=== PATIENT | male | born 1950 | race Caucasian/White ===

== ENCOUNTER 2017-07-28 14:27 | Inpatient (IN) | payer OTHER ==
[~2017-07-28] VITALS: Ht 175.3 cm; Wt 77.8 kg
[~2017-07-28 14:27] MED LIST: /ACYC20CA PO; /WARF5TA OR; /WARF5TA PO; ANTACHW5 PO; ARTHRITIS MED PO; CELEBREX PO; COZA25TA8 PO; FISH300C2 PO; GLUC500T3 PO; LOVA10TA OR; LOVA10TA PO; MULTI VITAMIN PO; PERC5TAB8 OR; PERC7.5T8 OR; ZEGERID PO; [UNRECOGNIZED DRUG - OTHER]; [UNRECOGNIZED DRUG - REMARK] PO; aleve PO; losartan PO; stool softner PO
[2017-07-28] MEDS ORDERED: [UNRECOGNIZED DRUG - CODE] SSP (14:40)
[2017-07-28] MEDS ORDERED: HYDR200T3 PO (14:40)
[2017-07-28] MEDS ORDERED: CELE1CAP9 PO (14:40)
[2017-07-28] MEDS ORDERED: PRED5TA PO (14:40)
[2017-07-28] MEDS ORDERED: OMEP20CA3 PO (14:40)
[2017-07-28] MEDS ORDERED: CHLO0.12 MT (14:40)
[2017-07-28] MEDS ORDERED: AMLO5TAB2 PO (14:40)
[2017-07-28] MEDS ORDERED: AMOX500C PO (14:40)
[2017-07-28] MEDS ORDERED: [UNRECOGNIZED DRUG - CODE] INJ (14:40)
[2017-07-28] MEDS ORDERED: ONDANSETRON 4MG/2ML VIAL (J2405) IV ONE ×2 (15:45→18:00)
[2017-07-28] MEDS ORDERED: NS 500 ML IV ONE (15:45)
[2017-07-28] MEDS ORDERED: fentaNYL 100 MCG/2 ML INJECTION (J3010) IV ONE ×2 (16:00→18:00)
[2017-07-28 16:27] LABS: BASO # 0.1 10^3/uL (0.0-0.2); BASO % 0.3 % (0.0-1.0); LYMPH # 1.3 10^3/uL (1.5-4.5); LYMPH % 5.3 % (24.0-44.0); MEAN CORPUSCULAR HEMOGLOBIN 38.1 pg (27.0-33.0); MEAN CORPUSCULAR HGB CONC 32.7 g/dl (32.0-36.5); MONO % 9.9 % (0.0-5.0); NEUTROPHILS # 19.4 10^3/uL (1.8-7.7); NEUTROPHILS % 81.5 % (36.0-66.0); RED CELL DISTRIBUTION WIDTH 14.2 % (11.5-14.5); WHITE BLOOD COUNT 23.7 10^3/uL (4.0-10.0)
[2017-07-28 16:50] LABS: ADD MORPHOLOGY? YES; MEAN CORPUSCULAR VOLUME 116.3 fl (80.0-96.0); MONO # 2.3 10^3/uL (0.0-0.8); PLATELET COUNT, AUTOMATED 45 10^3/uL (150-450)
[2017-07-28 17:34] LABS: ANION GAP 6 MEQ/L (8-16); BLOOD UREA NITROGEN 20 MG/DL (7-18); CALCIUM LEVEL 8.3 MG/DL (8.8-10.2); CARBON DIOXIDE LEVEL 28 MEQ/L (21-32); CHLORIDE LEVEL 105 MEQ/L (98-107); GLOMERULAR FILTRATION RATE > 60.0 (>49); GLUCOSE, FASTING 98 MG/DL (80-110); POTASSIUM SERUM 4.3 MEQ/L (3.5-5.1); SODIUM LEVEL 139 MEQ/L (136-145)
[2017-07-28] MEDS ORDERED: ISOVUE-370 76% 100ML VIAL (Q9967) As Ordered ONE (17:49)
[2017-07-28 18:10] LABS: ANISOCYTOSIS 2+
--- NOTE | 2017-07-28 18:30 | REPUSA ---
CT of the facial bones with contrast Clinical history: left mandibular mass. Technique: Multiple axial CT images were obtained through the facial bones and paranasal sinuses util izing 3 mm axial slices funny administration of nonionic intravenous contrast. Coronal and sagittal r econstructions were also obtained. Findings: There is an ill-defined low attenuation lesion in the anterior left mandibular region, with significant surrounding soft tissue inflammation and swelling. No discrete loculation is seen at thi s site. The visualized paranasal sinuses are clear, other than a mucus retention cyst in the inferior left maxillary sinus. The osteomeatal complexes are patent bilaterally. The nasal septum is midline. The visualized mastoid air cells are clear. The osseous structures do not demonstrate any acute abno rmalities. Impression: 1. Ill-defined low attenuation collection in the anterior left submandibular soft tissues with surrou nding inflammation and edema. This low attenuation fluid does not appear to be loculated. Differentia l diagnosis includes early developing abscess versus edema secondary to inflammation/cellulitis. Foll ow-up is recommended as clinically indicated. 2. Prominent subcentimeter left submandibular lymph nodes noted. 3. Mucus retention cyst in the inferior left maxillary sinus. 4. No acute osseous abnormality.
[2017-07-28] MEDS ORDERED: CLINDAMYCIN 150 MG CAP PO ONE (18:45)
[2017-07-28] MEDS ORDERED: MORPHINE 4 MG/ML 1ML SYRINGE IV ONE (18:45)
[2017-07-28] MEDS ORDERED: CLINDAMYCIN 300 MG in APPROPRIATE DILUENT 1 EA IV ONE (19:00)
[2017-07-28] MEDS ORDERED: CLINDAMYCIN 600 MG in APPROPRIATE DILUENT 1 EA IV ONE (20:00)
[2017-07-28] MEDS ORDERED: SF 51.1C EXT (21:38)
[2017-07-28] MEDS ORDERED: [UNRECOGNIZED DRUG - CODE] PO (21:38)
[2017-07-28] MEDS ORDERED: ADVI200T PO (21:38)
[2017-07-28] MEDS ORDERED: VITA1CAP40 PO (21:38)
[2017-07-28] MEDS ORDERED: AMPICILLIN SOD/SULBACTAM SOD 3 GM in D5W MINI-BAG PLUS 100 ML IV SCH (22:00)
[2017-07-28] MEDS: MORPHINE 2 MG/ML 1ML SYRINGE IV PRN (22:21)
[2017-07-28] MEDS ORDERED: VANCOMYCIN HCL 1,000 MG, VIAL MATE ADAPTER 1 EACH in D5W 250 ML IV ONE (23:00)
[2017-07-28 23:33] VITALS: BP 166/82
[2017-07-29] VITALS: BP 161/91
[2017-07-29] MEDS: NS 1,000 ML IV SCH ×3 (00:20→19:00)
[2017-07-29] MEDS: ONDANSETRON 4MG/2ML VIAL (J2405) IV PRN ×3 (00:20→19:42)
[2017-07-29] MEDS: MORPHINE 2 MG/ML 1ML SYRINGE IV PRN ×6 (00:21→19:31)
[2017-07-29] MEDS: AMPICILLIN SOD/SULBACTAM SOD 3 GM in D5W MINI-BAG PLUS 100 ML IV SCH ×5 (01:06→23:29)
--- NOTE | 2017-07-29 04:08 | PHACANCOPD ---
PHARMACY VANCOMYCIN DOSING Pt Demographics Demographics Patient Age:66 , Weight:77.800 , Gender: male Adjusted Body Weight Date: 07/29/17, Adjusted Body Weight: [73.54] Kg Vancomycin Vancomycin indication: ORAL ABCESS Vancomycin Target Ranges: 15-20 mcg/ml Vancomycin Load Y/N: No Load Dose Date Time Vancomycin Load Dose: Date: Time: Vancomycin Dose Date: 07/29/17. Current Vancomycin Dose: [1 GM Q12H@05] 1 GRAM@12MID Intermittent Dosing?: No Labs Labs Laboratory Tests 07/28/17 16:02 Red Blood Count 2.89 L, Mean Corpuscular Volume 116.3 H, Mean Corpuscular Hemoglobin 38.1 H, Mean Corpuscular Hemoglobin Concent 32.7, Red Cell Distribution Width 14.2, Neutrophils (%) (Auto) 81.5 H, Lymphocytes (%) (Auto) 5.3 L, Monocytes (%) (Auto) 9.9 H, Eosinophils (%) (Auto) 0.0, Basophils (%) ( Auto) 0.3, Neutrophils # (Auto) 19.4 H, Lymphocytes # (Auto) 1.3 L, Monocytes # (Auto) 2.3 H, Eosinophils # (Auto) 0.0, Basophils # (Auto) 0.1 07/28/17 17:00 Calcium Level 8.3 L Creatinine Clearance Date:07/29/17. Creatinine Clearance: [106].CALCULATED Pending Labs VANCOMYCIN TROUGH DUE 07/29@1600 Assessment and Plan Maintaining Current Dose?: Yes Reason for dose change: No Dose Change Pharmacist Note Pharmacist Note Date: 07/29/17. Pharmacist note:66 YOM Admitted w/oral abcess advancing despite outpatient oral amoxicillin tx, SCR=0.7 QQSZ=005,allergy=chlorpromazine.will treat with amp/sulbactam 3 gm iv [id number] and Vasncomycin per pharmacy consult. Vanco 1 gm @ 12mid,then 1 gram iv q12h to begin @0500.Will draw first trough prior to third dose today@1600.Will continue to follow levels and labs [facility] Jul 29, 2017 04:08
[2017-07-29] MEDS ORDERED: VANCOMYCIN HCL 1,000 MG, VIAL MATE ADAPTER 1 EACH in D5W 250 ML IV SCH (05:00)
[2017-07-29 05:53] VITALS: BP 159/87
[2017-07-29] MEDS ORDERED: HEPARIN SOD (PORCINE) 5000 UNITS/ML VIAL SC SCH (06:00)
[2017-07-29 06:36] LABS: MEAN CORPUSCULAR HEMOGLOBIN 37.6 pg (27.0-33.0); MEAN CORPUSCULAR HGB CONC 32.4 g/dl (32.0-36.5); RED CELL DISTRIBUTION WIDTH 14.4 % (11.5-14.5); WHITE BLOOD COUNT 17.6 10^3/uL (4.0-10.0)
[2017-07-29 06:44] LABS: MEAN CORPUSCULAR VOLUME 116.2 fl (80.0-96.0); PLATELET COUNT, AUTOMATED 52 10^3/uL (150-450)
[2017-07-29 06:46] LABS: INR 1.07
[2017-07-29 07:09] LABS: ALBUMIN 2.9 GM/DL (3.2-5.2); ALBUMIN/GLOBULIN RATIO 0.81 (1.00-1.93); ALKALINE PHOSPHATASE 82 U/L (45-117); ALT/SGPT 30 U/L (12-78); ANION GAP 6 MEQ/L (8-16); AST/SGOT 20 U/L (15-37); BILIRUBIN,TOTAL 0.4 MG/DL (0.2-1.0); BLOOD UREA NITROGEN 10 MG/DL (7-18); CALCIUM LEVEL 7.9 MG/DL (8.8-10.2); CARBON DIOXIDE LEVEL 27 MEQ/L (21-32); CHLORIDE LEVEL 102 MEQ/L (98-107); CREATININE FOR GFR 0.64 MG/DL (0.70-1.30); GLOMERULAR FILTRATION RATE > 60.0 (>49); GLUCOSE, FASTING 148 MG/DL (80-110); MAGNESIUM LEVEL 1.6 MG/DL (1.8-2.4); POTASSIUM SERUM 3.5 MEQ/L (3.5-5.1); SODIUM LEVEL 135 MEQ/L (136-145); TOTAL PROTEIN 6.5 GM/DL (6.4-8.2)
--- NOTE | 2017-07-29 07:53 | HPEPDOC ---
General Date of Admission Jul 28, 2017 at 21:37 Primary Care Physician: Edmond Ramirez MD Attending Physician: BERTA PEACE MD Chief Complaint The patient is a 66-year-old male admitted with a reason for visit of Secondary Malignancy Of Submandibular Lymph Nodes. Source: Patient Exam Limitations: No limitations Timing/Duration: Day(s) Severity: Severe Associated Symptoms: Denies Symptoms, Chest Pain, Cough, Diaphoresis History of Present Illness 66-year-old male, history of recent tooth extraction, presented with left mandibular swelling, pain, fever, chills, unable to swallow. The swelling is progressively getting worse, associated with low-grade temp. There is no discharge. Upon presentation to the emergency room. CT of the macula showed mandibular abscess and oral surgeon was contacted who recommended the patient to be taken to the OR in the morning. Home Medications Scheduled (Prevident Rinse) 0.2 % Nichole, 0.5 OZ SSP QHS, (Reported) (Celecoxib) 200 Mg Cap, 200 MG PO DAILY, (Reported) (Granix) 480 Mcg/0.8 Ml Inj, 480 MCG INJ ASDIRECTED, (Reported) USES ON MONDAYS AND THURSDAYS IN THE MORNING Amlodipine Besylate (Amlodipine Besylate) 5 Mg Tab, 5 MG PO DAILY, (Reported) Amoxicillin (Amoxicillin) 500 Mg Cap, 500 MG PO TID, (Reported) Chlorhexidine Gluconate (Chlorhexidine Gluconate) 480 Ml Soln, 15 ML MT ASDIRECTED, (Reported) Ergocalciferol (Vitamin D) 50,000 Unit Cap, 50,000 UNIT PO ASDIRECTED, (Reported ) TAKES ON MONDAYS IN THE MORNING Glucosamine Sulfate (Glucosamine/Chondroitin) 1 Tab Tab, 1 TAB PO DAILY, ( Reported) Hydroxychloroquine Sulfate (Hydroxychloroquine Sulfat) 200 Mg Tab, 400 MG PO DAILY, (Reported) Omeprazole (Omeprazole) 20 Mg Cap, 20 MG PO BID, (Reported) Prednisone (Prednisone) 5 Mg Tab, 10 MG PO DAILY, (Reported) Sodium Fluoride (Sf 5000 Plus) 1.1 % Cre, 1 DOSE EXT BID, (Reported) USES ON TEETH Scheduled PRN (Wal-Flu Severe Cold & Cou 20-10-650 mg) 1 Rickie Rickie, 1 RICKIE PO Q6H PRN for COLD, (Reported) Ibuprofen (Advil) 200 Mg Tab, 400 MG PO Q6H PRN for PAIN, (Reported) Allergies Coded Allergies: Chlorpromazine (Verified Allergy, Severe, 01/31/13) Past Medical History Medical History No past medical history Surgical History Tooth extraction Family History Significant Family History: No pertinent family hx Social History Alcohol: Denies Drugs: denies Recent Travel/Sick Contacts: Denies: Recent travel, Recent sick contacts Psychosocial History: No pertinent psych hx Review of Symptoms Constitutional: Reports: Chills, Denies: Fever, Night Sweats Eyes: Denies: Pain, Vision change ENT: Reports: Dysphagia, Other Symptoms (unable to open mouth, unable to swallow, difficulty speaking), Denies: Head Aches, Ear Pain Skin: Denies: Rash, Lesions, Breakdown Pulmonary: Denies: Dyspnea, Cough Cardiovascular: Denies: Chest Pain, Palpitations, Orthopnea, Paroxysmal Noc. Dyspnea, Lt Headedness Gastrointestinal: Denies: Nausea, Vomiting, Abdominal Pain, Diarrhea Genitourinary: Denies: Dysuria, Frequency, Incontinence, Retention Hematologic: Denies: Bruising, Bleeding Excessively Musculoskeletal: Denies: Neck Pain, Back Pain, Joint Pain, Muscle Pain, Spasms Neurological: Denies: Weakness, Numbness, Change in speech, Confusion Psych: Reports: Mood Normal, Denies: Depression, Memory Issues Physical Examination General Exam: Positive: Alert, Severe Distress Eye Exam: Positive: PERRLA, Conjunctiva & lids normal, EOMI, Negative: Sclera icteric ENT Exam: Positive: Atraumatic, Tongue Midline, Other ENT (left mandibular swelling, tender, painful movement of jaw, and erythema) Neck Exam: Positive: Supple, Negative: JVD, thyromegaly Chest Exam: Positive: Clear to auscultation, Normal air movement Heart Exam: Positive: Rate Normal, Regular Rhythm, Normal S1, Normal S2, Negative: Murmurs, Rubs Telemetry: Positive: No significant arrhythmia Abdomen Exam: Positive: Normal bowel sounds, Soft, Negative: Tenderness, Hepatospenomegaly Extremity Exam: Positive: Normal pulses, Negative: Clubbing, Cyanosis, Edema Skin Exam: Positive: Nl turgor and temperature, Negative: Breakdown, Lesion Neuro Exam: Positive: Normal Tone Vital Signs Vital Signs Date Time Temp Pulse Resp B/P (MAP) Pulse Ox O2 Delivery O2 Flow Rate FiO2 07/29/17 05:59 16 07/29/17 05:53 99.6 91 159/87 (111) 94 Room Air Laboratory Data Labs 24H Laboratory Tests 2 07/28/17 16:02: Immature Granulocyte % (Auto) 3.0H, White Blood Count 23.7H, Red Blood Count 2.89L, Hemoglobin 11.0L, Hematocrit 33.6L, Mean Corpuscular Volume 116.3H, Mean Corpuscular Hemoglobin 38.1H, Mean Corpuscular Hemoglobin Concent 32.7, Red Cell Distribution Width 14.2, Platelet Count 45L, Neutrophils (%) (Auto) 81.5H, Lymphocytes (%) (Auto) 5.3L, Monocytes (%) (Auto) 9.9H, Eosinophils (%) (Auto) 0.0, Basophils (%) (Auto) 0.3, Neutrophils # (Auto) 19.4H, Lymphocytes # (Auto) 1.3L, Monocytes # (Auto) 2.3H, Eosinophils # (Auto) 0.0, Basophils # (Auto) 0.1 , Immature Granulocyte # (Auto) 0.7H, Nucleated Red Blood Cells % (auto) 0.0, Platelet Estimate MARKED DECREASE, Anisocytosis 2+, Macrocytosis 2+ 07/28/17 17:00: Anion Gap 6L, Glomerular Filtration Rate > 60.0, Blood Urea Nitrogen 20H, Creatinine 0.70, Sodium Level 139, Potassium Level 4.3, Chloride Level 105, Carbon Dioxide Level 28, Calcium Level 8.3L 07/29/17 06:22: Anion Gap 6L, Glomerular Filtration Rate > 60.0, Blood Urea Nitrogen 10, Creatinine 0.64L, Sodium Level 135L, Potassium Level 3.5, Chloride Level 102, Carbon Dioxide Level 27, Calcium Level 7.9L, Prothrombin Time 14.1, Prothromb Time International Ratio 1.07, Aspartate Amino Transf (AST/SGOT) 20, Alanine Aminotransferase (ALT/SGPT) 30, Alkaline Phosphatase 82, Total Bilirubin 0.4, Total Protein 6.5, Albumin 2.9L, Magnesium Level 1.6L, Albumin/Globulin Ratio 0.81L CBC/BMP Laboratory Tests 07/28/17 16:02 Red Blood Count 2.89 L, Mean Corpuscular Volume 116.3 H, Mean Corpuscular Hemoglobin 38.1 H, Mean Corpuscular Hemoglobin Concent 32.7, Red Cell Distribution Width 14.2, Neutrophils (%) (Auto) 81.5 H, Lymphocytes (%) (Auto) 5.3 L, Monocytes (%) (Auto) 9.9 H, Eosinophils (%) (Auto) 0.0, Basophils (%) ( Auto) 0.3, Neutrophils # (Auto) 19.4 H, Lymphocytes # (Auto) 1.3 L, Monocytes # (Auto) 2.3 H, Eosinophils # (Auto) 0.0, Basophils # (Auto) 0.1 07/28/17 17:00 Calcium Level 8.3 L 07/29/17 06:22 Red Blood Count 2.71 L, Mean Corpuscular Volume 116.2 H, Mean Corpuscular Hemoglobin 37.6 H, Mean Corpuscular Hemoglobin Concent 32.4, Red Cell Distribution Width 14.4, Calcium Level 7.9 L, Aspartate Amino Transf (AST/SGOT) 20, Alanine Aminotransferase (ALT/SGPT) 30, Alkaline Phosphatase 82, Total Bilirubin 0.4, Total Protein 6.5, Albumin 2.9 L Assessment/Plan 76-year-old male, history of recent tooth extraction, presented with left mandibular abscess Plan / VTE VTE Prophylaxis Ordered?: Yes Plan Plan Mandibular abscess, oral surgeon was contacted and start the patient on IV Unasyn and vancomycin. WBC was 23.7. Patient is scheduled for OR in the morning. Patient received clindamycin in the ER. Disposition Patient will likely be discharged home after the drainage in the OR with the oral antibiotics to be followed for 7-10 days and follow up in dental clinic. IVF: Initiate Diet: Make NPO Activity: Continue Current Diagnostics: Repeat Labs in AM Anticipated Discharge: Home CASIE SANDS MD Jul 29, 2017 07:53
[2017-07-29] MEDS ORDERED: ACETAMINOPHEN 650 MG SUPP PR PRN (11:30)
[2017-07-29] MEDS ORDERED: MAG SULF 1GM/100ML (MAG RUN) 1 GM in APPROPRIATE DILUENT 1 EA IV ONE (12:00)
[2017-07-29 14:00] VITALS: BP 160/78
[2017-07-29 14:29] LABS: MEAN CORPUSCULAR HEMOGLOBIN 37.7 pg (27.0-33.0); MEAN CORPUSCULAR HGB CONC 32.5 g/dl (32.0-36.5); RED CELL DISTRIBUTION WIDTH 14.3 % (11.5-14.5); WHITE BLOOD COUNT 16.9 10^3/uL (4.0-10.0)
[2017-07-29 14:38] LABS: INR 1.11
[2017-07-29 14:52] LABS: ADD MANUAL DIFFER YES; ADD MORPHOLOGY? YES; DIFF SLIDE NUMBER 258; PLATELET COUNT, AUTOMATED 99 10^3/uL (150-450)
[2017-07-29 15:08] LABS: ANISOCYTOSIS 2+
--- NOTE | 2017-07-29 15:21 | IPNPDOC ---
Text Note Date of Service The patient was seen on 07/29/17. NOTE Subjective: Patient states he has increased swelling of the left submandibular region. He has no dyspnea. No chest pain. He is able to clear secretions at this time. Objective: Vitals: (see below) General: No acute distress, laying comfortably in bed. HEENT: Moist mucous membranes. Significant swelling and induration of the left submandibular region. No erythema. Airway is patent. No stridor Neck: No JVD or lymphadenopathy Cardiac: RRR, No murmurs Pulm: Diminished breath sounds at the bases b/l. No wheezing, rhonchi. Abd: NT/ND + BS Ext: No edema or cyanosis Labs (see below) Images: CT maxillofacial 07/28/17 Impression: 1. Ill-defined low attenuation collection in the anterior left submandibular soft tissues with surrounding inflammation and edema. This low attenuation fluid does not appear to be loculated. Differential diagnosis includes early developing abscess versus edema secondary to inflammation/cellulitis. Follow-up is recommended as clinically indicated. 2. Prominent subcentimeter left submandibular lymph nodes noted. 3. Mucus retention cyst in the inferior left maxillary sinus. 4. No acute osseous abnormality. Assessment/Plan 1. Left submandibular abscess status post tooth extraction on Thursday. Patient noted increased swelling, has followed up with his dentist who recommended that he come to the emergency department. The patient did have a CAT scan of the maxillofacial (see above). Since admission, the patient has been on Unasyn as well as vancomycin. His leukocytosis is mildly improved. Does have elevated CRP/ESR. His airway is patent. He has no dyspnea. Dr. Gomez is on consult and the patient will be going to the OR today. He is a high risk for prolonged intubation after the OR given significant amount of swelling noted. 2. 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 Gracia, with plan to start radiation and chemotherapy soon. He was supposed to have a port placed as well as a PEG tube as the radiation will significantly impact his ability to swallow. This will be delayed until after this acute episode has resolved. 3. History of neutropenia, receiving Neupogen twice a week 4. Thrombocytopenia- likely multifactorial secondary to his underlying malignancy, lupus, as well as now acute infection. He has been transfused 4 units of platelets. His platelets are now 99 and the patient will be going to the OR as the goal was to have his platelets above 80. 5. History of hyperlipidemia 6. History of GERD DVT prophy: SCDs. Heparin subcutaneous has been held for now as the patient will be going to the OR. Prognosis is guarded. Patient is full code. VS,Fishbone, I+O VS, Fishbone, I+O Laboratory Tests 07/28/17 16:02 Red Blood Count 2.89 L, Mean Corpuscular Volume 116.3 H, Mean Corpuscular Hemoglobin 38.1 H, Mean Corpuscular Hemoglobin Concent 32.7, Red Cell Distribution Width 14.2, Neutrophils (%) (Auto) 81.5 H, Lymphocytes (%) (Auto) 5.3 L, Monocytes (%) (Auto) 9.9 H, Eosinophils (%) (Auto) 0.0, Basophils (%) ( Auto) 0.3, Neutrophils # (Auto) 19.4 H, Lymphocytes # (Auto) 1.3 L, Monocytes # (Auto) 2.3 H, Eosinophils # (Auto) 0.0, Basophils # (Auto) 0.1 07/28/17 17:00 Calcium Level 8.3 L 07/29/17 06:22 Red Blood Count 2.71 L, Mean Corpuscular Volume 116.2 H, Mean Corpuscular Hemoglobin 37.6 H, Mean Corpuscular Hemoglobin Concent 32.4, Red Cell Distribution Width 14.4, Calcium Level 7.9 L, Aspartate Amino Transf (AST/SGOT) 20, Alanine Aminotransferase (ALT/SGPT) 30, Alkaline Phosphatase 82, Total Bilirubin 0.4, Total Protein 6.5, Albumin 2.9 L 07/29/17 14:13 Red Blood Count 2.44 L, Mean Corpuscular Volume 116.0 H, Mean Corpuscular Hemoglobin 37.7 H, Mean Corpuscular Hemoglobin Concent 32.5, Red Cell Distribution Width 14.3, Monocytes # (Auto) Vital Signs Date Time Temp Pulse Resp B/P (MAP) Pulse Ox O2 Delivery O2 Flow Rate FiO2 07/29/17 13:38 18 96 Nasal Cannula 2.0 07/29/17 05:53 99.6 91 159/87 (111) I&O- Last 24 Hours up to 6 AM 07/30/17 05:59 Intake Total 270 ml Output Total 225 ml Balance 45 ml BERTA PEACE MD Jul 29, 2017 15:20
--- NOTE | 2017-07-29 15:31 | PHACANCOPD ---
PHARMACY VANCOMYCIN DOSING Pt Demographics Demographics Patient Age:66 , Weight:77.800 , Gender: male Adjusted Body Weight Date: 07/29/17, Adjusted Body Weight: [73.54] Kg Vancomycin Vancomycin indication: ORAL ABCESS Vancomycin Target Ranges: 15-20 mcg/ml Vancomycin Load Y/N: No Load Dose Date Time Vancomycin Load Dose: Date: Time: Vancomycin Dose Date: 07/29/17. Current Vancomycin Dose: [1 GM Q12H@05] 1 GRAM@12MID Intermittent Dosing?: No Labs Micro Microbiology 07/29/17 Blood Culture, Received Pending 07/29/17 Blood Culture, Received Pending Creatinine Clearance Date:07/29/17. Creatinine Clearance: [106].CALCULATED Pending Labs VANCOMYCIN TROUGH DUE 07/29@1600 Assessment and Plan Maintaining Current Dose?: No Reason for dose change: Trough too low Pharmacist Note Pharmacist Note 07/29/17: Trough prior to 3rd dose today resulted at 8.1mcg/ml. I will increase the vancomycin regimen from 1g IV Q12H to 1g IV Q8H. A follow-up trough has been scheduled tomorrow, 07/30/17, @1600. We will continue to monitor and make further dose adjustments if needed. Date: 07/29/17. Pharmacist note:66 YOM Admitted w/oral abcess advancing despite outpatient oral amoxicillin tx, SCR=0.7 MVOF=301,allergy=chlorpromazine.will treat with amp/sulbactam 3 gm iv [id number] and Vasncomycin per pharmacy consult. Vanco 1 gm @ 12mid,then 1 gram iv q12h to begin @0500.Will draw first trough prior to third dose today@1600.Will continue to follow levels and labs [facility] Jul 29, 2017 15:31
[2017-07-29] MEDS: VANCOMYCIN HCL 1,000 MG, VIAL MATE ADAPTER 1 EACH in D5W 250 ML IV SCH (16:26)
[2017-07-29 18:00] VITALS: BP 150/77
[2017-07-29 19:45] VITALS: BP 143/74
[2017-07-29] MEDS ORDERED: LIDOCAINE 2% W/ EPINEPHRINE 1.7 ML DENTAL INJ As Ordered ONE (21:59)
[2017-07-29] MEDS ORDERED: fentaNYL 100 MCG/2 ML INJECTION (J3010) As Ordered ONE ×2 (22:10→23:34)
[2017-07-29] MEDS ORDERED: MIDAZOLAM INJ 2 MG/2 ML VIAL (J2250) As Ordered ONE (22:10)
[2017-07-29] MEDS ORDERED: ONDANSETRON 4MG/2ML VIAL (J2405) As Ordered ONE (22:10)
[2017-07-29] MEDS ORDERED: ROCURONIUM BROMIDE 50 MG/5 ML VIAL/SYRINGE As Ordered ONE (22:10)
[2017-07-29] MEDS ORDERED: LIDOCAINE 2% INJ 100 MG/5 ML SDV (FOR ANES.) As Ordered ONE (22:10)
[2017-07-29] MEDS ORDERED: dexameTHASONE 4 MG/ML 1ML VIAL (J1100) As Ordered ONE (22:10)
[2017-07-29] MEDS ORDERED: PROPOFOL 200 MG/20 ML VIAL As Ordered ONE (22:10)
[2017-07-29] MEDS ORDERED: PHENYLephrine HCL 500 MCG/5 ML (100MCG/ML) SYRINGE (J2370) As Ordered ONE (22:11)
[2017-07-29] MEDS ORDERED: GLYCOPYRROLATE INJ 0.2 MG/ML 2 ML VIAL As Ordered ONE (22:16)
[2017-07-29] MEDS ORDERED: NEOSTIGMINE 10 MG/10 ML VIAL (J2710) As Ordered ONE (22:16)
[2017-07-29] MEDS ORDERED: UNASYN 1.5 GM VIAL As Ordered ONE (23:18)
[2017-07-29] MEDS ORDERED: ONDANSETRON 4MG/2ML VIAL (J2405) IV PRN (23:30)
[2017-07-29] MEDS ORDERED: LR 1,000 ML IV SCH (23:30)
[2017-07-29] MEDS ORDERED: fentaNYL 100 MCG/2 ML INJECTION (J3010) IV PRN (23:30)
[2017-07-30] VITALS (10 sets, daily range): BP systolic 115–163; BP diastolic 57–86
[2017-07-30] MEDS: VANCOMYCIN HCL 1,000 MG, VIAL MATE ADAPTER 1 EACH in D5W 250 ML IV SCH ×3 (01:04→17:05)
[2017-07-30] MEDS: AMPICILLIN SOD/SULBACTAM SOD 3 GM in D5W MINI-BAG PLUS 100 ML IV SCH ×3 (05:50→19:20)
[2017-07-30] MEDS: NS 1,000 ML IV SCH ×2 (05:50→13:40)
[2017-07-30 06:46] LABS: MEAN CORPUSCULAR HEMOGLOBIN 37.6 pg (27.0-33.0); MEAN CORPUSCULAR HGB CONC 32.5 g/dl (32.0-36.5); PLATELET COUNT, AUTOMATED 78 10^3/uL (150-450); RED CELL DISTRIBUTION WIDTH 14.1 % (11.5-14.5); WHITE BLOOD COUNT 7.8 10^3/uL (4.0-10.0)
[2017-07-30 06:47] LABS: ADD MANUAL DIFFER YES; DIFF SLIDE NUMBER 88
[2017-07-30 06:57] LABS: INR 1.08
[2017-07-30 07:01] LABS: ANION GAP 9 MEQ/L (8-16); BLOOD UREA NITROGEN 8 MG/DL (7-18); CARBON DIOXIDE LEVEL 28 MEQ/L (21-32); CHLORIDE LEVEL 101 MEQ/L (98-107); CREATININE FOR GFR 0.56 MG/DL (0.70-1.30); GLOMERULAR FILTRATION RATE > 60.0 (>49); GLUCOSE, FASTING 172 MG/DL (80-110); POTASSIUM SERUM 3.8 MEQ/L (3.5-5.1); SODIUM LEVEL 138 MEQ/L (136-145)
[2017-07-30 07:26] LABS: ERYTHROCYTE SEDIMENTATION RATE 80 mm/hr (0-20)
[2017-07-30 07:36] LABS: HYPOCHROMASIA 1+
--- NOTE | 2017-07-30 07:52 | RO ---
DATE OF PROCEDURE: 07/29/2017 PREOPERATIVE DIAGNOSIS: Perimandibular abscess, left side. POSTOPERATIVE DIAGNOSIS: Perimandibular abscess, left side. PROCEDURE: Incision and drainage left perimandibular abscess. SURGEON: Randy James DDS [employer]NAG[employer]ETING: ANESTHESIA: Nasoendotracheal general. DESCRIPTION OF PROCEDURE: After induction of adequate nasoendotracheal general anesthesia, the patient was prepped and draped in the usual manner for an oral surgical procedure. The mouth and oropharynx were suctioned free of all secretions and a moist gauze throat pack was placed into the oropharynx, occluding the pharynx and lower airway. At this time, approximately 3 mL of 2% lidocaine solution containing 1:100,000 epinephrine was injected into the left mandibular mucofacial fold. An incision was then initiated in the retromolar area in a hockey-stick fashion then extended through the gingival sulcus of teeth 18, 20, 21, 22 and 23. An anterior vertical release into the mucofacial fold was made. A full-thickness mucoperiosteal flap was developed exposing the facial cortex of the mandible. Subperiosteal dissection was extended inferiorly and completely to and around the inferior border of the mandible. A small amount of purulent exudate was evacuated. The site was thoroughly irrigated and evacuated and then the wound reinspected. A small area of tissue necrosis was noted in the buccal mucosa adjacent to bicuspid teeth. Exploration of this area revealed a small submucosal pocket that extended superior to the periosteum into the buccal area. Probing with a blunt probe released an additional small amount, approximately 1/2 mL of purulent exudate. This wound was also thoroughly irrigated and evacuated. A one-quarter inch Tyree drain was placed into the buccal mucosal pocket and sutured in place with two #3-0 silk sutures. Both surgical sites were then thoroughly irrigated and evacuated. The gingiva was recoapted with #3-0 chromic gut sutures. This concluded the procedure. The patient tolerated the procedure well. He was breathing spontaneously, extubated and taken to the recovery room in stable condition.
[2017-07-30] MEDS ORDERED: dexameTHASONE 4 MG/ML 1ML VIAL (J1100) IV ONE (10:30)
--- NOTE | 2017-07-30 15:18 | IPNPDOC ---
Text Note Date of Service The patient was seen on 07/30/17. NOTE Subjective: Patient went to the OR yesterday. States swelling of the left submandibular region has decreased. He has no dyspnea. No chest pain. He is able to clear secretions at this time. Objective: Vitals: (see below) General: No acute distress, laying comfortably in bed. HEENT: Moist mucous membranes. Swelling and induration of the left submandibular region has decreased. Abscess was drained with drain in place. No erythema. Airway is patent. No stridor Neck: No JVD or lymphadenopathy Cardiac: RRR, No murmurs Pulm: Diminished breath sounds at the bases b/l. No wheezing, rhonchi. Abd: NT/ND + BS Ext: No edema or cyanosis Labs (see below) Images: CT maxillofacial 07/28/17 Impression: 1. Ill-defined low attenuation collection in the anterior left submandibular soft tissues with surrounding inflammation and edema. This low attenuation fluid does not appear to be loculated. Differential diagnosis includes early developing abscess versus edema secondary to inflammation/cellulitis. Follow-up is recommended as clinically indicated. 2. Prominent subcentimeter left submandibular lymph nodes noted. 3. Mucus retention cyst in the inferior left maxillary sinus. 4. No acute osseous abnormality. Assessment/Plan 1. Left submandibular abscess s/p drainage 07/29/17. Had tooth extraction on . Patient noted increased swelling, has followed up with his dentist who recommended that he come to the emergency department. The patient did have a CAT scan of the maxillofacial (see above). Since admission, the patient has been on Unasyn as well as vancomycin. His leukocytosis is mildly improved. Does have elevated CRP/ESR. His airway is patent. He has no dyspnea. Appreciate oral surg input. 2. 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 Gracia, with plan to start radiation and chemotherapy soon. He was supposed to have a port placed as well as a PEG tube as the radiation will significantly impact his ability to swallow. This will be delayed until after this acute episode has resolved. 3. History of neutropenia, receiving Neupogen twice a week 4. Thrombocytopenia- likely multifactorial secondary to his underlying malignancy, lupus, as well as now acute infection. He has been transfused 4 units of platelets. His platelets are now 99 and the patient will be going to the OR as the goal was to have his platelets above 80. 5. History of hyperlipidemia 6. History of GERD DVT prophy: SCDs. Heparin subcutaneous has been held for now as the patient will be going to the OR. Prognosis is guarded. Patient is full code. VS,Fishbone, I+O VS, Fishbone, I+O Laboratory Tests 07/30/17 06:20 Red Blood Count 2.63 L, Mean Corpuscular Volume 116.0 H, Mean Corpuscular Hemoglobin 37.6 H, Mean Corpuscular Hemoglobin Concent 32.5, Red Cell Distribution Width 14.1, Calcium Level 8.0 L Vital Signs Date Time Temp Pulse Resp B/P (MAP) Pulse Ox O2 Delivery O2 Flow Rate FiO2 07/30/17 12:00 99.4 82 18 139/73 (95) 94 Room Air 07/30/17 04:05 2.0 I&O- Last 24 Hours up to 6 AM 07/31/17 05:59 Intake Total 490 ml Output Total 550 ml Balance -60 ml BERTA PEACE MD Jul 30, 2017 15:18
[2017-07-30] MEDS: ACETAMINOPHEN 325 MG TAB PO PRN (16:51)
--- NOTE | 2017-07-30 17:16 | PHACANCOPD ---
PHARMACY VANCOMYCIN DOSING Pt Demographics Demographics Patient Age:66 , Weight:77.800 , Gender: male Adjusted Body Weight Date: 07/29/17, Adjusted Body Weight: [73.54] Kg Events Past 24 Hours Events Past 24 Hours: NO: Dialysis, Diuretic Therapy, Change in CrCl, Fever, Elevation in WBC, Pending Diagnostics, Pending Procedures, Other Vancomycin Vancomycin indication: ORAL ABCESS Vancomycin Target Ranges: 15-20 mcg/ml Vancomycin Load Y/N: No Load Dose Date Time Vancomycin Load Dose: Date: Time: Vancomycin Dose Date: 07/29/17. Current Vancomycin Dose: [1 GM Q12H@05] 1 GRAM@12MID Intermittent Dosing?: No Labs Labs Item Value Date Time Vancomycin Level Trough 13.2 UG/ML 07/30/17 1608 Creatinine 0.64 MG/DL L 07/29/17 0622 Creatinine 0.56 MG/DL L 07/30/17 0620 White Blood Count 7.8 10^3/uL 07/30/17 0620 White Blood Count 16.9 10^3/uL H 07/29/17 1413 Vital Signs Label Value Date Time Patient Temperature 98.9 degrees F 07/30/17 0405 Temperature Source Temporal 07/30/17 0405 Patient Temperature 98.7 degrees F 07/30/17 0800 Temperature Source Temporal 07/30/17 0800 Patient Temperature 99.4 degrees F 07/30/17 1200 Temperature Source Temporal 07/30/17 1200 Micro Microbiology 07/29/17 Blood Culture - Preliminary, Resulted No growth after 24 hours . All specim... 07/29/17 Blood Culture - Preliminary, Resulted No growth after 24 hours . All specim... Creatinine Clearance Date:07/29/17. Creatinine Clearance: [106].CALCULATED Pending Labs VANCOMYCIN TROUGH DUE 07/29@1600 Assessment and Plan Maintaining Current Dose?: Yes Reason for dose change: No Dose Change Pharmacist Note Pharmacist Note 07/30/17: Trough drawn at 1608 prior to dose at 1700 came back at 13.2mcg/ml. We are treating an oral abscess so this trough is therapeutic. We will continue Vanco IV 1G Q8H and will continue to monitor patient and adjust dose if needed. 07/29/17: Trough prior to 3rd dose today resulted at 8.1mcg/ml. I will increase the vancomycin regimen from 1g IV Q12H to 1g IV Q8H. A follow-up trough has been scheduled tomorrow, 07/30/17, @1600. We will continue to monitor and make further dose adjustments if needed. Date: 07/29/17. Pharmacist note:66 YOM Admitted w/oral abcess advancing despite outpatient oral amoxicillin tx, SCR=0.7 ISLL=129,allergy=chlorpromazine.will treat with amp/sulbactam 3 gm iv [id number] and Vasncomycin per pharmacy consult. Vanco 1 gm @ 12mid,then 1 gram iv q12h to begin @0500.Will draw first trough prior to third dose today@1600.Will continue to follow levels and labs MARILYN RASHID PHARMACY Jul 30, 2017 17:16
[2017-07-30] MEDS: LORATADINE 10 MG TAB PO SCH (20:29)
[2017-07-30] MEDS: CHLORHEXIDINE ORAL RINSE 0.12%/15ML 120ML BOTTLE SSP SCH (20:29)
[2017-07-31] MEDS: NS 1,000 ML IV SCH ×2 (00:22→11:12)
[2017-07-31] MEDS: AMPICILLIN SOD/SULBACTAM SOD 3 GM in D5W MINI-BAG PLUS 100 ML IV SCH ×5 (00:22→23:11)
[2017-07-31] MEDS: VANCOMYCIN HCL 1,000 MG, VIAL MATE ADAPTER 1 EACH in D5W 250 ML IV SCH ×3 (01:05→17:14)
[2017-07-31 02:00] VITALS: BP 138/66
[2017-07-31 06:00] VITALS: BP 140/71
[2017-07-31] MEDS: ACETAMINOPHEN 325 MG TAB PO PRN ×2 (06:37→12:36)
[2017-07-31 06:59] LABS: MEAN CORPUSCULAR HEMOGLOBIN 37.3 pg (27.0-33.0); MEAN CORPUSCULAR HGB CONC 31.9 g/dl (32.0-36.5); RED CELL DISTRIBUTION WIDTH 13.8 % (11.5-14.5)
[2017-07-31 07:02] LABS: MEAN CORPUSCULAR VOLUME 117.2 fl (80.0-96.0); PLATELET COUNT, AUTOMATED 88 10^3/uL (150-450); WHITE BLOOD COUNT 85.5 10^3/uL (4.0-10.0)
[2017-07-31 07:04] LABS: ADD MANUAL DIFFER YES; DIFF SLIDE NUMBER 55
[2017-07-31 07:12] LABS: INR 1.12
[2017-07-31 07:32] LABS: ANION GAP 5 MEQ/L (8-16); BLOOD UREA NITROGEN 9 MG/DL (7-18); CALCIUM LEVEL 8.2 MG/DL (8.8-10.2); CARBON DIOXIDE LEVEL 32 MEQ/L (21-32); CHLORIDE LEVEL 104 MEQ/L (98-107); CREATININE FOR GFR 0.59 MG/DL (0.70-1.30); GLOMERULAR FILTRATION RATE > 60.0 (>49); GLUCOSE, FASTING 111 MG/DL (80-110); POTASSIUM SERUM 3.3 MEQ/L (3.5-5.1); SODIUM LEVEL 141 MEQ/L (136-145)
[2017-07-31] MEDS ORDERED: POTASSIUM CHLORIDE 10 MEQ SR TABLET PO ONE (08:00)
[2017-07-31 08:15] LABS: IMMATURE PLATELET FRACTION % 23.1 % (0.0-10.9)
[2017-07-31 08:22] LABS: BANDS 7 % (< 11); BLAST CELLS 2 % (0-0)
[2017-07-31 08:25] LABS: HYPOCHROMASIA 1+; POLYCHROMASIA 1+
[2017-07-31] MEDS: CHLORHEXIDINE ORAL RINSE 0.12%/15ML 120ML BOTTLE SSP SCH ×3 (08:42→20:22)
[2017-07-31 09:15] LABS: REASON FOR REVIEW COMPREHENSIVE REVIEW
[2017-07-31 09:34] LABS: ERYTHROCYTE SEDIMENTATION RATE 60 mm/hr (0-20)
[2017-07-31 10:00] VITALS: BP 151/65
[2017-07-31] MEDS ORDERED: ACETAMINOPHEN TAB 650MG DOSE (2X325MG) PO PRN (14:42)
[2017-07-31 14:45] VITALS: BP 176/82
[2017-07-31] MEDS: MORPHINE 2 MG/ML 1ML SYRINGE IV PRN ×4 (15:10→23:11)
[2017-07-31 16:00] VITALS: BP 170/84
--- NOTE | 2017-07-31 16:15 | IPNPDOC ---
Text Note Date of Service The patient was seen on 07/31/17. NOTE Subjective: Swelling of the left submandibular region has continued to decreased. Drain taken out today. Feels well. has given the patient Neupogen last tonight. Objective: Vitals: (see below) General: No acute distress, laying comfortably in bed. HEENT: Moist mucous membranes. Swelling and induration of the left submandibular region has decreased. Abscess was drained taken out today. No erythema. Airway is patent. No stridor Neck: No JVD or lymphadenopathy Cardiac: RRR, No murmurs Pulm: Diminished breath sounds at the bases b/l. No wheezing, rhonchi. Abd: NT/ND + BS Ext: No edema or cyanosis Labs (see below) Images: CT maxillofacial 07/28/17 Impression: 1. Ill-defined low attenuation collection in the anterior left submandibular soft tissues with surrounding inflammation and edema. This low attenuation fluid does not appear to be loculated. Differential diagnosis includes early developing abscess versus edema secondary to inflammation/cellulitis. Follow-up is recommended as clinically indicated. 2. Prominent subcentimeter left submandibular lymph nodes noted. 3. Mucus retention cyst in the inferior left maxillary sinus. 4. No acute osseous abnormality. Assessment/Plan 1. Left submandibular abscess s/p drainage 07/29/17. Had tooth extraction on . Patient noted increased swelling, has followed up with his dentist who recommended that he come to the emergency department. The patient did have a CAT scan of the maxillofacial (see above). Since admission, the patient has been on Unasyn as well as vancomycin. CRP improving. His airway is patent. He has no dyspnea. Appreciate oral surg input. 2. Leukocytosis - likely 2/2 Neupogen, Decadron and underlying infection. Afebrile. Hold off on Neupogen for now. 3. 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 Gracia, with plan to start radiation and chemotherapy soon. He was supposed to have a port placed as well as a PEG tube as the radiation will significantly impact his ability to swallow. This will be delayed until after this acute episode has resolved. 4. Thrombocytopenia- likely multifactorial secondary to his underlying malignancy, lupus, as well as now acute infection. He has been transfused 4 units of platelets. His platelets are now 99 and the patient will be going to the OR as the goal was to have his platelets above 80. 5. History of hyperlipidemia 6. History of GERD 7. History of neutropenia, receiving Neupogen twice a week DVT prophy: SCDs.OOB/ambulate Prognosis is guarded. Patient is full code. VS,Fishbone, I+O VS, Fishbone, I+O Laboratory Tests 07/31/17 06:27 Red Blood Count 2.33 L, Mean Corpuscular Volume 117.2 H, Mean Corpuscular Hemoglobin 37.3 H, Mean Corpuscular Hemoglobin Concent 31.9 L, Red Cell Distribution Width 13.8, Neutrophils # (Auto) , Monocytes # (Auto) , Calcium Level 8.2 L Vital Signs Date Time Temp Pulse Resp B/P (MAP) Pulse Ox O2 Delivery O2 Flow Rate FiO2 07/31/17 15:30 18 07/31/17 14:45 98.0 75 176/82 (113) 96 Room Air 07/30/17 04:05 2.0 I&O- Last 24 Hours up to 6 AM 08/01/17 06:00 Intake Total 1170 ml Output Total 2140 ml Balance -970 ml BERTA PEACE MD Jul 31, 2017 16:15
[2017-07-31] MEDS: amLODIPine 5 MG TAB PO SCH (18:17)
[2017-07-31 20:00] VITALS: BP 160/70
[2017-07-31] MEDS: LORATADINE 10 MG TAB PO SCH (20:22)
[2017-07-31] MEDS: OMEPRAZOLE 20 MG CAP PO SCH (20:22)
[2017-07-31] MEDS: IBUPROFEN 400 MG TAB PO PRN (20:22)
[2017-07-31] MEDS: ONDANSETRON 4MG/2ML VIAL (J2405) IV PRN (20:29)
[2017-08-01] VITALS: BP 158/78
[2017-08-01] MEDS: VANCOMYCIN HCL 1,000 MG, VIAL MATE ADAPTER 1 EACH in D5W 250 ML IV SCH ×2 (00:34→08:54)
[2017-08-01] MEDS: NS 1,000 ML IV SCH ×3 (00:47→15:37)
[2017-08-01] MEDS: MORPHINE 2 MG/ML 1ML SYRINGE IV PRN ×3 (02:26→08:18)
[2017-08-01] MEDS: IBUPROFEN 400 MG TAB PO PRN (02:27)
[2017-08-01 04:00] VITALS: BP 124/68
[2017-08-01] MEDS: AMPICILLIN SOD/SULBACTAM SOD 3 GM in D5W MINI-BAG PLUS 100 ML IV SCH ×3 (05:37→17:20)
[2017-08-01 07:04] LABS: MEAN CORPUSCULAR HEMOGLOBIN 37.8 pg (27.0-33.0); MEAN CORPUSCULAR HGB CONC 32.3 g/dl (32.0-36.5); RED CELL DISTRIBUTION WIDTH 13.9 % (11.5-14.5); WHITE BLOOD COUNT 14.1 10^3/uL (4.0-10.0)
[2017-08-01 07:05] LABS: MEAN CORPUSCULAR VOLUME 117.1 fl (80.0-96.0)
[2017-08-01 07:06] LABS: PLATELET COUNT, AUTOMATED 96 10^3/uL (150-450)
[2017-08-01 07:07] LABS: ADD MANUAL DIFFER YES; ADD MORPHOLOGY? YES; DIFF SLIDE NUMBER 36
[2017-08-01 07:10] LABS: INR 1.07
[2017-08-01 07:22] LABS: ANION GAP 8 MEQ/L (8-16); BLOOD UREA NITROGEN 6 MG/DL (7-18); CALCIUM LEVEL 7.8 MG/DL (8.8-10.2); CARBON DIOXIDE LEVEL 29 MEQ/L (21-32); CHLORIDE LEVEL 101 MEQ/L (98-107); CREATININE FOR GFR 0.51 MG/DL (0.70-1.30); GLOMERULAR FILTRATION RATE > 60.0 (>49); GLUCOSE, FASTING 131 MG/DL (80-110); POTASSIUM SERUM 3.3 MEQ/L (3.5-5.1); SODIUM LEVEL 138 MEQ/L (136-145)
[2017-08-01 07:35] LABS: ERYTHROCYTE SEDIMENTATION RATE 65 mm/hr (0-20)
[2017-08-01 07:45] LABS: ANISOCYTOSIS 2+; BANDS 4 % (< 11); BLAST CELLS 1 % (0-0)
[2017-08-01 08:00] VITALS: BP 172/84
[2017-08-01] MEDS ORDERED: POTASSIUM CHLORIDE 10 MEQ SR TABLET PO ONE (08:00)
[2017-08-01] MEDS: OMEPRAZOLE 20 MG CAP PO SCH (08:19)
[2017-08-01] MEDS: amLODIPine 5 MG TAB PO SCH (08:19)
[2017-08-01] MEDS: CHLORHEXIDINE ORAL RINSE 0.12%/15ML 120ML BOTTLE SSP SCH ×2 (08:20→15:51)
[2017-08-01] MEDS ORDERED: INFLUENZA VIRUS VACCINE HIGH DOSE 0.5 ML SYRINGE (90662) IM ONE (09:00)
[2017-08-01] MEDS ORDERED: amLODIPine 5 MG TAB PO ONE (10:00)
[2017-08-01 10:23] VITALS: BP 154/78
[2017-08-01] MEDS: PERCOCET 5MG/325MG TAB PO PRN ×2 (10:27→15:51)
[2017-08-01 12:00] VITALS: BP 176/80
[2017-08-01] MEDS: IBUPROFEN 400 MG TAB PO SCH ×2 (12:14→17:20)
[2017-08-01 16:00] VITALS: BP 162/78
--- NOTE | 2017-08-01 17:03 | DS.PDOC ---
Discharge Summary General Date of Admission Jul 28, 2017 at 21:37 Date of Discharge 08/01/17 Attending Physician: BERTA PEACE MD Specialist/Consultants Involve: SERGIO PERLA DMD Discharge Summary PROCEDURES PERFORMED DURING STAY: Submandibular abscess I&D ADMITTING/DISCHARGE DIAGNOSES: 1. Left submandibular abscess s/p drainage 07/29/17 2. Leukocytosis 3. 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 Thrombocytopenia 5. History of hyperlipidemia 6. History of GERD COMPLICATIONS/CHIEF COMPLAINT: Left submandibular swelling post tooth extraction HISTORY OF PRESENT ILLNESS/HOSPITAL COURSE: Is a 66 male past medical history of squamous cell cancer of the submitted to the region awaiting treatment with chemotherapy/radiation, who recently had a tooth extraction on 07/25 and developed an abscess that progressively worsened for which she presented to the ED. The patient was noted to have significant swelling and induration of the region , was taken to the OR for drainage of the abscess. Since then, the patient had been continued on antibiotics with significant improvement of his swelling and induration. Leukocytosis, CRP has improved. The drain was also removed, and the patient's pain control has improved as well. The patient will be evaluated by Dr. Perla today, be discharged with outpatient follow-up. DISCHARGE MEDICATIONS: Please see below. ALLERGIES: Please see below. PHYSICAL EXAMINATION ON DISCHARGE: Vitals: (see below) General: No acute distress, laying comfortably in bed. HEENT: Moist mucous membranes. Swelling and induration of the left submandibular region has improved. Abscess was drained taken out today. No erythema. Airway is patent. No stridor Neck: No JVD or lymphadenopathy Cardiac: RRR, No murmurs Pulm: Diminished breath sounds at the bases b/l. No wheezing, rhonchi. Abd: NT/ND + BS Ext: No edema or cyanosis LABORATORY DATA: Please see below. IMAGING: CT maxillofacial 07/28/17 Impression: 1. Ill-defined low attenuation collection in the anterior left submandibular soft tissues with surrounding inflammation and edema. This low attenuation fluid does not appear to be loculated. Differential diagnosis includes early developing abscess versus edema secondary to inflammation/cellulitis. Follow-up is recommended as clinically indicated. 2. Prominent subcentimeter left submandibular lymph nodes noted. 3. Mucus retention cyst in the inferior left maxillary sinus. 4. No acute osseous abnormality. PROGNOSIS: Guarded given his underlying malignancy ACTIVITY: As tolerated. DIET: Low-sodium diet DISCHARGE PLAN/DISPOSITION: Home DISCHARGE INSTRUCTIONS: 1. Follow-up PCP, neurosurgery, oncology, radiology, radiation oncology in 1 week. DISCHARGE CONDITION: Stable. TIME SPENT ON DISCHARGE: Greater than 30 minutes. Vital Signs/I&Os Vital Signs Date Time Temp Pulse Resp B/P (MAP) Pulse Ox O2 Delivery O2 Flow Rate FiO2 08/01/17 16:22 18 08/01/17 12:00 98.5 76 176/80 (112) 97 Room Air 07/30/17 04:05 2.0 I&O- Last 24 Hours up to 6 AM 08/02/17 06:00 Intake Total 480 ml Output Total 900 ml Balance -420 ml Laboratory Data Labs 24H Laboratory Tests 2 08/01/17 06:16: White Blood Count 14.1H, Red Blood Count 2.22L, Hemoglobin 8.4L, Hematocrit 26.0L, Mean Corpuscular Volume 117.1H, Mean Corpuscular Hemoglobin 37.8H, Mean Corpuscular Hemoglobin Concent 32.3, Red Cell Distribution Width 13.9, Platelet Count 96L, Monocytes # (Auto) , Nucleated Red Blood Cells % (auto) 0.0, Neutrophils 48, Band Neutrophils 4, Lymphocytes (Manual) 35, Monocytes (Manual) 6, Metamyelocytes 1H, Myelocytes 1H, Atypical Lymphocytes 4, Blastocytes 1H, Platelet Estimate DECREASED, Anisocytosis 2+, Macrocytosis 2+, Erythrocyte Sedimentation Rate 65H, Prothrombin Time 14.0, Prothromb Time International Ratio 1.07, Anion Gap 8, Glomerular Filtration Rate > 60.0, Blood Urea Nitrogen 6L, Creatinine 0.51L, Sodium Level 138, Potassium Level 3.3L, Chloride Level 101 , Carbon Dioxide Level 29, Calcium Level 7.8L, C-Reactive Protein, Quantitative 4.96H CBC/BMP Laboratory Tests 08/01/17 06:16 Red Blood Count 2.22 L, Mean Corpuscular Volume 117.1 H, Mean Corpuscular Hemoglobin 37.8 H, Mean Corpuscular Hemoglobin Concent 32.3, Red Cell Distribution Width 13.9, Monocytes # (Auto) , Calcium Level 7.8 L Microbiology Microbiology 07/29/17 Blood Culture - Preliminary, Resulted No Growth after 72 hours. All specime... 07/29/17 Blood Culture - Preliminary, Resulted No Growth after 72 hours. All specime... Discharge Medications Scheduled (Prevident Rinse) 0.2 % Nichole, 0.5 OZ SSP QHS, (Reported) (Celecoxib) 200 Mg Cap, 200 MG PO DAILY, (Reported) (Granix) 480 Mcg/0.8 Ml Inj, 480 MCG INJ ASDIRECTED, (Reported) USES ON MONDAYS AND THURSDAYS IN THE MORNING Amlodipine Besylate (Amlodipine Besylate) 5 Mg Tab, 5 MG PO DAILY, (Reported) Amoxicillin (Amoxicillin) 500 Mg Cap, 500 MG PO TID, (Reported) Chlorhexidine Gluconate (Chlorhexidine Gluconate) 480 Ml Soln, 15 ML MT ASDIRECTED, (Reported) Ergocalciferol (Vitamin D) 50,000 Unit Cap, 50,000 UNIT PO ASDIRECTED, (Reported ) TAKES ON MONDAYS IN THE MORNING Glucosamine Sulfate (Glucosamine/Chondroitin) 1 Tab Tab, 1 TAB PO DAILY, ( Reported) Hydroxychloroquine Sulfate (Hydroxychloroquine Sulfat) 200 Mg Tab, 400 MG PO DAILY, (Reported) Omeprazole (Omeprazole) 20 Mg Cap, 20 MG PO BID, (Reported) Prednisone (Prednisone) 5 Mg Tab, 10 MG PO DAILY, (Reported) Sodium Fluoride (Sf 5000 Plus) 1.1 % Cre, 1 DOSE EXT BID, (Reported) USES ON TEETH Scheduled PRN (Wal-Flu Severe Cold & Cou 20-10-650 mg) 1 Rickie Rickie, 1 RICKIE PO Q6H PRN for COLD, (Reported) Ibuprofen (Advil) 200 Mg Tab, 400 MG PO Q6H PRN for PAIN, (Reported) Allergies Coded Allergies: Chlorpromazine (Verified Allergy, Severe, 01/31/13) BERTA PEACE MD Aug 01, 2017 17:03
[2017-08-01] MEDS ORDERED: CHLO0.129 SSP (17:18)
[2017-08-01] MEDS ORDERED: AUGM875T28 PO (17:18)
[2017-08-01] MEDS ORDERED: MIRA33504 PO (17:18)
[2017-08-01] MEDS ORDERED: AMLO10TA2 PO (17:18)
[2017-08-01] MEDS ORDERED: PERCOCET PO (17:18)
[2017-08-01] MEDS ORDERED: COLA100C5 PO (17:18)
[2017-08-02] MEDS ORDERED: amLODIPine 10 MG TAB PO SCH (09:00)
[2017-08-03] MEDS ORDERED: VITAMIN D 50,000 UNITS CAPSULE (ERGOCALCIFEROL 1.25MG) PO SCH (09:00)
[2017-08-05 12:47] LABS: IMMATURE PLATELET FRACTION % 21.6 % (0.0-10.9)
[2017-08-05 12:56] LABS: IMMATURE PLATELET FRACTION % 31.8 % (0.0-10.9)
== END 2017-08-01 18:20 | disposition home or self-care (01) | DRG 711 ==
LOC: M ED 14:27 → M ED INP 21:37 → M MS4PR 23:10 → M PED 07-31 14:43
PROVIDERS: ADMIT Internal Medicine; ATTEND Internal Medicine
PROC: 0C9400Z Drainage of Buccal Mucosa with Drainage Device, Open Approach (ICD-10-PCS; principal; 2017-07-29 07:13)
DX: T81.4XXA Infection following a procedure, initial encounter (principal); C77.0 Secondary and unspecified malignant neoplasm of lymph nodes of head, face and neck; D69.6 Thrombocytopenia, unspecified; K12.2 Cellulitis and abscess of mouth; L03.211 Cellulitis of face; D72.829 Elevated white blood cell count, unspecified; K21.9 Gastro-esophageal reflux disease without esophagitis; E78.5 Hyperlipidemia, unspecified; J34.1 Cyst and mucocele of nose and nasal sinus; Z79.899 Other long term (current) drug therapy; Z88.8 Allergy status to other drugs, medicaments and biological substances; Y83.8 Other surgical procedures as the cause of abnormal reaction of the patient, or of later complication, without mention of misadventure at the time of the procedure

== ENCOUNTER 2017-12-10 13:00 | Outpatient (RCR) | payer OTHER | END 2017-12-23 | LOC: M ST 13:00 | DX: Z51.89 Encounter for other specified aftercare (principal); R10.13 Epigastric pain | CPT/HCPCS: 92610 ==

== ENCOUNTER → 2019-02-02 | Outpatient (REF) | payer OTHER ==
[~2019-02-02] MED LIST changes: -/ACYC20CA PO; -/WARF5TA OR; -/WARF5TA PO; +ACYC1CAP8 PO; +ADVI200T PO; +AMLO10TA5 PO; +AMLO5TAB6 PO; +AMOX500C PO; +AUGM875T28 PO; +CELE1CAP9 PO; +CHLO0.12 MT; +CHLO0.12 SSP; +COLA100C5 PO; +COUM1TAB17 OR; +COUM1TAB17 PO; +HYDR200T3 PO; +MIRA33504 PO; +OMEP20CA3 PO; +PERCOCET PO; +PRED5TA PO; +SF 51.1C EXT; +VITA50005 PO; +[UNRECOGNIZED DRUG - CODE] INJ; +[UNRECOGNIZED DRUG - CODE] PO; +[UNRECOGNIZED DRUG - CODE] SSP
[2019-02-02 12:29] LABS: INR 0.96; PARTIAL THROMBOPLASTIN TIME 32.1 SECONDS (25.4-37.6); PROTHROMBIN TIME 12.9 SECONDS (12.1-14.4)
[2019-02-02 12:44] LABS: PLATELET COUNT, AUTOMATED 79 10^3/uL (150-450)
== END ==
LOC: M LABDRAW1 11:51
PROVIDERS: ATTEND Physical Medicine & Rehabilitation
DX: Z01.812 Encounter for preprocedural laboratory examination (principal)

== ENCOUNTER 2019-09-01 12:21 | Outpatient (RCR) | payer OTHER ==
[~2019-09-01 12:21] MED LIST changes: -OMEP20CA3 PO; +OMEP20CA4 PO
[2019-09-17] MEDS ORDERED: GABA-843 PO (13:20)
[2019-09-17] MEDS ORDERED: CELE1CAP4 PO (13:20)
[2019-09-17] MEDS ORDERED: NEUP480I3 IJ (13:20)
[2019-09-17] MEDS ORDERED: VITA50005 PO (13:20)
[2019-09-17] MEDS ORDERED: DULO-34 PO (13:20)
[2019-09-17] MEDS ORDERED: AMLO5TAB6 PO (13:20)
[2019-09-17] MEDS ORDERED: CYCL10TA PO (13:20)
== END 2019-09-24 ==
LOC: M OT 12:21
PROVIDERS: ATTEND Family Medicine
DX: Z47.89 Encounter for other orthopedic aftercare (principal)

== ENCOUNTER 2019-09-17 13:04 | Emergency (ER) | payer OTHER ==
[~2019-09-17] VITALS: Ht 165.1 cm; Wt 56.4 kg
[2019-09-17 13:05] VITALS: BP 160/70
[2019-09-17] MEDS ORDERED: VITA50005 PO (13:20)
[2019-09-17] MEDS ORDERED: AMLO5TAB6 PO (13:20)
[2019-09-17] MEDS ORDERED: DULO-34 PO (13:20)
[2019-09-17] MEDS ORDERED: GABA-843 PO (13:20)
[2019-09-17] MEDS ORDERED: CYCL10TA PO (13:20)
[2019-09-17] MEDS ORDERED: NEUP480I3 IJ (13:20)
[2019-09-17] MEDS ORDERED: CELE1CAP4 PO (13:20)
[2019-09-17 13:45] LABS: BASO # 0.1 10^3/uL (0.0-0.2); BASO % 0.3 % (0.0-1.0); EOS # 0.1 10^3/uL (0.0-0.5); EOS % 0.5 % (0.0-3.0); HEMATOCRIT 28.8 % (42.0-52.0); HEMOGLOBIN 9.3 g/dl (13.5-17.5); LYMPH # 0.8 10^3/uL (1.5-5.0); LYMPH % 5.1 % (24.0-44.0); MEAN CORPUSCULAR HEMOGLOBIN 40.1 pg (27.0-33.0); MEAN CORPUSCULAR HGB CONC 32.3 g/dl (32.0-36.5); MONO # 1.7 10^3/uL (0.0-0.8); MONO % 10.4 % (0.0-5.0); NEUTROPHILS # 13.2 10^3/uL (1.5-8.5); PLATELET COUNT, AUTOMATED 131 10^3/uL (150-450); RED BLOOD COUNT 2.32 10^6/uL (4.30-6.10); WHITE BLOOD COUNT 16.2 10^3/uL (4.0-10.0)
[2019-09-17 13:56] LABS: INR 1.14; PROTHROMBIN TIME 14.3 SECONDS (11.8-14.0)
[2019-09-17 13:57] LABS: PARTIAL THROMBOPLASTIN TIME 39.9 SECONDS (25.0-38.4)
[2019-09-17 13:59] LABS: MEAN CORPUSCULAR VOLUME 124.1 fl (80.0-96.0)
== END 2019-09-17 14:24 | disposition home or self-care (01) ==
LOC: M ED 13:04
DX: K08.89 Other specified disorders of teeth and supporting structures (principal); Z79.52 Long term (current) use of systemic steroids; Z79.899 Other long term (current) drug therapy; Z88.8 Allergy status to other drugs, medicaments and biological substances

== ENCOUNTER 2019-09-28 09:08 | Outpatient (RCR) | payer OTHER ==
[~2019-09-28 09:08] MED LIST changes: +CELE1CAP4 PO; +CYCL10TA PO; +DULO-34 PO; +GABA-843 PO; +NEUP480I3 IJ; +OMEP-172 PO; -OMEP20CA4 PO
== END 2019-10-25 | disposition home or self-care (01) ==
LOC: M OT 09:08
PROVIDERS: ATTEND Family Medicine
DX: M79.642 Pain in left hand (principal); M79.641 Pain in right hand

== ENCOUNTER → 2019-09-30 | Outpatient (CLI) | payer OTHER ==
[~2019-09-30] MED LIST changes: -OMEP-172 PO; +OMEP20CA4 PO
--- NOTE | 2019-09-30 15:46 | REP ---
CT RIGHT HIP: Axial CT right hip performed. Sagittal and coronal reconstruction images are performed. Proximal femur appears intact with no evidence of fracture. The right inferior pubic ramus demonstrates subtle cortical irregularity and periosteal reaction suggesting a healing nondisplaced fracture. Otherwise no acute fracture or dislocation is seen of the visualized osseous structures. The hip joint demonstrates severe arthritic change with severe superior joint space narrowing and subchondral sclerosis. There is moderate diffuse spurring. Several subcentimeter calcific bodies are seen at the posterior and inferior margin of the joint. Mild tendinous calcifications are seen along the greater trochanter. There are mild adjacent vascular calcifications in the medial soft tissues. IMPRESSION: Findings suggesting a subtle healing nondisplaced fracture of the right inferior pubic ramus. No evidence of fracture of proximal right femur or of right acetabulum. There are fairly severe arthritic changes of the right hip joint. Electronically Signed by Claudy Garcia MD 09/30/2019 03:58 P
== END ==
LOC: M RAD 14:34
PROVIDERS: ATTEND Orthopaedic Surgery
DX: S70.01XD Contusion of right hip, subsequent encounter (principal); M16.11 Unilateral primary osteoarthritis, right hip; X58.XXXA Exposure to other specified factors, initial encounter

== ENCOUNTER → 2019-12-03 | Outpatient (CLI) | payer OTHER ==
[~2019-12-03] MED LIST changes: +OMEP1CAP73 PO; -OMEP20CA4 PO
--- NOTE | 2019-12-04 17:24 | REPVR ---
PROCEDURE INFORMATION: Exam: MR Cervical Spine Without Contrast Exam date and time: 12/03/2019 12:35 PM Age: 69 years old Clinical indication: Neck pain; Prior surgery; Surgery date: 6+ months; Additional info: Other cervical disc degeneration at c6-c7 level TECHNIQUE: Imaging protocol: Multiplanar magnetic resonance images of the cervical spine without contrast. COMPARISON: No relevant prior studies available. FINDINGS: Vertebrae: Status post anterior interbody fusion of C2 and C3 with [id number] anterolisthesis of C3 on C4. Disc space narrowing at C4-C5, C5-C6 C6-C7 and C7-T1 with intervertebral osteophytes. Auto fusion of the C3-C4 disc space. Increased signal at the inferior endplate of T3 on stir weighted and T2 weighted imaging decreased in signal on T1 weighted imaging consistent with edema adjacent to the inferior endplate. Transverse low signal line located just beneath the cortex of the inferior endplate suggest that the findings may be related to a endplate fracture with marrow space edema. Spinal cord: Diffusely bulging annulus at C7-T1 effaces the ventral subarachnoid space without cord impingement. There is severe bilateral foraminal stenosis secondary to uncinate joint hypertrophic changes. C2-C3: Broad left posterolateral foraminal disc protrusion at C2-C3 asymmetric to the compresses the thecal sac with severe narrowing of the ipsilateral neural foramen secondary to the bulging annulus and uncovertebral osteophytes. C3-C4: Left posterior osteophyte at C3-C4 asymmetrically effaces the ventral subarachnoid space with moderate to severe narrowing of the proximal left neural foramen with mild left hemicord impingement. C4-C5: Diffusely bulging annulus C4-C5 effaces the ventral subarachnoid space and associated with a central disc protrusion resulting in moderate mid cord impingement with slight increased signal demonstrated on T2 weighted and stir weighted sequences consistent with myelopathy. There is bilateral severe foraminal stenosis secondary to uncinate joint hypertrophic changes. C5-C6: Diffusely bulging annulus at C5-C6 effaces the ventral subarachnoid space resulting in mild cord impingement. There is severe bilateral foraminal stenosis secondary to uncinate joint hypertrophic changes. C6-C7: Diffusely bulging annulus at C6-C7 effaces the ventral subarachnoid space without cord impingement. There is moderate to severe bilateral foraminal stenosis secondary to uncinate joint hypertrophic changes. C7-T1: Diffusely bulging annulus at C7-T1 effaces the ventral subarachnoid space without cord impingement. There is severe bilateral foraminal stenosis secondary to uncinate joint hypertrophic changes. Vertebral arteries: Expected flow voids in the vertebral arteries. Soft tissues: Unremarkable. IMPRESSION: 1. Left posterior osteophyte at C3-C4 asymmetrically effaces the ventral subarachnoid space with moderate to severe narrowing of the proximal left neural foramen with mild left hemicord impingement. 2. Multilevel foraminal stenosis as described above. 3. There is mild left hemicord impingement at C3-C4. There is moderate cord impingement at C4-C5 associated with myelopathic changes in the compressed segment of the cord. 4. Mild fracture deformity at the inferior endplate of T3 as described above. Electronically signed by: Viral Elizalde On 12/04/2019 17:23:32 PM
== END ==
LOC: M RAD 11:14
PROVIDERS: ATTEND Orthopaedic Surgery
DX: M50.323 Other cervical disc degeneration at C6-C7 level (principal)

== ENCOUNTER → 2020-02-28 | Outpatient (CLI) | payer OTHER ==
[~2020-02-28] MED LIST changes: +CYCL-707 PO; -CYCL10TA PO
== END ==
LOC: M PLARAD 11:23
PROVIDERS: ATTEND Family Medicine
DX: C15.3 Malignant neoplasm of upper third of esophagus (principal)
CPT/HCPCS: 78815; A9552

== ENCOUNTER → 2020-03-20 | Outpatient (CLI) | payer OTHER ==
--- NOTE | 2020-03-29 11:32 | SLEEPHOME ---
DATE OF STUDY: 03/20/2020 ORDERED BY: Dr. Singleton Diagnostic home sleep testing was performed due to concern for the obstructive sleep apnea syndrome. For testing, a nocturnal T3 respiratory monitoring device was used. Continuous record was made of pulse, oxygen saturation, airflow, and body position. 9 hours and 59 minutes of data were reviewed. There were 7 hours and 22 minutes marked time as time in bed. During the interval marked time in bed, there were 495 respiratory events identified of 10 seconds in duration or greater for a respiratory event index of 66.7. The events were primarily obstructive. Baseline pulse rate 80 beats per minute, pulse rate ranged 67 to 102. Baseline saturation was 93%. Saturations fell to 71%. Testing was performed in both the supine and nonsupine positions. IMPRESSION: Abnormal sleep testing with repetitive respiratory events and oxygen desaturations to 71% with a respiratory event index of 66.7 is consistent with the obstructive sleep apnea syndrome. RECOMMENDATION: The patient should be encouraged to undergo formal sleep evaluation.
== END ==
LOC: M SLEEP HO 11:55
PROVIDERS: ATTEND Family Medicine
DX: G47.33 Obstructive sleep apnea (adult) (pediatric) (principal)

== ENCOUNTER → 2020-04-02 | Outpatient (CLI) | payer OTHER ==
--- NOTE | 2020-04-02 21:33 | REP ---
COOKIE SWALLOW The procedure was performed under the direct supervision of Dr. Garcia. The procedure was performed with Liza Garay from speech pathology present. 5 ml aliquots of nectar, pudding, thin, honey and soft consistency barium was administered. With nectar consistency barium there is laryngeal penetration. AP views were obtained and there is deviation of the esophagus to the right likely due to postradiation changes. A detailed report of this examination will be provided by speech pathology. 3.2 minutes of fluoroscopy time was utilized for this procedure. Electronically Signed by GOLD Brown 04/02/2020 04:14 P Electronically Signed by Claudy Garcia MD 04/02/2020 09:24 P
== END ==
LOC: M ST 13:08
PROVIDERS: ATTEND Surgery
DX: R13.19 Other dysphagia (principal)

== ENCOUNTER → 2020-07-24 | Outpatient (REF) | payer OTHER ==
[~2020-07-24] MED LIST changes: -AMLO10TA5 PO; +AMLO1TAB24 PO; +AMLO1TAB25 PO; -AMLO5TAB6 PO
[2020-07-25 11:43] LABS: BASO # 0.1 10^3/uL (0.0-0.2); BASO % 0.2 % (0.0-1.0); EOS % 0.1 % (0.0-3.0); HEMATOCRIT 23.8 % (42.0-52.0); HEMOGLOBIN 7.3 g/dl (13.5-17.5); LYMPH # 0.5 10^3/uL (1.5-5.0); LYMPH % 1.4 % (24.0-44.0); MEAN CORPUSCULAR HEMOGLOBIN 36.3 pg (27.0-33.0); MEAN CORPUSCULAR HGB CONC 30.7 g/dl (32.0-36.5); MONO # 4.6 10^3/uL (0.0-0.8); MONO % 12.5 % (0.0-5.0); NEUTROPHILS # 30.3 10^3/uL (1.5-8.5); RED BLOOD COUNT 2.01 10^6/uL (4.30-6.10)
[2020-07-25 12:08] LABS: ALBUMIN 2.1 GM/DL (3.2-5.2); ALT/SGPT 16 U/L (12-78); BILIRUBIN,TOTAL 0.5 MG/DL (0.2-1.0); BLOOD UREA NITROGEN 21 MG/DL (7-18); CALCIUM LEVEL 8.3 MG/DL (8.8-10.2); CARBON DIOXIDE LEVEL 31 MEQ/L (21-32); CHLORIDE LEVEL 97 MEQ/L (98-107); CREATININE FOR GFR 0.76 MG/DL (0.70-1.30); GLOMERULAR FILTRATION RATE > 60.0 (>42); GLUCOSE, FASTING 130 MG/DL (70-100); POTASSIUM SERUM 4.1 MEQ/L (3.5-5.1); SODIUM LEVEL 132 MEQ/L (136-145); TOTAL PROTEIN 5.9 GM/DL (6.4-8.2)
[2020-07-25 12:14] LABS: ERYTHROCYTE SEDIMENTATION RATE 126 mm/hr (0-20)
[2020-07-25 12:31] LABS: MEAN CORPUSCULAR VOLUME 118.4 fl (80.0-96.0); PLATELET COUNT, AUTOMATED 95 10^3/uL (150-450)
[2020-07-25 12:32] LABS: WHITE BLOOD COUNT 36.9 10^3/uL (4.0-10.0)
[2020-07-25 12:39] LABS: HYPOCHROMASIA 1+; PLATELET ESTIMATE DECREASED (NORMAL)
== END ==
LOC: M LABDRAWC 11:19
PROVIDERS: ATTEND Internal Medicine
DX: M27.2 Inflammatory conditions of jaws (principal)

== ENCOUNTER → 2020-08-06 | Outpatient (REF) | payer OTHER ==
[2020-08-06 16:36] LABS: BASO # 0.1 10^3/uL (0.0-0.2); BASO % 0.2 % (0.0-1.0); EOS # 0.1 10^3/uL (0.0-0.5); EOS % 0.1 % (0.0-3.0); HEMOGLOBIN 7.6 g/dl (13.5-17.5); LYMPH # 0.6 10^3/uL (1.5-5.0); LYMPH % 1.3 % (24.0-44.0); MEAN CORPUSCULAR HEMOGLOBIN 37.3 pg (27.0-33.0); MEAN CORPUSCULAR HGB CONC 30.4 g/dl (32.0-36.5); MONO # 6.1 10^3/uL (0.0-0.8); MONO % 12.1 % (0.0-5.0); NEUTROPHILS # 41.8 10^3/uL (1.5-8.5); NEUTROPHILS % 82.6 % (36.0-66.0); PLATELET COUNT, AUTOMATED 144 10^3/uL (150-450); RED BLOOD COUNT 2.04 10^6/uL (4.30-6.10)
[2020-08-06 17:02] LABS: ALBUMIN 2.3 GM/DL (3.2-5.2); ALT/SGPT 10 U/L (12-78); BILIRUBIN,TOTAL 0.4 MG/DL (0.2-1.0); BLOOD UREA NITROGEN 21 MG/DL (7-18); CALCIUM LEVEL 8.4 MG/DL (8.8-10.2); CARBON DIOXIDE LEVEL 33 MEQ/L (21-32); CHLORIDE LEVEL 97 MEQ/L (98-107); CREATININE FOR GFR 0.56 MG/DL (0.70-1.30); GLOMERULAR FILTRATION RATE > 60.0 (>42); GLUCOSE, FASTING 99 MG/DL (70-100); SODIUM LEVEL 134 MEQ/L (136-145); TOTAL PROTEIN 6.3 GM/DL (6.4-8.2)
[2020-08-06 17:33] LABS: MEAN CORPUSCULAR VOLUME 122.5 fl (80.0-96.0)
[2020-08-06 17:34] LABS: ANISOCYTOSIS 2+; PLATELET ESTIMATE NORMAL (NORMAL); WHITE BLOOD COUNT 50.6 10^3/uL (4.0-10.0)
[2020-08-06 18:00] LABS: ERYTHROCYTE SEDIMENTATION RATE 91 mm/hr (0-20)
== END ==
LOC: M SHH 15:43
PROVIDERS: ATTEND Internal Medicine
DX: M27.2 Inflammatory conditions of jaws (principal); Z79.2 Long term (current) use of antibiotics

== ENCOUNTER → 2020-08-13 | Outpatient (REF) | payer OTHER ==
[2020-08-13 17:28] LABS: ALBUMIN 2.3 GM/DL (3.2-5.2); ALT/SGPT 12 U/L (12-78); BILIRUBIN,TOTAL 0.3 MG/DL (0.2-1.0); BLOOD UREA NITROGEN 21 MG/DL (7-18); C REACTIVE PROTEIN QUANTITATIV 2.46 MG/DL (0.00-0.30); CALCIUM LEVEL 8.1 MG/DL (8.8-10.2); CARBON DIOXIDE LEVEL 32 MEQ/L (21-32); CHLORIDE LEVEL 100 MEQ/L (98-107); CREATININE FOR GFR 0.46 MG/DL (0.70-1.30); GLOMERULAR FILTRATION RATE > 60.0 (>42); GLUCOSE, FASTING 126 MG/DL (70-100); POTASSIUM SERUM 4.6 MEQ/L (3.5-5.1); SODIUM LEVEL 136 MEQ/L (136-145); TOTAL PROTEIN 6.1 GM/DL (6.4-8.2)
[2020-08-13 17:43] LABS: BASO % 0.3 % (0.0-1.0); EOS % 0.3 % (0.0-3.0); HEMATOCRIT 25.2 % (42.0-52.0); HEMOGLOBIN 7.7 g/dl (13.5-17.5); LYMPH # 0.5 10^3/uL (1.5-5.0); LYMPH % 7.1 % (24.0-44.0); MEAN CORPUSCULAR HEMOGLOBIN 37.7 pg (27.0-33.0); MEAN CORPUSCULAR HGB CONC 30.6 g/dl (32.0-36.5); MONO # 0.9 10^3/uL (0.0-0.8); NEUTROPHILS % 75.4 % (36.0-66.0); PLATELET COUNT, AUTOMATED 107 10^3/uL (150-450); RED BLOOD COUNT 2.04 10^6/uL (4.30-6.10); WHITE BLOOD COUNT 6.6 10^3/uL (4.0-10.0)
[2020-08-13 18:13] LABS: MEAN CORPUSCULAR VOLUME 123.5 fl (80.0-96.0)
[2020-08-13 19:51] LABS: PLATELET ESTIMATE DECREASED (NORMAL)
[2020-08-13 19:52] LABS: ANISOCYTOSIS 1+
== END ==
LOC: M LAB REF 15:56
PROVIDERS: ATTEND Internal Medicine
DX: Z79.2 Long term (current) use of antibiotics (principal); M27.2 Inflammatory conditions of jaws

== ENCOUNTER → 2020-08-21 | Outpatient (REF) | payer OTHER ==
[2020-08-21 20:16] LABS: BASO # 0.2 10^3/uL (0.0-0.2); BASO % 0.3 % (0.0-1.0); HEMATOCRIT 26.1 % (42.0-52.0); HEMOGLOBIN 7.8 g/dl (13.5-17.5); LYMPH # 0.9 10^3/uL (1.5-5.0); LYMPH % 1.4 % (24.0-44.0); MEAN CORPUSCULAR HEMOGLOBIN 37.5 pg (27.0-33.0); MEAN CORPUSCULAR HGB CONC 29.9 g/dl (32.0-36.5); MONO # 2.3 10^3/uL (0.0-0.8); MONO % 3.9 % (0.0-5.0); NEUTROPHILS # 54.3 10^3/uL (1.5-8.5); NEUTROPHILS % 91.5 % (36.0-66.0); PLATELET COUNT, AUTOMATED 102 10^3/uL (150-450); RED BLOOD COUNT 2.08 10^6/uL (4.30-6.10)
[2020-08-21 20:40] LABS: MEAN CORPUSCULAR VOLUME 125.5 fl (80.0-96.0); WHITE BLOOD COUNT 59.4 10^3/uL (4.0-10.0)
[2020-08-21 20:42] LABS: ALBUMIN 2.9 GM/DL (3.2-5.2); ALT/SGPT 12 U/L (12-78); BILIRUBIN,TOTAL 0.4 MG/DL (0.2-1.0); BLOOD UREA NITROGEN 19 MG/DL (7-18); C REACTIVE PROTEIN QUANTITATIV 1.35 MG/DL (0.00-0.30); CALCIUM LEVEL 8.6 MG/DL (8.8-10.2); CARBON DIOXIDE LEVEL 33 MEQ/L (21-32); CHLORIDE LEVEL 99 MEQ/L (98-107); CREATININE FOR GFR 0.61 MG/DL (0.70-1.30); GLOMERULAR FILTRATION RATE > 60.0 (>42); GLUCOSE, FASTING 70 MG/DL (70-100); POTASSIUM SERUM 4.5 MEQ/L (3.5-5.1); SODIUM LEVEL 135 MEQ/L (136-145); TOTAL PROTEIN 6.7 GM/DL (6.4-8.2)
[2020-08-21 20:52] LABS: PLATELET ESTIMATE DECREASED (NORMAL)
[2020-08-21 20:53] LABS: ANISOCYTOSIS 1+
[2020-08-21 21:19] LABS: ERYTHROCYTE SEDIMENTATION RATE 73 mm/hr (0-20)
== END ==
LOC: M LAB REF 14:43
PROVIDERS: ATTEND Internal Medicine
DX: M27.2 Inflammatory conditions of jaws (principal)

== ENCOUNTER → 2020-08-29 | Outpatient (REF) | payer OTHER ==
[2020-08-30 11:54] LABS: BASO % 0.1 % (0.0-1.0); HEMATOCRIT 29.2 % (42.0-52.0); HEMOGLOBIN 8.7 g/dl (13.5-17.5); LYMPH # 0.6 10^3/uL (1.5-5.0); LYMPH % 3.1 % (24.0-44.0); MEAN CORPUSCULAR HEMOGLOBIN 37.8 pg (27.0-33.0); MEAN CORPUSCULAR HGB CONC 29.8 g/dl (32.0-36.5); MONO # 1.3 10^3/uL (0.0-0.8); MONO % 6.2 % (0.0-5.0); NEUTROPHILS # 18.1 10^3/uL (1.5-8.5); NEUTROPHILS % 88.7 % (36.0-66.0); WHITE BLOOD COUNT 20.4 10^3/uL (4.0-10.0)
[2020-08-30 12:01] LABS: PLATELET COUNT, AUTOMATED 92 10^3/uL (150-450)
[2020-08-30 12:18] LABS: ALBUMIN 3.1 GM/DL (3.2-5.2); ALT/SGPT 12 U/L (12-78); BILIRUBIN,TOTAL 0.4 MG/DL (0.2-1.0); BLOOD UREA NITROGEN 27 MG/DL (7-18); C REACTIVE PROTEIN QUANTITATIV 1.66 MG/DL (0.00-0.30); CALCIUM LEVEL 8.9 MG/DL (8.8-10.2); CARBON DIOXIDE LEVEL 29 MEQ/L (21-32); CHLORIDE LEVEL 97 MEQ/L (98-107); CREATININE FOR GFR 0.58 MG/DL (0.70-1.30); GLOMERULAR FILTRATION RATE > 60.0 (>42); GLUCOSE, FASTING 99 MG/DL (70-100); POTASSIUM SERUM 5.4 MEQ/L (3.5-5.1); SODIUM LEVEL 133 MEQ/L (136-145); TOTAL PROTEIN 7.1 GM/DL (6.4-8.2)
[2020-08-30 12:35] LABS: ERYTHROCYTE SEDIMENTATION RATE 67 mm/hr (0-20)
[2020-08-30 13:06] LABS: ANISOCYTOSIS 1+
[2020-08-30 14:02] LABS: PLATELET ESTIMATE DECREASED (NORMAL)
== END ==
LOC: M LAB REF 11:14
PROVIDERS: ATTEND Internal Medicine
DX: M27.2 Inflammatory conditions of jaws (principal); Z79.2 Long term (current) use of antibiotics

== ENCOUNTER 2020-09-12 17:06 | Emergency (ER) | payer OTHER ==
[~2020-09-12] VITALS: Ht 165.1 cm; Wt 100.9 kg
[2020-09-12] MEDS ORDERED: VITA50005 (17:26)
[2020-09-12] MEDS ORDERED: AMOX875T2 (17:26)
[2020-09-12] MEDS ORDERED: SPIR-10 (17:26)
[2020-09-12] MEDS ORDERED: PENT400T22 PO (17:26)
[2020-09-12] MEDS ORDERED: CLAR10CA3 PO (17:26)
[2020-09-12] MEDS ORDERED: METO1TAB87 PO (17:26)
[2020-09-12] MEDS ORDERED: [UNRECOGNIZED DRUG - CODE] INJ (17:26)
[2020-09-12] MEDS ORDERED: PREG100C PO (17:32)
[2020-09-12] MEDS ORDERED: HYDR-3716 PO (17:32)
--- NOTE | 2020-09-12 18:57 | REP ---
INDICATION: r/o obstruction. COMPARISON: Two-view chest from an outside institution 02/17/2020 FINDINGS: Supine and upright views of the abdomen show the intestinal gas pattern to be nonspecific. Gas and stool is seen throughout the colon within the rectosigmoid region. The organ silhouettes insofar as delineated appear unremarkable. No abdominal calcific densities are seen within the abdomen or pelvis. There is no evidence of free intraperitoneal air. Radiodensities are seen across the upper abdomen exact etiology uncertain. Probable feeding tube. This all needs to be correlated clinically. The accompanying single frontal view of the chest shows no free subdiaphragmatic air, cardiomegaly, infiltrates or effusions. The opacities seen previously in the right lower lobe on the prior examination have cleared. There are fibrotic changes status quo. IMPRESSION: No evidence of acute disease. Findings as described above. <Electronically signed by Lui Gonsalez > 09/12/20 [id number]
[2020-09-12] MEDS ORDERED: AUGMENTIN 875 MG TAB PO ONE (19:30)
[2020-09-12 19:39] VITALS: BP 122/58
[2020-09-19] MEDS ORDERED: NAPR500T6 PO (12:07)
== END 2020-09-12 19:40 | disposition home or self-care (01) ==
LOC: M ED 17:06
DX: K94.23 Gastrostomy malfunction (principal); I10 Essential (primary) hypertension; Z79.2 Long term (current) use of antibiotics; Z79.52 Long term (current) use of systemic steroids; Z79.899 Other long term (current) drug therapy; Z79.891 Long term (current) use of opiate analgesic; Z87.891 Personal history of nicotine dependence; Z88.8 Allergy status to other drugs, medicaments and biological substances

== ENCOUNTER → 2020-09-17 | Outpatient (REF) | payer OTHER ==
[~2020-09-17] MED LIST changes: +AMOX875T2; +CLAR10CA3 PO; +HYDR-3716 PO; +METO1TAB87 PO; +NAPR500T6 PO; +PENT400T22 PO; +PREG100C PO; +SPIR-10; +VITA50005
[2020-09-17 16:59] LABS: ALBUMIN 3.3 GM/DL (3.2-5.2); ALT/SGPT 18 U/L (12-78); BILIRUBIN,TOTAL 0.5 MG/DL (0.2-1.0); BLOOD UREA NITROGEN 26 MG/DL (7-18); C REACTIVE PROTEIN QUANTITATIV 7.58 MG/DL (0.00-0.30); CALCIUM LEVEL 9.2 MG/DL (8.8-10.2); CARBON DIOXIDE LEVEL 32 MEQ/L (21-32); CHLORIDE LEVEL 99 MEQ/L (98-107); CREATININE FOR GFR 0.73 MG/DL (0.70-1.30); GLOMERULAR FILTRATION RATE > 60.0 (>42); GLUCOSE, FASTING 102 MG/DL (70-100); POTASSIUM SERUM 4.5 MEQ/L (3.5-5.1); SODIUM LEVEL 135 MEQ/L (136-145)
[2020-09-17 18:32] LABS: HYPOCHROMASIA 2+
[2020-09-17 18:37] LABS: PLATELET ESTIMATE DECREASED (NORMAL)
[2020-09-20 06:54] LABS: MEAN CORPUSCULAR HEMOGLOBIN 38.2 pg (27.0-33.0); MEAN CORPUSCULAR HGB CONC 30.3 g/dl (32.0-36.5); RED BLOOD COUNT 2.62 10^6/uL (4.30-6.10); WHITE BLOOD COUNT 46.6 10^3/uL (4.0-10.0)
[2020-09-20 06:55] LABS: BASO # 0.1 10^3/uL (0.0-0.2); BASO % 0.3 % (0.0-1.0); EOS % 0.1 % (0.0-3.0); LYMPH # 0.6 10^3/uL (1.5-5.0); LYMPH % 1.4 % (24.0-44.0); MONO # 4.9 10^3/uL (0.0-0.8); MONO % 10.6 % (0.0-5.0); NEUTROPHILS # 38.9 10^3/uL (1.5-8.5); NEUTROPHILS % 83.4 % (36.0-66.0); PLATELET COUNT, AUTOMATED 73 10^3/uL (150-450)
[2020-09-20 06:56] LABS: ERYTHROCYTE SEDIMENTATION RATE 62 mm/hr (0-20)
== END ==
LOC: M LABDRAWC 16:12
PROVIDERS: ATTEND Nurse Practitioner Family
DX: M27.2 Inflammatory conditions of jaws (principal); Z79.2 Long term (current) use of antibiotics

== ENCOUNTER → 2020-09-22 | Outpatient (CLI) | payer OTHER | LOC: M LABSMTC 10:13 | PROVIDERS: ATTEND Anesthesiology | DX: Z01.812 Encounter for preprocedural laboratory examination (principal); Z20.828 Contact with and (suspected) exposure to other viral communicable diseases ==

== ENCOUNTER 2020-09-26 06:54 | Day surgery (SDC) | payer OTHER ==
[~2020-09-26] VITALS: Ht 165.1 cm; Wt 52.2 kg
[~2020-09-26 06:54] MED LIST changes: +GABA-282 PO; -GABA-843 PO; +NS 1,000 ML IV ONE
[2020-09-26] MEDS ORDERED: SIMETHICONE 40MG/0.6ML DROPS 30ML As Ordered ONE (07:15)
[2020-09-26] MEDS ORDERED: propofoL 200 MG/20 ML VIAL As Ordered ONE (07:16)
[2020-09-26] MEDS ORDERED: LIDOCAINE 2% 100MG/5ML SDV (FOR ANES.) As Ordered ONE (07:16)
[2020-09-26] MEDS ORDERED: fentaNYL 100 MCG/2 ML INJECTION (J3010) As Ordered ONE (07:17)
[2020-09-26 08:25] VITALS: BP 104/50
--- NOTE | 2020-10-22 10:31 | RO ---
OPERATIVE NOTE DATE OF OPERATION: 09/26/2020 PREOPERATIVE DIAGNOSIS: Malfunctioning gastrostomy tube. POSTOPERATIVE DIAGNOSIS: Malfunctioning gastrostomy tube. PROCEDURE: Replacement of gastrostomy tube. ANESTHESIA: None. ESTIMATED BLOOD LOSS: Minimal. FLUIDS: Crystalloid. BRIEF PROCEDURE SUMMARY: The patient was brought to the outpatient procedure area and after a long discussion with the patient, as well as contacting the daughter and discussing options for him; unfortunately, the gastrostomy tube was leaking and he did not like the gastrojejunostomy tube that was in place; and thus, my recommendation was to see if a gastrostomy tube alone would be adequate to help with the drainage from the site. Thus, after a great deal of discussion, we were able to remove the gastrostomy tube without difficulty and replace this with a 24-Kyrgyz. This flushed and aspirated easily. Balloon was insufflated to 7 mL of fluid and a dry gauze was placed behind this, and the patient was discharged to the recovery area and discharged home thereafter.
== END 2020-09-26 08:47 | disposition home or self-care (01) ==
LOC: M OPP 06:54 → EEVIPCON 07:30 → M OPP 08:47
PROVIDERS: ATTEND Surgery
DX: K94.23 Gastrostomy malfunction (principal); R13.14 Dysphagia, pharyngoesophageal phase; Z79.891 Long term (current) use of opiate analgesic; Z79.899 Other long term (current) drug therapy
CPT/HCPCS: 43762; J3010

== ENCOUNTER → 2020-10-04 | Outpatient (REF) | payer OTHER ==
[~2020-10-04] MED LIST changes: -GABA-282 PO; +GABA-843 PO; -NS 1,000 ML IV ONE
[2020-10-04 12:00] LABS: BASO # 0.1 10^3/uL (0.0-0.2); BASO % 0.3 % (0.0-1.0); EOS # 0.1 10^3/uL (0.0-0.5); EOS % 0.3 % (0.0-3.0); HEMATOCRIT 29.2 % (42.0-52.0); HEMOGLOBIN 9.2 g/dl (13.5-17.5); LYMPH # 1.1 10^3/uL (1.5-5.0); LYMPH % 5.7 % (24.0-44.0); MEAN CORPUSCULAR HGB CONC 31.5 g/dl (32.0-36.5); MONO # 3.2 10^3/uL (0.0-0.8); MONO % 16.7 % (0.0-5.0); NEUTROPHILS # 14.3 10^3/uL (1.5-8.5); NEUTROPHILS % 75.8 % (36.0-66.0); RED BLOOD COUNT 2.42 10^6/uL (4.30-6.10); WHITE BLOOD COUNT 18.9 10^3/uL (4.0-10.0)
[2020-10-04 12:03] LABS: MEAN CORPUSCULAR VOLUME 120.7 fl (80.0-96.0); PLATELET COUNT, AUTOMATED 90 10^3/uL (150-450)
[2020-10-04 12:20] LABS: ALBUMIN 3.1 GM/DL (3.2-5.2); ALT/SGPT 17 U/L (12-78); BILIRUBIN,TOTAL 0.6 MG/DL (0.2-1.0); BLOOD UREA NITROGEN 26 MG/DL (7-18); C REACTIVE PROTEIN QUANTITATIV 5.43 MG/DL (0.00-0.30); CALCIUM LEVEL 8.9 MG/DL (8.8-10.2); CARBON DIOXIDE LEVEL 32 MEQ/L (21-32); CHLORIDE LEVEL 101 MEQ/L (98-107); CREATININE FOR GFR 0.83 MG/DL (0.70-1.30); GLOMERULAR FILTRATION RATE > 60.0 (>42); GLUCOSE, FASTING 59 MG/DL (70-100); POTASSIUM SERUM 4.3 MEQ/L (3.5-5.1); SODIUM LEVEL 135 MEQ/L (136-145); TOTAL PROTEIN 6.4 GM/DL (6.4-8.2)
[2020-10-04 12:29] LABS: PLATELET ESTIMATE DECREASED (NORMAL)
[2020-10-04 13:00] LABS: ERYTHROCYTE SEDIMENTATION RATE 54 mm/hr (0-20)
== END ==
LOC: M LABDRAWC 11:17
PROVIDERS: ATTEND Nurse Practitioner Family
DX: M27.2 Inflammatory conditions of jaws (principal); Z79.2 Long term (current) use of antibiotics

== ENCOUNTER → 2020-10-15 | Outpatient (REF) | payer OTHER ==
[2020-10-15 17:19] LABS: ALT/SGPT 17 U/L (12-78); BILIRUBIN,TOTAL 0.6 MG/DL (0.2-1.0); BLOOD UREA NITROGEN 32 MG/DL (7-18); CALCIUM LEVEL 8.8 MG/DL (8.8-10.2); CARBON DIOXIDE LEVEL 26 MEQ/L (21-32); CHLORIDE LEVEL 101 MEQ/L (98-107); CPK CREATINE PHOSPHOKINASE 83 U/L (39-308); CREATININE FOR GFR 1.21 MG/DL (0.70-1.30); GLOMERULAR FILTRATION RATE > 60.0 (>42); GLUCOSE, FASTING 124 MG/DL (70-100); POTASSIUM SERUM 4.5 MEQ/L (3.5-5.1); SODIUM LEVEL 137 MEQ/L (136-145); TOTAL PROTEIN 6.7 GM/DL (6.4-8.2)
[2020-10-15 17:21] LABS: HEMATOCRIT 22.2 % (42.0-52.0); MEAN CORPUSCULAR HEMOGLOBIN 36.6 pg (27.0-33.0); MEAN CORPUSCULAR HGB CONC 28.8 g/dl (32.0-36.5); PLATELET COUNT, AUTOMATED 132 10^3/uL (150-450); RED BLOOD COUNT 1.75 10^6/uL (4.30-6.10)
[2020-10-15 17:40] LABS: HEMOGLOBIN 6.4 g/dl (13.5-17.5); MEAN CORPUSCULAR VOLUME 126.9 fl (80.0-96.0); WHITE BLOOD COUNT 126.5 10^3/uL (4.0-10.0)
[2020-10-15 17:55] LABS: ERYTHROCYTE SEDIMENTATION RATE 126 mm/hr (0-20)
[2020-10-15 19:06] LABS: MONOCYTES 13 % (0-5); NEUTROPHILS 45 % (28-66)
[2020-10-15 19:07] LABS: ANISOCYTOSIS 1+; OVALOCYTES 1+; PLATELET ESTIMATE NORMAL (NORMAL); POLYCHROMASIA 1+
== END ==
LOC: M LAB REF 16:11
PROVIDERS: ATTEND Internal Medicine Infectious Disease
DX: M86.18 Other acute osteomyelitis, other site (principal); K12.2 Cellulitis and abscess of mouth; C10.9 Malignant neoplasm of oropharynx, unspecified; M32.9 Systemic lupus erythematosus, unspecified

== ENCOUNTER → 2020-10-22 | Outpatient (REF) | payer OTHER ==
[2020-10-22 16:36] LABS: HEMATOCRIT 24.8 % (42.0-52.0); HEMOGLOBIN 7.4 g/dl (13.5-17.5); MEAN CORPUSCULAR HEMOGLOBIN 37.4 pg (27.0-33.0); MEAN CORPUSCULAR HGB CONC 29.8 g/dl (32.0-36.5); PLATELET COUNT, AUTOMATED 189 10^3/uL (150-450); RED BLOOD COUNT 1.98 10^6/uL (4.30-6.10)
[2020-10-22 16:42] LABS: MEAN CORPUSCULAR VOLUME 125.3 fl (80.0-96.0); WHITE BLOOD COUNT 89.7 10^3/uL (4.0-10.0)
[2020-10-22 17:06] LABS: ALBUMIN 2.9 GM/DL (3.2-5.2); ALT/SGPT 18 U/L (12-78); BILIRUBIN,TOTAL 0.4 MG/DL (0.2-1.0); BLOOD UREA NITROGEN 19 MG/DL (7-18); C REACTIVE PROTEIN QUANTITATIV 1.46 MG/DL (0.00-0.30); CALCIUM LEVEL 8.8 MG/DL (8.8-10.2); CARBON DIOXIDE LEVEL 29 MEQ/L (21-32); CHLORIDE LEVEL 101 MEQ/L (98-107); CPK CREATINE PHOSPHOKINASE 68 U/L (39-308); CREATININE FOR GFR 0.78 MG/DL (0.70-1.30); GLOMERULAR FILTRATION RATE > 60.0 (>42); GLUCOSE, FASTING 80 MG/DL (70-100); POTASSIUM SERUM 4.9 MEQ/L (3.5-5.1); SODIUM LEVEL 136 MEQ/L (136-145); TOTAL PROTEIN 6.7 GM/DL (6.4-8.2)
[2020-10-22 17:15] LABS: ERYTHROCYTE SEDIMENTATION RATE 51 mm/hr (0-20)
[2020-10-22 17:31] LABS: LYMPHOCYTES 1 % (16-44); METAMYELOCYTES 2 % (0-0); MONOCYTES 13 % (0-5); MYELOCYTES 1 % (0-0); NEUTROPHILS 60 % (28-66)
[2020-10-22 17:33] LABS: ANISOCYTOSIS 1+; HYPOCHROMASIA 2+
[2020-10-22 17:34] LABS: PLATELET ESTIMATE NORMAL (NORMAL)
== END ==
LOC: M LAB REF 15:47
PROVIDERS: ATTEND Internal Medicine Infectious Disease
DX: K12.2 Cellulitis and abscess of mouth (principal); M86.18 Other acute osteomyelitis, other site; C10.9 Malignant neoplasm of oropharynx, unspecified; M32.9 Systemic lupus erythematosus, unspecified

== ENCOUNTER → 2020-10-29 | Outpatient (REF) | payer OTHER ==
[2020-10-29 13:31] LABS: BASO % 0.4 % (0.0-1.0); EOS % 0.3 % (0.0-3.0); HEMATOCRIT 26.3 % (42.0-52.0); HEMOGLOBIN 8.1 g/dl (13.5-17.5); LYMPH # 0.7 10^3/uL (1.5-5.0); LYMPH % 9.3 % (24.0-44.0); MEAN CORPUSCULAR HEMOGLOBIN 37.7 pg (27.0-33.0); MEAN CORPUSCULAR HGB CONC 30.8 g/dl (32.0-36.5); MONO % 27.4 % (0.0-5.0); NEUTROPHILS # 4.3 10^3/uL (1.5-8.5); NEUTROPHILS % 59.4 % (36.0-66.0); PLATELET COUNT, AUTOMATED 132 10^3/uL (150-450); RED BLOOD COUNT 2.15 10^6/uL (4.30-6.10); WHITE BLOOD COUNT 7.3 10^3/uL (4.0-10.0)
[2020-10-29 13:38] LABS: MEAN CORPUSCULAR VOLUME 122.3 fl (80.0-96.0)
[2020-10-29 13:55] LABS: ALBUMIN 3.2 GM/DL (3.2-5.2); ALT/SGPT 36 U/L (12-78); BILIRUBIN,TOTAL 0.3 MG/DL (0.2-1.0); BLOOD UREA NITROGEN 26 MG/DL (7-18); C REACTIVE PROTEIN QUANTITATIV 2.61 MG/DL (0.00-0.30); CALCIUM LEVEL 8.6 MG/DL (8.8-10.2); CARBON DIOXIDE LEVEL 29 MEQ/L (21-32); CHLORIDE LEVEL 105 MEQ/L (98-107); CPK CREATINE PHOSPHOKINASE 482 U/L (39-308); CREATININE FOR GFR 1.01 MG/DL (0.70-1.30); GLOMERULAR FILTRATION RATE > 60.0 (>42); GLUCOSE, FASTING 127 MG/DL (70-100); POTASSIUM SERUM 5.1 MEQ/L (3.5-5.1); SODIUM LEVEL 138 MEQ/L (136-145); TOTAL PROTEIN 6.7 GM/DL (6.4-8.2)
[2020-10-29 13:57] LABS: PLATELET ESTIMATE NORMAL (NORMAL)
[2020-10-29 13:59] LABS: HYPOCHROMASIA 1+
[2020-10-29 14:32] LABS: ERYTHROCYTE SEDIMENTATION RATE 106 mm/hr (0-20)
== END ==
LOC: M LAB REF 12:57
PROVIDERS: ATTEND Internal Medicine Infectious Disease
DX: K12.2 Cellulitis and abscess of mouth (principal); M86.18 Other acute osteomyelitis, other site; C10.9 Malignant neoplasm of oropharynx, unspecified; M32.9 Systemic lupus erythematosus, unspecified

== ENCOUNTER → 2020-10-30 | Outpatient (CLI) | payer OTHER ==
--- NOTE | 2020-10-30 14:08 | REP ---
INDICATION: WEDGE COMPRESSION FX. COMPARISON: 09/23/2016 bone scan, chest radiographs 02/17/2020, CT 02/06/2020. TECHNIQUE/RADIOTRACER AND DOSE: Following the intravenous administration of 21.5 mCi technetium 99 M MDP, images of the thoracic region are obtained in multiple projections in the immediate blood flow and blood pool phase as well as 3 hours post injection. FINDINGS: There is increased blood flow, blood pooling and delayed uptake in the T7 vertebral body. This likely represents an acute compression fracture. Focal increased uptake is seen in the posterior right 8th and 9th ribs, located adjacent to 1 another, compatible with rib fractures. Similar foci of increased uptake are seen in the anterior left 8th through 10th ribs and anterior right 8th through 10th ribs, compatible with fractures at these locations. There is curvature of the thoracolumbar spine convex to the right. Mild increased uptake at the lateral margins of the lumbar vertebral bodies is compatible with spurring and arthritic change. IMPRESSION: Findings compatible with relatively acute compression fracture T7 vertebral body. Bilateral rib fractures. <Electronically signed by Claudy Garcia > 10/30/20 [id number]
== END ==
LOC: M RAD 09:57
PROVIDERS: ATTEND Orthopaedic Surgery
DX: S22.040A Wedge compression fracture of fourth thoracic vertebra, initial encounter for closed fracture (principal); X58.XXXA Exposure to other specified factors, initial encounter; Y92.9 Unspecified place or not applicable
CPT/HCPCS: 78315; A9503

== ENCOUNTER → 2020-11-12 | Outpatient (REF) | payer OTHER ==
[~2020-11-12] MED LIST changes: +GABA-282 PO; -GABA-843 PO
[2020-11-12 13:51] LABS: BASO % 0.5 % (0.0-1.0); EOS # 0.1 10^3/uL (0.0-0.5); EOS % 0.8 % (0.0-3.0); HEMATOCRIT 28.9 % (42.0-52.0); HEMOGLOBIN 8.9 g/dl (13.5-17.5); LYMPH # 1.4 10^3/uL (1.5-5.0); LYMPH % 15.8 % (24.0-44.0); MEAN CORPUSCULAR HEMOGLOBIN 36.9 pg (27.0-33.0); MEAN CORPUSCULAR HGB CONC 30.8 g/dl (32.0-36.5); MONO # 2.6 10^3/uL (0.0-0.8); MONO % 29.8 % (0.0-5.0); NEUTROPHILS # 4.4 10^3/uL (1.5-8.5); NEUTROPHILS % 49.9 % (36.0-66.0); PLATELET COUNT, AUTOMATED 107 10^3/uL (150-450); RED BLOOD COUNT 2.41 10^6/uL (4.30-6.10); WHITE BLOOD COUNT 8.8 10^3/uL (4.0-10.0)
[2020-11-12 14:22] LABS: ALBUMIN 3.3 GM/DL (3.2-5.2); ALT/SGPT 22 U/L (12-78); BILIRUBIN,TOTAL 0.4 MG/DL (0.2-1.0); BLOOD UREA NITROGEN 27 MG/DL (7-18); C REACTIVE PROTEIN QUANTITATIV 3.13 MG/DL (0.00-0.30); CALCIUM LEVEL 9.4 MG/DL (8.8-10.2); CARBON DIOXIDE LEVEL 30 MEQ/L (21-32); CHLORIDE LEVEL 100 MEQ/L (98-107); CPK CREATINE PHOSPHOKINASE 52 U/L (39-308); CREATININE FOR GFR 0.78 MG/DL (0.70-1.30); GLOMERULAR FILTRATION RATE > 60.0 (>42); GLUCOSE, FASTING 110 MG/DL (70-100); POTASSIUM SERUM 4.2 MEQ/L (3.5-5.1); SODIUM LEVEL 137 MEQ/L (136-145); TOTAL PROTEIN 7.5 GM/DL (6.4-8.2)
[2020-11-12 14:23] LABS: MEAN CORPUSCULAR VOLUME 119.9 fl (80.0-96.0)
[2020-11-12 14:24] LABS: ANISOCYTOSIS 1+; PLATELET ESTIMATE DECREASED (NORMAL)
[2020-11-12 14:59] LABS: ERYTHROCYTE SEDIMENTATION RATE 70 mm/hr (0-20)
== END ==
LOC: M SHH 12:50
PROVIDERS: ATTEND Internal Medicine Infectious Disease
DX: M27.2 Inflammatory conditions of jaws (principal); Z79.2 Long term (current) use of antibiotics

== ENCOUNTER → 2020-11-19 | Outpatient (REF) | payer OTHER ==
[2020-11-19 13:04] LABS: BASO % 0.5 % (0.0-1.0); EOS # 0.1 10^3/uL (0.0-0.5); EOS % 1.1 % (0.0-3.0); HEMATOCRIT 29.9 % (42.0-52.0); LYMPH # 0.6 10^3/uL (1.5-5.0); LYMPH % 8.6 % (24.0-44.0); MEAN CORPUSCULAR HEMOGLOBIN 36.4 pg (27.0-33.0); MEAN CORPUSCULAR HGB CONC 30.1 g/dl (32.0-36.5); MONO # 2.5 10^3/uL (0.0-0.8); MONO % 39.2 % (0.0-5.0); NEUTROPHILS % 46.4 % (36.0-66.0); RED BLOOD COUNT 2.47 10^6/uL (4.30-6.10); WHITE BLOOD COUNT 6.4 10^3/uL (4.0-10.0)
[2020-11-19 13:28] LABS: MEAN CORPUSCULAR VOLUME 121.1 fl (80.0-96.0); PLATELET COUNT, AUTOMATED 90 10^3/uL (150-450)
[2020-11-19 13:30] LABS: ALT/SGPT 24 U/L (12-78); BILIRUBIN,TOTAL 0.2 MG/DL (0.2-1.0); BLOOD UREA NITROGEN 22 MG/DL (7-18); C REACTIVE PROTEIN QUANTITATIV 0.91 MG/DL (0.00-0.30); CALCIUM LEVEL 9.2 MG/DL (8.8-10.2); CARBON DIOXIDE LEVEL 30 MEQ/L (21-32); CHLORIDE LEVEL 99 MEQ/L (98-107); CPK CREATINE PHOSPHOKINASE 36 U/L (39-308); CREATININE FOR GFR 0.62 MG/DL (0.70-1.30); GLOMERULAR FILTRATION RATE > 60.0 (>42); GLUCOSE, FASTING 125 MG/DL (70-100); POTASSIUM SERUM 4.5 MEQ/L (3.5-5.1); SODIUM LEVEL 137 MEQ/L (136-145); TOTAL PROTEIN 7.1 GM/DL (6.4-8.2)
[2020-11-19 13:36] LABS: ERYTHROCYTE SEDIMENTATION RATE 68 mm/hr (0-20)
== END ==
LOC: M SHH 12:27
PROVIDERS: ATTEND Internal Medicine Infectious Disease
DX: Z79.2 Long term (current) use of antibiotics (principal); M27.2 Inflammatory conditions of jaws

== ENCOUNTER → 2020-11-26 | Outpatient (REF) | payer OTHER ==
[2020-11-26 16:16] LABS: BASO % 0.4 % (0.0-1.0); EOS # 0.1 10^3/uL (0.0-0.5); EOS % 0.6 % (0.0-3.0); HEMATOCRIT 31.2 % (42.0-52.0); HEMOGLOBIN 9.6 g/dl (13.5-17.5); LYMPH # 0.6 10^3/uL (1.5-5.0); LYMPH % 6.4 % (24.0-44.0); MEAN CORPUSCULAR HEMOGLOBIN 37.1 pg (27.0-33.0); MEAN CORPUSCULAR HGB CONC 30.8 g/dl (32.0-36.5); MONO # 2.1 10^3/uL (0.0-0.8); MONO % 22.1 % (0.0-5.0); NEUTROPHILS # 6.5 10^3/uL (1.5-8.5); NEUTROPHILS % 68.3 % (36.0-66.0); RED BLOOD COUNT 2.59 10^6/uL (4.30-6.10); WHITE BLOOD COUNT 9.5 10^3/uL (4.0-10.0)
[2020-11-26 16:24] LABS: MEAN CORPUSCULAR VOLUME 120.5 fl (80.0-96.0); PLATELET COUNT, AUTOMATED 85 10^3/uL (150-450)
[2020-11-26 16:59] LABS: ALBUMIN 3.2 GM/DL (3.2-5.2); ALT/SGPT 26 U/L (12-78); BILIRUBIN,TOTAL 0.4 MG/DL (0.2-1.0); BLOOD UREA NITROGEN 21 MG/DL (7-18); CALCIUM LEVEL 9.5 MG/DL (8.8-10.2); CARBON DIOXIDE LEVEL 32 MEQ/L (21-32); CHLORIDE LEVEL 98 MEQ/L (98-107); CPK CREATINE PHOSPHOKINASE 36 U/L (39-308); CREATININE FOR GFR 0.67 MG/DL (0.70-1.30); GLOMERULAR FILTRATION RATE > 60.0 (>42); GLUCOSE, FASTING 113 MG/DL (70-100); POTASSIUM SERUM 4.6 MEQ/L (3.5-5.1); SODIUM LEVEL 135 MEQ/L (136-145); TOTAL PROTEIN 7.2 GM/DL (6.4-8.2)
[2020-11-26 20:06] LABS: ANISOCYTOSIS 1+
[2020-11-26 20:08] LABS: HYPOCHROMASIA 1+; PLATELET ESTIMATE DECREASED (NORMAL)
[2020-11-26 20:10] LABS: ERYTHROCYTE SEDIMENTATION RATE 54 mm/hr (0-20)
== END ==
LOC: M SHH 15:47
PROVIDERS: ATTEND Internal Medicine Infectious Disease
DX: M27.2 Inflammatory conditions of jaws (principal); Z79.2 Long term (current) use of antibiotics

== ENCOUNTER → 2020-11-26 | Outpatient (CLI) | payer OTHER ==
--- NOTE | 2020-11-27 11:15 | REP ---
INDICATION: RESTAGING BASE OF TONGUE CANCE C01. 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 Currently on weekly cisplatin chemotherapy and radiation therapy. Pancytopenia. CT study October 2020 at [facility] with increasing size of mediastinal lymph nodes. COMPARISON: Comparison PET-CT study February 28, 2020. Comparison bone scan October 30, 2020.. TECHNIQUE: Approximately 45 minutes following the intravenous injection of a 8.21 mCi dose of F-18 FDG, three-dimensional PET scintigraphy is acquired from the skull base to the proximal thighs. Triplanar noncontrast CT scanning is acquired through the same anatomic range for attenuation correction, and image registration with scan parameters optimized to minimize radiation exposure to the patient. PET scintigraphy and CT datasets were fused and displayed on a workstation with multiplanar and projection display capability. FINDINGS: There is no abnormal head and neck soft tissue uptake. No visible adenopathy. In the chest there is no abnormal hilar or mediastinal hypermetabolic uptake. No abnormal pulmonary parenchymal uptake is seen within the thorax. There is interstitial lung disease fairly extensively in the lower lobes and there is some pleural thickening on the right. In the abdomen and pelvis, there is normal hepatic, splenic, gastrointestinal, and genitourinary FDG accumulation. No abnormal soft tissue uptake is seen in the abdomen and pelvis. There is marked diffuse marrow uptake throughout the visualized skeleton. Maximum standard uptake value ranges from up to 13.2. The entire skeleton is diffusely involved. This is most compatible with a rebound or reactive marrow related to chemotherapy effect. Diffuse marrow neoplasm is felt to be less likely. IMPRESSION: Diffuse marked increased uptake throughout the visualized skeleton. Post chemotherapy rebound marrow most likely etiology. No abnormal soft tissue uptake focus seen. <Electronically signed by Darrius Phan > 11/27/20 1111
== END ==
LOC: M PLARAD 12:20
PROVIDERS: ATTEND Internal Medicine Hematology & Oncology
DX: C01 Malignant neoplasm of base of tongue (principal); R63.4 Abnormal weight loss; G62.9 Polyneuropathy, unspecified; D61.818 Other pancytopenia; D70.9 Neutropenia, unspecified; E11.9 Type 2 diabetes mellitus without complications; R35.0 Frequency of micturition; R35.1 Nocturia; R39.12 Poor urinary stream; G47.30 Sleep apnea, unspecified; M32.9 Systemic lupus erythematosus, unspecified; M27.2 Inflammatory conditions of jaws; Z79.2 Long term (current) use of antibiotics
CPT/HCPCS: 78815; 80053; 82550; 85025; 85049; 85055; 85652; 86140; A9552

== ENCOUNTER → 2020-12-03 | Outpatient (REF) | payer OTHER ==
[2020-12-03 17:11] LABS: BASO % 0.5 % (0.0-1.0); EOS % 0.4 % (0.0-3.0); HEMATOCRIT 34.3 % (42.0-52.0); HEMOGLOBIN 10.5 g/dl (13.5-17.5); LYMPH # 0.7 10^3/uL (1.5-5.0); LYMPH % 8.6 % (24.0-44.0); MEAN CORPUSCULAR HEMOGLOBIN 37.2 pg (27.0-33.0); MEAN CORPUSCULAR HGB CONC 30.6 g/dl (32.0-36.5); MONO # 2.9 10^3/uL (0.0-0.8); MONO % 34.3 % (0.0-5.0); NEUTROPHILS # 4.6 10^3/uL (1.5-8.5); NEUTROPHILS % 53.9 % (36.0-66.0); RED BLOOD COUNT 2.82 10^6/uL (4.30-6.10)
[2020-12-03 17:12] LABS: MEAN CORPUSCULAR VOLUME 121.6 fl (80.0-96.0); PLATELET COUNT, AUTOMATED 70 10^3/uL (150-450); WHITE BLOOD COUNT 8.5 10^3/uL (4.0-10.0)
[2020-12-03 17:19] LABS: ALBUMIN 3.4 GM/DL (3.2-5.2); ALT/SGPT 29 U/L (12-78); BILIRUBIN,TOTAL 0.3 MG/DL (0.2-1.0); BLOOD UREA NITROGEN 27 MG/DL (7-18); C REACTIVE PROTEIN QUANTITATIV 0.33 MG/DL (0.00-0.30); CALCIUM LEVEL 9.8 MG/DL (8.8-10.2); CARBON DIOXIDE LEVEL 30 MEQ/L (21-32); CHLORIDE LEVEL 97 MEQ/L (98-107); CPK CREATINE PHOSPHOKINASE 31 U/L (39-308); CREATININE FOR GFR 0.74 MG/DL (0.70-1.30); GLOMERULAR FILTRATION RATE > 60.0 (>42); GLUCOSE, FASTING 131 MG/DL (70-100); POTASSIUM SERUM 4.7 MEQ/L (3.5-5.1); SODIUM LEVEL 135 MEQ/L (136-145); TOTAL PROTEIN 7.5 GM/DL (6.4-8.2)
[2020-12-03 17:51] LABS: ERYTHROCYTE SEDIMENTATION RATE 54 mm/hr (0-20)
[2020-12-03 18:01] LABS: ANISOCYTOSIS 2+; PLATELET ESTIMATE DECREASED (NORMAL)
== END ==
LOC: M SHH 15:49
PROVIDERS: ATTEND Internal Medicine Infectious Disease
DX: Z79.2 Long term (current) use of antibiotics (principal); M27.2 Inflammatory conditions of jaws

== ENCOUNTER → 2020-12-05 | Outpatient (REF) | payer OTHER ==
[2020-12-05 19:09] LABS: APPEARANCE, URINE CLEAR (CLEAR); BACTERIA, URINE AUTO NEGATIVE (NEGATIVE); BILIRUBIN, URINE AUTO NEGATIVE (NEGATIVE); BLOOD, URINE BLOOD NEGATIVE (NEGATIVE); COLOR, URINE YELLOW (YELLOW); GLUCOSE, URINE (UA) AUTO NEGATIVE (NEGATIVE); KETONE, URINE AUTO NEGATIVE (NEGATIVE); LEUKOCYTE ESTERASE, URINE AUTO NEGATIVE (NEGATIVE); MUCUS, URINE SMALL (NEGATIVE); NITRITE, URINE AUTO NEGATIVE (NEGATIVE); PROTEIN, URINE AUTO 1+ mg/dL (NEGATIVE); RBC, URINE AUTO 1 /HPF (0-3); SPECIFIC GRAVITY URINE AUTO 1.026 (1.002-1.035); SQUAMOUS EPITHELIAL CELL UR AU 0 /HPF (0-6); UROBILINOGEN, URINE AUTO 0.2 mg/dL (0.0-2.0); WBC, URINE AUTO 1 /HPF (0-3)
== END ==
LOC: M SMT 17:03
PROVIDERS: ATTEND Nurse Practitioner Family
DX: N32.9 Bladder disorder, unspecified (principal); Z79.899 Other long term (current) drug therapy
CPT/HCPCS: 81001; 87086; 88108; G0463

== ENCOUNTER → 2020-12-10 | Outpatient (REF) | payer OTHER ==
[2020-12-10 16:46] LABS: BASO % 0.3 % (0.0-1.0); EOS # 0.1 10^3/uL (0.0-0.5); EOS % 0.8 % (0.0-3.0); HEMOGLOBIN 9.7 g/dl (13.5-17.5); LYMPH # 0.7 10^3/uL (1.5-5.0); LYMPH % 5.7 % (24.0-44.0); MEAN CORPUSCULAR HEMOGLOBIN 36.3 pg (27.0-33.0); MEAN CORPUSCULAR HGB CONC 30.3 g/dl (32.0-36.5); MONO # 5.2 10^3/uL (0.0-0.8); MONO % 42.5 % (0.0-8.0); NEUTROPHILS # 5.9 10^3/uL (1.5-8.5); NEUTROPHILS % 48.3 % (36.0-66.0); RED BLOOD COUNT 2.67 10^6/uL (4.30-6.10); WHITE BLOOD COUNT 12.3 10^3/uL (4.0-10.0)
[2020-12-10 16:49] LABS: ALT/SGPT 21 U/L (12-78); BILIRUBIN,TOTAL 0.3 MG/DL (0.2-1.0); BLOOD UREA NITROGEN 24 MG/DL (7-18); C REACTIVE PROTEIN QUANTITATIV 5.04 MG/DL (0.00-0.30); CALCIUM LEVEL 8.6 MG/DL (8.8-10.2); CARBON DIOXIDE LEVEL 31 MEQ/L (21-32); CHLORIDE LEVEL 101 MEQ/L (98-107); CPK CREATINE PHOSPHOKINASE 76 U/L (39-308); CREATININE FOR GFR 0.66 MG/DL (0.70-1.30); GLOMERULAR FILTRATION RATE > 60.0 (>42); GLUCOSE, FASTING 108 MG/DL (70-100); POTASSIUM SERUM 4.8 MEQ/L (3.5-5.1); SODIUM LEVEL 137 MEQ/L (136-145); TOTAL PROTEIN 6.6 GM/DL (6.4-8.2)
[2020-12-10 17:06] LABS: MEAN CORPUSCULAR VOLUME 119.9 fl (80.0-96.0); PLATELET COUNT, AUTOMATED 62 10^3/uL (150-450)
[2020-12-10 17:52] LABS: ANISOCYTOSIS 1+; POIKILOCYTOSIS 1+
[2020-12-10 17:53] LABS: GIANT PLATELETS 1+; OVALOCYTES 1+; PLATELET ESTIMATE DECREASED (NORMAL)
[2020-12-10 20:46] LABS: ERYTHROCYTE SEDIMENTATION RATE 60 mm/hr (0-20)
== END ==
LOC: M SHH 15:49
PROVIDERS: ATTEND Internal Medicine Infectious Disease
DX: Z79.2 Long term (current) use of antibiotics (principal); M27.2 Inflammatory conditions of jaws

== ENCOUNTER 2021-02-08 18:57 | Inpatient (IN) | payer OTHER ==
[~2021-02-08] VITALS: Ht 152.4 cm; Wt 52.0 kg
[~2021-02-08 18:57] MED LIST changes: -SPIR-10; +SPIR-10 PO; -VITA50005
[2021-02-08] MEDS ORDERED: ACETAMINOPHEN 325 MG/10.15 ML UDC GT ONE (20:45)
--- NOTE | 2021-02-08 20:45 | REPVR ---
PROCEDURE INFORMATION: Exam: US Duplex Lower Extremity Veins, Bilateral Exam date and time: 02/08/2021 8:26 PM Age: 70 years old Clinical indication: Edema, localized; Lower extremity, bilateral; Additional info: Pain R/O dvt TECHNIQUE: Imaging protocol: Real-time duplex ultrasound of the extremities with 2-D desir scale, color Doppler flow and spectral waveform analysis with image documentation. Complete exam focused on the bilateral lower extremity veins. COMPARISON: No relevant prior studies available. FINDINGS: Right deep veins: Unremarkable. The common femoral, femoral and popliteal veins are patent without thrombus. Normal Doppler waveforms. Normal compressibility and/or augmentation response. Right superficial veins: Saphenofemoral junction is patent without thrombus. Left deep veins: Unremarkable. The common femoral, femoral and popliteal veins are patent without thrombus. Normal Doppler waveforms. Normal compressibility and/or augmentation response. Left superficial veins: Saphenofemoral junction is patent without thrombus. Soft tissues: Unremarkable. IMPRESSION: No sonographic evidence of deep vein thrombosis. Electronically signed by: Bud Gage On 02/08/2021 20:46:27 PM
[2021-02-08] MEDS ORDERED: DULO20CA27 PO (21:01)
--- NOTE | 2021-02-08 21:56 | REPVR ---
PROCEDURE INFORMATION: Exam: XR Chest Exam date and time: 02/08/2021 9:39 PM Age: 70 years old Clinical indication: Fever TECHNIQUE: Imaging protocol: XR of the chest. Views: 1 view. COMPARISON: CR Abdomen,Flat Upright,PA CHEST 09/12/2020 6:17 PM FINDINGS: Lungs: Bibasilar fibrotic changes. Superimposed acute infiltrates are difficult to definitively exclude. Pleural spaces: Unremarkable. No pleural effusion. No pneumothorax. Heart/Mediastinum: Cardiomegaly. Bones/joints: No acute osseous abnormality. Osteopenia and degenerative changes. IMPRESSION: 1. Bibasilar fibrotic changes. Superimposed acute infiltrates are difficult to definitively exclude. 2. Additional findings, as above. Electronically signed by: Bud Gage On 02/08/2021 21:56:48 PM
[2021-02-08 23:13] LABS: HEMATOCRIT 30.1 % (42.0-52.0); HEMOGLOBIN 9.5 g/dl (13.5-17.5); MEAN CORPUSCULAR HEMOGLOBIN 35.6 pg (27.0-33.0); MEAN CORPUSCULAR HGB CONC 31.6 g/dl (32.0-36.5); MEAN CORPUSCULAR VOLUME 112.7 fl (80.0-96.0); RED BLOOD COUNT 2.67 10^6/uL (4.30-6.10)
[2021-02-08 23:13] LABS: VENOUS BASE EXCESS 1.8 (-2.0-2.0); VENOUS HCO3 27.9 MEQ/L (23.0-27.0); VENOUS O2 SATURATION 76.5 % (60.0-80.0); VENOUS PARTIAL PRESSURE CO2 51.3 mmHg (38.0-50.0); VENOUS PARTIAL PRESSURE O2 46.3 mmHg (30.0-50.0); VENOUS PH 7.354 UNITS (7.330-7.430); VENOUS STANDARD HCO3 25.7 MEQ/L; VENOUS TOTAL CO2 29.5 MEQ/L (24.0-28.0)
[2021-02-08 23:39] LABS: PLATELET COUNT, AUTOMATED 43 10^3/uL (150-450); WHITE BLOOD COUNT 85.1 10^3/uL (4.0-10.0)
[2021-02-08 23:55] LABS: ALBUMIN 2.5 GM/DL (3.2-5.2); ALT/SGPT 38 U/L (12-78); BILIRUBIN,TOTAL 0.3 MG/DL (0.2-1.0); BLOOD UREA NITROGEN 37 MG/DL (7-18); CALCIUM LEVEL 8.4 MG/DL (8.8-10.2); CARBON DIOXIDE LEVEL 29 MEQ/L (21-32); CHLORIDE LEVEL 98 MEQ/L (98-107); CREATININE FOR GFR 1.18 MG/DL (0.70-1.30); GLOMERULAR FILTRATION RATE > 60.0 (>42); GLUCOSE, FASTING 66 MG/DL (70-100); NT-PRO BNP 1842 PG/ML (<125); POTASSIUM SERUM 4.5 MEQ/L (3.5-5.1); SODIUM LEVEL 134 MEQ/L (136-145); TOTAL PROTEIN 6.2 GM/DL (6.4-8.2)
--- NOTE | 2021-02-08 23:55 | HPEPDOC ---
[facility] Medical History & Physical Date of Admission Feb 08, 2021 Date of Service: Feb 08, 2021 Attending Physician: STEFANIE KAUFFMAN MD History and Physical CHIEF COMPLAINT: Left lower extremity pain The patient is a poor historian. We have spoken with his niece Marga and her contact number is [phone]. HISTORY OF PRESENT ILLNESS: is a 70yo male who presented to the ED on the evening of 02/08/21 c/o LLE pain upon an ED-to-ED transfer from [facility] after initial work up revealed an elevated D-dimer (2.72 mg/LFEU; NL 0.19-0.80). [facility] lacks an ultrasound machine to evaluate for DVT, therefore, he was subsequently transferred. Patient reports that beginning on , 02/07, he awoke with pain over his pubic bone and in his left groin. It then progressed to his left thigh, feeling like electric shocks. He then noticed some swelling over the left inner thigh as well as some redness of his left fowler. As the pain progressed on left lower extremity it began to affect his gait more and more, to the point that his niece/adhesion tester (Marga) drove him to the [facility] ED. Upon discussion with patient's niece, she reports that he has been feeling more off balance and confused of late, but stated he has not had any falls.. Of note, he received a second mode during the Covid vaccination one day before symptoms started. REVIEW OF SYSTEMS: CONSTITUTIONAL: Reports recent night sweats and chills, with weight loss since needing to get tube feedings a year ago. Denies recent fever. HEENT: Reports dysphagia, yet is able to swallow his home medications when he concentrates. Denies odynophagia. Denies double vision or blurry vision. CARDIOVASCULAR: Denies chest pain, chest pressure, or palpitations. RESPIRATORY: Reports intermittent shortness of breath on exertion. Denies productive cough or pleuritic chest pain GASTROINTESTINAL: Uses G-tube for feeding. Denies nausea, abdominal pain, vomiting, constipation, diarrhea, or blood in stool. GENITOURINARY: Denies dysuria or hematuria MUSCULOSKELETAL: Reports acute left lower extremity pain as described in HPI. Reports chronic neck and back pain. 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 ENDOCRINE: Reports some cold intolerance HEMATOLOGIC: Reports easy bruising. LYMPHATIC: Denies any new lumps or bumps. 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 Follows with an oncologist in [place] (Dr. Bhavna Quintana) Right mandibular fracture s/p plate insertion SLE/Sjogren's/RA on daily 10 mg prednisone and Plaquenil. Follows with a irrigation supervisor in [place] (). Heart failure with reduced ejection fraction (spring 2019 echo at [facility] reportedly showed EF of 40%) Chronic macrocytic anemia/thrombocytopenia/neutropenia on granix injections 2x/week (Mondays and ) Interstitial lung disease (identified on [facility] imaging) DARNELL not on CPAP. Patient reportedly has not used CPAP in the last 5 years and does not due to all of his oral/facial medical issues Dysphagia with history of aspiration pneumonia in January 2020 with subsequent G-tube placement. Currently receives G-tube feedings in the form of ground up food, Jevity, Pureed Degenerative disc disease, status post cervical spinal fusion and lumbar injuries. BPH Neuropathy secondary to chemotherapy Cervical spine fusion with pins. G-tube placement in 2019; GJ tube conversion to G-tube in July 2020 Incision and drainage of oropharyngeal abscess, 2017 Right eye cataract surgery (Dr. Hernandez, 11/22/19). These Left cataract eye surgery, 11/01/2019 Right total knee arthroplasty, September 2011 Surgical correction of right mandibular fracture with plate insertion on 12/18/20 SOCIAL HISTORY: Patient lives in [place], [place], and his niece Marga assists in his care nearly every day. He is a . He is a former smoker, having quit around 1996. Prior to that, he smoked roughly 1 pack per day of cigarettes for 31 years (31 year pack history). He currently drinks the equivalent of 2 shots of vodka every other day. He currently smokes marijuana in the form of a puff and a half every night. He denies any other illicit or IV drug use. FAMILY HISTORY: Father: at 75 years; arthritis, aneurysm Mother: at 93 years; natural causes. Sisters: [place], asthma, unspecified cancer, RA ALLERGIES: Please see below. HOME MEDICATIONS: Please see below. PHYSICAL EXAMINATION: VITAL SIGNS: Temperature 96.4 (Tmax 99.4), pulse 100, respiratory rate 18, blood pressure 115/50, pulse oximetry 95 % on room air. GENERAL APPEARANCE: Elderly, frail, and ill-appearing male lying in bed. Alert and oriented 3. HEENT: Normocephalic. There are areas of scabbing and small bruises over the vertex of the scalp. Mildly injected sclera. PERRLA. ORAL CAVITY: Unable to fully open her mouth. Missing some upper & lower molars. Unable to fully stick out tongue. No pharyngeal erythema or exudate appreciated. NECK: The neck is diffusely indurated, making it difficult to assess for lymphadenopathy. There is some areas of excoriation over the left side of the neck. Neck is not supple. Patient is unable to appreciably flex at the neck. CARDIOVASCULAR: Tachycardic rate, irregular rhythm. On monitor there appears to be premature atrial contractions. No distinct murmurs or rubs are appreciated. LUNGS: Diminished tidal volume with inspiratory bibasilar crackles that extend to the mid lung on the left side. Symmetric chest expansion. BACK: There is no CVA tenderness. There is significant deviation of the lumbar spine to the left. The lumbar spine is very prominent and appears almost fused. ABDOMEN: Soft, flat stomach. There is a G-tube in place. Hyperactive bowel sounds. There is no rigidity. No hepatosplenomegaly appreciated. MUSCULOSKELETAL: 3/5 muscle strength of left lower extremity. 4/5 strength of right lower extremity. EXTREMITIES: Left thigh appears slightly larger than the right thigh. There is erythema over the medial left thigh extending to the knee. There is also erythema and some petechia over the left anterior fowler. There is evidence of chronic long-time bruising over bilateral upper extremities and lower extremities. There is some moderate swelling of the left medial malleolus with associated erythema. The entire left lower extremity is tender. Bilateral onychomycosis. Bilateral hands are dirty and appear quite callused with multiple scratches. NEUROLOGICAL: Alert and oriented 3. Unable to fully assess cranial nerves. Due to limitations associated with oral and facial structures. There appears to be an action tremor bilateral hands. PSYCHIATRIC: Somewhat exasperated mood. Affect appears appropriate. LABORATORY DATA: Please see below. IMAGIN-view chest x-ray, 02/08/21 IMPRESSION: 1. Bibasilar fibrotic changes. Superimposed acute infiltrates are difficult to definitively exclude. 2. Additional findings, as above. B/l duplex lower extremity ultrasound, 02/08/21IMPRESSION: No sonographic evidence of deep vein thrombosis. CTA of the chest, 02/09/21IMPRESSION: No acute pulmonary embolic disease. Interstitial pulmonary edema and trace right pleural effusion. Suspect congestive heart failure.Evidence of interstitial lung disease. MICROBIOLOGY:Please see below. ASSESSMENT & PLAN: 70yo male with extensive med hx highlighted by oropharyngeal CA s/p chemo & radiation in remission, HFrEF, SLE/Sjogren/RA, aphasia w/ GT, and chronic anemia/thrombocytopenia/neutropenia who transferred from [facility] for lower extremity ultrasound due to an elevated d-dimer after experiencing left lower extremity pain for the past 2 days. He was subsequent found to have multiple issues highlighted by meeting sirs criteria (leukocytosis and tachycardia) in an elevated d-dimer. #SIRS criteria w/ leukocytosis and tachycardia -WBC was initially 86.1 with 35% bands. Of note, he does take Granix (colony growth stimulating factor, and most recently administered the medication one day ago). Initial heart rates in the 100-110 in the ED. -Elevated lactic acid of 3.5 with a repeat of 3 -Patient has been afebrile -Elevated systemic inflammatory markers (CRP 29.8, ESR 51) -2 blood cultures are pending, as is urine culture; sputum culture ordered -Possible sources could be pulmonary and/or left lower extremity cellulitis. CTA of the chest showed more -Initial fluid hydration was started in the form of normal saline. Patient became hypoglycemic and hydration was switched over to D5W in half-normal saline. 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 A MRSA PCR screen was ordered and is pending. #Leukocytosis -initial wbc 86K w/ 35% bands -Does take a growth colony-stimulating factor to home, with most recent dose one day ago. He certainly be factoring into it, although does not explain the bandemia. #Thrombocytopenia. -Initial platelet of 43,000. Due to no findings of PE on imaging, initial anticoagulation and DVT prophylax is has been deferred in the setting of this significantly decreased platelet count. #Elevated D-dimer -Patient had reported elevated d-dimer at [facility] that was repeated here. Denominational result was greater then 4000. A CTA of the chest did not reveal any pulmonary embolism. Of note, bilateral duplex ultrasound revealed no DVT #Heart failure with reduced ejection fraction. -He appeared to be compensated on exam, although CTA showed interstitial pulmonary edema and trace right pleural effusion with suspicion for congestive heart failure. -BNP was elevated 1841 Echo in spring 2019 at [facility] reportedly revealed an EF of 40% #Hypoglycemia -Initially was receiving fluid hydration with normal saline, which was switched to D5 half normal saline. He receives G-tube nutrition. We are working on establishing the rate, which she gets feeds. Dietary has been consulted. #Hypercarbia -VBG showed pH of 7.35 with a PCO2 51.3 and a PO2 of 46.3. Bicarbonate was 29. -Due to the significant elevation, PCO2, but there relative lack of corresponding decrease in pH, this is likely a chronic issue. Patient does have a history of DARNELL. Reportedly, but cannot use a CPAP machine due to all of his oral and facial structural abnormalities. #Hyponatremia. -Initial sodium of 134 with a glucose of 66. Urinalysis was ordered with osmolality, and urine electrolytes to calculate for fractional excretion of both sodium and urea. #Left lower extremity erythema and swelling -LE U/s ruled out DVT #Nutritional status -Pt has a history of dysphagia on G-tube feedings -Patient had visible difficulty swallowing water. For the meantime, he was placed on strict nothing by mouth status. Speech therapy has been consulted. Also, dietary has been consulted as patient been losing weight. At this point, we're trying to determine the rate at which he gets Jevity. feedings. He also augments these feedings with pured and ground-up food. -For the meantime, he is on D5 W in half-normal saline due to hypoglycemia #History of Lupus/RA/Sjogren's -CRP and ESR elevated. He is on home oral steroids and Plaquenil. 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 #DVT prophylaxis: Due thrombocytopenia and left lower extremity, DVT prophylactic anticoagulation and SCDs were initially deferred. Disposition: Expected greater than two midnight stay. Vital Signs Vital Signs Date Time Temp Pulse Resp B/P (MAP) Pulse Ox O2 Delivery O2 Flow Rate FiO2 02/08/21 23:02 96.4 02/08/21 19:16 127 20 155/75 (101) 88 Room Air Laboratory Data Labs 24H Laboratory Tests 2 02/08/21 22:52: Blood Gas Bicarbonate Standard 25.7, Venous Blood pH 7.354, Venous Blood Partial Pressure CO2 51.3H, Venous Blood Partial Pressure O2 46.3, Venous Blood Total Carbon Dioxide 29.5H, Venous Blood HCO3 27.9H, Venous Blood Oxygen Saturation 76.5, Venous Blood Base Excess 1.8 02/08/21 22:53: Neutrophils (%) (Auto) , Nucleated Red Blood Cells % (auto) 0.0, Lactic Acid Level 3.5*H 02/08/21 23:09: CBC/BMP Laboratory Tests 02/08/21 22:53 Microbiology Microbiology 02/08/21 Blood Culture, Received Pending 02/08/21 Blood Culture, Received Pending Home Medications Scheduled Amlodipine Besylate (Amlodipine Besylate) 5 Mg Tablet, 5 MG PO DAILY Duloxetine HCl (Duloxetine HCl) 20 Mg Capsule.dr, 40 MG PO DAILY Ergocalciferol (Vitamin D2) (Vitamin D2) 50,000 Units Cap, 50,000 UNITS PO QWEEK thursday Hydroxychloroquine Sulfate (Hydroxychloroquine Sulfate) 200 Mg Tab, 200 MG PO BID Loratadine (Claritin) 10 Mg Capsule, 10 MG PO DAILY Metoprolol Tartrate (Metoprolol Tartrate) 25 Mg Tablet, 6.25 MG PO BID Omeprazole (Omeprazole) 20 Mg Cap, 20 MG PO BID Pentoxifylline (Pentoxifylline) 400 Mg Tablet.er, 400 MG PO BID Prednisone (Prednisone) 5 Mg Tab, 10 MG PO DAILY Pregabalin (Pregabalin) 100 Mg Capsule, 100 MG PO TID Spironolactone (Spironolactone) 25 Mg Tablet, 25 MG PO DAILY Tbo-Filgrastim (Granix) 480 Mcg/0.8 Ml Syringe, 480 MCG INJ 2XW THURSDAY AND THURSDAY Scheduled PRN Hydrocodone/Acetaminophen (Hydrocodone-Acetamin 7.5-325) 1 Each Tablet, 1 TAB PO TID PRN for pain Naproxen (Naproxen) 500 Mg Tablet.dr, 500 MG PO Q12HP PRN for PAIN Allergies Coded Allergies: chlorpromazine (Verified Allergy, Intermediate, rash, 09/19/20) A-FIB/CHADSVASC A-FIB History Current/History of A-Fib/PAF?: No Current PO Anticoag Therapy: No GME ATTESTATION GME ATTESTATION My faculty preceptor for this patient encounter was physically present during the encounter and was fully available. All aspects of the patient interview, examination, medical decision making process, and medical care plan development were reviewed and approved by the faculty preceptor. The faculty preceptor is aware and concurs with the plan as stated in the body of this note and will attest to such by his/her cosignature. ATTENDING NOTE time of service 1042 pm is a 70 yr old M w a hx of SCC CA of the mouth and throat, dysphagia, DLP, RA, SLE, Sjogrens & HFrEF(40%) who was transferred from [facility]. According to his niece he has been c/o LLE swelling, and has been more confused. He will be admitted for LLE swelling possibly 2/2 DVT (partial LE US was neg so he may have a PE), encephalopathy possibly 2/2 hypoglycemia, lactic acidosis & possible SIRS. His leukocytosis is 2/2 administration of a colony stimulating factor which he received yesterday. rest per 's H&P GINGER MORALES D.O. Feb 08, 2021 23:55 STEFANIE KAUFFMAN MD Feb 09, 2021 04:47
[2021-02-09] VITALS (8 sets, daily range): BP systolic 93–145; BP diastolic 50–72; O2SAT 89–99
[2021-02-09 00:02] LABS: METAMYELOCYTES 8 % (0-0); MONOCYTES 3 % (0-5); MYELOCYTES 1 % (0-0); NEUTROPHILS 53 % (28-66)
[2021-02-09 00:07] LABS: PLATELET ESTIMATE MARKED DECREASE (NORMAL)
[2021-02-09 00:08] LABS: TOXIC VACUOLATION 2+
[2021-02-09 00:10] LABS: ANISOCYTOSIS 1+
[2021-02-09 00:52] LABS: ERYTHROCYTE SEDIMENTATION RATE 51 mm/hr (0-20)
[2021-02-09] MEDS ORDERED: NS 1,000 ML IV ONE (03:00)
[2021-02-09] MEDS ORDERED: ACETAMINOPHEN 325 MG/10.15 ML UDC GT PRN (03:30)
[2021-02-09] MEDS ORDERED: GLUCOSE 4GM CHEW TABLET PO PRN (04:00)
[2021-02-09] MEDS ORDERED: GLUCAGON INJ 1MG VIAL SC PRN (04:00)
[2021-02-09] MEDS ORDERED: DEXTROSE 50% 50 ML SYRINGE IV PRN ×2 (04:00→05:05)
[2021-02-09] MEDS ORDERED: D5W/0.9% SODIUM CHLORIDE 1,000 ML IV SCH (04:45)
[2021-02-09 05:17] LABS: HEMOGLOBIN A1c 5.2 %
[2021-02-09] MEDS ORDERED: ISOVUE-370 76% 100ML VIAL As Ordered ONE (05:18)
--- NOTE | 2021-02-09 06:24 | REPVR ---
PROCEDURE INFORMATION: Exam: CTA Chest With Contrast Exam date and time: 02/09/2021 5:01 AM Age: 70 years old Clinical indication: Other: Hypoxia; Additional info: +d-dimer /swollen lle/ tachycardia/ hypoxemia TECHNIQUE: Imaging protocol: Computed tomographic angiography of the chest with contrast. 3D rendering (Not supervised by radiologist): MIP and/or 3D reconstructed images were created by the technologist. Radiation optimization: All CT scans at this facility use at least one of these dose optimization techniques: automated exposure control; mA and/or kV adjustment per patient size (includes targeted exams where dose is matched to clinical indication); or iterative reconstruction. Contrast material: ISO; Contrast volume: 75 ml; Contrast route: INTRAVENOUS (IV); COMPARISON: CT ANGIO CHEST - OUTSIDE PRIOR 01/16/2020 8:10 PM FINDINGS: Pulmonary arteries: Normal. No pulmonary emboli. Aorta: Atherosclerotic disease of aorta. Lungs: Evidence of interstitial lung disease with bilateral honeycombing. Mild centrilobular emphysema. Calcified granuloma in the right apex. Suggestion mild interstitial pulmonary edema. Traction bronchiectasis is present in the right middle and bilateral lower lobes enchondroma in the right humerus. Pleural spaces: Trace right pleural effusions with adjacent atelectasis. Heart: Atherosclerotic disease of coronary arteries. Mediastinal space: Extensive stable paratracheal, AP window and subcarinal with the largest in the right paratracheal space measuring to 6 cm in short axis. Lymph nodes: Unremarkable. No enlarged lymph nodes. Stomach and bowel: Partially visualized percutaneous gastrostomy in the left quadrant. Bones/joints: Osteopenia. Compression deformities at levels with vertebral body height loss at T6. Soft tissues: Unremarkable. IMPRESSION: No acute pulmonary embolic disease. Interstitial pulmonary edema and trace right pleural effusion. Suspect congestive heart failure. Evidence of interstitial lung disease. Stable mediastinal lymphadenopathy as discussed above. Electronically signed by: Johnny Conner On 02/09/2021 06:25:12 AM
[2021-02-09 06:43] LABS: HEMATOCRIT 29.8 % (42.0-52.0); HEMOGLOBIN 9.4 g/dl (13.5-17.5); MEAN CORPUSCULAR HEMOGLOBIN 35.9 pg (27.0-33.0); MEAN CORPUSCULAR HGB CONC 31.5 g/dl (32.0-36.5); MEAN CORPUSCULAR VOLUME 113.7 fl (80.0-96.0); RED BLOOD COUNT 2.62 10^6/uL (4.30-6.10)
[2021-02-09 06:47] LABS: PLATELET COUNT, AUTOMATED 42 10^3/uL (150-450)
[2021-02-09 06:48] LABS: WHITE BLOOD COUNT 71.7 10^3/uL (4.0-10.0)
[2021-02-09 07:03] LABS: OSMOLALITY SERUM 280 MOSM/KG (280-301)
[2021-02-09 07:17] LABS: METAMYELOCYTES 4 % (0-0); MONOCYTES 2 % (0-5); NEUTROPHILS 56 % (28-66)
[2021-02-09 07:21] LABS: ALBUMIN 1.9 GM/DL (3.2-5.2); BILIRUBIN,TOTAL 0.2 MG/DL (0.2-1.0); CALCIUM LEVEL 8.4 MG/DL (8.8-10.2); CREATININE FOR GFR 1.36 MG/DL (0.70-1.30); POTASSIUM SERUM 5.5 MEQ/L (3.5-5.1); TOTAL PROTEIN 5.8 GM/DL (6.4-8.2)
[2021-02-09 07:23] LABS: PLATELET ESTIMATE MARKED DECREASE (NORMAL)
[2021-02-09] MEDS ORDERED: amLODIPine 5 MG TAB PO SCH (09:00)
[2021-02-09] MEDS ORDERED: HYDROXYCHLOROQUINE 200 MG TAB PO SCH (09:00)
[2021-02-09] MEDS: HYDROXYCHLOROQUINE 200 MG TAB GT SCH ×2 (09:00→21:05)
[2021-02-09] MEDS ORDERED: METOPROLOL TART 25 MG TABLET PO SCH (09:00)
[2021-02-09] MEDS ORDERED: PREGABALIN 100 MG CAP (LYRICA) PO SCH (09:00)
[2021-02-09] MEDS ORDERED: predniSONE 10 MG TAB PO SCH (09:00)
[2021-02-09] MEDS ORDERED: SPIRONOLACTONE 25 MG TAB PO SCH (09:00)
[2021-02-09] MEDS ORDERED: ANEXSIA, NORCO 7.5MG/325MG TABLET(HYDROCODONE/APAP) PO PRN (09:15)
--- NOTE | 2021-02-09 10:14 | REP ---
INDICATION: pain and swelling. COMPARISON: None. TECHNIQUE: Four views of the left ankle are presented. FINDINGS: There is considerable radiographic artifact on today's images. Plantar calcaneal spurring is noted. Some vascular calcification is observed. There is osteoarthritic spurring at the tibiotalar and fibulotalar articulations consistent with ankle joint osteoarthritis. No joint space narrowing is seen. On the lateral radiograph there is a prominent soft tissue swelling area posterior to the tibia which indents the ventral margin of the pre Achilles fat. The anterior border of the Achilles tendon itself appears intact. There is more mild diffuse soft tissue swelling anteriorly. No erosive changes are seen. IMPRESSION: Ankle joint osteoarthritic spurring. Heel spurring and vascular calcification. There is fairly prominent area of soft tissue swelling posterior to the distal tibia at and above the level of the ankle as described above. <Electronically signed by aDrrius Phan > 02/09/21 [id number]
[2021-02-09] MEDS: LIDOCAINE 5% OINT 30GM TUBE TOP SCH ×2 (10:31→21:04)
[2021-02-09] MEDS: cefTRIAXone SOD 2 GM in D5W MINI-BAG PLUS 50 ML IV SCH (13:17)
[2021-02-09] MEDS: ANEXSIA, NORCO 7.5MG/325MG TABLET(HYDROCODONE/APAP) GT PRN ×2 (13:18→23:16)
[2021-02-09] MEDS: DULoxetine 20 MG CAP (CYMBALTA) PO SCH (13:19)
--- NOTE | 2021-02-09 14:48 | IPNPDOC ---
Subjective Date Seen The patient was seen on 02/09/21. Subjective Chief Complaint/HPI complains of generalized body aches and paininthe left ankle and left thigh though says it is a little better as today he can bend the knee a little and can turn his lef from side to side which he could not do yesterday. Complains of soreness of his mouth. Objective Physical Examination General Exam: Positive: Alert, Cooperative, No Acute Distress Eye Exam: Positive: PERRLA, Conjunctiva & lids normal, EOMI; Negative: Sclera icteric Neck Exam: Positive: Supple; Negative: JVD, thyromegaly Chest Exam: Positive: Clear to auscultation, Normal air movement Heart Exam: Positive: Rate Normal, Regular Rhythm, Normal S1, Normal S2; Negative: Murmurs, Rubs Abdomen Exam: Positive: Normal bowel sounds, Soft; Negative: Tenderness, Hepatospenomegaly Extremity Exam: Positive: Tenderness (on the left inner thigh), Swelling (left thigh), Other (left akle medial malleoli and back of ankle tender); Negative: Clubbing, Cyanosis, Edema Skin Exam: Positive: Rash (bruising on the left fowler), Other skin issue (red streak from the groin tothe back of knee along the inner aspect of the thigh) Assessment /Plan Assessment 70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 He had an ED-to-ED transfer from [facility] after initial work up revealed an elevated D-dimer (2.72 mg/LFEU; NL 0.19-0.80). [facility] lacks an ultrasound machine to evaluate for DVT, therefore, he was subsequently transferred. Patient reported that beginning on 02/07, he awoke with pain over his pubic bone and in his left groin. It then progressed to his left thigh, feeling like electric shocks. He then noticed some swelling over the left inner thigh as well as some redness of his left fowler. As the pain progressed on left lower extremity to the ankle. It began to affect his gait more and more, to the point that his niece/hot car charger (Marga) drove him to the [facility] ED. Of note, he received a second mode during the Covid vaccination one day before symptoms started. The patient was subsequently admitted under the care of the hospitalist service primarily for meeting SIRS criteria (leukocytosis and tachycardia with lactic of 3.5) and elevated d-dimer. Sepsis likely due to left leg bacterial lymphangitis blood cultures 2/2 positive 2/2 ceftriaxone. Left leg lymphangitis with swelling of the thigh Blood culture positive for gram pos cocci in chains will give ceftriaxone. Negative DVT. Leukocytosis with 35% band due to sepsis from lymphangitis and due to the use of neupogen. Hypoglycemia will start GT tube feeding. Oropharyngeal squamous cell cancer (left side) s/p radiation and chemotherapy, in remission since fall 2017. 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 Follows with an oncologist in [place] (Dr. Bhavna Quintana) Right mandibular fracture s/p plate insertion on 12/18/20 SLE/Sjogren's/RA /raynauds on daily 10 mg prednisone and Plaquenil. Follows with a gameplay programmer in [place] use (). continue pentoxiphylline, naproxen, norco. Heart failure with reduced ejection fraction spring 2019 echo at [facility] reportedly showed EF of 40% now appears euvolemic Chronic macrocytic anemia/thrombocytopenia/neutropenia on granix injections 2x/week (Mondays and ) Interstitial lung disease (identified on [facility] imaging) DARNELL likely resolved at present with weight loss after the cancer has not used CPAP in the last 5 years Dysphagia with history of aspiration pneumonia in January 2020 with subsequent G-tube placement. Currently receives G-tube feedings in the form of ground up food, Jevity, Pureed Degenerative disc disease, status post cervical spinal fusion and lumbar injuries. BPH Neuropathy secondary to chemotherapy on norco, cymbalta, lyrica. Surgical correction of right mandibular fracture with plate insertion Plan/VTE VTE Prophylaxis Ordered?: Yes VS, I&O, 24H, Fishbone Vital Signs/I&O Vital Signs Date Time Temp Pulse Resp B/P (MAP) Pulse Ox O2 Delivery O2 Flow Rate FiO2 02/09/21 13:18 18 02/09/21 10:32 85 144/72 02/09/21 08:00 98.0 95 Room Air Laboratory Data 24H LABS Laboratory Tests 2 02/08/21 22:52: Blood Gas Bicarbonate Standard 25.7, Venous Blood pH 7.354, Venous Blood Partial Pressure CO2 51.3H, Venous Blood Partial Pressure O2 46.3, Venous Blood Total Carbon Dioxide 29.5H, Venous Blood HCO3 27.9H, Venous Blood Oxygen Saturation 76.5, Venous Blood Base Excess 1.8, Estimated Mean Plasma Glucose 103, Hemoglobin A1c 5.2, Ammonia 25 02/08/21 22:53: Neutrophils (%) (Auto) , Nucleated Red Blood Cells % (auto) 0.0, Neutrophils 53, Band Neutrophils 35H, Monocytes (Manual) 3, Metamyelocytes 8H, Myelocytes 1H, Anisocytosis 1+, Macrocytosis 3+, Toxic Vacuolation 2+, Platelet Estimate MARKED DECREASE, Immature Platelet Fraction 34.5H, Erythrocyte Sedimentation Rate 51H, Anion Gap 7L, Glomerular Filtration Rate > 60.0, Lactic Acid Level 3.5*H, Calcium Level 8.4L, Total Bilirubin 0.3, Aspartate Amino Transf (AST/SGOT) 57H, Alanine Aminotransferase (ALT/SGPT) 38, Alkaline Phosphatase 149H, C-Reactive Protein, Quantitative 29.80H, VT-Hvb-G-Type Natriuretic Peptide 1842H, Total Protein 6.2L, Albumin 2.5L, Albumin/Globulin Ratio 0.7, Thyroid Stimulating Hormone (TSH) 1.070 02/08/21 23:09: 02/09/21 03:20: Lactic Acid Level 3.0*H, D-Dimer, Quantitative > 4000H 02/09/21 03:35: Urine Color YELLOW, Urine Appearance CLEAR, Urine pH 7.0, Urine Specific [place] 1.016, Urine Protein 2+H, Urine Glucose (UA) NEGATIVE, Urine Ketones NEGATIVE, Urine Blood NEGATIVE, Urine Nitrite NEGATIVE, Urine Bilirubin NEGATIVE, Urine Urobilinogen 0.2, Urine Leukocyte Esterase NEGATIVE, Urine WBC (Auto) 0, Urine RBC (Auto) 1, Urine Hyaline Casts (Auto) 0, Urine Bacteria (Auto) NEGATIVE, Urine Squamous Epithelial Cells 0, Urine Sperm (Auto) , Methicillin-Resist S.aureus DNA PCR NOT DETECTED 02/09/21 03:54: Bedside Glucose (Misc Panel) 46L 02/09/21 04:18: Bedside Glucose (Misc Panel) 59L 02/09/21 04:46: Bedside Glucose (Misc Panel) 64L 02/09/21 05:53: Neutrophils (%) (Auto) , Nucleated Red Blood Cells % (auto) 0.0, Neutrophils 56, Band Neutrophils 38H, Monocytes (Manual) 2, Metamyelocytes 4H, Macrocytosis 3+, Platelet Estimate MARKED DECREASE, Anion Gap 7L, Glomerular Filtration Rate 55.0, Osmolality 280, Lactic Acid Level 5.1*H, Calcium Level 8.4L, Total Bilirubin 0.2, Aspartate Amino Transf (AST/SGOT) 93H, Alanine Aminotransferase (ALT/SGPT) 59, Alkaline Phosphatase 126H, Total Protein 5.8L, Albumin 1.9#L, Albumin/Globulin Ratio 0.5 02/09/21 08:11: Bedside Glucose (Misc Panel) 78L 02/09/21 12:02: Lactic Acid Followup at 4 Hours 3.6*H 02/09/21 12:19: Bedside Glucose (Misc Panel) 76L CBC/BMP Laboratory Tests 02/08/21 22:53 02/09/21 05:53 Microbiology Microbiology 02/08/21 Blood Culture - Preliminary, Resulted 02/08/21 Blood Culture - Preliminary, Resulted RAMONA ZAMARRIPA MD Feb 09, 2021 14:48
[2021-02-09] MEDS: LIDOCAINE VISCOUS 2% SOLN 15ML UDC SSP PRN (15:20)
[2021-02-09] MEDS: PREGABALIN 100 MG CAP (LYRICA) GT SCH ×2 (17:10→21:05)
[2021-02-09] MEDS: ONDANSETRON 4MG/2ML VIAL IV PRN (17:11)
[2021-02-09] MEDS: METOPROLOL TART 25 MG TABLET GT SCH (21:05)
[2021-02-09] MEDS: OMEPRAZOLE 20 MG CAP PO SCH (21:05)
[2021-02-09] MEDS: PENTOXIFYLLINE 400 MG TAB PO SCH (21:05)
--- NOTE | 2021-02-09 23:02 | ECGEPIP ---
[facility] Test Date: 2021-02-09 Pat Name: BUZZ CASTRO Department: Room: [place] [address] Gender: Male Script Supervisor: Jamil BUSTAMANTE : 1950 Requested By: GINGER MORALES D.O. Order Number: [id number] Reading MD: Chas Stanford Measurements Intervals [place] Rate: 122 P: 53 ND: 170 QRS: -68 QRSD: 88 T: 44 QT: 302 QTc: 430 Interpretive Statements Sinus tachycardia with premature supraventricular complexes Left axis deviation No prior tracing in the system Electronically Signed on 02-09-2021 23:02:33 EDT by Chas Stanford
[2021-02-10] VITALS (16 sets, daily range): BP systolic 126–207; BP diastolic 60–97; O2SAT 85–96
[2021-02-10] MEDS: LIDOCAINE VISCOUS 2% SOLN 15ML UDC SSP PRN (00:15)
[2021-02-10] MEDS: NAPROXEN 250 MG TAB PO PRN (03:35)
[2021-02-10] MEDS: ACETAMINOPHEN 325 MG/10.15 ML UDC GT PRN (03:36)
[2021-02-10] MEDS: ANEXSIA, NORCO 7.5MG/325MG TABLET(HYDROCODONE/APAP) GT PRN ×2 (06:21→20:57)
[2021-02-10 08:23] LABS: HEMATOCRIT 35.1 % (42.0-52.0); HEMOGLOBIN 11.4 g/dl (13.5-17.5); MEAN CORPUSCULAR HEMOGLOBIN 35.6 pg (27.0-33.0); MEAN CORPUSCULAR HGB CONC 32.5 g/dl (32.0-36.5); MEAN CORPUSCULAR VOLUME 109.7 fl (80.0-96.0)
[2021-02-10 08:28] LABS: PLATELET COUNT, AUTOMATED 42 10^3/uL (150-450)
[2021-02-10 08:29] LABS: WHITE BLOOD COUNT 50.5 10^3/uL (4.0-10.0)
[2021-02-10 08:41] LABS: CREATININE FOR GFR 1.32 MG/DL (0.70-1.30); GLOMERULAR FILTRATION RATE 56.9 (>42); POTASSIUM SERUM 5.6 MEQ/L (3.5-5.1)
[2021-02-10] MEDS: PREGABALIN 100 MG CAP (LYRICA) GT SCH ×3 (08:50→20:57)
[2021-02-10] MEDS: OMEPRAZOLE 20 MG CAP PO SCH ×2 (08:50→20:56)
[2021-02-10] MEDS: PENTOXIFYLLINE 400 MG TAB PO SCH ×2 (08:51→20:56)
[2021-02-10] MEDS: HYDROXYCHLOROQUINE 200 MG TAB GT SCH ×2 (08:51→20:57)
[2021-02-10] MEDS: DULoxetine 20 MG CAP (CYMBALTA) PO SCH (08:51)
[2021-02-10] MEDS: predniSONE 10 MG TAB GT SCH (08:51)
[2021-02-10] MEDS: METOPROLOL TART 25 MG TABLET GT SCH ×2 (08:52→20:57)
[2021-02-10] MEDS: LIDOCAINE 5% OINT 30GM TUBE TOP SCH ×2 (08:52→20:58)
[2021-02-10 09:05] LABS: ATYPICAL LYMPH 1 % (0-5); LYMPHOCYTES 1 % (16-44); METAMYELOCYTES 8 % (0-0); MONOCYTES 22 % (0-5); NEUTROPHILS 13 % (28-66)
[2021-02-10 09:09] LABS: PLATELET ESTIMATE MARKED DECREASE (NORMAL)
--- NOTE | 2021-02-10 09:46 | IPNPDOC ---
Subjective Date Seen The patient was seen on 02/10/21. Subjective Chief Complaint/HPI Patient reports that his left leg pain is less and he is able to move his leg and bend his knee. His ankle at the back is still very tender and painful during passive and active movements. Objective Physical Examination General Exam: Positive: Alert, Cooperative, No Acute Distress Eye Exam: Positive: PERRLA, Conjunctiva & lids normal, EOMI; Negative: Sclera icteric Neck Exam: Positive: Supple; Negative: JVD, thyromegaly Chest Exam: Positive: Clear to auscultation, Normal air movement Heart Exam: Positive: Rate Normal, Regular Rhythm, Normal S1, Normal S2; Negative: Murmurs, Rubs Abdomen Exam: Positive: Normal bowel sounds, Soft; Negative: Tenderness, Hepatospenomegaly Extremity Exam: Positive: Tenderness (on the left inner thigh and left back of the ankle), Swelling (at the left ankle), Other (left akle medial malleoli and back of ankle tender); Negative: Clubbing, Cyanosis, Edema Skin Exam: Positive: Rash (bruising on the left fowler), Lesion (ulcers at the tips of the toes in both legs), Other skin issue (red streak from the groin tothe back of knee along the inner aspect of the thigh) Assessment /Plan Assessment 70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 He had an ED-to-ED transfer from [facility] after initial work up revealed an elevated D-dimer (2.72 mg/LFEU; NL 0.19-0.80). [facility] lacks an ultrasound machine to evaluate for DVT, therefore, he was subsequently transferred. Patient reported that beginning on 02/07, he awoke with pain over his pubic bone and in his left groin. It then progressed to his left thigh, feeling like electric shocks. He then noticed some swelling over the left inner thigh as well as some redness of his left fowler. As the pain progressed on left lower extremity to the ankle. It began to affect his gait more and more, to the point that his niece/pearl cutter (Marga) drove him to the [facility] ED. Of note, he recei palak a second mode during the Covid vaccination one day before symptoms started. The patient was subsequently admitted under the care of the hospitalist service primarily for meeting SIRS criteria (leukocytosis and tachycardia with lactic of 3.5) and elevated d-dimer. Sepsis with bacteremia. likely due to left leg cellulitis at the ankle and lymphangitis blood cultures 2/2 positive : streptococcus group g ceftriaxone. Ortho eval to rule out septic joint. Left leg lymphangitis with swelling of the thigh Blood culture positive for gram pos cocci in chains ceftriaxone. Negative DVT. will follow CRP Left Ankle pain, redness and swelling. Xray shows preachillis and post tibial soft tissue swelling. will consult ortho. Leukocytosis with 35% band due to sepsis from lymphangitis and due to the use of neupogen( had neupogen last week thursday and ) slight improvement Bacteremia will get echo. Hypoglycemia resolved Hyperkalemia true vs pseudohyperkalemia stopped spironolactone this may be high due to the very high WBC counts. JEYSON likely prerenal. will give ivf Lactic acidosis due to sepsis will give ivf. Oropharyngeal squamous cell cancer (left side) in 2017 s/p radiation and chemotherapy, in remission since fall 2017. 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 Follows with an oncologist in [place] (Dr. Bhavna Quintana) H/o Pancytopenia chemo related. As per HCP if he does not take neupogen his WBC is less than 2.0 and they do not mature so has been on neupogen since his chemotherapy in 2016. Right mandibular fracture after a mechanical fall in 2019 then developed OM Was on zosyn and daptomycin jun 2020 to nov 2020 through a PICC line s/p mandibular excision and plate insertion on 12/18/20 SLE/Sjogren's/RA /raynauds Has ulcers on the toes of the feet. on daily 10 mg prednisone and Plaquenil. Follows with a order fulfillment specialist in [place] (). continue pentoxiphylline, naproxen, norco. Heart failure with reduced ejection fraction spring 2019 echo [facility] reportedly showed EF of 40% may be slightly hypovolemic will give small bolus of fluid. Interstitial lung disease (identified on [facility] imaging) DARNELL likely resolved at present with weight loss after the cancer has not used CPAP in the last 5 years Dysphagia with history of aspiration pneumonia in January 2020 with subsequent G-tube placement. Currently receives G-tube feedings in the form of ground up food, Jevity, Pureed Degenerative disc disease status post cervical spinal fusion and lumbar injuries. h/o thoracic vertebral compression fractures at different levels and bilateral rib fractures. h/o BPH Neuropathy secondary to chemotherapy on norco, cymbalta, lyrica. Surgical correction of right mandibular fracture with plate insertion Plan/VTE VTE Prophylaxis Ordered?: Yes VS, I&O, 24H, Fishbone Vital Signs/I&O Vital Signs Date Time Temp Pulse Resp B/P (MAP) Pulse Ox O2 Delivery O2 Flow Rate FiO2 02/10/21 08:52 97 126/81 02/10/21 08:00 97.7 18 90 Nasal Cannula 2.0 I&O- Last 24 Hours up to 6 AM 02/10/21 06:00 Intake Total 0 ml Output Total 400 ml Balance -400 ml Laboratory Data 24H LABS Laboratory Tests 2 02/09/21 12:02: Lactic Acid Followup at 4 Hours 3.6*H 02/09/21 12:19: Bedside Glucose (Misc Panel) 76L 02/09/21 16:54: Bedside Glucose (Misc Panel) 102 02/10/21 07:18: Bedside Glucose (Misc Panel) 137H 02/10/21 08:05: Neutrophils (%) (Auto) , Nucleated Red Blood Cells % (auto) 0.0, Neutrophils 13L, Band Neutrophils 55H, Lymphocytes (Manual) 1L, Monocytes (Manual) 22H, M etamyelocytes 8H, Atypical Lymphocytes 1, Macrocytosis 2+, Platelet Estimate MARKED DECREASE, Immature Platelet Fraction 37.9H, Anion Gap 5L, Glomerular Filtration Rate 56.9, Lactic Acid Level 3.2*H, Calcium Level 9.0 CBC/BMP Laboratory Tests 02/10/21 08:05 Microbiology Microbiology 02/10/21 Blood Culture, Received Pending 02/08/21 Blood Culture - Preliminary, Resulted Streptococcus Group G 02/08/21 Blood Culture - Preliminary, Resulted Streptococcus Group G RAMONA ZAMARRIPA MD Feb 10, 2021 09:46
[2021-02-10] MEDS ORDERED: SODIUM CHLORIDE 0.9% 1000ML IV ONE (10:00)
[2021-02-10] MEDS: cefTRIAXone SOD 2 GM in D5W MINI-BAG PLUS 50 ML IV SCH (12:41)
[2021-02-10] MEDS ORDERED: SLF 3 ML SYR IV PRN (15:45)
[2021-02-10] MEDS ORDERED: PILL CUTTER 1 EACH XX PRN (20:55)
[2021-02-10] MEDS: SLF 3 ML SYR IV SCH (20:58)
[2021-02-11] VITALS (20 sets, daily range): BP systolic 128–188; BP diastolic 69–86; O2SAT 86–97
--- NOTE | 2021-02-11 04:02 | CR ---
CONSULTATION DATE: 02/10/2021 REASON FOR CONSULTATION: Left ankle pain, rule out septic arthritis. CHIEF COMPLAINT: Left ankle and leg pain. HISTORY OF PRESENT ILLNESS: The patient is a 70-year-old male with a very complex medical history notable for squamous cell oropharyngeal cancer status post chemotherapy and radiation. He presented to [facility] Emergency Department for left lower extremity pain and swelling and erythema, as well as meeting surgery criteria. He was diagnosed with lymphangitis and cellulitis in this area. Because he had pain in and around the ankle, orthopedics was consulted to rule out septic arthritis. No other musculoskeletal complaints. PAST MEDICAL HISTORY: 1. Oropharyngeal squamous cell cancer. 2. Right mandibular fracture. 3. Sjgren's syndrome. 4. Rheumatoid arthritis. 5. Heart failure. 6. Microcytic anemia. 7. Interstitial lung disease 8. Obstructive sleep apnea (DARNELL). 9. Dysphagia. 10.Degenerative disc disease. 11.Benign prostatic hypertrophy (BPH). 12. Neuropathy. PAST SURGICAL HISTORY: C-spine fusion. G-tube placement. Cataract surgery. Total knee arthroplasty. Mandibular fracture, open reduction, internal fixation. SOCIAL HISTORY: The patient lives in [place], [place], former smoker. He does drink routinely, smokes marijuana. FAMILY HISTORY: Father at 75, mother at 93. Sisters had myocardial infarction ([place]) and asthma. ALLERGIES: CHLORPROMAZINE. MEDICATIONS: See medical record. PHYSICAL EXAMINATION: General: Well-developed, well-nourished, in no acute distress, resting comfortably in the chair. Neuro: Alert and oriented x4. Psychiatric: Normal mood and affect. Cardia: Regular rate and rhythm. Respiratory: Unlabored breathing. Equal chest expansion and fall on nasal cannula oxygen. Abdomen: Nontender and non-distended. Skin: He has got significant erythema on this left lower extremity. No other areas of erythema noted. Musculoskeletal: Examination of the left lower extremity demonstrates some swelling and erythema around the distal lower extremity mostly concentrated on the posterior medial aspect of the ankle, but does wrap around mostly circumferentially around the foot and the ankle. He has no effusion that is noted anteriorly around the ankle. He has no tenderness to palpation over the ankle joint itself. He has tenderness to palpation over the most concentrated areas of erythema posteromedially. He is able to stand on his leg and bear weight on this ankle. He is able to move his ankle up and down without much pain. He has 2+ DP pulse. Motor is intact distally. His sensation is limited secondary to neuropathy. There is erythema over the sites of arthrocentesis sites. IMAGING DATA: The x-rays of the left ankle demonstrate no acute osseous abnormality. There are some arthritic changes. There is some soft tissue swelling. There does not appear to be joint effusion. LABORATORY DATA: White count is 50.5, erythrocyte sedimentation rate (ESR) 2 days ago was 51, C-reactive protein (CRP) 2 days ago was 29.8. ASSESSMENT: This is a 70-year-old male with left lower extremity cellulitis, lymphangitis currently on ceftriaxone. He says that he feels much better with regards to his leg since being on the antibiotics. RECOMMENDATIONS: I have little concern for his septic arthritis at this point based on the lack of effusion and the patient's ability to bear weight and range his ankle. I have hesitant to put a needle through the area of erythema and actually could potentially seed the ankle joint with infection and causing iatrogenic septic arthritis. As he has been improving, I recommend continued antibiotic treatment and soft tissue rest of his left lower extremity. Otherwise, at least a couple of days, it might be best for him to be nonweightbearing on the left lower extremity, but as he continues to improve he can be weightbearing as tolerated.
[2021-02-11] MEDS: SLF 3 ML SYR IV SCH ×3 (05:15→21:40)
[2021-02-11] MEDS: ANEXSIA, NORCO 7.5MG/325MG TABLET(HYDROCODONE/APAP) GT PRN ×2 (05:15→21:35)
[2021-02-11 05:57] LABS: HEMATOCRIT 32.1 % (42.0-52.0); HEMOGLOBIN 10.4 g/dl (13.5-17.5); MEAN CORPUSCULAR HEMOGLOBIN 34.6 pg (27.0-33.0); MEAN CORPUSCULAR HGB CONC 32.4 g/dl (32.0-36.5); MEAN CORPUSCULAR VOLUME 106.6 fl (80.0-96.0); RED BLOOD COUNT 3.01 10^6/uL (4.30-6.10)
[2021-02-11 06:08] LABS: PLATELET COUNT, AUTOMATED 45 10^3/uL (150-450)
[2021-02-11 06:39] LABS: BLOOD UREA NITROGEN 59 MG/DL (7-18); CALCIUM LEVEL 9.4 MG/DL (8.8-10.2); CARBON DIOXIDE LEVEL 30 MEQ/L (21-32); CHLORIDE LEVEL 95 MEQ/L (98-107); CREATININE FOR GFR 1.02 MG/DL (0.70-1.30); GLOMERULAR FILTRATION RATE > 60.0 (>42); GLUCOSE, FASTING 135 MG/DL (70-100); SODIUM LEVEL 130 MEQ/L (136-145)
[2021-02-11 06:55] LABS: METAMYELOCYTES 2 % (0-0); MONOCYTES 13 % (0-5); NEUTROPHILS 42 % (28-66)
[2021-02-11 06:56] LABS: ANISOCYTOSIS 2+; PLATELET ESTIMATE DECREASED (NORMAL)
[2021-02-11] MEDS: METOPROLOL TART 25 MG TABLET GT SCH ×2 (07:13→21:34)
--- NOTE | 2021-02-11 09:53 | IPNPDOC ---
Subjective Date Seen The patient was seen on 02/11/21. Subjective Chief Complaint/HPI Patient's leg feels better. Its not as red or tender as before. he is able to move it an bend it more. Objective Physical Examination General Exam: Positive: Alert, Cooperative, No Acute Distress Eye Exam: Positive: PERRLA, Conjunctiva & lids normal, EOMI; Negative: Sclera icteric Neck Exam: Positive: Supple; Negative: JVD, thyromegaly Chest Exam: Positive: Clear to auscultation, Normal air movement Heart Exam: Positive: Rate Normal, Regular Rhythm, Normal S1, Normal S2; Negative: Murmurs, Rubs Abdomen Exam: Positive: Normal bowel sounds, Soft; Negative: Tenderness, Hepatospenomegaly Extremity Exam: Positive: Tenderness (on the left inner thigh and left back of the ankle), Swelling (at the left ankle), Other (left akle medial malleoli and back of ankle tender); Negative: Clubbing, Cyanosis, Edema Skin Exam: Positive: Rash (bruising on the left fowler), Lesion (ulcers at the tips of the toes in both legs), Other skin issue (red streak from the groin tothe back of knee along the inner aspect of the thigh) Assessment /Plan Assessment 70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 He had an ED-to-ED transfer from [facility] after initial work up revealed an elevated D-dimer (2.72 mg/LFEU; NL 0.19-0.80). [facility] lacks an ultrasound machine to evaluate for DVT, therefore, he was subsequently transferred. Patient reported that beginning on 02/07, he awoke with pain over his pubic bone and in his left groin. It then progressed to his left thigh, feeling like electr ic shocks. He then noticed some swelling over the left inner thigh as well as some redness of his left fowler. As the pain progressed on left lower extremity to the ankle. It began to affect his gait more and more, to the point that his niece/supervisor stock ranch (Marga) drove him to the [facility] ED. Of note, he received a second mode during the Covid vaccination one day before symptoms started. The patient was subsequently admitted under the care of the hospitalist service primarily for meeting SIRS criteria (leukocytosis and tachycardia with lactic of 3.5) and elevated d-dimer. Sepsis with bacteremia. likely due to left leg cellulitis at the ankle and lymphangitis blood cultures 2/2 positive : streptococcus group g ceftriaxone. No septic joint. Left leg lymphangitis with swelling of the thigh Blood culture positive for gram pos cocci in chains ceftriaxone. Negative DVT. follow CRP Left Ankle pain, redness and swelling. Xray shows pre achillis and post tibial soft tissue swelling. As per ortho no septic arthritis, this is likely cellulitis and lymphangitis. Leukocytosis with 35% band due to sepsis from lymphangitis and due to the use of neupogen( had neupogen last week thursday and ) slight improvement Bacteremia echo done Hypoglycemia resolved Hyperkalemia true vs pseudohyperkalemia stopped spironolactone this may be high due to the very high WBC counts. JEYSON likely prerenal. will give ivf Lactic acidosis due to sepsis will give ivf. Oropharyngeal squamous cell cancer (left side) in 2017 s/p radiation and chemotherapy, in remission since fall 2017. 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 Follows with an oncologist in [place] (Dr. Bhavna Quintana) H/o Pancytopenia chemo related. As per HCP if he does not take neupogen his WBC is less than 2.0 and they do not mature so has been on neupogen since his chemotherapy in 2016. Right mandibular fracture after a mechanical fall in 2019 then developed OM Was on zosyn and daptomycin jun 2020 to nov 2020 through a PICC line s/p mandibular excision and plate insertion on 12/18/20 SLE/Sjogren's/RA /raynauds Has ulcers on the toes of the feet. on daily 10 mg prednisone and Plaquenil. Follows with a senior java programmer analyst in [place] (). continue pentoxiphylline, naproxen, norco. Heart failure with reduced ejection fraction spring 2019 echo at [facility] reportedly showed EF of 40% may be slightly hypovolemic will give small bolus of fluid. Interstitial lung disease (identified on [facility] imaging) DARNELL likely resolved at present with weight loss after the cancer has not used CPAP in the last 5 years Dysphagia with history of aspiration pneumonia in January 2020 with subsequent G-tube placement. Currently receives G-tube feedings in the form of ground up food, Jevity, Pureed Degenerative disc disease status post cervical spinal fusion and lumbar injuries. h/o thoracic vertebral compression fractures at different levels and bilateral rib fractures. h/o BPH Neuropathy secondary to chemotherapy on norco, cymbalta, lyrica. Surgical correction of right mandibular fracture with plate insertion Plan/VTE VTE Prophylaxis Ordered?: Yes VS, I&O, 24H, Fishbone Vital Signs/I&O Vital Signs Date Time Temp Pulse Resp B/P (MAP) Pulse Ox O2 Delivery O2 Flow Rate FiO2 02/11/21 09:25 176/80 (112) 02/11/21 08:00 97.5 114 22 97 Nasal Cannula 2.0 I&O- Last 24 Hours up to 6 AM 02/11/21 06:00 Intake Total 150 ml Output Total 750 ml Balance -600 ml Laboratory Data 24H LABS Laboratory Tests 2 02/10/21 12:26: Bedside Glucose (Misc Panel) 164H 02/10/21 12:41: Lactic Acid Followup at 4 Hours 2.3*H 02/10/21 15:55: Bedside Glucose (Misc Panel) 151H 02/10/21 20:38: Bedside Glucose (Misc Panel) 187H 02/11/21 00:22: Bedside Glucose (Misc Panel) 131H 02/11/21 05:16: Bedside Glucose (Misc Panel) 119H 02/11/21 05:27: Neutrophils (%) (Auto) , Nucleated Red Blood Cells % (auto) 0.0, Neutrophils 42, Band Neutrophils 43H, Monocytes (Manual) 13H, Metamyelocytes 2H, Anisocytosis 2+, Platelet Estimate DECREASED, Anion Gap 5L, Glomerular Filtration Rate > 60.0, Calcium Level 9.4, C-Reactive Protein, Quantitative 27.20H CBC/BMP Laboratory Tests 02/11/21 05:27 Microbiology Microbiology 02/10/21 Blood Culture - Preliminary, Resulted No growth after 24 hours . All specim... 02/08/21 Blood Culture - Final, Complete Streptococcus Group G 02/08/21 Blood Culture - Final, Complete Streptococcus Group G RAMONA ZAMARRIPA MD Feb 11, 2021 09:53
[2021-02-11] MEDS: OMEPRAZOLE 20 MG CAP PO SCH ×2 (10:18→21:33)
[2021-02-11] MEDS: HYDROXYCHLOROQUINE 200 MG TAB GT SCH ×2 (10:19→21:34)
[2021-02-11] MEDS: DULoxetine 20 MG CAP (CYMBALTA) PO SCH (10:19)
[2021-02-11] MEDS: PREGABALIN 100 MG CAP (LYRICA) GT SCH ×3 (10:19→21:33)
[2021-02-11] MEDS: predniSONE 10 MG TAB GT SCH (10:19)
[2021-02-11] MEDS: PENTOXIFYLLINE 400 MG TAB PO SCH ×2 (10:19→21:33)
[2021-02-11] MEDS: LIDOCAINE 5% OINT 30GM TUBE TOP SCH ×2 (10:20→21:40)
[2021-02-11] MEDS: ONDANSETRON 4MG/2ML VIAL IV PRN (10:54)
[2021-02-11 12:11] LABS: ANTI DS-DNA AB Negative (Negative)
[2021-02-11] MEDS: cefTRIAXone SOD 2 GM in D5W MINI-BAG PLUS 50 ML IV SCH (13:08)
[2021-02-11 14:32] LABS: FOLATE > 24.0 NG/ML (>5.4); VITAMIN B12 LEVEL > 2000 PG/ML (247-911)
[2021-02-11] MEDS ORDERED: FAT EMULSION IV 20% 500 ML IV SCH (18:00)
[2021-02-11] MEDS: AMINO AC/ELECTROLYTE/DEX/CALC 1,000 ML IV SCH (21:35)
--- NOTE | 2021-02-11 21:40 | REPVR ---
PROCEDURE INFORMATION: Exam: CT Head Without Contrast Exam date and time: 02/11/2021 8:43 PM Age: 70 years old Clinical indication: Altered mental status/memory loss; Additional info: Mental status changes TECHNIQUE: Imaging protocol: Computed tomography of the head without contrast. Radiation optimization: All CT scans at this facility use at least one of these dose optimization techniques: automated exposure control; mA and/or kV adjustment per patient size (includes targeted exams where dose is matched to clinical indication); or iterative reconstruction. COMPARISON: No relevant prior studies available. FINDINGS: Brain: There is no acute cortical infarction, intracranial hemorrhage or mass. Cerebral ventricles: No significant ventriculomegaly. Bones/joints: No acute fracture. Evidence of prior facial bone surgery on the cobbler mckay image as well as anterior cervical fusion hardware. Paranasal sinuses: Visualized sinuses are unremarkable. No fluid levels. Mastoid air cells: Visualized mastoid air cells are well aerated. Soft tissues: Unremarkable. IMPRESSION: No acute intracranial findings. Electronically signed by: Marily Tyson On 02/11/2021 21:40:45 PM
[2021-02-12] VITALS (21 sets, daily range): BP systolic 112–138; BP diastolic 56–102; O2SAT 80–98
[2021-02-12 06:13] LABS: HEMATOCRIT 26.6 % (42.0-52.0); HEMOGLOBIN 8.6 g/dl (13.5-17.5); MEAN CORPUSCULAR HEMOGLOBIN 35.8 pg (27.0-33.0); MEAN CORPUSCULAR HGB CONC 32.3 g/dl (32.0-36.5); MEAN CORPUSCULAR VOLUME 110.8 fl (80.0-96.0)
[2021-02-12 06:15] LABS: PLATELET COUNT, AUTOMATED 37 10^3/uL (150-450); WHITE BLOOD COUNT 33.4 10^3/uL (4.0-10.0)
[2021-02-12] MEDS: SLF 3 ML SYR IV SCH ×3 (06:27→23:00)
[2021-02-12 06:31] LABS: LYMPHOCYTES 4 % (16-44); METAMYELOCYTES 2 % (0-0); MONOCYTES 10 % (0-5); NEUTROPHILS 67 % (28-66)
[2021-02-12 06:32] LABS: ANISOCYTOSIS 2+; PLATELET ESTIMATE MARKED DECREASE (NORMAL)
[2021-02-12 06:35] LABS: BLOOD UREA NITROGEN 35 MG/DL (7-18); CALCIUM LEVEL 9.3 MG/DL (8.8-10.2); CARBON DIOXIDE LEVEL 34 MEQ/L (21-32); CHLORIDE LEVEL 95 MEQ/L (98-107); CREATININE FOR GFR 0.54 MG/DL (0.70-1.30); GLOMERULAR FILTRATION RATE > 60.0 (>42); GLUCOSE, FASTING 112 MG/DL (70-100); POTASSIUM SERUM 4.3 MEQ/L (3.5-5.1); SODIUM LEVEL 133 MEQ/L (136-145)
[2021-02-12] MEDS: AMINO AC/ELECTROLYTE/DEX/CALC 1,000 ML IV SCH (07:20)
[2021-02-12] MEDS ORDERED: NORCO, ANEXSIA 5/325MG TABLET (HYDROcodone/ACETAMINOPHEN) PO PRN (07:25)
--- NOTE | 2021-02-12 08:21 | ECHO ---
DATE OF PROCEDURE: 02/10/2021 Age: 70 Gender: Male Height: 60 inches Weight: 112 pounds Body surface area: 1.46 m2 PATIENT LOCATION: Inpatient PCU, Room 3229. REFERRING PHYSICIAN: Brielle Preciado MD. INDICATION: Edema/sepsis. MEASUREMENTS: 2D Measurements: RV 3.8 cm LV 4.6 cm Septum 1.0 cm Posterior wall 1.0 cm Aortic Root 3.4 cm LA 3.6 cm LVEF 75% Doppler Measurements: AV 1.87 m/s LVOT 1.02 m/s MV-E 73, A 90, E/A ratio 0.8 Early mitral deceleration time 161 msec E prime medial 6.7, A prime medial 10.8, E prime lateral 10 Average E/E prime ratio 8.7/PCWP 12.7 mmHg PV 0.9 m/s Pulmonary artery acceleration time 100 msec RVSP 37 mmHg IVC Could not be measured COMMENTS: Sinus tachycardia with frequent PACs, but no intraventricular conduction disturbance. M-mode and two-dimensional echocardiography was performed with pulse, continuous wave, color flow, and tissue Doppler studies. Normal left ventricle size and wall thickness with hyperkinetic wall motion. Normal left atrial size with grade 1 LV diastolic dysfunction, but normal estimated mean left atrial pressure (within normal limits for his age). Normal right chamber sizes and motion with Doppler evidence of mild pulmonary hypertension. We could not visualize his inferior vena cava to further estimate his central venous pressure. Normal aortic root size. Moderate aortic valvular sclerosis without functional valvular abnormality. Mild degenerative changes of his mitral valvular apparatus without inflow tract obstruction, but moderate insufficiency. Normal appearing tricuspid valve with [id number] insufficiency. Unable to detect an intracardiac mass or clear vegetation. No apparent pericardial effusion. MTDD
[2021-02-12] MEDS: LIDOCAINE 5% OINT 30GM TUBE TOP SCH ×2 (09:00→22:59)
[2021-02-12] MEDS: DULoxetine 20 MG CAP (CYMBALTA) PO SCH (09:19)
[2021-02-12] MEDS: PENTOXIFYLLINE 400 MG TAB PO SCH ×2 (09:19→22:52)
[2021-02-12] MEDS: HYDROXYCHLOROQUINE 200 MG TAB GT SCH ×2 (09:19→22:41)
[2021-02-12] MEDS: METOPROLOL TART 25 MG TABLET GT SCH ×2 (09:20→22:49)
[2021-02-12] MEDS: PREGABALIN 100 MG CAP (LYRICA) GT SCH ×3 (09:20→22:41)
[2021-02-12] MEDS: predniSONE 10 MG TAB GT SCH (09:20)
[2021-02-12] MEDS: OMEPRAZOLE 20 MG CAP PO SCH ×2 (09:20→22:41)
[2021-02-12] MEDS ORDERED: LIDOCAINE 1% MDV 20ML VIAL As Ordered ONE (11:06)
--- NOTE | 2021-02-12 12:33 | IPNPDOC ---
Subjective Date Seen The patient was seen on 02/12/21. Subjective Chief Complaint/HPI Sitting up by the side of the bed, very shakey. Says has trouble talking as his mouth is dry and had surgeries there. Will be going for a PICC line today Objective Physical Examination General Exam: Positive: Alert, Cooperative, No Acute Distress Eye Exam: Positive: PERRLA, Conjunctiva & lids normal, EOMI; Negative: Sclera icteric Neck Exam: Positive: Supple; Negative: JVD, thyromegaly Chest Exam: Positive: Clear to auscultation, Normal air movement Heart Exam: Positive: Rate Normal, Regular Rhythm, Normal S1, Normal S2; Negative: Murmurs, Rubs Abdomen Exam: Positive: Normal bowel sounds, Soft; Negative: Tenderness, Hepatospenomegaly Extremity Exam: Positive: Tenderness (left ankle), Swelling (ankle); Negative: Clubbing, Cyanosis, Edema Skin Exam: Positive: Rash (bruising on the left fowler), Lesion (ulcers at the tips of the toes in both legs), Other skin issue (redness around the left ankle) Assessment /Plan Assessment 70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 He had an ED-to-ED transfer from [facility] after initial work up revealed an elevated D-dimer (2.72 mg/LFEU; NL 0.19-0.80). [facility] lacks an ultrasound machine to evaluate for DVT, therefore, he was subsequently transferred. Patient reported that beginning on 02/07, he awoke with pain over his pubic bone and in his left groin. It then progressed to his left thigh, feeling like electric shocks. He then noticed some swelling over the left inner thigh as well as some redness of his left fowler. As the pain progressed on left lower extremity to the ankle. It began to affect his gait more and more, to the point that his niece/fire prevention captain (Marga) drove him to the [facility] ED. Of note, he rece ived a second mode during the Covid vaccination one day before symptoms started. The patient was subsequently admitted under the care of the hospitalist service primarily for meeting SIRS criteria (leukocytosis and tachycardia with lactic of 3.5) and elevated d-dimer. Sepsis with bacteremia. likely due to left leg cellulitis at the ankle and lymphangitis rule out ankle OM. blood cultures 2/2 positive : streptococcus group g echo done ceftriaxone. ID consulted. Left leg lymphangitis, ankle cellulitis rule out OM at the left ankle. No septic joint as per ortho Blood culture positive for gram pos cocci in chains ceftriaxone. Negative DVT. ID consulted Leukocytosis due to sepsis from lymphangitis and due to the use of neupogen( had neupogen last week thursday and ) slight improvement if becomes pancytopenic will resume neupogen. Malfunctioning of GT tube tube feeding stopped started on TPN by surgery. Hypoglycemia resolved Hyperkalemia true vs pseudohyperkalemia stopped spironolactone resolved. JEYSON resolved Lactic acidosis due to sepsis Oropharyngeal squamous cell cancer (left side) in 2016 s/p radiation and chemotherapy, in remission since fall 2017. 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 Follows with an oncologist in [place] (Dr. Bhavna Quintana) H/o Pancytopenia chemo related. As per HCP if he does not take neupogen his WBC is less than 2.0 and they do not mature so has been on neupogen since his chemotherapy in 2016. Right mandibular fracture after a mechanical fall in 2019 then developed OM Was on zosyn and daptomycin jun 2020 to nov 2020 through a PICC line s/p mandibular excision and plate insertion on 12/18/20 SLE/Sjogren's/RA /raynauds Has ulcers on the toes of the feet. on daily 10 mg prednisone and Plaquenil. Follows with a cilnical scientist in [place] (). continue pentoxiphylline, naproxen, norco. Heart failure with reduced ejection fraction spring 2019 echo at [facility] reportedly showed EF of 40% Interstitial lung disease (identified on [facility] imaging) DARNELL likely resolved at present with weight loss after the cancer has not used CPAP in the last 5 years Dysphagia with history of aspiration pneumonia in January 2020 with subsequent G-tube placement. Currently receives G-tube feedings in the form of ground up food, Jevity, Pureed Degenerative disc disease status post cervical spinal fusion and lumbar injuri es. h/o thoracic vertebral compression fractures at different levels and bilateral rib fractures. h/o BPH Neuropathy secondary to chemotherapy on norco, cymbalta, lyrica. norco and cymbalta dose reduced as patient was very somnolent. Plan/VTE VTE Prophylaxis Ordered?: Yes VS, I&O, 24H, Fishbone Vital Signs/I&O Vital Signs Date Time Temp Pulse Resp B/P (MAP) Pulse Ox O2 Delivery O2 Flow Rate FiO2 02/12/21 11:25 98.7 83 22 94 Nasal Cannula 2.0 02/12/21 09:20 112/58 I&O- Last 24 Hours up to 6 AM 02/12/21 06:00 Intake Total 0 ml Output Total 200 ml Balance -200 ml Laboratory Data 24H LABS Laboratory Tests 2 02/11/21 12:47: Bedside Glucose (Misc Panel) 131H 02/11/21 17:21: Bedside Glucose (Misc Panel) 147H 02/11/21 21:47: Bedside Glucose (Misc Panel) 127H 02/12/21 01:15: Bedside Glucose (Misc Panel) 145H 02/12/21 05:58: Neutrophils (%) (Auto) , Nucleated Red Blood Cells % (auto) 0.0, Neutrophils 67H, Band Neutrophils 17H, Lymphocytes (Manual) 4L, Monocytes (Manual) 10H, Metamyelocytes 2H, Anisocytosis 2+, Platelet Estimate MARKED DECREASE, Immature Platelet Fraction 30.6H, Anion Gap 4L, Glomerular Filtration Rate > 60.0, Calcium Level 9.3 02/12/21 06:37: Bedside Glucose (Misc Panel) 98 02/12/21 10:18: Bedside Glucose (Misc Panel) 100 CBC/BMP Laboratory Tests 02/12/21 05:58 Microbiology Microbiology 02/10/21 Blood Culture - Preliminary, Resulted No Growth after 48 hours. All Specime... 02/08/21 Blood Culture - Final, Complete Streptococcus Group G 02/08/21 Blood Culture - Final, Complete Streptococcus Group G RAMONA ZAMARRIPA MD Feb 12, 2021 12:33
--- NOTE | 2021-02-12 12:36 | CR ---
CONSULTATION DATE: 02/11/2021 REASON FOR CONSULTATION: I was asked to consult by hospitalist for evaluation of left lower extremity cellulitis with bacteremia due to group G Strep. HISTORY OF PRESENT ILLNESS: Mr. Palacios is a pleasant, 70-year-old gentleman who was brought in by his niece, Asiya because of severe pain in his left leg that started about a day prior to admission. The patient describes the pain as starting in his pubic bone on the left side to the left groin, then involved the left thigh. He then developed severe redness and pain in his heel and ankle and the pain in his inner thigh. The patient had an abrasion on his left fowler which had some purulent discharge. 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 He was confused and she brought him to [facility]. He was evaluated there and transferred to [facility] for an ultrasound to rule out DVT. He was septic with a heart rate over 100. White count was 86,000 with 35% bands. The patient takes Neupogen twice a week for neutropenia. His sed rate and CRP were elevated. The patient was admitted for left lower extremity cellulitis and sepsis and was started on IV antibiotics. He is currently on IV Rocephin 2 gm daily. She was at the bedside and is concerned about his lethargy, his difficulty getting out of bed and responding appropriately. PAST MEDICAL HISTORY: 1. Oropharyngeal squamous cell carcinoma on the left side, status post radiation and chemotherapy diagnosed in July of 2017. He has been in remission with a negative PET scan on 11/26/2020 except for diffuse uptake in the skeleton which probably is related to Neupogen use. Complication of chemotherapy: He had osteonecrosis of the jaw and had hyperbaric treatments with Dr. Mars from January, to May of 2018. 2. Lupus and Sjogren's syndrome on daily prednisone 10 mg and Plaquenil. He follows up with Dr. Burch. 3. History of heart failure with reduced ejection fraction, EF of 40%. 4. Chronic microcytic anemia. 5. Thrombocytopenia and neutropenia on Neupogen twice a week. 6. He has severe leukemoid reactions at times from his Neupogen. We will discuss the case with his oncologist. 7. Interstitial lung disease. 8. Obstructive sleep apnea, not on CPAP. 9. Dysphagia with history of aspiration pneumonia and therefore he has G-tube for feeds. He makes his own food at home and presents with his G-tube. 10. Degenerative disc disease of the cervical spine. 11. BPH. 12. Neuropathy. PAST SURGICAL HISTORY: 1. Cervical spine fusion 2. G-tube placement. 3. Gastrojejunostomy tube, conversion to G-tube. 4. I&D of an oropharyngeal abscess in July [address] James. 5. Bilateral cataract surgery. 6. Right total knee arthroplasty done by Dr. Murray in September,. 7. Mandibular fracture after a fall, status post plate insertion 12/18/20. 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 This was under the direction of infectious disease at [facility]. SOCIAL HISTORY: He lives in [place], [place]. His niece, Asiya, assists in his care but he is totally independent. 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 He quit smoking in 1996 but continues to drink vodka, at least two shots every other day. He smokes marijuana everyday and denies any IV drug use. FAMILY HISTORY: Father at 75 from an aneurysm, mother at 93. REVIEW OF SYSTEMS: Could not be obtained due to lethargy. He was not able to give me much of a history except for discomfort in his low back and wanting pillows behind his back. ALLERGIES: CHLORPROMAZINE. MEDICATIONS: 1. Rocephin 2 gm IV q.24 hours. 2. Prednisone 10 mg through G-tube daily. 3. Metoprolol 6.25 mg b.i.d. 4. Trental 400 mg b.i.d. 5. Omeprazole 20 mg b.i.d. 6. Zofran 4 mg IV q.6 p.r.n. 7. Lyrica 100 mg, G-tube t.i.d. 8. Tylenol p.r.n. 9. Hydrocodone one tablet t.i.d. p.r.n. 10. Naproxen 500 mg q.12 p.r.n. 11. Plaquenil 200 mg through G-tube b.i.d. 12. Lidocaine patch to the left ankle. 13. Topical Duloxetine 40 mg daily. LABORATORY DATA: White count 55,000, hemoglobin 10.4, hematocrit 32.1, platelets 45, 43% bands, 42% neutrophils, 13% monocytes. ESR was 51 on 02/08. Sodium 130, potassium 5, chloride 95, bicarb 30, BUN 59, creatinine 1.02, glucose 135, calcium 9.4, lactic acid 2.3, CRP 27.2, down from 29.8 on 02/08. Blood cultures were positive for group G Streptococcus on two different sets from 02/08 and negative on 02/10. IMAGING STUDIES: Ankle x-ray showed diffuse edema of middle and distal tibia and the ankle with osteoarthritis but no osteomyelitis noted. CT angiogram showed intersitial lung disease with edema, bronchiectasis, stable mediastinal adenopathy and some pulmonary edema. No acute pulmonic embolic disease. Vascular ultrasound: No evidence of DVT. PHYSICAL EXAMINATION: He is a frail-looking, elderly gentleman who responds appropriately but for the most part was lying in bed sleeping. Temperature is 97.8. His T max was 99.4 on admission, pulse 113, respirations 18, blood pressure 128/69, O2 sat 97% on three liters nasal cannula. Heart: Normal S1, S2, tachycardic. No murmurs could be appreciated. Lungs: Diminished breath sounds bilaterally. Decreased air entry but clear. No wheezes, rales or rhonchi. Abdomen: Soft, nontender, no hepatosplenomegaly. Extremities: Left ankle with +1 ankle edema. There is erythema involving the ankle and the heel with difficulty with range of motion of the ankle and knee, completely normal range of motion of the left knee and the left hip. Right knee has a total knee arthroplasty with normal range of motion. Pulse is diminished, both feet. Head and ENT: Facial flushing. Both cheeks are pre-erythematous. Right jaw has some scars, mandibular plate well healed. Left neck area has indurated skin with hyperpigmented changes and radiation effect with thickened skin. There is no evidence of cellulitis. Skin, left leg has erythema of the ankle extending to the mid-calf. There is inguinal adenopathy on the left side with some tenderness. Ulceration on the anterior fowler measuring about 4 x 2 cm with purulent discharge. IMPRESSION: This is a 70-year-old gentleman with an abrasion of the left fowler secondary to group G Streptococcal bacteremia and cellulitis of the left leg. The patient has been on IV ceftriaxone. His niece is concerned that she has not seen significant clinical improvement. His white count was 85,000 on admission down to 55,000 but he had received his Neupogen the day prior to admission. His mental status is still quite lethargic and his niece was concerned about that. We will obtain a head CT. As far as his ankle, I doubt that he has a septic joint as I am able to move his ankle, I would like to make sure he does not have an abscess that needs drainage. PLAN: We will obtain ankle MRI in the morning with gadolinium to rule out an abscess. Creatinine was down to 1.02. Increase fluid intake as his BUN is quite elevated in between his tube feeds. Head CT was obtained which did not show any acute findings. Continue IV Rocephin as it's appropriate coverage. Case discussed with Asiya, his niece who is his caregiver. SHAHLA
[2021-02-12] MEDS: cefTRIAXone SOD 2 GM in D5W MINI-BAG PLUS 50 ML IV SCH (13:14)
[2021-02-12] MEDS: SODIUM CHLORIDE 0.9% INJ 10 ML SYR IV PRN (13:53)
--- NOTE | 2021-02-12 16:41 | REP ---
INDICATION: Poor IV Access, Also start TPN. COMPARISON: None. TECHNIQUE: The procedure was performed under the direct supervision of Dr. Phan. The risks and benefits of the procedure were explained and informed consent was obtained by the healthcare proxy. The right basilic vein was localized using ultrasound guidance. The skin was prepped and draped in a sterile fashion. 2% lidocaine was used as a local anesthetic. Using ultrasound guidance the basilic vein was cannulated and a 0.018 guidewire was inserted and advanced to the SVC using fluoroscopic guidance. The needle was removed and a 5.5 [place] dilator and peel-away sheath was inserted over the guide wire. A 5.5 [place] dual lumen catheter was cut to length of 40 cm. The dilator was removed and the catheter was inserted over the guide wire with the tip ending in the SVC. The peel-away sheath was removed and the catheter was flushed with heparinized saline as per Hospital protocol. The catheter was affixed to the skin and a sterile dressing was applied. The patient tolerated the procedure well and there were no immediate complications. 0.2 minutes of fluoro time was utilized for this procedure. FINDINGS: None IMPRESSION: PICC line insertion right basilic vein with the tip ending in the SVC. <Electronically signed by Kaushik Lees > 02/12/21 [id number] <Electronically signed by Darrius Phan > 02/12/21 [id number]
[2021-02-12] MEDS ORDERED: AMINO AC/ELECTROLYTE/DEX/CALC 2,000 ML IV SCH (18:00)
[2021-02-12] MEDS ORDERED: FAT EMULSION IV 20% 500 ML IV SCH (18:00)
[2021-02-12] MEDS: SODIUM CHLORIDE 0.9% INJ 10 ML SYR IV SCH (18:32)
[2021-02-12 20:01] LABS: MAGNESIUM LEVEL 1.8 MG/DL (1.8-2.4)
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
[2021-02-13] VITALS (18 sets, daily range): BP systolic 116–149; BP diastolic 58–67; O2SAT 92–100
[2021-02-13] MEDS: SODIUM CHLORIDE 0.9% INJ 10 ML SYR IV SCH ×2 (06:30→17:35)
[2021-02-13] MEDS: SLF 3 ML SYR IV SCH ×2 (06:30→13:39)
[2021-02-13 06:40] LABS: BASO % 0.1 % (0.0-1.0); EOS % 0.1 % (0.0-3.0); HEMATOCRIT 26.8 % (42.0-52.0); HEMOGLOBIN 8.3 g/dl (13.5-17.5); LYMPH # 1.5 10^3/uL (1.5-5.0); LYMPH % 7.9 % (24.0-44.0); MEAN CORPUSCULAR HEMOGLOBIN 34.7 pg (27.0-33.0); MEAN CORPUSCULAR VOLUME 112.1 fl (80.0-96.0); MONO # 9.4 10^3/uL (0.0-0.8); MONO % 49.9 % (2.0-8.0); NEUTROPHILS # 7.6 10^3/uL (1.5-8.5); NEUTROPHILS % 40.4 % (36.0-66.0); RED BLOOD COUNT 2.39 10^6/uL (4.30-6.10)
[2021-02-13 06:43] LABS: PLATELET COUNT, AUTOMATED 48 10^3/uL (150-450); WHITE BLOOD COUNT 18.8 10^3/uL (4.0-10.0)
[2021-02-13 07:01] LABS: ERYTHROCYTE SEDIMENTATION RATE 109 mm/hr (0-20)
[2021-02-13 07:08] LABS: BLOOD UREA NITROGEN 19 MG/DL (7-18); CALCIUM LEVEL 8.5 MG/DL (8.8-10.2); CARBON DIOXIDE LEVEL 35 MEQ/L (21-32); CHLORIDE LEVEL 93 MEQ/L (98-107); CREATININE FOR GFR 0.38 MG/DL (0.70-1.30); GLOMERULAR FILTRATION RATE > 60.0 (>42); GLUCOSE, FASTING 104 MG/DL (70-100); POTASSIUM SERUM 3.8 MEQ/L (3.5-5.1); SODIUM LEVEL 131 MEQ/L (136-145)
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
[2021-02-13] MEDS: LIDOCAINE 5% OINT 30GM TUBE TOP SCH ×2 (09:00→21:21)
[2021-02-13] MEDS ORDERED: VITAMIN D 50,000 UNITS CAPSULE (ERGOCALCIFEROL 1.25MG) PO SCH (09:00)
[2021-02-13] MEDS: METOPROLOL TART 25 MG TABLET GT SCH ×2 (09:13→21:16)
[2021-02-13] MEDS: PREGABALIN 100 MG CAP (LYRICA) GT SCH ×3 (09:14→21:19)
[2021-02-13] MEDS: predniSONE 10 MG TAB GT SCH (09:14)
[2021-02-13] MEDS: HYDROXYCHLOROQUINE 200 MG TAB GT SCH ×2 (09:14→21:19)
[2021-02-13] MEDS: PANTOPRAZOLE 40MG VIAL (C9113 PER 1) IV SCH ×2 (09:14→21:14)
[2021-02-13] MEDS: DULoxetine 20 MG CAP (CYMBALTA) PO SCH (09:14)
[2021-02-13] MEDS: PENTOXIFYLLINE 400 MG TAB PO SCH ×2 (09:14→21:19)
[2021-02-13] MEDS: LIDOCAINE VISCOUS 2% SOLN 15ML UDC SSP PRN (09:15)
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
[2021-02-13] MEDS: cefTRIAXone SOD 2 GM in D5W MINI-BAG PLUS 50 ML IV SCH (12:31)
[2021-02-13] MEDS: SALIVA SUBSTITUTE(MOUTHKOTE) BTL MT PRN (15:02)
[2021-02-13] MEDS: LIDOCAINE VISCOUS 2% SOLN 15ML UDC SSP SCH ×2 (17:32→21:23)
[2021-02-13] MEDS: NORCO, ANEXSIA 5/325MG TABLET (HYDROcodone/ACETAMINOPHEN) PO SCH ×2 (17:32→21:18)
[2021-02-14] VITALS (18 sets, daily range): BP systolic 106–136; BP diastolic 53–67; O2SAT 91–100
[2021-02-14] MEDS: SALIVA SUBSTITUTE(MOUTHKOTE) BTL MT PRN ×3 (00:11→13:08)
[2021-02-14] MEDS: SLF 3 ML SYR IV SCH ×4 (00:12→21:09)
[2021-02-14] MEDS: NORCO, ANEXSIA 5/325MG TABLET (HYDROcodone/ACETAMINOPHEN) PO SCH ×6 (01:00→16:09)
[2021-02-14] MEDS: LIDOCAINE VISCOUS 2% SOLN 15ML UDC SSP SCH ×6 (01:00→21:09)
[2021-02-14] MEDS: SODIUM CHLORIDE 0.9% INJ 10 ML SYR IV SCH ×2 (06:00→16:14)
[2021-02-14 07:10] LABS: HEMATOCRIT 26.2 % (42.0-52.0); HEMOGLOBIN 8.1 g/dl (13.5-17.5); MEAN CORPUSCULAR HEMOGLOBIN 34.3 pg (27.0-33.0); MEAN CORPUSCULAR HGB CONC 30.9 g/dl (32.0-36.5); RED BLOOD COUNT 2.36 10^6/uL (4.30-6.10)
[2021-02-14 07:26] LABS: BLOOD UREA NITROGEN 15 MG/DL (7-18); CALCIUM LEVEL 8.8 MG/DL (8.8-10.2); CARBON DIOXIDE LEVEL 36 MEQ/L (21-32); CHLORIDE LEVEL 92 MEQ/L (98-107); CREATININE FOR GFR 0.38 MG/DL (0.70-1.30); GLOMERULAR FILTRATION RATE > 60.0 (>42); GLUCOSE, FASTING 101 MG/DL (70-100); SODIUM LEVEL 132 MEQ/L (136-145)
[2021-02-14 07:46] LABS: PLATELET COUNT, AUTOMATED 74 10^3/uL (150-450); WHITE BLOOD COUNT 14.3 10^3/uL (4.0-10.0)
[2021-02-14 07:54] LABS: ATYPICAL LYMPH 8 % (0-5); HYPOCHROMASIA 2+; LYMPHOCYTES 24 % (16-44); MONOCYTES 27 % (0-5); MYELOCYTES 1 % (0-0); NEUTROPHILS 32 % (28-66); PLATELET ESTIMATE DECREASED (NORMAL)
[2021-02-14 07:55] LABS: ANISOCYTOSIS 1+; SMUDGE CELLS 1+
[2021-02-14] MEDS: PENTOXIFYLLINE 400 MG TAB PO SCH ×2 (09:00→21:09)
[2021-02-14] MEDS: DULoxetine 20 MG CAP (CYMBALTA) PO SCH (09:44)
[2021-02-14] MEDS: predniSONE 10 MG TAB GT SCH (09:44)
[2021-02-14] MEDS: PREGABALIN 100 MG CAP (LYRICA) GT SCH ×3 (09:44→21:27)
[2021-02-14] MEDS: HYDROXYCHLOROQUINE 200 MG TAB GT SCH ×2 (09:44→21:09)
[2021-02-14] MEDS: METOPROLOL TART 25 MG TABLET GT SCH ×2 (09:45→21:09)
[2021-02-14] MEDS: PANTOPRAZOLE 40MG VIAL (C9113 PER 1) IV SCH ×2 (09:45→21:09)
[2021-02-14] MEDS: LIDOCAINE 5% OINT 30GM TUBE TOP SCH (09:45)
[2021-02-14] MEDS ORDERED: LIDOCAINE 1% MDV 20ML VIAL As Ordered ONE (10:57)
--- NOTE | 2021-02-14 12:10 | REP ---
INDICATION: Left ankle COMPARISON: None TECHNIQUE: Real time desir scale ultrasound examination linear high-frequency transducer. FINDINGS: Directed ultrasound examination along the posterior/medial left ankle demonstrates 5.0 x 2.9 x 1.2 cm complex collection. IMPRESSION: Complex fluid collection suspicious for abscess and correlation is required. <Electronically signed by Solo Hilton > 02/14/21 [id number]
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
[2021-02-14] MEDS: cefTRIAXone SOD 2 GM in D5W MINI-BAG PLUS 50 ML IV SCH (13:07)
--- NOTE | 2021-02-14 14:58 | REP ---
INDICATION: Possible left ankle abscess in MRI. COMPARISON: None. TECHNIQUE: The procedure was performed under the direct supervision of Dr. Phan. The risks and benefits of the procedure were explained and informed consent was obtained by the healthcare proxy. The left posteromedial abscess was localized using ultrasound guidance. The skin was prepped and draped in a sterile fashion. 1% lidocaine was used as a local anesthetic. Using ultrasound guidance an 18 gauge needle was inserted and advanced into the abscess. 2 cc of reddish colored fluid was withdrawn and sent to the lab for analysis. The patient tolerated the procedure well and there were no immediate complications. FINDINGS: None IMPRESSION: Ultrasound-guided left ankle abscess drain. <Electronically signed by Kaushik Lees > 02/14/21 [id number] <Electronically signed by Darrius Phan > 02/14/21 [id number]
--- NOTE | 2021-02-14 18:22 | IPN ---
PROGRESS NOTE DATE: 02/14/2021 SUBJECTIVE: Mr. Palacios is sleepy this afternoon. His niece Marga is at the bedside. She is concerned that he is not waking up for her like his mentation is not back to baseline. In the morning he is confused but he does get up out of bed to the chair. He has been fed through his G-tube. He has no complaints of jaw pain, cough or shortness of breath. His foot is improving. Redness and swelling have diminished. He went to Interventional Radiology and had aspiration of some of the pus from the foot area. OBJECTIVE: PHYSICAL EXAMINATION: HEART: Normal S1, S2, no murmurs, rubs or gallops. LUNGS: Clear. No rales, rhonchi or wheezes. Diminished. ABDOMEN: G-tube with surrounding erythema and maceration of the skin. EXTREMITIES: Left foot with ankle erythema. Good range of motion but soft fluctuant area around the medial malleolus that was aspirated. Lymphangitis and swollen lymphadenopathy in the left inguinal area have resolved. IMAGING: Extremity ultrasound done on 02/14 shows a complex fluid collection with suspicion for an abscess, measuring 5 by 2.9 by 1.2 cm. Ankle MRI done on 02/12 showed 4.8 by 2.1 by 8.4 cm fluid collection into soft tissue along the posterior medial aspect of the left ankle, representing an abscess. Soft tissue swelling and edema in the left ankle, mild increased fluid along the muscles of the left foot, probably myositis but no evidence of osteomyelitis. LABORATORY STUDIES: Abscess was aspirated and gram stain has many white cells and gram positive cocci in pairs. Two mL of reddish colored fluid was withdrawn and sent to the lab by Kaushik Lees. IMPRESSION: 1. Left foot abscess with cellulitis and lymphangitis on IV Rocephin. Culture positive for group G strep. Clinically the patient is doing better. 2. Mental status changes with probable metabolic encephalopathy. The patient also has a history of alcohol abuse. He drinks one to two shots of vodka a day want to rule out hepatic encephalopathy as well. Ammonia level will be ordered for tomorrow. 3. Protein calorie malnutrition, G tube dependent due to recurrent aspiration his gastrostomy tube is functioning now. TPN was discontinued and he is being fed through his G tube. 4. Autoimmune neutropenia case was discussed with his Oncologist, Dr. Bhavna Gracia, who stated that he was diagnosed with autoimmune neutropenia and recurrent mild ulcer from his lupus and that is why he was on Neupogen. That could be held. Unless his white count drops to less than 5,000, it may need to be resumed. She has never given him a trial of Neupogen for a while. 5. Thrombocytopenia one should also rule out alcoholic liver cirrhosis and therefore ALME[facility] FibroSURE test was ordered. PLAN: 1. Continue with IV Rocephin 2 grams daily. 2. Continue holding off on Neupogen. 3. Check ammonia and fibrosis score tomorrow. 4. His niece, Marga was reassured about his mental status. 5. He probably will need rehabilitation. I will call her tomorrow morning when he is in better spirits. Her phone number is [phone], that is niece, Marga francisca.
[2021-02-15] MEDS: LIDOCAINE VISCOUS 2% SOLN 15ML UDC SSP SCH ×6 (01:37→20:56)
[2021-02-15 03:51] VITALS: O2SAT 94
[2021-02-15 04:06] VITALS: O2SAT 94
[2021-02-15 06:00] VITALS: BP 120/73
[2021-02-15] MEDS: SLF 3 ML SYR IV SCH ×3 (06:12→20:57)
[2021-02-15] MEDS: SODIUM CHLORIDE 0.9% INJ 10 ML SYR IV SCH ×2 (06:12→17:29)
[2021-02-15] MEDS: NORCO, ANEXSIA 5/325MG TABLET (HYDROcodone/ACETAMINOPHEN) PO SCH ×4 (06:22→17:28)
[2021-02-15 07:42] LABS: BASO % 0.1 % (0.0-1.0); EOS % 0.2 % (0.0-3.0); HEMATOCRIT 25.6 % (42.0-52.0); LYMPH # 1.2 10^3/uL (1.5-5.0); LYMPH % 7.3 % (24.0-44.0); MEAN CORPUSCULAR HEMOGLOBIN 34.6 pg (27.0-33.0); MEAN CORPUSCULAR HGB CONC 31.3 g/dl (32.0-36.5); MEAN CORPUSCULAR VOLUME 110.8 fl (80.0-96.0); MONO % 53.2 % (2.0-8.0); NEUTROPHILS # 6.3 10^3/uL (1.5-8.5); NEUTROPHILS % 37.3 % (36.0-66.0); PLATELET COUNT, AUTOMATED 113 10^3/uL (150-450); RED BLOOD COUNT 2.31 10^6/uL (4.30-6.10)
[2021-02-15 08:01] LABS: BLOOD UREA NITROGEN 15 MG/DL (7-18); CALCIUM LEVEL 8.1 MG/DL (8.8-10.2); CARBON DIOXIDE LEVEL 34 MEQ/L (21-32); CHLORIDE LEVEL 94 MEQ/L (98-107); GLOMERULAR FILTRATION RATE > 60.0 (>42); GLUCOSE, FASTING 117 MG/DL (70-100); POTASSIUM SERUM 3.7 MEQ/L (3.5-5.1); SODIUM LEVEL 132 MEQ/L (136-145)
[2021-02-15] MEDS: predniSONE 10 MG TAB GT SCH (09:08)
[2021-02-15] MEDS: PANTOPRAZOLE 40MG VIAL (C9113 PER 1) IV SCH ×2 (09:09→20:55)
[2021-02-15] MEDS: PREGABALIN 100 MG CAP (LYRICA) GT SCH ×3 (09:09→20:56)
[2021-02-15] MEDS: HYDROXYCHLOROQUINE 200 MG TAB GT SCH ×2 (09:09→20:55)
[2021-02-15 10:00] VITALS: O2SAT 94
--- NOTE | 2021-02-15 10:50 | IPNPDOC ---
Subjective Date Seen The patient was seen on 02/15/21. Subjective Chief Complaint/HPI Left ankle tenderness but able to bear weight. Mouth continues to bother him asking for an oral electrolyte solution. He is getting very frustated as it is difficult to understand his speech. His speech did clear up after he had a sip of water. Objective Physical Examination General Exam: Positive: Alert, Cooperative, No Acute Distress Eye Exam: Positive: PERRLA, Conjunctiva & lids normal, EOMI; Negative: Sclera icteric Neck Exam: Positive: Supple; Negative: JVD, thyromegaly Chest Exam: Positive: Clear to auscultation, Normal air movement Heart Exam: Positive: Rate Normal, Regular Rhythm, Normal S1, Normal S2; Negative: Murmurs, Rubs Abdomen Exam: Positive: Normal bowel sounds, Soft, Other (large bore G tube in place); Negative: Tenderness, Hepatospenomegaly Extremity Exam: Positive: Tenderness (left ankle), Swelling (ankle); Negative: Clubbing, Cyanosis, Edema Skin Exam: Positive: Lesion (ulcers at the tips of the toes in both legs), Other skin issue (redness around the left ankle) Assessment /Plan Assessment 70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 He had an ED-to-ED transfer from [facility] after initial work up revealed an elevated D-dimer (2.72 mg/LFEU; NL 0.19-0.80). [facility] lacks an ultrasound machine to evaluate for DVT, therefore, he was subsequently transferred. Patient reported that beginning on 02/07, he awoke with pain over his pubic bone and in his left groin. It then progressed to his left thigh, feeling like electric shocks. He then noticed some swelling over the left inner thigh as well as some redness of his left fowler. As the pain progressed on left lower extremity to the ankle. It began to affect his gait more and more, to the point that his niece/parts expediter (Marga) drove him to the [facility] ED. Of note, he received a second mode during the COVID vaccination one day before symptoms started. The patient was subsequently admitted under the care of the hospitalist service primarily for meeting SIRS criteria (leukocytosis and tachycardia with lactic of 3.5) and elevated d-dimer. He was found to have left ankle cellulitis and left leg lymphangitis from groin to ankle with bacteremia. Sepsis with bacteremia. due to left leg cellulitis and abscess at the ankle and lymphangitis. blood cultures 2/2 positive : Streptococcus group g echo done. No vegetations, EF 75%, mild to mod pulmonary hypertension, grade 1 diastolic dysfunction. Continue ceftriaxone. Left leg lymphangitis, ankle cellulitis with abscess. MRI ankle shows 1. 4.8 cm x 2.1 cm x 8.4 cm fluid collection in the soft tissues along the posteromedial aspect of the left ankle, which may represent an abscess. 2. Soft tissue swelling and edema in the left ankle and dorsal aspect of the left foot, which may represent cellulitis or lymphedema. 3. Mildly increased fluid sensitive signal involving the muscles of the left foot, which may represent myositis, denervation edema, or muscle strains. 4. Left Achilles peritendinitis. 5. Fluid in the tibialis posterior, flexor digitorum longus, flexor hallucis longus, extensor digitorum longus, peroneus longus, and peroneus brevis tendon sheaths, which may represent tenosynovitis. No OM at the left ankle. No septic joint as per ortho S/P aspiration of the abscess. Blood culture streptococcus, abscess culture streptococcus CRP improving. Continue ceftriaxone. Negative DVT. Leukocytosis due to sepsis from lymphangitis, cellulitis, abscess and due to the use of neupogen improving if becomes pancytopenic will resume neupogen. H/o Pancytopenia before thought to be chemo related Now clarified with oncologist about his need for neupogen. 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 Thrombocytopenia ? cause ? sepsis. He does use significant amount of alcohol about 2 to 3 shots every day. Sometimes he drinks it sometimes he pours it through the G tube. will have to rule rule out underlying cirrhosis of liver Ammonia 25-33 ordered fibrosis score improving Malfunctioning of GT tube tolerating tube feeding. Has Dysphagia with history of aspiration pneumonia in January 2020 with subsequent G-tube placement. Problem with speech with dry mouth and chronic left jaw pain. had Rt on the left, right jaw surgery will continue lidocaine viscus and saliva substitute. 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 Follows with an oncologist in [place] (Dr. Bhavna Quintana) Right mandibular fracture after a mechanical fall in 2019 then developed OM Was on zosyn and daptomycin jun 2020 to nov 2020 through a PICC line s/p mandibular excision and plate insertion on 12/18/20 SLE/Sjogren's/RA /raynauds Has ulcers on the toes of the feet. on daily 10 mg prednisone and Plaquenil. Follows with a station installation supervisor in [facility] (). continue pentoxiphylline, naproxen, norco. Heart failure with reduced ejection fraction spring 2019 echo at [facility] reportedly showed EF of 40% Interstitial lung disease (identified on [facility] imaging) DARNELL likely resolved at present with weight loss after the cancer has not used CPAP in the last 5 years Degenerative disc disease status post cervical spinal fusion and lumbar inj uries. h/o thoracic vertebral compression fractures at different levels and bilateral rib fractures. h/o BPH Neuropathy secondary to chemotherapy on norco, cymbalta, lyrica. norco and cymbalta dose reduced as patient was very somnolent in hospital. Plan/VTE VTE Prophylaxis Ordered?: Yes VS, I&O, 24H, Fishbone Vital Signs/I&O Vital Signs Date Time Temp Pulse Resp B/P (MAP) Pulse Ox O2 Delivery O2 Flow Rate FiO2 02/15/21 06:52 108 20 93 Nasal Cannula 1.0 02/15/21 06:00 98.1 120/73 (89) I&O- Last 24 Hours up to 6 AM 02/15/21 06:00 Intake Total 1260 ml Output Total 275 ml Balance 985 ml Laboratory Data 24H LABS Laboratory Tests 2 02/14/21 12:13: Bedside Glucose (Misc Panel) 107 02/14/21 16:06: Bedside Glucose (Misc Panel) 131H 02/14/21 23:39: Bedside Glucose (Misc Panel) 124H 02/15/21 05:42: Bedside Glucose (Misc Panel) 137H 02/15/21 07:03: Immature Granulocyte % (Auto) 1.9, Neutrophils (%) (Auto) 37.3, Lymphocytes (%) (Auto) 7.3L, Monocytes (%) (Auto) 53.2H, Eosinophils (%) (Auto) 0.2, Basophils (%) (Auto) 0.1, Neutrophils # (Auto) 6.3, Lymphocytes # (Auto) 1.2L, Monocytes # (Auto) 9.0H, Eosinophils # (Auto) 0.0, Basophils # (Auto) 0.0, Nucleated Red Blood Cells % (auto) 0.0, Anion Gap 4L, Glomerular Filtration Rate > 60.0, Calcium Level 8.1L, Ammonia 33H CBC/BMP Laboratory Tests 02/15/21 07:03 Microbiology Microbiology 02/14/21 Gram Stain - Final, Resulted 02/14/21 Abscess Culture - Preliminary, Resulted Streptococcus Group G 02/14/21 Anaerobic Culture, Resulted Pending 02/10/21 Blood Culture - Final, Complete NO GROWTH AFTER 5 DAYS 02/08/21 Blood Culture - Final, Complete Streptococcus Group G 02/08/21 Blood Culture - Final, Complete Streptococcus Group G RAMONA ZAMARRIPA MD Feb 15, 2021 10:50
[2021-02-15] MEDS: PENTOXIFYLLINE 400 MG TAB PO SCH ×2 (11:34→20:56)
[2021-02-15] MEDS: DULoxetine 20 MG CAP (CYMBALTA) PO SCH (11:34)
[2021-02-15] MEDS: METOPROLOL TART 25 MG TABLET GT SCH ×2 (11:34→21:20)
[2021-02-15] MEDS: cefTRIAXone SOD 2 GM in D5W MINI-BAG PLUS 50 ML IV SCH (13:51)
[2021-02-15] MEDS ORDERED: MIDAZOLAM INJ 2MG/2ML VIAL (J2250 PER 1MG) As Ordered ONE ×2 (17:34→21:57)
--- NOTE | 2021-02-15 20:45 | IPN ---
PROGRESS NOTE DATE: 02/15/2021 SUBJECTIVE: Mr. Palacios is a more awake today, but he is a little irritable. I woke him up and ask him to talk to his niece on the telephone, but he stated he wanted to sleep instead. He was alert and oriented. He stated his ankle was still hurting. He has had no nausea or vomiting, no diarrhea. His GT tube is working well. LABORATORY DATA: White count 17, hemoglobin 8, hematocrit 25.6, platelets 113, improving, 37% neutrophils, 7% lymphocytes, 53% monocytes. ESR 109. Sodium 132, potassium 3.7, chloride 94, bicarbonate 34, BUN 15, creatinine 0.4, glucose 117, calcium 8.1. Ammonia 32, CRP is pending. ALME[facility] FibroSure is pending. Left ankle culture is positive of group G streptococcus in spite of being on antibiotics for over 7 days. Extremity ultrasound done on 02/14 showed a complex fluid collection, suspicious for an abscess involving the posterior medial left ankle measuring 5 x 2.9 x 1.2 cm. PHYSICAL EXAMINATION: Temperature is 98.1, pulse 107, respirations 21, blood pressure 120/73, O2 saturation 93% on 1 liter nasal cannula. Heart: Normal S1, S2 distant, no murmurs appreciated. Lungs: A few expiratory rhonchi bilaterally. He is on 1 liter oxygen. Abdomen: Soft, nontender, no hepatosplenomegaly. G-tube in place with Jevity tube feeds. Extremities: Right leg without clubbing, cyanosis or edema. Left leg medially with erythema and tenderness with fluctuance where the abscess is located. He has an ulcer on the anterior fowler measuring 2.1 cm that had purulent drainage earlier this week, now has dried out. Cellulitis involving the thigh has resolved. There is no inguinal tenderness or adenopathy. IMPRESSION: 1. Skin and soft tissue abscess of the left ankle with complex fluid collection measuring at least 5 cm. This was aspirated by intervention radiology and the culture was still positive for group G streptococcus. Due to his persistent white count and mental status changes, I would suggest possibly re-consulting surgery for an I and D of the abscess, which would allow faster healing. 2. Leukocytosis. The patient had received Neupogen on 02/08 before admission. He has history of autoimmune neutropenia from lupus and recurrent mouth ulcers. 3. Group G streptococcal bacteremia from cellulitis with negative transesophageal echocardiogram ([facility]). 4. History of base of the mouth cancer and osteonecrosis of the left jaw, status post hyperbaric chamber treatment and history of right-sided mandibular osteomyelitis after a fracture with a plate on the right side done in November of 2020. The patient due to that history is dependent on G-tube feeds because of recurrent aspiration. PLAN: Continue with IV ceftriaxone 2 gm daily. Re-consult surgery for possible I and D of the left ankle. The case has been discussed with Dr. Preciado. Will be calling orthopedic surgery again to see the patient.
[2021-02-15 21:00] VITALS: O2SAT 97
--- NOTE | 2021-02-15 21:23 | CR.PDOC ---
General Date of Consultation: Feb 15, 2021 Consultation REASON FOR CONSULTATION/CHIEF COMPLAINT: Orthopedic service called to reassess patient with regards to left ankle soft tissue abscess. Preoperative History and Physical: CHIEF COMPLAINT: Left lower extremity pain Past medical history taken from history and physical record, upon admission, and in speaking to the patient's niece. 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 [facility] lacks an ultrasound machine to evaluate for DVT, therefore, he was subsequently transferred. Patient reports that beginning on , 02/07, he awoke with pain over his pubic bone and in his left groin. It then progressed to his left thigh, feeling like electric shocks. He then noticed some swelling over the left inner thigh as well as some redness of his left fowler. As the pain progressed on left lower extremity it began to affect his gait more and more, to the point that his niece/vice president diversity (Marga) drove him to the [facility] ED. Upon discussion with patient's niece, she reports that he has been feeling more off balance and confused of late, but stated he has not had any falls.. Of note, he received a second mode during the Covid vaccination one day before symptoms started. Upon initial presentation to [facility] ED, he was tachycardic with rates in the low 100s and notable blood work revealed WBC 86.1 with 35% bands, platelet count of 43, elevations of both CRP (29.80) and ESR (51), BNP 1842, sodium 134, lactic acid 3.5, and VBG of 7.35/PCO2 51.3/PO2 46.3 with bicarbonate of 29. A duplex lower extremity ultrasound was unremarkable for any left lower extremity DVT, and a 1-view chest x-ray showed bibasilar fibrotic changes and stated a superimposed acute infiltrate could not be excluded. A repeat d-dimer here at [facility] was greater than 4000.The patient was subsequently admitted under the care of the hospitalist service primarily for meeting SIRS criteria (leukocytosis and tachycardia with lactic of 3.5) and elevated d-dimer. History of present illness: Orthopedics reconsulted to reevaluate the patient as he had MRI imaging demonstrating an abscess between the subcutaneous tissue and the fascial plane in the posterior medial aspect of the left ankle. There were attempts at CT or image guided aspiration of this. He was known to have some streptococcal bacteremia and I believe one of the aspiration showed similar bacterial contamination and this fluid collection. Infectious disease service involved and consensus was that the abscess needed Irrigation and debridement in order for effective treatment of the infection. The patient was quite somnolent and unable to participate in questioning. The majority of the information above was gleaned from the chart and in discussion with the patient's niece who is his health power of securities attorney and was present at the bedside. Major concern was that almost a week prior to today and prior to the patient's hospital admission. He had been quite active and independent. Despite his multiple medical comorbidities and is had progressive somnolence with this hospital admission. PAST MEDICAL HISTORY: Oropharyngeal squamous cell cancer (left side) s/p radiation and chemotherapy, in remission since fall 2017. 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 Follows with an oncologist in [place] (Dr. Bhavna Quintana) Right mandibular fracture s/p plate insertion SLE/Sjogren's/RA on daily 10 mg prednisone and Plaquenil. Follows with a crop roller in [place] (). Heart failure with reduced ejection fraction (spring 2019 echo at [facility] reportedly showed EF of 40%) Chronic macrocytic anemia/thrombocytopenia/neutropenia on granix injections 2x/week (Mondays and ) Interstitial lung disease (identified on [facility] imaging) DARNELL not on CPAP. Patient reportedly has not used CPAP in the last 5 years and does not due to all of his oral/facial medical issues Dysphagia with history of aspiration pneumonia in January 2020 with subsequent G-tube placement. Currently receives G-tube feedings in the form of ground up food, Jevity, Pureed Degenerative disc disease, status post cervical spinal fusion and lumbar injuries. BPH Neuropathy secondary to chemotherapy PAST SURGICAL HISTORY: Cervical spine fusion with pins. G-tube placement in 2019; GJ tube conversion to G-tube in July 2020 Incision and drainage of oropharyngeal abscess, 2017 Right eye cataract surgery (Dr. Hernandez, 11/22/19). These Left cataract eye surgery, 11/01/2019 Right total knee arthroplasty, September 2011 Surgical correction of right mandibular fracture with plate insertion on 12/18/20 SOCIAL HISTORY: Patient lives in [place], [place], and his niece Marga assists in his care nearly every day. He is a . He is a former smoker, having quit around 1996. Prior to that, he smoked roughly 1 pack per day of cigarettes for 31 years (31 year pack history). He currently drinks the equivalent of 2 shots of vodka every other day. He currently smokes marijuana in the form of a puff and a half every night. He denies any other illicit or IV drug use. FAMILY HISTORY: Father: at 75 years; arthritis, aneurysm Mother: at 93 years; natural causes. Sisters: ND, asthma, unspecified cancer, RA REVIEW OF SYSTEMS: The patient only seem to complain of left ankle pain when he was briefly awake. PHYSICAL EXAMINATION: VITAL SIGNS: Please see below. GENERAL APPEARANCE: The patient appears to be quite frail and almost cachectic. He is somnolent and will respond to voice but quickly falls back asleep. Most answers that he provides a brief and nondistinct murmurs. CARDIOVASCULAR: The patient did have a palpable left posterior tibial pulse. Pulmonary: Patient is on supplemental oxygen via nasal cannula EXTREMITIES: The left lower extremity demonstrated multiple abrasions. The posterior medial aspect demonstrated some swelling and erythema with skin blistering or dryness that was evident. There was some bruising which may have been consistent with the aspiration site. There may possibly been some fluctuance although it was not overt. NEUROLOGICAL: The patient was able to briefly move his foot and ankle and his toes upon command, but I was unable to ascertain his responses to sensation testing. LABORATORY DATA: Please see below. Imaging: MRI imaging was independently reviewed. This was ordered several days ago. At that time, there was an abscess that was in the posterior medial region. She was reported as: 4.8 cm x 2.1 cm x 8.4 cm fluid collection in the soft tissues along the posteromedial aspect of the left ankle, which may represent an abscess There was also diffuse tenosynovitis within the foot and possibly some sinus tarsi inflammation. ASSESSMENT/PLAN: 1. The patient has a large collection which is consistent with an abscess which is causing diffuse inflammation throughout the foot and ankle region. It appears to be subcutaneous between the subcutaneous fat and the fascial layer. I do not believe that any needle aspiration or otherwise will be successful in removing the bacterial load from this abscess. This will require an open debridement and irrigation. I spoken with the niece about this and discuss the risks and benefit s of the procedure, which include, but are not limited to, neurovascular or soft tissue injury, bleeding, infection, need for multiple surgeries, wound complications, up to and including heart attack, stroke and . She appears to be in healthcare and is well aware of his multiple medical comorbidities and wound healing issues. She has asked him if he would like to proceed with surgery and during this brief conversation. He did state that he would like to have surgery. She signed consent on his behalf. I did explain that there may be associated wound packing or primary closure with drainage or otherwise. The patient will be taken to the operating room on an urgent basis due to his increasing somnolence for an urgent irrigation and debridement of this collection to the posterior medial aspect of the left foot and ankle region. Vital Signs/I&O Vital Signs Date Time Temp Pulse Resp B/P (MAP) Pulse Ox O2 Delivery O2 Flow Rate FiO2 02/15/21 17:28 16 02/15/21 12:20 Nasal Cannula 2.0 02/15/21 11:34 100/52 02/15/21 10:00 94 02/15/21 06:52 108 02/15/21 06:00 98.1 I&O- Last 24 Hours up to 6 AM 02/15/21 06:00 Intake Total 1260 ml Output Total 275 ml Balance 985 ml Laboratory Data Labs 24H Laboratory Tests 2 02/14/21 23:39: Bedside Glucose (Misc Panel) 124H 02/15/21 05:42: Bedside Glucose (Misc Panel) 137H 02/15/21 07:03: Immature Granulocyte % (Auto) 1.9, Neutrophils (%) (Auto) 37.3, Lymphocytes (%) (Auto) 7.3L, Monocytes (%) (Auto) 53.2H, Eosinophils (%) (Auto) 0.2, Basophils (%) (Auto) 0.1, Neutrophils # (Auto) 6.3, Lymphocytes # (Auto) 1.2L, Monocytes # (Auto) 9.0H, Eosinophils # (Auto) 0.0, Basophils # (Auto) 0.0, Nucleated Red Blood Cells % (auto) 0.0, Anion Gap 4L, Glomerular Filtration Rate > 60.0, Calcium Level 8.1L, Ammonia 33H 02/15/21 11:46: Bedside Glucose (Misc Panel) 170H 02/15/21 17:09: C-Reactive Protein, Quantitative 13.00H 02/15/21 17:29: Bedside Glucose (Misc Panel) 134H 02/15/21 17:32: Coronavirus (COVID-19)(PCR) NEGATIVE CBC/BMP Laboratory Tests 02/15/21 07:03 Microbiology Microbiology 02/14/21 Gram Stain - Final, Resulted 02/14/21 Abscess Culture - Preliminary, Resulted Streptococcus Group G 02/14/21 Anaerobic Culture, Resulted Pending 02/10/21 Blood Culture - Final, Complete NO GROWTH AFTER 5 DAYS 02/08/21 Blood Culture - Final, Complete Streptococcus Group G 02/08/21 Blood Culture - Final, Complete Streptococcus Group G Allergies Coded Allergies: chlorpromazine (Verified Allergy, Intermediate, rash, 09/19/20) Home Medications Scheduled Amlodipine Besylate (Amlodipine Besylate) 5 Mg Tablet, 5 MG PO DAILY, (Reported) Duloxetine HCl (Duloxetine HCl) 20 Mg Capsule.dr, 40 MG PO DAILY, (Reported) Ergocalciferol (Vitamin D2) (Vitamin D2) 50,000 Units Cap, 50,000 UNITS PO QWEEK, (Reported) thursday Hydroxychloroquine Sulfate (Hydroxychloroquine Sulfate) 200 Mg Tab, 200 MG PO BID, (Reported) Loratadine (Claritin) 10 Mg Capsule, 10 MG PO DAILY, (Reported) Metoprolol Tartrate (Metoprolol Tartrate) 25 Mg Tablet, 6.25 MG PO BID, (Reported) Omeprazole (Omeprazole) 20 Mg Cap, 20 MG PO BID, (Reported) Pentoxifylline (Pentoxifylline) 400 Mg Tablet.er, 400 MG PO BID, (Reported) Prednisone (Prednisone) 5 Mg Tab, 10 MG PO DAILY, (Reported) Pregabalin (Pregabalin) 100 Mg Capsule, 100 MG PO TID, (Reported) Spironolactone (Spironolactone) 25 Mg Tablet, 25 MG PO DAILY, (Reported) Tbo-Filgrastim (Granix) 480 Mcg/0.8 Ml Syringe, 480 MCG INJ 2XW, (Reported) THURSDAY AND THURSDAY Scheduled PRN Hydrocodone/Acetaminophen (Hydrocodone-Acetamin 7.5-325) 1 Each Tablet, 1 TAB PO TID PRN for pain, (Reported) Naproxen (Naproxen) 500 Mg Tablet.dr, 500 MG PO Q12HP PRN for PAIN, (Reported) ROSALIND CANALES MD Feb 15, 2021 21:23
[2021-02-15 21:35] VITALS: BP 131/70
[2021-02-15] MEDS ORDERED: LIDOCAINE 1% MDV 20ML VIAL As Ordered ONE ×2 (21:56→22:01)
[2021-02-15] MEDS ORDERED: BUPIVACAINE HCL 0.25% 30ML VIAL As Ordered ONE (21:56)
[2021-02-15] MEDS ORDERED: fentaNYL 100 MCG/2 ML INJECTION (J3010) As Ordered ONE (21:57)
[2021-02-15] MEDS ORDERED: BUPIVACAINE HCL 0.5% 30 ML VIAL As Ordered ONE (22:01)
[2021-02-15] MEDS ORDERED: BUPIVACAINE/EPIN 0.5% 30 ML VIAL As Ordered ONE (22:19)
--- NOTE | 2021-02-15 23:16 | ROOPDOC ---
[facility] Report Of Operation Report of Operation DATE OF PROCEDURE: 02/15/21 PREPROCEDURE DIAGNOSES: Abscess left posterior medial ankle region POSTPROCEDURE DIAGNOSES: Possible infected hematoma, left posterior medial ankle region PROCEDURE: Open irrigation and debridement, left posterior medial ankle Placement of wound Howard Velasquez bulb drain Local anesthetic injection : infiltration with 0.5% Marcaine with epinephrine for local anesthesia SURGEON: Rosalind Canales MD LEVEL VIAL CURVATURE GAUGER: None ANESTHESIA: Popliteal block with local anesthetic administered intraoperatively ESTIMATED BLOOD LOSS: Approximately less than 25 mL. COMPLICATIONS: No known complications PROCEDURE NOTE: The patient was taken to the operating room on a urgent basis for concern with regards to abscess, left posterior medial ankle region with aspirated fluid concerning for infectious abscess. DESCRIPTION OF PROCEDURE: The patient had the popliteal block is performed in the preoperative area. The left ankle region was signed in this area as well. The patient was brought to the operating room on the stretcher. The procedure was performed on the stretcher at the request of anesthesia. Due to concern for the patient's breathing and concern for moving him multiple times. The patient's left foot and ankle was washed with a chlorhexidine brush to remove skin. He then underwent 2 times chlorhexidine prep in the normal sterile fashion. He then had a standard sterile draping of the left leg below the knee. A surgical safety checklist and cause was carried out. Utilizing the MRI. A posterior medial approach was started with an approximate 1 cm incision. Presents for used to open the space. This was enlarged to approximately 3-4 cm in length. I was able to explore the wound with my finger. There was no purulent material but there was a lot of hematoma-like material. Some of this was sent for Gram stain, culture and sensitivity. There was a lot of soft tissue swelling associated with this, but no kiesha purulence. It appeared to be a separation between the skin and the subcutaneous tissue along the fascia. There is no foul odor or anything of that nature and the fascia was not easily from the skin at its extent. There was undermining of the skin consistent with the fluid collection seen on the MRI. This was debrided with a 4 year in an agitation like manner along the surfaces. Approximately 3 L of normal sterile saline was then irrigated through the wound. This fluid was warmed. Some soft tissue was removed with Dean scissors. There is no significant bleeding from the soft tissues in this area. . A sponge was introduced to packed dry. The interior of the wound. Full- thickness nylon sutures were then placed to help close down the wound. After the placement of a drain. 3. Nylon sutures were placed full-thickness in a vertical mattress fashion below the drain and then one was placed around to help secure it. The skin in the area was cleansed and dried. Of note, there appeared to be a decrease in the swelling and erythema around the left medial ankle. 2. ADD pads were placed over the drain sponge followed by a tensor wrap. There was some se rosanguineous drainage in the JACQUI drain after was placed under suction. The patient tolerated the procedure well with no known complications. Please taken the recovery room in stable condition. He'll be admitted readmitted to the hospitalist service. He will continue to be followed by the infectious disease service. Cultures of the hematoma material will be followed as well postope ratively. The drain will be reassessed for removal, likely postop day 2. Dressing changes may be reinforced to the area. ROSALIND CANALES MD Feb 15, 2021 23:16
[2021-02-15] MEDS ORDERED: ONDANSETRON 4MG/2ML VIAL IV PRN (23:25)
[2021-02-15] MEDS ORDERED: fentaNYL 100 MCG/2 ML INJECTION (J3010) IV PRN (23:25)
[2021-02-15] MEDS ORDERED: LR 1,000 ML IV SCH (23:25)
[2021-02-15] MEDS ORDERED: oxyCODONE 5MG TAB PO PRN (23:25)
[2021-02-16] VITALS (14 sets, daily range): BP systolic 105–124; BP diastolic 48–59; O2SAT 96–97
[2021-02-16] MEDS: LIDOCAINE VISCOUS 2% SOLN 15ML UDC SSP SCH ×7 (00:23→21:00)
[2021-02-16] MEDS: LR 1,000 ML IV SCH ×2 (01:17→08:54)
[2021-02-16] MEDS: ACETAMINOPHEN 325 MG/10.15 ML UDC GT PRN (02:45)
[2021-02-16] MEDS: SODIUM CHLORIDE 0.9% INJ 10 ML SYR IV SCH ×2 (05:39→17:22)
[2021-02-16] MEDS: SODIUM CHLORIDE 0.9% INJ 10 ML SYR IV PRN ×2 (05:40→14:31)
[2021-02-16] MEDS: SLF 3 ML SYR IV SCH ×3 (05:53→21:24)
[2021-02-16] MEDS: NORCO, ANEXSIA 5/325MG TABLET (HYDROcodone/ACETAMINOPHEN) PO SCH ×4 (05:53→17:24)
[2021-02-16 07:04] LABS: HEMATOCRIT 25.4 % (42.0-52.0); HEMOGLOBIN 7.7 g/dl (13.5-17.5); MEAN CORPUSCULAR HEMOGLOBIN 34.4 pg (27.0-33.0); MEAN CORPUSCULAR HGB CONC 30.3 g/dl (32.0-36.5); MEAN CORPUSCULAR VOLUME 113.4 fl (80.0-96.0); PLATELET COUNT, AUTOMATED 108 10^3/uL (150-450); RED BLOOD COUNT 2.24 10^6/uL (4.30-6.10)
[2021-02-16 07:07] LABS: WHITE BLOOD COUNT 16.7 10^3/uL (4.0-10.0)
[2021-02-16 07:11] LABS: BLOOD UREA NITROGEN 16 MG/DL (7-18); CARBON DIOXIDE LEVEL 33 MEQ/L (21-32); CHLORIDE LEVEL 96 MEQ/L (98-107); CREATININE FOR GFR 0.42 MG/DL (0.70-1.30); GLOMERULAR FILTRATION RATE > 60.0 (>42); GLUCOSE, FASTING 119 MG/DL (70-100); SODIUM LEVEL 134 MEQ/L (136-145)
[2021-02-16 07:53] LABS: ATYPICAL LYMPH 2 % (0-5); LYMPHOCYTES 8 % (16-44); METAMYELOCYTES 2 % (0-0); MONOCYTES 58 % (0-5); MYELOCYTES 2 % (0-0); NEUTROPHILS 13 % (28-66)
[2021-02-16 07:54] LABS: ANISOCYTOSIS 2+; PLATELET CLUMPS SMALL AMT; PLATELET ESTIMATE DECREASED (NORMAL)
[2021-02-16 07:55] LABS: HYPOCHROMASIA 1+; MICROCYTOSIS 2+; STOMATOCYTES 3+
[2021-02-16] MEDS: PREGABALIN 100 MG CAP (LYRICA) GT SCH ×3 (08:47→21:23)
[2021-02-16] MEDS: predniSONE 10 MG TAB GT SCH (08:47)
[2021-02-16] MEDS: PENTOXIFYLLINE 400 MG TAB PO SCH (08:47)
[2021-02-16] MEDS: PANTOPRAZOLE 40MG VIAL (C9113 PER 1) IV SCH ×2 (08:47→20:45)
[2021-02-16] MEDS: DULoxetine 20 MG CAP (CYMBALTA) PO SCH (08:47)
[2021-02-16] MEDS: METOPROLOL TART 25 MG TABLET GT SCH ×2 (08:48→21:23)
[2021-02-16] MEDS: HYDROXYCHLOROQUINE 200 MG TAB GT SCH ×2 (08:48→21:24)
--- NOTE | 2021-02-16 11:10 | IPNPDOC ---
Text Note Date of Service The patient was seen on 02/16/21. NOTE Postop day 1. Left ankle subcutaneous infected hematoma, irrigation and debri lasha. Overall, the patient appears to be much more alert today. He is able to answer questions. There is clearly a difference in his level of somnolence compared to yesterday evening. He does complain of some pain in his left ankle. He states that he has some numbness to the foot globally. This is likely associated with a pressure dressing that is over the left medial aspect of the ankle, secured with an Meliton wrap. The dressing is intact. This was taken down. The JACQUI drain is still in position [employer] nursing and stated that there've been issues with suction overnight with minimal drainage of serosanguineous fluid. The drain was pulled, after the skin was cleansed with chlorhexidine A skin stapler was used to close up the open area where the drain was. Proximately 3 ileana were placed. 2 abdominal pads were placed over this and the Meliton wrap was applied for pressure type dressing. Overall, the patient is showing some improvement. Gram stain and cultures are pending. He will be reevaluated tomorrow morning. VS,Fishbone, I+O VS, Fishbone, I+O Laboratory Tests 02/16/21 06:17 Vital Signs Date Time Temp Pulse Resp B/P (MAP) Pulse Ox O2 Delivery O2 Flow Rate FiO2 02/16/21 08:48 84 115/58 02/16/21 06:00 97.8 20 98 Nasal Cannula 2.0 I&O- Last 24 Hours up to 6 AM 02/16/21 06:00 Intake Total 1300 ml Output Total 1259 ml Balance 41 ml ROSALIND CANALES MD Feb 16, 2021 11:10
[2021-02-16] MEDS: cefTRIAXone SOD 2 GM in D5W MINI-BAG PLUS 50 ML IV SCH (13:01)
--- NOTE | 2021-02-16 13:43 | IPNPDOC ---
Subjective Date Seen The patient was seen on 02/16/21. Subjective Chief Complaint/HPI Patient had the incision and drainage of Left ankle abscess. As per orthopedics it looked more like an infected hematoma. There was no kiesha pus. A JACQUI drain has been left in site. No fever or chills. Mariluz is much more awake and interactive today. He was able to apply his own lidocaine and clean his own mouth. He complains of left ankle pain and does not want to get out of bed today. he has been able to walk with 1 assist and a walker to the chair and sits by the side of the bed. Objective Physical Examination General Exam: Positive: Alert, Cooperative, No Acute Distress Eye Exam: Positive: PERRLA, Conjunctiva & lids normal, EOMI; Negative: Sclera icteric Neck Exam: Positive: Supple; Negative: JVD, thyromegaly Chest Exam: Positive: Clear to auscultation, Normal air movement Heart Exam: Positive: Rate Normal, Regular Rhythm, Normal S1, Normal S2; Negative: Murmurs, Rubs Abdomen Exam: Positive: Normal bowel sounds, Soft, Other (large bore G tube in place); Negative: Tenderness, Hepatospenomegaly Extremity Exam: Positive: Tenderness (left ankle), Swelling (ankle), Other (JACQUI drain in left ankle); Negative: Clubbing, Cyanosis, Edema Assessment /Plan Assessment 70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 He had an ED-to-ED transfer from [facility] after initial work up revealed an elevated D-dimer (2.72 mg/LFEU; NL 0.19-0.80). [facility] lacks an ultrasound machine to evaluate for DVT, therefore, he was subsequently transferred. Patient reported that beginning on 02/07, he awoke with pain over his pubic bone and in his left groin. It then progressed to his left thigh, feeling like electric shocks. He then noticed some swelling over the left inner thigh as well as some redness of his left fowler. As the pain progressed on left lower extremity to the ankle. It began to affect his gait more and more, to the point that his niece/sprayer insecticide (Marga) drove him to the [facility] ED. Of note, he received a second mode during the COVID vaccination one day before symptoms started. The patient was subsequently admitted under the care of the hospitalist service primarily for meeting SIRS criteria (leukocytosis and tachycardia with lactic of 3.5) and elevated d-dimer. He was found to have left ankle cellulitis and left leg lymphangitis from groin to ankle with bacteremia. Sepsis with Strep bacteremia. due to left leg cellulitis and infected hematome at the ankle and lymphangitis. blood cultures 2/2 positive : Streptococcus group g echo done. No vegetations, EF 75%, mild to mod pulmonary hypertension, grade 1 diastolic dysfunction. Continue ceftriaxone. Left ankle infected hematoma /abscess/cellulitis /Left leg lymphangitis MRI ankle showed 1. 4.8 cm x 2.1 cm x 8.4 cm fluid collection in the soft tissues along the posteromedial aspect of the left ankle, which may represent an abscess. 2. Soft tissue swelling and edema in the left ankle and dorsal aspect of the left foot, which may represent cellulitis or lymphedema. 3. Mildly increased fluid sensitive signal involving the muscles of the left foot, which may represent myositis, denervation edema, or muscle strains. 4. Left Achilles peritendinitis. 5. Fluid in the tibialis posterior, flexor digitorum longus, flexor hallucis longus, extensor digitorum longus, peroneus longus, and peroneus brevis tendon sheaths, which may represent tenosynovitis. No OM at the left ankle. No septic joint as per ortho S/P aspiration of the abscess by IR followed by incision and drainage by orthopedics with placement of JACQUI drain Ortho thinks it was infected hematoma Blood culture streptococcus, abscess culture streptococcus group G Continue ceftriaxone. Leukocytosis due to sepsis from lymphangitis, cellulitis, abscess and due to the use of neupogen improving if becomes pancytopenic will resume neupogen. H/o Pancytopenia before thought to be chemo related Now clarified with oncologist about his need for neupogen. 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 Thrombocytopenia ? cause ? sepsis. He does use significant amount of alcohol about 2 to 3 shots every day. Sometimes he drinks it sometimes he pours it through the G tube. will have to rule rule out underlying cirrhosis of liver Ammonia 25-33 ordered fibrosis score improving Malfunctioning of GT tube tolerating tube feeding. Has Dysphagia with history of aspiration pneumonia in January 2020 with subsequent G-tube placement. Problem with speech with dry mouth and chronic left jaw pain had RT on the left with ongoing osteonecrosis right jaw surgery for osteomyelitis and placement of plastic plates will continue lidocaine viscus and saliva substitute. 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 Follows with an oncologist in [place] (Dr. Bhavna Quintana) Right mandibular fracture after a mechanical fall in 2019 then developed OM Was on zosyn and daptomycin jun 2020 to nov 2020 through a PICC line s/p mandibular excision and plate insertion on 12/18/20 SLE/Sjogren's/RA /raynauds Has ulcers on the toes of the feet. on daily 10 mg prednisone and Plaquenil. Follows with a icebox man in [place] (). continue pentoxiphylline, naproxen, norco. Heart failure with reduced ejection fraction spring [facility] reportedly showed EF of 40% Interstitial lung disease (identified on [facility] imaging) DARNELL likely resolved at present with weight loss after the cancer has not used CPAP in the last 5 years Degenerative disc disease status post cervical spinal fusion and lumbar injuries. h/o thoracic vertebral compression fractures at different levels and bilateral rib fractures. h/o BPH Neuropathy secondary to chemotherapy on norco, cymbalta, lyrica. norco and cymbalta dose reduced as patient was very somnolent in hospital. Plan/VTE VTE Prophylaxis Ordered?: Yes VS, I&O, 24H, Fishbone Vital Signs/I&O Vital Signs Date Time Temp Pulse Resp B/P (MAP) Pulse Ox O2 Delivery O2 Flow Rate FiO2 02/16/21 06:00 97.8 55 20 124/59 (80) 98 Nasal Cannula 2.0 I&O- Last 24 Hours up to 6 AM 02/16/21 06:00 Intake Total 1300 ml Output Total 1259 ml Balance 41 ml Laboratory Data 24H LABS Laboratory Tests 2 02/15/21 11:46: Bedside Glucose (Misc Panel) 170H 02/15/21 17:09: C-Reactive Protein, Quantitative 13.00H 02/15/21 17:29: Bedside Glucose (Misc Panel) 134H 02/15/21 17:32: Coronavirus (COVID-19)(PCR) NEGATIVE 02/16/21 00:10: Bedside Glucose (Misc Panel) 111H 02/16/21 06:17: Neutrophils (%) (Auto) , Nucleated Red Blood Cells % (auto) 0.0, Anion Gap 5L, Glomerular Filtration Rate > 60.0, Calcium Level 8.0L CBC/BMP Laboratory Tests 02/16/21 06:17 Microbiology Microbiology 02/15/21 Gram Stain, Received Pending 02/15/21 Wound Culture, Received Pending 02/15/21 Anaerobic Culture, Received Pending 02/14/21 Gram Stain - Final, Resulted 02/14/21 Abscess Culture - Final, Resulted Streptococcus Group G 02/14/21 Anaerobic Culture, Resulted Pending 02/10/21 Blood Culture - Final, Complete NO GROWTH AFTER 5 DAYS 02/08/21 Blood Culture - Final, Complete Streptococcus Group G 02/08/21 Blood Culture - Final, Complete Streptococcus Group G RAMONA ZAMARRIPA MD Feb 16, 2021 07:45
[2021-02-17] MEDS: LIDOCAINE VISCOUS 2% SOLN 15ML UDC SSP SCH ×6 (00:03→21:00)
[2021-02-17] MEDS: NORCO, ANEXSIA 5/325MG TABLET (HYDROcodone/ACETAMINOPHEN) PO SCH ×4 (05:17→17:11)
[2021-02-17] MEDS: SLF 3 ML SYR IV SCH (05:18)
[2021-02-17 06:00] VITALS: BP 118/64
[2021-02-17 07:04] LABS: BASO % 0.1 % (0.0-1.0); EOS % 0.1 % (0.0-3.0); HEMOGLOBIN 7.4 g/dl (13.5-17.5); LYMPH # 0.8 10^3/uL (1.5-5.0); LYMPH % 4.8 % (24.0-44.0); MEAN CORPUSCULAR HEMOGLOBIN 34.7 pg (27.0-33.0); MEAN CORPUSCULAR HGB CONC 30.8 g/dl (32.0-36.5); MEAN CORPUSCULAR VOLUME 112.7 fl (80.0-96.0); MONO % 53.5 % (2.0-8.0); NEUTROPHILS # 6.6 10^3/uL (1.5-8.5); NEUTROPHILS % 39.6 % (36.0-66.0); PLATELET COUNT, AUTOMATED 112 10^3/uL (150-450); RED BLOOD COUNT 2.13 10^6/uL (4.30-6.10)
[2021-02-17 07:05] LABS: WHITE BLOOD COUNT 16.7 10^3/uL (4.0-10.0)
[2021-02-17 07:23] LABS: BLOOD UREA NITROGEN 13 MG/DL (7-18); CALCIUM LEVEL 7.8 MG/DL (8.8-10.2); CARBON DIOXIDE LEVEL 34 MEQ/L (21-32); CHLORIDE LEVEL 93 MEQ/L (98-107); GLOMERULAR FILTRATION RATE > 60.0 (>42); GLUCOSE, FASTING 112 MG/DL (70-100); POTASSIUM SERUM 4.4 MEQ/L (3.5-5.1); SODIUM LEVEL 131 MEQ/L (136-145)
[2021-02-17] MEDS: SODIUM CHLORIDE 0.9% INJ 10 ML SYR IV SCH ×2 (07:55→17:13)
[2021-02-17] MEDS: PANTOPRAZOLE 40MG VIAL (C9113 PER 1) IV SCH ×2 (07:55→22:27)
[2021-02-17] MEDS: predniSONE 10 MG TAB GT SCH (08:04)
[2021-02-17] MEDS: HYDROXYCHLOROQUINE 200 MG TAB GT SCH ×2 (08:04→22:28)
[2021-02-17] MEDS: PREGABALIN 100 MG CAP (LYRICA) GT SCH ×3 (08:04→22:28)
[2021-02-17] MEDS: DULoxetine 20 MG CAP (CYMBALTA) PO SCH (08:05)
[2021-02-17] MEDS: METOPROLOL TART 25 MG TABLET GT SCH ×2 (08:23→22:28)
[2021-02-17 09:00] VITALS: O2SAT 97
--- NOTE | 2021-02-17 11:18 | IPNPDOC ---
Text Note Date of Service The patient was seen on 02/17/21. NOTE POD 2 Left ankle soft tissue I&D, possible infected hematoma Pt continues to be more alert today. Has asked about activity restrictions. Overall doing well. Able to move foot and ankle and reports less numbness to L foot today. Pressure dressing L ankle taken down. Minimal staining to dressing with some brusing around the incision. No overt maceration of the tissues. Area still appears cellulitic. Dressing Change: Dressing taken down. Wound cleansed with chlorhexidene. Telfa and tegaderm dressing placed. Abd pad reinforcement with ari wrap, non pressure dressing. Gram stain from intraop sample negative Will continue to follow up. Pt may be wbat and AAT, based on his ankle wound and operation, from ortho standpoint. VS,Fishbone, I+O VS, Fishbone, I+O Laboratory Tests 02/17/21 06:31 Vital Signs Date Time Temp Pulse Resp B/P (MAP) Pulse Ox O2 Delivery O2 Flow Rate FiO2 02/17/21 08:23 92 135/55 02/17/21 06:00 98.9 20 97 02/16/21 22:00 Nasal Cannula 2.0 I&O- Last 24 Hours up to 6 AM 02/17/21 06:00 Intake Total 3330 ml Output Total 1175 ml Balance 2155 ml ROSALIND CANALES MD Feb 17, 2021 11:18
[2021-02-17] MEDS: cefTRIAXone SOD 2 GM in D5W MINI-BAG PLUS 50 ML IV SCH (12:51)
[2021-02-17] MEDS: SODIUM CHLORIDE 0.9% INJ 10 ML SYR IV PRN ×2 (13:43→23:06)
[2021-02-17 14:00] VITALS: BP 131/56
--- NOTE | 2021-02-17 15:02 | IPNPDOC ---
Subjective Date Seen The patient was seen on 02/17/21. Subjective Chief Complaint/HPI continues to be more alert and awake and speech clearer. able to do his own oral care. Less pain and numbness at the left ankle. No fever or chills. Tolerating tube feeding. Objective Physical Examination General Exam: Positive: Alert, Cooperative, No Acute Distress Eye Exam: Positive: PERRLA, Conjunctiva & lids normal, EOMI; Negative: Sclera icteric Neck Exam: Positive: Supple; Negative: JVD, thyromegaly Chest Exam: Positive: Clear to auscultation, Normal air movement Heart Exam: Positive: Rate Normal, Regular Rhythm, Normal S1, Normal S2; Negative: Murmurs, Rubs Abdomen Exam: Positive: Normal bowel sounds, Soft, Other (large bore G tube in place); Negative: Tenderness, Hepatospenomegaly Extremity Exam: Positive: Tenderness (left ankle), Swelling (ankle), Other (JACQUI drain in left ankle); Negative: Clubbing, Cyanosis, Edema Assessment /Plan Assessment 70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 He had an ED-to-ED transfer from [facility] after initial work up revealed an elevated D-dimer (2.72 mg/LFEU; NL 0.19-0.80). [facility] lacks an ultrasound machine to evaluate for DVT, therefore, he was subsequently transferred. Patient reported that beginning on 02/07, he awoke with pain over his pubic bone and in his left groin. It then progressed to his left thigh, feeling like electric shocks. He then noticed some swelling over the left inner thigh as well as some redness of his left fowler. As the pain progressed on left lower extremity to the ankle. It began to affect his gait more and more, to the point that his niece/cutting and creasing press operator (Marga) drove him to the [facility] ED. Of note, he received a second mode during the COVID vaccination one day before symptoms started. The patient was subsequently admitted under the care of the hospitalist service primarily for meeting SIRS criteria (leukocytosis and tachycardia with lactic of 3.5) and elevated d-dimer. He was found to have left ankle cellulitis and left leg lymphangitis from groin to ankle with bacteremia. Sepsis with Strep bacteremia. due to left leg cellulitis and infected hematoma at the ankle and lymphangitis. blood cultures 2/2 positive : Streptococcus group g echo done. No vegetations, EF 75%, mild to mod pulmonary hypertension, grade 1 diastolic dysfunction. Continue ceftriaxone. Left ankle infected hematoma /abscess/cellulitis /Left leg lymphangitis MRI ankle showed 1. 4.8 cm x 2.1 cm x 8.4 cm fluid collection in the soft tissues along the posteromedial aspect of the left ankle, which may represent an abscess. 2. Soft tissue swelling and edema in the left ankle and dorsal aspect of the left foot, which may represent cellulitis or lymphedema. 3. Mildly increased fluid sensitive signal involving the muscles of the left foot, which may represent myositis, denervation edema, or muscle strains. 4. Left Achilles peritendinitis. 5. Fluid in the tibialis posterior, flexor digitorum longus, flexor hallucis longus, extensor digitorum longus, peroneus longus, and peroneus brevis tendon sheaths, which may represent tenosynovitis. No OM at the left ankle. No septic joint as per ortho S/P aspiration of the abscess by IR followed by incision and drainage by orthopedics with placement of JACQUI drain Ortho thinks it was infected hematoma Blood culture streptococcus, abscess culture streptococcus group G Continue ceftriaxone. Leukocytosis due to sepsis from lymphangitis, cellulitis, abscess and due to the use of neupogen improving if becomes pancytopenic will resume neupogen. H/o Pancytopenia before thought to be chemo related Now clarified with oncologist about his need for neupogen. 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 Thrombocytopenia ? cause ? sepsis. He does use significant amount of alcohol about 2 to 3 shots every day. Sometimes he drinks it sometimes he pours it through the G tube. will have to rule rule out underlying cirrhosis of liver Ammonia 25-33 ordered fibrosis score improving Malfunctioning of GT tube resolved. tolerating tube feeding now. Has Dysphagia with history of aspiration pneumonia in January 2020 with subsequent G-tube placement. Problem with speech with dry mouth and chronic left jaw pain had RT on the left with ongoing osteonecrosis right jaw surgery for osteomyelitis and placement of plastic plates will continue lidocaine viscus and saliva substitute. 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 Follows with an oncologist in [place] (Dr. Bhavna Quintana) continues to shed bone shards from the necrotic jaw so the left side is always tender continue lidocaine viscus. Right mandibular fracture after a mechanical fall in 2019 then developed OM Was on zosyn and daptomycin jun 2020 to nov 2020 through a PICC line s/p right mandibular excision and plate insertion on 12/18/20 SLE/Sjogren's/RA /raynauds Has ulcers on the toes of the feet. on daily 10 mg prednisone and Plaquenil. Follows with a armored service technician in [place] (). continue naproxen, norco., prednisone pentoxiphylline cannot be crushed. Heart failure with reduced ejection fraction spring 2019 echo at [facility] reportedly showed EF of 40% Interstitial lung disease (identified on [facility] imaging) DARNELL likely resolved at present with weight loss after the cancer has not used CPAP in the last 5 years Degenerative disc disease status post cervical spinal fusion and lumbar injuries. h/o thoracic vertebral compression fractures at different levels and bilateral rib fractures. h/o BPH Neuropathy secondary to chemotherapy on norco, cymbalta, lyrica. norco and cymbalta dose reduced as patient was very somnolent in hospital. Plan/VTE VTE Prophylaxis Ordered?: Yes VS, I&O, 24H, Fishbone Vital Signs/I&O Vital Signs Date Time Temp Pulse Resp B/P (MAP) Pulse Ox O2 Delivery O2 Flow Rate FiO2 02/17/21 13:27 16 95 Nasal Cannula 2.0 02/17/21 08:23 92 135/55 02/17/21 06:00 98.9 I&O- Last 24 Hours up to 6 AM 02/17/21 07:00 Intake Total 3330 ml Output Total 1175 ml Balance 2155 ml Laboratory Data 24H LABS Laboratory Tests 2 02/16/21 19:41: Bedside Glucose (Misc Panel) 116H 02/17/21 00:08: Bedside Glucose (Misc Panel) 136H 02/17/21 06:31: Immature Granulocyte % (Auto) 1.9, Neutrophils (%) (Auto) 39.6, Lymphocytes (%) (Auto) 4.8L, Monocytes (%) (Auto) 53.5H, Eosinophils (%) (Auto) 0.1, Basophils (%) (Auto) 0.1, Neutrophils # (Auto) 6.6, Lymphocytes # (Auto) 0.8L, Monocytes # (Auto) 9.0H, Eosinophils # (Auto) 0.0, Basophils # (Auto) 0.0, Nucleated Red Blood Cells % (auto) 0.0, Anion Gap 4L, Glomerular Filtration Rate > 60.0, Calcium Level 7.8L, C-Reactive Protein, Quantitative 12.70H 02/17/21 11:31: Bedside Glucose (Misc Panel) 166H CBC/BMP Laboratory Tests 02/17/21 06:31 Microbiology Microbiology 02/15/21 Gram Stain - Final, Resulted 02/15/21 Wound Culture, Resulted Pending 02/15/21 Anaerobic Culture, Resulted Pending 02/14/21 Gram Stain - Final, Complete 02/14/21 Abscess Culture - Final, Complete Streptococcus Group G 02/14/21 Anaerobic Culture - Final, Complete 02/10/21 Blood Culture - Final, Complete NO GROWTH AFTER 5 DAYS 02/08/21 Blood Culture - Final, Complete Streptococcus Group G 02/08/21 Blood Culture - Final, Complete Streptococcus Group G RAMONA ZAMARRIPA MD Feb 17, 2021 15:02
[2021-02-17 22:00] VITALS: BP 133/57
[2021-02-18] MEDS: LIDOCAINE VISCOUS 2% SOLN 15ML UDC SSP SCH ×6 (01:00→22:30)
[2021-02-18] MEDS: NORCO, ANEXSIA 5/325MG TABLET (HYDROcodone/ACETAMINOPHEN) PO SCH ×4 (05:52→18:03)
[2021-02-18 06:00] VITALS: BP 129/57
[2021-02-18] MEDS: SODIUM CHLORIDE 0.9% INJ 10 ML SYR IV SCH ×2 (06:00→18:04)
[2021-02-18 07:31] LABS: HEMATOCRIT 24.8 % (42.0-52.0); HEMOGLOBIN 7.6 g/dl (13.5-17.5); MEAN CORPUSCULAR HEMOGLOBIN 34.7 pg (27.0-33.0); MEAN CORPUSCULAR HGB CONC 30.6 g/dl (32.0-36.5); MEAN CORPUSCULAR VOLUME 113.2 fl (80.0-96.0); PLATELET COUNT, AUTOMATED 125 10^3/uL (150-450); RED BLOOD COUNT 2.19 10^6/uL (4.30-6.10)
[2021-02-18 07:45] LABS: BLOOD UREA NITROGEN 14 MG/DL (7-18); CALCIUM LEVEL 8.6 MG/DL (8.8-10.2); CARBON DIOXIDE LEVEL 36 MEQ/L (21-32); CHLORIDE LEVEL 91 MEQ/L (98-107); CREATININE FOR GFR 0.46 MG/DL (0.70-1.30); GLOMERULAR FILTRATION RATE > 60.0 (>42); GLUCOSE, FASTING 137 MG/DL (70-100); POTASSIUM SERUM 4.4 MEQ/L (3.5-5.1); SODIUM LEVEL 131 MEQ/L (136-145)
[2021-02-18 08:18] LABS: ANISOCYTOSIS 1+; LYMPHOCYTES 17 % (16-44); MONOCYTES 39 % (0-5); NEUTROPHILS 37 % (28-66); PLATELET ESTIMATE DECREASED (NORMAL)
[2021-02-18] MEDS: DOCUSATE SOD LIQ 100MG/10ML UDC GT SCH ×2 (09:00→22:30)
[2021-02-18 10:09] VITALS: O2SAT 96
[2021-02-18] MEDS: PREGABALIN 100 MG CAP (LYRICA) GT SCH ×3 (10:09→22:31)
[2021-02-18] MEDS: DULoxetine 20 MG CAP (CYMBALTA) PO SCH (10:09)
[2021-02-18] MEDS: HYDROXYCHLOROQUINE 200 MG TAB GT SCH ×2 (10:09→22:31)
[2021-02-18 10:10] VITALS: BP 116/62
[2021-02-18] MEDS: METOPROLOL TART 25 MG TABLET GT SCH (10:10)
[2021-02-18] MEDS: predniSONE 10 MG TAB GT SCH (10:10)
[2021-02-18] MEDS: PANTOPRAZOLE 40MG VIAL (C9113 PER 1) IV SCH ×2 (10:11→22:30)
[2021-02-18 10:25] VITALS: BP 116/62
[2021-02-18] MEDS: ACETAMINOPHEN 325 MG/10.15 ML UDC GT PRN (10:39)
--- NOTE | 2021-02-18 12:18 | IPNPDOC ---
Subjective Date Seen The patient was seen on 02/18/21. Subjective Chief Complaint/HPI Febrile this morning to a t max of 101.9 so not feeling well. Has not had any fevers before. Feels very tired. Does nto complain of leg pain. Tolerating tube feeds. No leakage noted from around the feeding tube. Will get new blood culture. Complained of constipation. Hemoglobin has been in the 70s range, will likely need blood transfusion but will await the fever goes down. Objective Physical Examination General Exam: Positive: Alert, Cooperative, No Acute Distress Eye Exam: Positive: PERRLA, Conjunctiva & lids normal, EOMI; Negative: Sclera icteric Neck Exam: Positive: Supple; Negative: JVD, thyromegaly Chest Exam: Positive: Clear to auscultation, Normal air movement Heart Exam: Positive: Rate Normal, Regular Rhythm, Normal S1, Normal S2; Negative: Murmurs, Rubs Abdomen Exam: Positive: Normal bowel sounds, Soft, Other (large bore G tube in place); Negative: Tenderness, Hepatospenomegaly Extremity Exam: Positive: Tenderness (left ankle), Swelling (ankle), Other (JACQUI drain in left ankle); Negative: Clubbing, Cyanosis, Edema Assessment /Plan Assessment 70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 He had an ED-to-ED transfer from [facility] after initial work up revealed an elevated D-dimer (2.72 mg/LFEU; NL 0.19-0.80). [facility] lacks an ultrasound machine to evaluate for DVT, therefore, he was subsequently transferred. Patient reported that beginning on 02/07, he awoke with pain over his pubic bone and in his left groin. It then progressed to his left thigh, feeling like electric shocks. He then noticed some swelling over the left inner thigh as well as some redness of his left fowler. As the pain progressed on left lower extremity to the ankle. It began to affect his gait more and more, to the point that his niece/ball fringe machine operator (Marga) drove him to the [facility] ED. Of note, he received a second mode during the COVID vaccination one day before symptoms started. The patient was subsequently admitted under the care of the hospitalist service primarily for meeting SIRS criteria (leukocytosis and tachycardia with lactic of 3.5) and elevated d-dimer. He was found to have left ankle cellulitis and left leg lymphangitis from groin to ankle with bacteremia. Sepsis with Strep group G bacteremia. due to left leg cellulitis and infected hematoma at the ankle and lymphangitis. blood cultures 2/2 positive : Streptococcus group g echo done. No vegetations, EF 75%, mild to mod pulmonary hypertension, grade 1 diastolic dysfunction. Continue ceftriaxone. Left ankle infected hematoma /abscess/cellulitis /Left leg lymphangitis MRI ankle showed 1. 4.8 cm x 2.1 cm x 8.4 cm fluid collection in the soft tissues along the posteromedial aspect of the left ankle, which may represent an abscess. 2. Soft tissue swelling and edema in the left ankle and dorsal aspect of the left foot, which may represent cellulitis or lymphedema. 3. Mildly increased fluid sensitive signal involving the muscles of the left foot, which may represent myositis, denervation edema, or muscle strains. 4. Left Achilles peritendinitis. 5. Fluid in the tibialis posterior, flexor digitorum longus, flexor hallucis longus, extensor digitorum longus, peroneus longus, and peroneus brevis tendon sheaths, which may represent tenosynovitis. No OM at the left ankle. No septic joint as per ortho S/P aspiration of the abscess by IR followed by incision and drainage by orthopedics with placement of JACQUI drain Ortho thinks it was infected hematoma Blood culture streptococcus, abscess culture streptococcus group G Continue ceftriaxone. Leukocytosis due to sepsis from lymphangitis, cellulitis, abscess and due to the use of neupogen improving if becomes pancytopenic will resume neupogen. H/o Pancytopenia before thought to be chemo related Now clarified with oncologist about his need for neupogen. 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 Thrombocytopenia ? cause ? sepsis. He does use significant amount of alcohol about 2 to 3 shots every day. Sometimes he drinks it sometimes he pours it through the G tube. will have to rule rule out underlying cirrhosis of liver Ammonia 25-33 ordered fibrosis score improving Malfunctioning of GT tube resolved. tolerating tube feeding now. Has Dysphagia with history of aspiration pneumonia in January 2020 with subsequent G-tube placement. Problem with speech with dry mouth and chronic left jaw pain had RT on the left with ongoing osteonecrosis right jaw surgery for osteomyelitis and placement of plastic plates will continue lidocaine viscus and saliva substitute. 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 Follows with an oncologist in [place] (Dr. Bhavna Quintana) continues to shed bone shards from the necrotic jaw so the left side is always tender continue lidocaine viscus. Right mandibular fracture after a mechanical fall in 2019 then developed OM Was on zosyn and daptomycin jun 2020 to nov 2020 through a PICC line s/p right mandibular excision and plate insertion on 12/18/20 SLE/Sjogren's/RA /raynauds Has ulcers on the toes of the feet. on daily 10 mg prednisone and Plaquenil. Follows with a gardening supervisor in [place] (). continue naproxen, norco., prednisone pentoxiphylline cannot be crushed. Heart failure with reduced ejection fraction spring 2019 echo at [facility] reportedly showed EF of 40% Interstitial lung disease (identified on [facility] imaging) DARNELL likely resolved at present with weight loss after the cancer has not used CPAP in the last 5 years Degenerative disc disease status post cervical spinal fusion and lumbar injuries. h/o thoracic vertebral compression fractures at different levels and bilateral rib fractures. h/o BPH Neuropathy secondary to chemotherapy on norco, cymbalta, lyrica. norco and cymbalta dose reduced as patient was very somnolent in hospital. Plan/VTE VTE Prophylaxis Ordered?: Yes VS, I&O, 24H, Fishbone Vital Signs/I&O Vital Signs Date Time Temp Pulse Resp B/P (MAP) Pulse Ox O2 Delivery O2 Flow Rate FiO2 02/18/21 11:48 100.2 02/18/21 10:25 117 24 116/62 (80) 95 Nasal Cannula 3.0 I&O- Last 24 Hours up to 6 AM 02/18/21 06:00 Intake Total 2330 ml Output Total 1420 ml Balance 910 ml Laboratory Data 24H LABS Laboratory Tests 2 02/17/21 17:26: Bedside Glucose (Misc Panel) 109 02/17/21 23:52: Bedside Glucose (Misc Panel) 124H 02/18/21 05:35: Bedside Glucose (Misc Panel) 107 02/18/21 07:00: 02/18/21 07:13: Neutrophils (%) (Auto) , Nucleated Red Blood Cells % (auto) 0.0, Neutrophils 37, Band Neutrophils 7, Lymphocytes (Manual) 17, Monocytes (Manual) 39H, Anisocytosis 1+, Macrocytosis 1+, Platelet Estimate DECREASED, Anion Gap 4L, Glomerular Filtration Rate > 60.0, Calcium Level 8.6L 02/18/21 11:27: Bedside Glucose (Misc Panel) 154H CBC/BMP Laboratory Tests 02/18/21 07:13 Microbiology Microbiology 02/15/21 Gram Stain - Final, Resulted 02/15/21 Wound Culture - Preliminary, Resulted Streptococcus Group G 02/15/21 Anaerobic Culture - Final, Resulted 02/14/21 Gram Stain - Final, Complete 02/14/21 Abscess Culture - Final, Complete Streptococcus Group G 02/14/21 Anaerobic Culture - Final, Complete 02/10/21 Blood Culture - Final, Complete NO GROWTH AFTER 5 DAYS 02/08/21 Blood Culture - Final, Complete Streptococcus Group G 02/08/21 Blood Culture - Final, Complete Streptococcus Group G RAMONA ZAMARRIPA MD Feb 18, 2021 12:18
[2021-02-18 14:00] VITALS: BP 124/62
[2021-02-18] MEDS: SODIUM CHLORIDE 0.9% INJ 10 ML SYR IV PRN ×2 (14:13→22:58)
[2021-02-18] MEDS: cefTRIAXone SOD 2 GM in D5W MINI-BAG PLUS 50 ML IV SCH (14:13)
[2021-02-18 22:00] VITALS: BP 130/74
--- NOTE | 2021-02-18 23:19 | IPN ---
PROGRESS NOTE DATE: 02/18/2021 SUBJECTIVE: Mr. Palacios is doing better, but he had an afternoon fever up to 101.9. He is much more alert and oriented. He is answering questions appropriately. He stated that his friend was here today and not his niece. LABORATORY DATA: White count 16, hemoglobin 7.6, hematocrit 24.8, platelets 175, 37% neutrophils, 10% bands, 17% lymphocytes, 9% monocytes. Sodium 131, potassium 4.4, chloride 91, bicarbonate 36, BUN 14, creatinine 0.46, glucose 137, calcium 8.6. C-reactive protein (CRP) 12.7. Left ankle culture had group G streptococcus on 02/14 and 02/15. He had a debridement done by Dr. Wilhelm on the . PHYSICAL EXAMINATION: Heart: Normal S1, S2. No murmurs or rubs appreciated. Lungs are clear. No wheezing, rales or rhonchi, diminished. Abdomen: Soft, nontender. G-tube in place. No hepatosplenomegaly. Extremities: Right side, no clubbing, cyanosis or edema. Left ankle: Medially erythema with an incision and mild tenderness. Range of motion of the ankle is normal. IMPRESSION: 1. Left ankle cellulitis with abscess measuring 4.8 x 8.4 cm, status post I and D done by Dr. Wilhelm with culture positive for group G streptococcus. The patient has persistent fever and leukocytosis, which is somewhat concerning in spite of being on IV antibiotics for 10 days. 2. History of neutropenia. 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 3. History of oral cancer with osteonecrosis of the jaw. Receives G-tube feedings due to recurrent aspiration. PLAN: Repeat blood cultures, two sets were ordered to rule out line infection as the cause of current fever. Continue to monitor left ankle. May need more debridement if fever recurs. Repeat complete blood count (CBC), C-reactive protein in the morning. Continue IV Rocephin. Chest x-ray P and lateral will also be ordered to rule out pneumonia.
[2021-02-19] VITALS (10 sets, daily range): BP systolic 107–132; BP diastolic 54–83; O2SAT 94
[2021-02-19] MEDS: LIDOCAINE VISCOUS 2% SOLN 15ML UDC SSP SCH ×6 (01:00→21:00)
[2021-02-19] MEDS: NORCO, ANEXSIA 5/325MG TABLET (HYDROcodone/ACETAMINOPHEN) PO SCH ×3 (05:19→12:44)
[2021-02-19] MEDS: SODIUM CHLORIDE 0.9% INJ 10 ML SYR IV SCH ×2 (05:59→18:14)
[2021-02-19 06:04] LABS: HEMATOCRIT 22.1 % (42.0-52.0); MEAN CORPUSCULAR HEMOGLOBIN 34.2 pg (27.0-33.0); MEAN CORPUSCULAR HGB CONC 30.3 g/dl (32.0-36.5); MEAN CORPUSCULAR VOLUME 112.8 fl (80.0-96.0); PLATELET COUNT, AUTOMATED 109 10^3/uL (150-450); RED BLOOD COUNT 1.96 10^6/uL (4.30-6.10)
[2021-02-19 06:06] LABS: HEMOGLOBIN 6.7 g/dl (13.5-17.5); WHITE BLOOD COUNT 14.2 10^3/uL (4.0-10.0)
[2021-02-19 06:18] LABS: BLOOD UREA NITROGEN 16 MG/DL (7-18); CALCIUM LEVEL 8.2 MG/DL (8.8-10.2); CARBON DIOXIDE LEVEL 38 MEQ/L (21-32); CHLORIDE LEVEL 92 MEQ/L (98-107); GLOMERULAR FILTRATION RATE > 60.0 (>42); GLUCOSE, FASTING 106 MG/DL (70-100); POTASSIUM SERUM 4.3 MEQ/L (3.5-5.1); SODIUM LEVEL 130 MEQ/L (136-145)
[2021-02-19 06:24] LABS: BASOPHILS 1 % (0-1); LYMPHOCYTES 5 % (16-44); METAMYELOCYTES 4 % (0-0); MONOCYTES 48 % (0-5); MYELOCYTES 1 % (0-0); NEUTROPHILS 37 % (28-66); PLATELET ESTIMATE DECREASED (NORMAL)
[2021-02-19 06:25] LABS: GIANT PLATELETS 1+; HYPOCHROMASIA 1+
--- NOTE | 2021-02-19 07:16 | IPNPDOC ---
Text Note Date of Service The patient was seen on 02/18/21. NOTE POD 3 I&D Left ankle soft tissue infected hematoma Patient alert and oriented. Visitor in room. Wants to be discharged home. Left ankle dressing taken down. Evidence of persistent drainage to telfa and tegaderm dressing. Dressing removed. Some skin maceration, but would remains approximated. Persistent evidence of edema and cellulitis. No fluctuance to the area to suggest reaccumulation. Dressing change: Skin cleansed with chlorhexidene. Dry dressing applied with gauze and abd pad. Meliton wrap applied. Will reassess in AM for drainage. VS,Fishbone, I+O VS, Fishbone, I+O Laboratory Tests 02/18/21 07:13 02/19/21 05:38 Vital Signs Date Time Temp Pulse Resp B/P (MAP) Pulse Ox O2 Delivery O2 Flow Rate FiO2 02/19/21 06:00 98.9 52 20 107/74 (85) 98 Nasal Cannula 2.0 I&O- Last 24 Hours up to 6 AM 02/19/21 06:00 Intake Total 1030 ml Output Total 1950 ml Balance -920 ml ROSALIND CANALES MD Feb 19, 2021 07:16
--- NOTE | 2021-02-19 07:22 | IPNPDOC ---
Text Note Date of Service The patient was seen on 02/19/21. NOTE POD 4 Left ankle soft tissue I&D infected hematoma Pt sleeping. Awoke pt, Somnolent, but responding to questions in a sleepy manner. Spoke with nursing. Cognition and orientation appear to be consistent in the post op period. Left ankle dressing taken down. Minimal staining on abd pad. No change in skin condition. Dressing change: Skin cleansed with chlorhexidene. Optifoam absorbent silicone border dressing applied. Will reassess level of drainage tomorrow. Appears to be decreasing. Meliton wrap discontinued, as it may have be causing local edema and possibly increasing drainage. Still no evidence of recurrent fluid collection. VS,Fishbone, I+O VS, Fishbone, I+O Laboratory Tests 02/19/21 05:38 Vital Signs Date Time Temp Pulse Resp B/P (MAP) Pulse Ox O2 Delivery O2 Flow Rate FiO2 02/19/21 06:00 98.9 52 20 107/74 (85) 98 Nasal Cannula 2.0 I&O- Last 24 Hours up to 6 AM 02/19/21 06:00 Intake Total 1030 ml Output Total 1950 ml Balance -920 ml ROSALIND CANALES MD Feb 19, 2021 07:22
--- NOTE | 2021-02-19 08:24 | REP ---
INDICATION: fever. COMPARISON: Comparison chest x-ray February 08, 2021. TECHNIQUE: Two views.. FINDINGS: A right-sided PICC line is seen in place with its tip in the expected location of the superior vena cava. A retention device for a feeding gastrostomy tube projects in the left upper quadrant of the abdomen. Interstitial fibrosis pattern persists in the lung bases bilaterally. The heart is borderline in size unchanged. There is diffuse osteopenia. A benign enchondroma is again visualized in the proximal humerus on the right. Pulmonary vasculature is not increased. IMPRESSION: Bibasilar interstitial fibrosis pattern. Borderline heart size.. <Electronically signed by Darrius Phan > 02/19/21 [id number]
--- NOTE | 2021-02-19 08:39 | IPNPDOC ---
Subjective Date Seen The patient was seen on 02/19/21. Subjective Chief Complaint/HPI Had a fever of 101 yesterday late morning. New blood cultures have been ordered. CXR negative for pneumonia. Leg wound looks good as per ortho with so signs of recollection of fluids. As per RN patient has not slept since yesterday afternoon. Overnight he had hallucinations. Patient described that he was on a ship and he saw ocean all around and he had to urinate so stood up to use the can and then saw the water all around and tried to climb up to the bed and had a fall. He scraped his back which he says is very tender. After his fall all the staff rushed into his room he he says he was thinking was the captain and the other mates rushing in. This morning he is talking and joking. He is saying he wants to go home. He was talking about setting up a ramp and using a WC as he did admit that for about a month before becoming sick he was already having trouble walking and he was wobbling around. He even wanted to continue the ext cath at home. Objective Physical Examination General Exam: Positive: Alert, Cooperative, No Acute Distress Eye Exam: Positive: PERRLA, Conjunctiva & lids normal, EOMI; Negative: Sclera icteric Neck Exam: Positive: Supple; Negative: JVD, thyromegaly Chest Exam: Positive: Clear to auscultation, Normal air movement Heart Exam: Positive: Rate Normal, Regular Rhythm, Normal S1, Normal S2; Negative: Murmurs, Rubs Abdomen Exam: Positive: Normal bowel sounds, Soft, Other (large bore G tube in place); Negative: Tenderness, Hepatospenomegaly Extremity Exam: Positive: Tenderness (left ankle), Swelling (ankle), Other (JACQUI drain in left ankle); Negative: Clubbing, Cyanosis, Edema Assessment /Plan Assessment 70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 He had an ED-to-ED transfer from [facility] after initial work up revealed an elevated D-dimer (2.72 mg/LFEU; NL 0.19-0.80). [facility] lacks an ultrasound machine to evaluate for DVT, therefore, he was subsequently transferred. Patient reported that beginning on 02/07, he awoke with pain over his pubic bone and in his left groin. It then progressed to his left thigh, feeling like electric shocks. He then noticed some swelling over the left inner thigh as well as some redness of his left fowler. As the pain progressed on left lower extremity to the ankle. It began to affect his gait more and more, to the point that his niece/hat renovator (Marga) drove him to the [facility] ED. Of note, he received a second mode during the COVID vaccination one day before symptoms started. The patient was subsequently admitted under the care of the hospitalist service primarily for meeting SIRS criteria (leukocytosis and tachycardia with lactic of 3.5) and elevated d-dimer. He was found to have left ankle cellulitis and left leg lymphangitis from groin to ankle with bacteremia. New fever bc new x 2 sent. cxr OK rule out line bacteremia. leg wound OK. Sepsis with Strep group G bacteremia. due to left leg cellulitis and infected hematoma at the ankle and lymphangitis. blood cultures 2/2 positive : Streptococcus group g echo done. No vegetations, EF 75%, mild to mod pulmonary hypertension, grade 1 diastolic dysfunction. Continue ceftriaxone. Left ankle infected hematoma /abscess/cellulitis /Left leg lymphangitis MRI ankle showed 1. 4.8 cm x 2.1 cm x 8.4 cm fluid collection in the soft tissues along the posteromedial aspect of the left ankle, which may represent an abscess. 2. Soft tissue swelling and edema in the left ankle and dorsal aspect of the left foot, which may represent cellulitis or lymphedema. 3. Mildly increased fluid sensitive signal involving the muscles of the left foot, which may represent myositis, denervation edema, or muscle strains. 4. Left Achilles peritendinitis. 5. Fluid in the tibialis posterior, flexor digitorum longus, flexor hallucis longus, extensor digitorum longus, peroneus longus, and peroneus brevis tendon sheaths, which may represent tenosynovitis. No OM at the left ankle. No septic joint as per ortho S/P aspiration of the abscess by IR followed by incision and drainage by orthopedics with placement of JACQUI drain Ortho thinks it was infected hematoma Blood culture streptococcus, abscess culture streptococcus group G Continue ceftriaxone. Leukocytosis due to sepsis from lymphangitis, cellulitis, abscess and due to the use of neupogen improving if becomes pancytopenic will resume neupogen. H/o Pancytopenia before thought to be chemo related Now clarified with oncologist about his need for neupogen. 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 Thrombocytopenia ? cause ? sepsis. He does use significant amount of alcohol about 2 to 3 shots every day. Somet imes he drinks it sometimes he pours it through the G tube. will have to rule rule out underlying cirrhosis of liver Ammonia 25-33 ordered fibrosis score improving Malfunctioning of GT tube resolved. tolerating tube feeding now. Has Dysphagia with history of aspiration pneumonia in December/January 2020 with subsequent G-tube placement. Problem with speech with dry mouth and chronic left jaw pain had RT on the left with ongoing osteonecrosis right jaw surgery for osteomyelitis and placement of plastic plates will continue lidocaine viscus and saliva substitute. 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 Follows with an oncologist in [place] (Dr. Bhavna Quintana) continues to shed bone shards from the necrotic jaw so the left side is always tender continue lidocaine viscus. Right mandibular fracture after a mechanical fall in 2019 then developed OM Was on zosyn and daptomycin jun 2020 to nov 2020 through a PICC line s/p right mandibular excision and plate insertion on 12/18/20 SLE/Sjogren's/RA /raynauds Has ulcers on the toes of the feet. on daily 10 mg prednisone and Plaquenil. Follows with a soil tester in [place] (). continue naproxen, norco., prednisone pentoxiphylline cannot be crushed. Heart failure with reduced ejection fraction spring 2019 echo at [facility] [place] reportedly showed EF of 40% Interstitial lung disease (identified on [facility] imaging) DARNELL likely resolved at present with weight loss after the cancer has not used CPAP in the last 5 years Degenerative disc disease status post cervical spinal fusion and lumbar injuries. h/o thoracic vertebral compression fractures at different levels and bilateral rib fractures. h/o BPH Neuropathy secondary to chemotherapy on norco, cymbalta, lyrica. norco and cymbalta dose reduced as patient was very somnolent in hospital. Plan/VTE VTE Prophylaxis Ordered?: Yes VS, I&O, 24H, Fishbone Vital Signs/I&O Vital Signs Date Time Temp Pulse Resp B/P (MAP) Pulse Ox O2 Delivery O2 Flow Rate FiO2 02/19/21 06:00 98.9 52 20 107/74 (85) 98 Nasal Cannula 2.0 I&O- Last 24 Hours up to 6 AM 02/19/21 06:00 Intake Total 1950 ml Output Total 1950 ml Balance 0 ml Laboratory Data 24H LABS Laboratory Tests 2 02/18/21 11:27: Bedside Glucose (Misc Panel) 154H 02/18/21 16:59: Bedside Glucose (Misc Panel) 141H 02/18/21 23:43: Bedside Glucose (Misc Panel) 109 02/19/21 05:38: Neutrophils (%) (Auto) , Nucleated Red Blood Cells % (auto) 0.0, Neutrophils 37, Band Neutrophils 4, Lymphocytes (Manual) 5L, Monocytes (Manual) 48H, Basophils (Manual) 1, Metamyelocytes 4H, Myelocytes 1H, Hypochromasia 1+, Macrocytosis 1+, Giant Platelets 1+, Platelet Estimate DECREASED, Anion Gap 0L, Glomerular Filtration Rate > 60.0, Calcium Level 8.2L, C-Reactive Protein, Quantitative 14.40H 02/19/21 06:15: Bedside Glucose (Misc Panel) 117H CBC/BMP Laboratory Tests 02/19/21 05:38 Microbiology Microbiology 02/19/21 Blood Culture, Received Pending 02/18/21 Blood Culture, Received Pending 02/15/21 Gram Stain - Final, Complete 02/15/21 Wound Culture - Final, Complete Streptococcus Group G 02/15/21 Anaerobic Culture - Final, Complete 02/14/21 Gram Stain - Final, Complete 02/14/21 Abscess Culture - Final, Complete Streptococcus Group G 02/14/21 Anaerobic Culture - Final, Complete 02/10/21 Blood Culture - Final, Complete NO GROWTH AFTER 5 DAYS RAMONA ZAMARRIPA MD Feb 19, 2021 08:39
[2021-02-19] MEDS: PREGABALIN 100 MG CAP (LYRICA) GT SCH ×3 (09:48→22:49)
[2021-02-19] MEDS: PANTOPRAZOLE 40MG VIAL (C9113 PER 1) IV SCH ×2 (09:48→22:48)
[2021-02-19] MEDS: DOCUSATE SOD LIQ 100MG/10ML UDC GT SCH ×2 (09:48→22:48)
[2021-02-19] MEDS: DULoxetine 20 MG CAP (CYMBALTA) PO SCH (09:49)
[2021-02-19] MEDS: predniSONE 10 MG TAB GT SCH (09:49)
[2021-02-19] MEDS: HYDROXYCHLOROQUINE 200 MG TAB GT SCH ×2 (09:49→22:49)
[2021-02-19] MEDS: cefTRIAXone SOD 2 GM in D5W MINI-BAG PLUS 50 ML IV SCH (13:48)
[2021-02-19] MEDS: SODIUM CHLORIDE NASAL 0.65% SPRAY BTL (OCEAN) SCH ×2 (18:14→21:00)
[2021-02-19] MEDS: AMOXICILLIN SUSP 250MG/5ML 100ML BOTTLE (FOR INPATIENT ORDERS) PO SCH (22:50)
[2021-02-20] MEDS: LIDOCAINE VISCOUS 2% SOLN 15ML UDC SSP SCH ×6 (00:57→22:33)
[2021-02-20 06:00] VITALS: BP 116/68
[2021-02-20] MEDS: SODIUM CHLORIDE 0.9% INJ 10 ML SYR IV SCH ×2 (06:13→17:14)
[2021-02-20 06:46] LABS: HEMATOCRIT 30.3 % (42.0-52.0); MEAN CORPUSCULAR HEMOGLOBIN 33.1 pg (27.0-33.0); MEAN CORPUSCULAR HGB CONC 31.7 g/dl (32.0-36.5); MEAN CORPUSCULAR VOLUME 104.5 fl (80.0-96.0); PLATELET COUNT, AUTOMATED 120 10^3/uL (150-450); WHITE BLOOD COUNT 10.9 10^3/uL (4.0-10.0)
[2021-02-20 06:47] LABS: HEMOGLOBIN 9.6 g/dl (13.5-17.5)
--- NOTE | 2021-02-20 06:47 | IPNPDOC ---
Text Note Date of Service The patient was seen on 02/20/21. NOTE POD 5 Left ankle infected hematoma I&D Pt awake and alert. Talking about going home and having niece do dressing changes, etc. Started using absorbent dressing yesterday for persistent seepage of fluid from incision. This is likely associated with the edema fluid from the cellulitis, etc. This dressing was changed at 10 pm last evening as it was peeling off. This morning, there is mild to moderate staining over the dressing. Dressing Change: The skin was cleansed with chlorhexidene, after removal of the dressing. Skin is still erythematous and edematous, with bruising around the incision. There is still some maceration around the wound edges. I suspect that the edema from the surrounding tissues has improved since the discontinuation of the ari wrap, but the excess fluid is still escaping through the wound incision, which is delaying healing. An adaptic dressing was applied, as well as the absorbent dressing. Plan: Reevaluate wound this afternoon. Consider placement of Prevena incisional vac to keep wound dry and allow healing this afternoon. VS,Fishbone, I+O VS, Fishbone, I+O Vital Signs Date Time Temp Pulse Resp B/P (MAP) Pulse Ox O2 Delivery O2 Flow Rate FiO2 02/19/21 22:00 99.6 85 22 124/62 (82) 95 02/19/21 14:30 Room Air 02/19/21 12:44 1.0 I&O- Last 24 Hours up to 6 AM 02/20/21 06:00 Intake Total 2250 ml Output Total 1460 ml Balance 790 ml ROSALIND CANALES MD Feb 20, 2021 06:47
[2021-02-20 07:01] LABS: BLOOD UREA NITROGEN 17 MG/DL (7-18); CALCIUM LEVEL 8.2 MG/DL (8.8-10.2); CARBON DIOXIDE LEVEL 34 MEQ/L (21-32); CHLORIDE LEVEL 93 MEQ/L (98-107); CREATININE FOR GFR 0.39 MG/DL (0.70-1.30); GLOMERULAR FILTRATION RATE > 60.0 (>42); GLUCOSE, FASTING 139 MG/DL (70-100); POTASSIUM SERUM 4.2 MEQ/L (3.5-5.1); SODIUM LEVEL 132 MEQ/L (136-145)
[2021-02-20 07:08] LABS: EOSINOPHILS 2 % (0-3); LYMPHOCYTES 12 % (16-44); MONOCYTES 33 % (0-5); NEUTROPHILS 49 % (28-66); PLATELET ESTIMATE NORMAL (NORMAL)
[2021-02-20] MEDS ORDERED: CEFDINIR 250 MG/5 ML 60ML SUSP BTL PO SCH (09:00)
--- NOTE | 2021-02-20 09:11 | IPN ---
INFECTIOUS DISEASE PROGRESS NOTE DATE: 02/19/2021 SUBJECTIVE: Will is doing very well. He was sitting in his bed, was smiling, conversing. His niece, Asiya, was at the bedside. He is anxious to go home. He denies any nausea, vomiting or diarrhea. He feels he has a belt tied around his waist; otherwise, he has no other complaints. He received blood transfusion. Overnight, he had some hallucinations and he describes that as being on a ship and having an ocean all around. He had to urinate, so he stood up and fell. He scraped his back, which is somewhat tender; otherwise, he has no complaint. He has no fever in the past 24 hours. PHYSICAL EXAMINATION: Temperature 98.9, pulse 66, respirations 18, blood pressure 124/63, oxygen saturation 95% on room air. HEART: Normal S1, S2. No murmurs. Slightly irregular. LUNGS: Decreased breath sounds bilaterally, but no wheezes, rales or rhonchi. ABDOMEN: Soft, nontender. No hepatosplenomegaly. Gastrostomy (G) tube in place. Erythema around the G tube site has decreased. There is no drainage. EXTREMITIES: No clubbing, cyanosis or edema. Left ankle has mild erythema medially along the medial malleolus with four ile[address]. Swelling has decreased and there is minimal serosanguinous discharge on the dressing that was changed. The wound was cleansed with some wound cleanser and then some Optifoam was placed. Ankle with normal range of motion. IMPRESSION: 1. Left ankle abscess status post incision and drainage (I and D) with culture positive for group B Streptococcus and bacteremia with sepsis. The patient has received 11 days of intravenous (IV) antibiotics with marked improvement. He had an I and D done by Dr. Wilhelm and culture was positive for group B Streptococcus as well. He has markedly improved and will be transitioning to oral antibiotics. He still has some evidence of erythema at the site and still some underlying infection. 2. History of autoimmune neutropenia. Patient was on Neupogen twice a week. I have discussed the case with crm specialist, who agreed keeping it on hold as long as his white count is within normal range. I did discuss that with his niece, who will keep it on hold until further orders from his crm specialist. 3. 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 The patient is back drinking liquids. PLAN: 1. Discontinue IV ceftriaxone. Switch to amoxicillin 875 mg by mouth twice a day for 10 days. 2. Physical therapy tomorrow to evaluate for his safety for discharge. He is ready to go home. His niece lives with him as well. 3. Please repeat CBC one week after discharge to monitor his leukopenia and whether he needs to be resumed on his Neupogen will be decided as an outpatient. Patient can follow up with infectious disease in 10 days after discharge.
--- NOTE | 2021-02-20 09:32 | IPNPDOC ---
Subjective Date Seen The patient was seen on 02/20/21. Subjective Chief Complaint/HPI Feeling good. Was able to walk to bathroom with 1 assist. No fever or chills. Objective Physical Examination General Exam: Positive: Alert, Cooperative, No Acute Distress Eye Exam: Positive: PERRLA, Conjunctiva & lids normal, EOMI; Negative: Sclera icteric Neck Exam: Positive: Supple; Negative: JVD, thyromegaly Chest Exam: Positive: Clear to auscultation, Normal air movement Heart Exam: Positive: Rate Normal, Regular Rhythm, Normal S1, Normal S2; Negative: Murmurs, Rubs Abdomen Exam: Positive: Normal bowel sounds, Soft, Other (large bore G tube in place); Negative: Tenderness, Hepatospenomegaly Extremity Exam: Positive: Tenderness (left ankle), Swelling (ankle), Other (JACQUI drain in left ankle); Negative: Clubbing, Cyanosis, Edema Assessment /Plan Assessment 70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 He had an ED-to-ED transfer from [facility] after initial work up revealed an elevated D-dimer (2.72 mg/LFEU; NL 0.19-0.80). [facility] lacks an ultrasound machine to evaluate for DVT, therefore, he was subsequently transferred. Patient reported that beginning on 02/07, he awoke with pain over his pubic bone and in his left groin. It then progressed to his left thigh, feeling like electric shocks. He then noticed some swelling over the left inner thigh as well as some redness of his left fowler. As the pain progressed on left lower extremity to the ankle. It began to affect his gait more and more, to the point that his niece/credit officer (Marga) drove him to the [facility] ED. Of note, he received a second mode during the COVID vaccination one day before symptoms started. The patient was subsequently admitted under the care of the hospitalist service primarily for meeting SIRS criteria (leukocytosis and tachycardia with lactic of 3.5) and elevated d-dimer. He was found to have left ankle cellulitis and left leg lymphangitis from groin to ankle with bacteremia. New fever bc new x 2 negative cxr OK leg wound OK. Sepsis with Strep group G bacteremia. due to left leg cellulitis and infected hematoma at the ankle and lymphangitis. blood cultures 2/2 positive : Streptococcus group g echo done. No vegetations, EF 75%, mild to mod pulmonary hypertension, grade 1 diastolic dysfunction. Ceftriaxone changed to Augmentin x 10 days from 02/19/21 Left ankle infected hematoma /abscess/cellulitis /Left leg lymphangitis MRI ankle showed 1. 4.8 cm x 2.1 cm x 8.4 cm fluid collection in the soft tissues along the posteromedial aspect of the left ankle, which may represent an abscess. 2. Soft tissue swelling and edema in the left ankle and dorsal aspect of the left foot, which may represent cellulitis or lymphedema. 3. Mildly increased fluid sensitive signal involving the muscles of the left foot, which may represent myositis, denervation edema, or muscle strains. 4. Left Achilles peritendinitis. 5. Fluid in the tibialis posterior, flexor digitorum longus, flexor hallucis longus, extensor digitorum longus, peroneus longus, and peroneus brevis tendon sheaths, which may represent tenosynovitis. No OM at the left ankle. S/P aspiration of the abscess by IR followed by incision and drainage by orthopedics with placement of JACQUI drain Ortho thinks it was infected hematoma Blood culture streptococcus, abscess culture streptococcus group G Leukocytosis due to sepsis from lymphangitis, cellulitis, abscess and due to the use of neupogen improving if becomes pancytopenic will resume neupogen. H/o Pancytopenia before thought to be chemo related Now clarified with oncologist about his need for neupogen. 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 Thrombocytopenia ? cause ? sepsis. He does use significant amount of alcohol about 2 to 3 shots every day. Sometimes he drinks it sometimes he pours it through the G tube. will have to rule rule out underlying cirrhosis of liver Ammonia 25-33 ordered fibrosis score improving Malfunctioning of GT tube resolved. tolerating tube feeding now. Has Dysphagia with history of aspiration pneumonia in January 2020 with subsequent G-tube placement. Problem with speech with dry mouth and chronic left jaw pain had RT on the left with ongoing osteonecrosis right jaw surgery for osteomyelitis and placement of plastic plates will continue lidocaine viscus and saliva substitute. 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 Follows with an oncologist in [place] (Dr. Bhavna Quintana) continues to shed bone shards from the necrotic jaw so the left side is always tender continue lidocaine viscus. Right mandibular fracture after a mechanical fall in 2019 then developed OM Was on zosyn and daptomycin jun 2020 to nov 2020 through a PICC line s/p right mandibular excision and plate insertion on 12/18/20 SLE/Sjogren's/RA /raynauds Has ulcers on the toes of the feet. on daily 10 mg prednisone and Plaquenil. Follows with a dining room attendant cafeteria in [facility] (). continue naproxen, norco., prednisone pentoxiphylline cannot be crushed. Heart failure with reduced ejection fraction spring 2019 echo at [facility] reportedly showed EF of 40% Interstitial lung disease (identified on [facility] imaging) DARNELL likely resolved at present with weight loss after the cancer has not used CPAP in the last 5 years Degenerative disc disease status post cervical spinal fusion and lumbar injuries. h/o thoracic vertebral compression fractures at different levels and bilateral rib fractures. h/o BPH Neuropathy secondary to chemotherapy on norco, cymbalta, lyrica. norco and cymbalta dose reduced as patient was very somnolent in hospital. Plan/VTE VTE Prophylaxis Ordered?: Yes VS, I&O, 24H, Fishbone Vital Signs/I&O Vital Signs Date Time Temp Pulse Resp B/P (MAP) Pulse Ox O2 Delivery O2 Flow Rate FiO2 02/20/21 06:00 98.6 64 20 116/68 (84) 95 4/27/21 14:30 Room Air 02/19/21 12:44 1.0 I&O- Last 24 Hours up to 6 AM 02/20/21 06:00 Intake Total 3270 ml Output Total 1460 ml Balance 1810 ml Laboratory Data 24H LABS Laboratory Tests 2 02/19/21 12:09: Bedside Glucose (Misc Panel) 109 02/19/21 21:20: Bedside Glucose (Misc Panel) 115H 02/20/21 00:14: Bedside Glucose (Misc Panel) 117H 02/20/21 06:06: Bedside Glucose (Misc Panel) 145H 02/20/21 06:12: Neutrophils (%) (Auto) , Nucleated Red Blood Cells % (auto) 0.0, Neutrophils 49, Band Neutrophils 4, Lymphocytes (Manual) 12L, Monocytes (Manual) 33H, Eosinophils (Manual) 2, Red Blood Cell Morphology NORMAL, Platelet Estimate NORMAL, Anion Gap 5L, Glomerular Filtration Rate > 60.0, Calcium Level 8.2L CBC/BMP Laboratory Tests 02/20/21 06:12 Microbiology Microbiology 02/19/21 Blood Culture - Preliminary, Resulted No growth after 24 hours . All specim... 02/18/21 Blood Culture - Preliminary, Resulted No growth after 24 hours . All specim... 02/15/21 Gram Stain - Final, Complete 02/15/21 Wound Culture - Final, Complete Streptococcus Group G 02/15/21 Anaerobic Culture - Final, Complete 02/14/21 Gram Stain - Final, Complete 02/14/21 Abscess Culture - Final, Complete Streptococcus Group G 02/14/21 Anaerobic Culture - Final, Complete 02/10/21 Blood Culture - Final, Complete NO GROWTH AFTER 5 DAYS RAMONA ZAMARRIPA MD Feb 20, 2021 09:32
[2021-02-20] MEDS: SODIUM CHLORIDE 0.9% INJ 10 ML SYR IV PRN (09:52)
[2021-02-20] MEDS: DOCUSATE SOD LIQ 100MG/10ML UDC GT SCH ×2 (09:52→22:33)
[2021-02-20] MEDS: PANTOPRAZOLE 40MG VIAL (C9113 PER 1) IV SCH ×2 (09:52→22:32)
[2021-02-20] MEDS: HYDROXYCHLOROQUINE 200 MG TAB GT SCH ×2 (09:53→22:34)
[2021-02-20] MEDS: PREGABALIN 100 MG CAP (LYRICA) GT SCH ×3 (09:53→22:34)
[2021-02-20] MEDS: predniSONE 10 MG TAB GT SCH (09:53)
[2021-02-20] MEDS: DULoxetine 20 MG CAP (CYMBALTA) PO SCH (09:53)
[2021-02-20] MEDS: AMOXICILLIN SUSP 250MG/5ML 100ML BOTTLE (FOR INPATIENT ORDERS) PO SCH ×2 (09:54→22:32)
[2021-02-20] MEDS: SODIUM CHLORIDE NASAL 0.65% SPRAY BTL (OCEAN) SCH ×3 (09:55→22:33)
[2021-02-20 10:15] VITALS: O2SAT 97
[2021-02-20 14:00] VITALS: BP 123/64
[2021-02-20 21:27] VITALS: O2SAT 94
[2021-02-20 22:00] VITALS: BP 105/85
[2021-02-20] MEDS: ACETAMINOPHEN 325 MG/10.15 ML UDC GT PRN (22:32)
[2021-02-21] VITALS (9 sets, daily range): BP systolic 112–123; BP diastolic 54–80; O2SAT 44–97
[2021-02-21] MEDS: LIDOCAINE VISCOUS 2% SOLN 15ML UDC SSP SCH ×7 (00:56→22:30)
[2021-02-21] MEDS: SODIUM CHLORIDE 0.9% INJ 10 ML SYR IV SCH ×2 (06:18→17:17)
[2021-02-21 06:52] LABS: HEMATOCRIT 30.6 % (42.0-52.0); HEMOGLOBIN 9.7 g/dl (13.5-17.5); MEAN CORPUSCULAR HEMOGLOBIN 33.1 pg (27.0-33.0); MEAN CORPUSCULAR HGB CONC 31.7 g/dl (32.0-36.5); MEAN CORPUSCULAR VOLUME 104.4 fl (80.0-96.0); PLATELET COUNT, AUTOMATED 125 10^3/uL (150-450); RED BLOOD COUNT 2.93 10^6/uL (4.30-6.10)
--- NOTE | 2021-02-21 06:52 | IPNPDOC ---
Text Note Date of Service The patient was seen on 02/20/21. NOTE Procedure: Application of Wound vac prevena dressing Left ankle The patient was demonstrating maceration of the wound edges around the left ankle I&D site. This is likely due to edema in the soft tissues draining through the path of least resistance. The patient has fragile skin, easily bruised. The decision was made to utilize a prevena incisional vac to help maintain dry wound edges and promote healing. The patient is at risk for poor wound healing due to multiple medical comorbidities Description: The absorbent dressing was removed. Minimal staining present from the morning. Wound edges and skin cleansed with chlorhexidene. Cavilon spray applied for protective skin barrier. End pieces of duoderm were applied. 5cm x 15 cm approx prevena custom section was applied and affixed. Clear barrier film attached. Suction placed at prevena setting, hooked up to hospital vac unit 12 5 mmhg. Patient tolerated dressing application well, with no concerns The wound vac will be reevaluated. Please inform orthopedics of any discharge planning to outline instructions for the wound vac. The patient has poor soft tissues. Given his poor health, a repeat debridement would likely have to be performed under local anesthetic as before. I would like to reevaluate the patient on Thursday to reassess the wound, during a vac change. Otherwise, the vac will stay in position with the current settings as above. The vac suction should not be interrupted or stopped with the dressing is in place. VS,Fishbone, I+O VS, Fishbone, I+O Vital Signs Date Time Temp Pulse Resp B/P (MAP) Pulse Ox O2 Delivery O2 Flow Rate FiO2 02/21/21 06:00 98.2 63 18 112/80 (91) 97 Nasal Cannula 2.0 I&O- Last 24 Hours up to 6 AM 02/21/21 06:00 Intake Total 1300 ml Output Total 2500 ml Balance -1200 ml ROSALIND CANALES MD Feb 21, 2021 06:52
[2021-02-21 06:58] LABS: WHITE BLOOD COUNT 11.6 10^3/uL (4.0-10.0)
[2021-02-21 07:09] LABS: BLOOD UREA NITROGEN 18 MG/DL (7-18); CALCIUM LEVEL 8.6 MG/DL (8.8-10.2); CARBON DIOXIDE LEVEL 34 MEQ/L (21-32); CHLORIDE LEVEL 91 MEQ/L (98-107); GLOMERULAR FILTRATION RATE > 60.0 (>42); GLUCOSE, FASTING 138 MG/DL (70-100); POTASSIUM SERUM 4.3 MEQ/L (3.5-5.1); SODIUM LEVEL 130 MEQ/L (136-145)
[2021-02-21 07:21] LABS: ANISOCYTOSIS 2+; ATYPICAL LYMPH 1 % (0-5); BASOPHILS 3 % (0-1); LYMPHOCYTES 8 % (16-44); METAMYELOCYTES 1 % (0-0); MONOCYTES 31 % (0-5); NEUTROPHILS 42 % (28-66); PLATELET ESTIMATE NORMAL (NORMAL)
[2021-02-21] MEDS: SODIUM CHLORIDE NASAL 0.65% SPRAY BTL (OCEAN) SCH ×3 (09:00→22:31)
[2021-02-21] MEDS: HYDROXYCHLOROQUINE 200 MG TAB GT SCH ×2 (09:49→22:30)
[2021-02-21] MEDS: PREGABALIN 100 MG CAP (LYRICA) GT SCH ×3 (09:49→22:30)
[2021-02-21] MEDS: predniSONE 10 MG TAB GT SCH (09:49)
[2021-02-21] MEDS: DULoxetine 20 MG CAP (CYMBALTA) PO SCH (09:49)
[2021-02-21] MEDS: DOCUSATE SOD LIQ 100MG/10ML UDC GT SCH ×2 (09:51→22:30)
[2021-02-21] MEDS: AMOXICILLIN SUSP 250MG/5ML 100ML BOTTLE (FOR INPATIENT ORDERS) PO SCH ×2 (09:52→22:30)
[2021-02-21] MEDS: PANTOPRAZOLE 40MG VIAL (C9113 PER 1) IV SCH ×2 (09:53→22:31)
--- NOTE | 2021-02-21 12:36 | IPNPDOC ---
Text Note Date of Service The patient was seen on 02/21/21. NOTE Patient is postop day 6, for irrigation and debridement, left ankle. Soft tissue infected hematoma. The patient appeared to do well overnight. He reports that he is walking to the bathroom. The wound VAC is in position. There is not appear to be any complication. There is not any overt drainage collected; however, I did not expect this. There is some condensation, however, and the tube. Continue to monitor the wound VAC. I'm not aware of any discharge planning for the patient as of yet. I plan to do a dressing change on Thursday to reevaluate the wound to determine if any additional debridements will be necessary or if the wound VAC has been successful in promoting healing of the wound. VS,Fishbone, I+O VS, Fishbone, I+O Laboratory Tests 02/21/21 06:20 Vital Signs Date Time Temp Pulse Resp B/P (MAP) Pulse Ox O2 Delivery O2 Flow Rate FiO2 02/21/21 06:00 98.2 63 18 112/80 (91) 97 Nasal Cannula 2.0 I&O- Last 24 Hours up to 6 AM 02/21/21 06:00 Intake Total 1300 ml Output Total 2500 ml Balance -1200 ml ROSALIND CANALES MD Feb 21, 2021 12:36
--- NOTE | 2021-02-21 13:50 | IPNPDOC ---
Subjective Date Seen The patient was seen on 02/21/21. Subjective Chief Complaint/HPI Doing OK. Has been walking to the bathroom. No further hallucinations. Wound vac seems to be working. No fever or chills. No chest pain or SOB. tolerating PEG tube feeding. Objective Physical Examination General Exam: Positive: Alert, Cooperative, No Acute Distress Eye Exam: Positive: PERRLA, Conjunctiva & lids normal, EOMI; Negative: Sclera icteric Neck Exam: Positive: Supple; Negative: JVD, thyromegaly Chest Exam: Positive: Clear to auscultation, Normal air movement Heart Exam: Positive: Rate Normal, Regular Rhythm, Normal S1, Normal S2; Negative: Murmurs, Rubs Abdomen Exam: Positive: Normal bowel sounds, Soft, Other (large bore G tube in place); Negative: Tenderness, Hepatospenomegaly Extremity Exam: Positive: Tenderness (left ankle), Swelling (ankle), Other (JACQUI drain in left ankle); Negative: Clubbing, Cyanosis, Edema Assessment /Plan Assessment 70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 He had an ED-to-ED transfer from [facility] after initial work up revealed an elevated D-dimer (2.72 mg/LFEU; NL 0.19-0.80). [facility] lacks an ultrasound machine to evaluate for DVT, therefore, he was subsequently transferred. Patient reported that beginning on 02/07, he awoke with pain over his pubic bone and in his left groin. It then progressed to his left thigh, feeling like electric shocks. He then noticed some swelling over the left inner thigh as well as some redness of his left fowler. As the pain progressed on left lower extremity to the ankle. It began to affect his gait more and more, to the point that his niece/pet caretaker (Marga) drove him to the [facility] ED. Of note, he received a second mode during the COVID vaccination one day before symptoms started. The patient was subsequently admitted under the care of the hospitalist service primarily for meeting SIRS criteria (leukocytosis and tachycardia with lactic of 3.5) and elevated d-dimer. He was found to have left ankle cellulitis and left leg lymphangitis from groin to ankle with bacteremia. Sepsis with Strep group G bacteremia. due to left leg cellulitis and infected hematoma at the ankle and lymphangitis. blood cultures 2/2 positive : Streptococcus group g echo done. No vegetations, EF 75%, mild to mod pulmonary hypertension, grade 1 diastolic dysfunction. Ceftriaxone changed to Augmentin x 10 days from 02/19/21 Left ankle infected hematoma /abscess/cellulitis /Left leg lymphangitis MRI ankle showed 1. 4.8 cm x 2.1 cm x 8.4 cm fluid collection in the soft tissues along the posteromedial aspect of the left ankle, which may represent an abscess. 2. Soft tissue swelling and edema in the left ankle and dorsal aspect of the left foot, which may represent cellulitis or lymphedema. 3. Mildly increased fluid sensitive signal involving the muscles of the left foot, which may represent myositis, denervation edema, or muscle strains. 4. Left Achilles peritendinitis. 5. Fluid in the tibialis posterior, flexor digitorum longus, flexor hallucis longus, extensor digitorum longus, peroneus l ongus, and peroneus brevis tendon sheaths, which may represent tenosynovitis. No OM at the left ankle. S/P aspiration of the abscess by IR followed by incision and drainage by orthopedics with placement of JACQUI drain Ortho thinks it was infected hematoma Higher than expected discharge from wound likely coming from the surrounding cellulitic tissue needing placement of wound vac on 02/20/21 Blood culture streptococcus, abscess culture streptococcus group G Ceftriaxone changed to Augmentin 10 days from 02/19/21 Leukocytosis due to sepsis from lymphangitis, cellulitis, abscess and due to the use of neupogen improving if becomes pancytopenic will resume neupogen. H/o Pancytopenia before thought to be chemo related Now clarified with oncologist about his need for neupogen. 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 Thrombocytopenia ? cause ? sepsis. He does use significant amount of alcohol about 2 to 3 shots every day. Sometimes he drinks it sometimes he pours it through the G tube. will have to rule rule out underlying cirrhosis of liver Ammonia 25-33 ordered fibrosis score improving Malfunctioning of GT tube resolved. tolerating tube feeding now. Has Dysphagia with history of aspiration pneumonia in January 2020 with subsequent G-tube placement. Problem with speech with dry mouth and chronic left jaw pain had RT on the left with ongoing osteonecrosis right jaw surgery for osteomyelitis and placement of plastic plates will continue lidocaine viscus and saliva substitute. 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 Follows with an oncologist in [place] (Dr. Bhavna Quintana) continues to shed bone shards from the necrotic jaw so the left side is always tender continue lidocaine viscus. Right mandibular fracture after a mechanical fall in 2019 then developed OM Was on zosyn and daptomycin jun 2020 to nov 2020 through a PICC line s/p right mandibular excision and plate insertion on 12/18/20 SLE/Sjogren's/RA /raynauds Has ulcers on the toes of the feet. on daily 10 mg prednisone and Plaquenil. Follows with a pattern puncher in [place] (). continue naproxen, norco., prednisone pentoxiphylline cannot be crushed. Heart failure with reduced ejection fraction spring 2019 echo at [facility] reportedly showed EF of 40% Interstitial lung disease (identified on [facility] imaging) DARNELL likely resolved at present with weight loss after the cancer has not used CPAP in the last 5 years Degenerative disc disease status post cervical spinal fusion and lumbar injuries. h/o thoracic vertebral compression fractures at different levels and bilateral rib fractures. h/o BPH Neuropathy secondary to chemotherapy on norco, cymbalta, lyrica. norco and cymbalta dose reduced as patient was very somnolent in hospital. Plan/VTE VTE Prophylaxis Ordered?: Yes VS, I&O, 24H, Fishbone Vital Signs/I&O Vital Signs Date Time Temp Pulse Resp B/P (MAP) Pulse Ox O2 Delivery O2 Flow Rate FiO2 02/21/21 13:16 96 Room Air 02/21/21 06:00 98.2 63 18 112/80 (91) 2.0 I&O- Last 24 Hours up to 6 AM 02/21/21 06:00 Intake Total 1300 ml Output Total 2500 ml Balance -1200 ml Laboratory Data 24H LABS Laboratory Tests 2 02/20/21 17:13: Bedside Glucose (Misc Panel) 106 02/21/21 00:03: Bedside Glucose (Misc Panel) 132H 02/21/21 06:20: Neutrophils (%) (Auto) , Nucleated Red Blood Cells % (auto) 0.0, Neutrophils 42, Band Neutrophils 14H, Lymphocytes (Manual) 8L, Monocytes (Manual) 31H, Basophils (Manual) 3H, Metamyelocytes 1H, Atypical Lymphocytes 1, Anisocytosis 2+, Platelet Estimate NORMAL, Anion Gap 5L, Glomerular Filtration Rate > 60.0, Calcium Level 8.6L 02/21/21 11:37: Bedside Glucose (Misc Panel) 148H CBC/BMP Laboratory Tests 02/21/21 06:20 Microbiology Microbiology 02/19/21 Blood Culture - Preliminary, Resulted No Growth after 48 hours. All Specime... 02/18/21 Blood Culture - Preliminary, Resulted No Growth after 72 hours. All specime... 02/15/21 Gram Stain - Final, Complete 02/15/21 Wound Culture - Final, Complete Streptococcus Group G 02/15/21 Anaerobic Culture - Final, Complete 02/14/21 Gram Stain - Final, Complete 02/14/21 Abscess Culture - Final, Complete Streptococcus Group G 02/14/21 Anaerobic Culture - Final, Complete RAMONA ZAMARRIPA MD Feb 21, 2021 13:50
[2021-02-21] MEDS: NORCO, ANEXSIA 5/325MG TABLET (HYDROcodone/ACETAMINOPHEN) PO PRN ×2 (17:16→23:38)
[2021-02-22] MEDS: LIDOCAINE VISCOUS 2% SOLN 15ML UDC SSP SCH ×6 (00:12→21:00)
[2021-02-22 02:41] VITALS: O2SAT 95
[2021-02-22] MEDS: NORCO, ANEXSIA 5/325MG TABLET (HYDROcodone/ACETAMINOPHEN) PO PRN ×2 (05:49→17:48)
[2021-02-22] MEDS: SODIUM CHLORIDE 0.9% INJ 10 ML SYR IV SCH ×2 (05:49→17:49)
[2021-02-22 06:00] VITALS: BP 119/56
[2021-02-22 06:48] LABS: BASO % 0.4 % (0.0-1.0); EOS % 0.1 % (0.0-3.0); HEMATOCRIT 30.2 % (42.0-52.0); HEMOGLOBIN 9.4 g/dl (13.5-17.5); LYMPH # 0.9 10^3/uL (1.5-5.0); LYMPH % 9.7 % (24.0-44.0); MEAN CORPUSCULAR HGB CONC 31.1 g/dl (32.0-36.5); MONO # 4.7 10^3/uL (0.0-0.8); MONO % 48.7 % (2.0-8.0); NEUTROPHILS # 3.8 10^3/uL (1.5-8.5); NEUTROPHILS % 39.5 % (36.0-66.0); PLATELET COUNT, AUTOMATED 141 10^3/uL (150-450); RED BLOOD COUNT 2.85 10^6/uL (4.30-6.10)
[2021-02-22 06:49] LABS: WHITE BLOOD COUNT 9.7 10^3/uL (4.0-10.0)
[2021-02-22 07:04] LABS: BLOOD UREA NITROGEN 20 MG/DL (7-18); CALCIUM LEVEL 8.3 MG/DL (8.8-10.2); CARBON DIOXIDE LEVEL 34 MEQ/L (21-32); CHLORIDE LEVEL 92 MEQ/L (98-107); CREATININE FOR GFR 0.36 MG/DL (0.70-1.30); GLOMERULAR FILTRATION RATE > 60.0 (>42); GLUCOSE, FASTING 130 MG/DL (70-100); POTASSIUM SERUM 4.3 MEQ/L (3.5-5.1); SODIUM LEVEL 129 MEQ/L (136-145)
--- NOTE | 2021-02-22 08:16 | IPNPDOC ---
Subjective Date Seen The patient was seen on 02/22/21. Subjective Chief Complaint/HPI No new events overnight. Wound vac working well. ARU screen in place. Tolerating tube feeds. Objective Physical Examination General Exam: Positive: Alert, Cooperative, No Acute Distress Eye Exam: Positive: PERRLA, Conjunctiva & lids normal, EOMI; Negative: Sclera icteric Neck Exam: Positive: Supple; Negative: JVD, thyromegaly Chest Exam: Positive: Clear to auscultation, Normal air movement Heart Exam: Positive: Rate Normal, Regular Rhythm, Normal S1, Normal S2; Negative: Murmurs, Rubs Abdomen Exam: Positive: Normal bowel sounds, Soft, Other (large bore G tube in place); Negative: Tenderness, Hepatospenomegaly Extremity Exam: Positive: Tenderness (left ankle), Swelling (ankle), Other (JACQUI drain in left ankle); Negative: Clubbing, Cyanosis, Edema Assessment /Plan Assessment 70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 He had an ED-to-ED transfer from [facility] after initial work up revealed an elevated D-dimer (2.72 mg/LFEU; NL 0.19-0.80). [facility] lacks an ultrasound machine to evaluate for DVT, therefore, he was subsequently transferred. Patient reported that beginning on 02/07, he awoke with pain over his pubic bone and in his left groin. It then progressed to his left thigh, feeling like electric shocks. He then noticed some swelling over the left inner thigh as well as some redness of his left fowler. As the pain progressed on left lower extremity to the ankle. It began to affect his gait more and more, to the point that his niece/director of elementary education (Marga) drove him to the [facility] ED. Of note, he received a second mode during the COVID vaccination one day before symptoms s tarted. The patient was subsequently admitted under the care of the hospitalist service primarily for meeting SIRS criteria (leukocytosis and tachycardia with lactic of 3.5) and elevated d-dimer. He was found to have left ankle cellulitis and left leg lymphangitis from groin to ankle with bacteremia. Sepsis with Strep group G bacteremia. due to left leg cellulitis and infected hematoma at the ankle and lymphangitis. blood cultures 2/2 positive : Streptococcus group g echo done. No vegetations, EF 75%, mild to mod pulmonary hypertension, grade 1 diastolic dysfunction. Ceftriaxone changed to Augmentin x 10 days from 02/19/21 Left ankle infected hematoma /abscess/cellulitis /Left leg lymphangitis No OM at the left ankle. S/P aspiration of the abscess by IR followed by incision and drainage by orthopedics with placement of JACQUI drain Ortho thinks it was infected hematoma Higher than expected discharge from wound likely coming from the surrounding cellulitic tissue needing placement of wound vac on 02/20/21 Blood culture streptococcus, abscess culture streptococcus group G Ceftriaxone changed to Augmentin 10 days from 02/19/21 Leukocytosis due to sepsis from lymphangitis, cellulitis, abscess and due to the use of neupogen improving if becomes pancytopenic will resume neupogen. H/o Pancytopenia before thought to be chemo related Now clarified with oncologist about his need for neupogen. 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 Thrombocytopenia ? cause ? sepsis. He does use significant amount of alcohol about 2 to 3 shots every day. Sometimes he drinks it sometimes he pours it through the G tube. will have to rule rule out underlying cirrhosis of liver Ammonia 25-33 ordered fibrosis score improving Malfunctioning of GT tube resolved. tolerating tube feeding now. Has Dysphagia with history of aspiration pneumonia in January 2020 with subsequent G-tube placement. Problem with speech with dry mouth and chronic left jaw pain had RT on the left with ongoing osteonecrosis right jaw surgery for osteomyelitis and placement of plastic plates will continue lidocaine viscus and saliva substitute. 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 Follows with an oncologist in [place] (Dr. Bhavna Quintana) continues to shed bone shards from the necrotic jaw so the left side is always tender continue lidocaine viscus. Right mandibular fracture after a mechanical fall in 2019 then developed OM Was on zosyn and daptomycin jun 2020 to nov 2020 through a PICC line s/p right mandibular excision and plate insertion on 12/18/20 SLE/Sjogren's/RA /raynauds Has ulcers on the toes of the feet. on daily 10 mg prednisone and Plaquenil. Follows with a can closing machine operator in [place] (). continue naproxen, norco., prednisone pentoxiphylline cannot be crushed. Heart failure with reduced ejection fraction spring 2019 echo at [facility] reportedly showed EF of 40% Interstitial lung disease (identified on [facility] imaging) DARNELL likely resolved at present with weight loss after the cancer has not used CPAP in the last 5 years Degenerative disc disease status post cervical spinal fusion and lumbar injuries. h/o thoracic vertebral compression fractures at different levels and bilateral rib fractures. h/o BPH Neuropathy secondary to chemotherapy on norco, cymbalta, lyrica. [place] and Cymbalta dose reduced as patient was very somnolent in hospital. Dispo: continued rehab. Plan/VTE VTE Prophylaxis Ordered?: Yes VS, I&O, 24H, Fishbone Vital Signs/I&O Vital Signs Date Time Temp Pulse Resp B/P (MAP) Pulse Ox O2 Delivery O2 Flow Rate FiO2 02/22/21 06:19 16 Room Air 02/22/21 06:00 97.5 68 119/56 (77) 95 2.0 I&O- Last 24 Hours up to 6 AM 02/22/21 06:00 Intake Total 1680 ml Output Total 450 ml Balance 1230 ml Laboratory Data 24H LABS Laboratory Tests 2 02/21/21 11:37: Bedside Glucose (Misc Panel) 148H 02/21/21 17:49: Bedside Glucose (Misc Panel) 120H 02/22/21 00:45: Bedside Glucose (Misc Panel) 124H 02/22/21 05:58: Immature Granulocyte % (Auto) 1.6, Neutrophils (%) (Auto) 39.5, Lymphocytes (%) (Auto) 9.7L, Monocytes (%) (Auto) 48.7H, Eosinophils (%) (Auto) 0.1, Basophils (%) (Auto) 0.4, Neutrophils # (Auto) 3.8, Lymphocytes # (Auto) 0.9L, Monocytes # (Auto) 4.7H, Eosinophils # (Auto) 0.0, Basophils # (Auto) 0.0, Nucleated Red Blood Cells % (auto) 0.0, Anion Gap 3L, Glomerular Filtration Rate > 60.0, Calcium Level 8.3L, C-Reactive Protein, Quantitative 11.40H 02/22/21 06:12: Bedside Glucose (Misc Panel) 128H CBC/BMP Laboratory Tests 02/22/21 05:58 Microbiology Microbiology 02/19/21 Blood Culture - Preliminary, Resulted No Growth after 72 hours. All specime... 02/18/21 Blood Culture - Preliminary, Resulted No Growth after 72 hours. All specime... 02/15/21 Gram Stain - Final, Complete 02/15/21 Wound Culture - Final, Complete Streptococcus Group G 02/15/21 Anaerobic Culture - Final, Complete 02/14/21 Gram Stain - Final, Complete 02/14/21 Abscess Culture - Final, Complete Streptococcus Group G 02/14/21 Anaerobic Culture - Final, Complete RAMONA ZAMARRIPA MD Feb 22, 2021 08:16
--- NOTE | 2021-02-22 08:46 | IPNPDOC ---
Text Note Date of Service The patient was seen on 02/22/21. NOTE Postop day 7. Left ankle I&D washout for infected hematoma. The patient is sleeping comfortably. I did not want to wait the patient's was told to his nurse. Currently, there are no plans for discharge. According to the notes, he has been mobilizing to the bathroom. The wound VAC remains in position. There is a small amount of fluid draining from it and there is a few milliliters of fluid collected in the canister. Patient really functioning well. The patient does not appear to have any plans for discharge over the weekend. I will likely do a dressing change on Thursday to reevaluate the wound to determine if any further debridement or otherwise is needed. The patient does have very poor soft tissue quality, and skin. He is at high risk for wound complications. VS,Fishbone, I+O VS, Fishbone, I+O Laboratory Tests 02/22/21 05:58 Vital Signs Date Time Temp Pulse Resp B/P (MAP) Pulse Ox O2 Delivery O2 Flow Rate FiO2 02/22/21 06:19 16 Room Air 02/22/21 06:00 97.5 68 119/56 (10) 95 2.0 I&O- Last 24 Hours up to 6 AM 02/22/21 05:59 Intake Total 1680 ml Output Total 700 ml Balance 980 ml ROSALIND CANALES MD Feb 22, 2021 08:46
[2021-02-22] MEDS: AMOXICILLIN SUSP 250MG/5ML 100ML BOTTLE (FOR INPATIENT ORDERS) PO SCH (09:38)
[2021-02-22] MEDS: predniSONE 10 MG TAB GT SCH (09:39)
[2021-02-22] MEDS: PREGABALIN 100 MG CAP (LYRICA) GT SCH ×3 (09:39→22:34)
[2021-02-22] MEDS: NAPROXEN 250 MG TAB PO PRN (09:39)
[2021-02-22] MEDS: DOCUSATE SOD LIQ 100MG/10ML UDC GT SCH ×2 (09:39→22:34)
[2021-02-22] MEDS: DULoxetine 20 MG CAP (CYMBALTA) PO SCH (09:39)
[2021-02-22] MEDS: PANTOPRAZOLE 40MG VIAL (C9113 PER 1) IV SCH ×2 (09:40→22:35)
[2021-02-22] MEDS: SODIUM CHLORIDE NASAL 0.65% SPRAY BTL (OCEAN) SCH ×3 (09:40→21:00)
[2021-02-22] MEDS: HYDROXYCHLOROQUINE 200 MG TAB GT SCH ×2 (09:41→22:35)
[2021-02-22 14:00] VITALS: BP 122/63
[2021-02-22 14:31] VITALS: O2SAT 93
--- NOTE | 2021-02-22 16:32 | IPN ---
PROGRESS NOTE DATE: 02/22/2021 Demarco is doing well. He was on the phone when I was visiting with him. 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 He stated that his condom catheter is falling. I have asked him to discontinue the condom catheter and start getting up to the bathroom or use a urinal to be mobilized more. He stated that they were not letting him get out of bed on his own. He was seen by Dr. Wilhelm who was going to change his Prevena dressing wound vacuum-assisted closure (VAC) on Thursday. PHYSICAL EXAMINATION: Temperature is 96.5, pulse 63, respirations 19, blood pressure 122/62, oxygen saturation 96% on 2 liters nasal cannula and 93% on room air. HEART: Normal S1, S2. No murmurs, rubs, or gallops appreciated. LUNGS: Clear. No wheezes, rales, or rhonchi. ABDOMEN: Large-bore gastrostomy (G) tube in plicae with mild erythema around the G tube. EXTREMITIES: Left ankle erythema has diminished compared to yesterday, Probably has not been out of bed on his feet. There is minimal drainage in the wound VAC. LABORATORY DATA: White count is 9.7, hemoglobin 9.4, hemoglobin 30.2, platelets 141, 40% neutrophils, 9% lymphocytes, 48% monocytes. Sodium 129, potassium 4.3, chloride 92, bicarbonate 34, BUN 20, creatinine 0.36, glucose 130, calcium 8.3. CRP 11.4. IMPRESSION: 1. Sepsis with group G streptococcus bacteremia and abscess of the left ankle, status post incision and drainage (I and D). He is currently on amoxicillin 875 mg twice a day after he finished a 10-day course of intravenous (IV) Rocephin. 2. Leukocytosis has resolved. 3. History of autoimmune neutropenia. Usually gets Neupogen, but has not received a dose in over 2 weeks. This will be held and be followed up by his [facility] lead as an outpatient to see if he still needs his Neupogen. PLAN; Continue amoxicillin through the G tube for at least 10-14 days or until wound is completely healed. Discontinue condom catheter. Patient needs to be able to get out bed to his bathroom to improve ambulation. Provide him with a urinal at the bedside. SHAHLA
[2021-02-22 22:00] VITALS: BP 146/87
[2021-02-22] MEDS: AMOXICILLIN 875 MG TAB GT SCH (22:35)
[2021-02-22] MEDS: SODIUM CHLORIDE 0.9% INJ 10 ML SYR IV PRN (22:36)
[2021-02-23] MEDS: LIDOCAINE VISCOUS 2% SOLN 15ML UDC SSP SCH ×6 (01:00→21:00)
[2021-02-23 06:00] VITALS: BP 131/67
[2021-02-23] MEDS: SODIUM CHLORIDE 0.9% INJ 10 ML SYR IV SCH ×2 (06:31→17:02)
[2021-02-23 06:56] LABS: HEMATOCRIT 31.1 % (42.0-52.0); HEMOGLOBIN 9.7 g/dl (13.5-17.5); MEAN CORPUSCULAR HEMOGLOBIN 33.4 pg (27.0-33.0); MEAN CORPUSCULAR HGB CONC 31.2 g/dl (32.0-36.5); MEAN CORPUSCULAR VOLUME 107.2 fl (80.0-96.0); PLATELET COUNT, AUTOMATED 143 10^3/uL (150-450)
[2021-02-23 07:00] LABS: WHITE BLOOD COUNT 10.7 10^3/uL (4.0-10.0)
[2021-02-23 07:15] LABS: BLOOD UREA NITROGEN 21 MG/DL (7-18); CALCIUM LEVEL 8.2 MG/DL (8.8-10.2); CARBON DIOXIDE LEVEL 33 MEQ/L (21-32); CHLORIDE LEVEL 95 MEQ/L (98-107); GLOMERULAR FILTRATION RATE > 60.0 (>42); GLUCOSE, FASTING 159 MG/DL (70-100); POTASSIUM SERUM 4.1 MEQ/L (3.5-5.1); SODIUM LEVEL 133 MEQ/L (136-145)
[2021-02-23 07:38] LABS: ANISOCYTOSIS 2+; ATYPICAL LYMPH 1 % (0-5); BASOPHILS 1 % (0-1); EOSINOPHILS 1 % (0-3); LYMPHOCYTES 20 % (16-44); MONOCYTES 30 % (0-5); NEUTROPHILS 40 % (28-66)
[2021-02-23 07:39] LABS: PLATELET ESTIMATE DECREASED (NORMAL)
[2021-02-23] MEDS: AMOXICILLIN 875 MG TAB GT SCH ×2 (10:00→23:08)
[2021-02-23] MEDS: HYDROXYCHLOROQUINE 200 MG TAB GT SCH ×2 (10:01→23:08)
[2021-02-23] MEDS: DULoxetine 20 MG CAP (CYMBALTA) PO SCH (10:01)
[2021-02-23] MEDS: predniSONE 10 MG TAB GT SCH (10:01)
[2021-02-23] MEDS: PREGABALIN 100 MG CAP (LYRICA) GT SCH ×3 (10:01→23:09)
[2021-02-23] MEDS: PANTOPRAZOLE 40MG VIAL (C9113 PER 1) IV SCH ×2 (10:01→23:08)
[2021-02-23] MEDS: SODIUM CHLORIDE NASAL 0.65% SPRAY BTL (OCEAN) SCH ×3 (10:02→21:00)
[2021-02-23] MEDS: SODIUM CHLORIDE 0.9% INJ 10 ML SYR IV PRN (10:03)
[2021-02-23 14:00] VITALS: BP 117/59
--- NOTE | 2021-02-23 14:21 | IPNPDOC ---
Text Note Date of Service The patient was seen on 02/23/21. NOTE Subjective Chief Complaint/HPI He is frustrated because of his prolonged hospitalization, however he does not have any acute medical issues at this time. He does not have any pain in the foot at this time, he denies any fevers, chills, rigors. The remainder of his re view systems is also negative. Objective Objective Physical Examination General Exam: Positive: Alert, Cooperative, No Acute Distress Eye Exam: Positive: PERRLA, Conjunctiva & lids normal, EOMI; Negative: Sclera icteric Neck Exam: Positive: Supple; Negative: JVD, thyromegaly Chest Exam: Positive: Clear to auscultation, Normal air movement Heart Exam: Positive: Rate Normal, Regular Rhythm, Normal S1, Normal S2; Negative: Murmurs, Rubs Abdomen Exam: Positive: Normal bowel sounds, Soft, Other (large bore G tube in place); Negative: Tenderness, Hepatospenomegaly Extremity Exam: Positive: Tenderness (left ankle), Swelling (ankle), Other (JACQUI drain in left ankle); Negative: Clubbing, Cyanosis, Edema Assessment/Plan Assessment /Plan Assessment 70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 He had an ED-to-ED transfer from [facility] after initial work up revealed an elevated D-dimer (2.72 mg/LFEU; NL 0.19-0.80). [facility] lacks an ultrasound machine to evaluate for DVT, therefore, he was subsequently transferred. Patient reported that beginning on 02/07, he awoke with pain over his pubic bone and in his left groin. It then progressed to his left thigh, feeling like electric shocks. He then noticed some swelling over the left inner thigh as well as some redness of his left fowler. As the pain progressed on left lower extremity to the ankle. It began to affect his gait more and more, to the point that his niece/non destructive testing inspector (Marga) drove him to the [facility] ED. Of note, he received a second mode during the COVID vaccination one day before symptoms started. The patient was subsequently admitted under the care of the hospitalist service primarily for meeting SIRS criteria (leukocytosis and tachycardia with lactic of 3.5) and elevated d-dimer. He was found to have left ankle cellulitis and left leg lymphangitis from groin to ankle with bacteremia. Sepsis with Strep group G bacteremia. due to left leg cellulitis and infected hematoma at the ankle and lymphangitis. blood cultures 2/2 positive : Streptococcus group g echo done. No vegetations, EF 75%, mild to mod pulmonary hypertension, grade 1 diastolic dysfunction. Ceftriaxone changed to Augmentin x 10 days from 02/19/21 (Stop 03/01/21) Left ankle infected hematoma /abscess/cellulitis /Left leg lymphangitis No osteomyelitis at the left ankle. S/P aspiration of the abscess by IR followed by incision and drainage by orthopedics with placement of JACQUI drain Ortho thinks it was infected hematoma Higher than expected discharge from wound likely coming from the surrounding cellulitic tissue needing placement of wound vac on 02/20/21 Blood culture streptococcus, abscess culture streptococcus group G Leukocytosis due to sepsis from lymphangitis, cellulitis, abscess and due to the use of neupogen if becomes pancytopenic will resume neupogen. H/o Pancytopenia before thought to be chemo related Now clarified with oncologist about his need for neupogen. 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 Thrombocytopenia ? cause ? sepsis. He does use significant amount of alcohol about 2 to 3 shots every day. Sometimes he drinks it sometimes he pours it through the G tube. will have to rule rule out underlying cirrhosis of liver Ammonia 25-33 ordered fibrosis score improving Malfunctioning of GT tube resolved. tolerating tube feeding now. Has Dysphagia with history of aspiration pneumonia in January 2020 with subsequent G-tube placement. Problem with speech with dry mouth and chronic left jaw pain had RT on the left with ongoing osteonecrosis right jaw surgery for osteomyelitis and placement of plastic plates will continue lidocaine viscus and saliva substitute. 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 Follows with an oncologist in [place] (Dr. Bhavna Quintana) continues to shed bone shards from the necrotic jaw so the left side is always tender continue lidocaine viscus. Right mandibular fracture after a mechanical fall in 2019 then developed OM Was on zosyn and daptomycin jun 2020 to nov 2020 through a PICC line s/p right mandibular excision and plate insertion on 12/18/20 SLE/Sjogren's/RA /raynauds Has ulcers on the toes of the feet. on daily 10 mg prednisone and Plaquenil. Follows with a financial services agent in [place] (). continue naproxen, norco., prednisone pentoxiphylline cannot be crushed. Heart failure with reduced ejection fraction spring 2019 echo at [facility] reportedly showed EF of 40% Interstitial lung disease (identified on [facility] imaging) DARNELL likely resolved at present with weight loss after the cancer has not used CPAP in the last 5 years Degenerative disc disease status post cervical spinal fusion and lumbar injuries. h/o thoracic vertebral compression fractures at different levels and bilateral rib fractures. h/o BPH Neuropathy secondary to chemotherapy on norco, cymbalta, lyrica. [place] and Cymbalta dose reduced as patient was very somnolent in hospital. Dispo: Wound vac working well. Appears he will have this changed on Thursday ARU screen in place. Tolerating tube feeds. continue rehab. VS,Fishbone, I+O VS, Fishbone, I+O Laboratory Tests 02/23/21 06:32 Vital Signs Date Time Temp Pulse Resp B/P (MAP) Pulse Ox O2 Delivery O2 Flow Rate FiO2 02/23/21 06:00 99.0 78 19 131/67 (88) 95 Nasal Cannula 2.0 I&O- Last 24 Hours up to 6 AM 02/23/21 06:00 Intake Total 1650 ml Output Total 2300 ml Balance -650 ml JOSE BUSTAMANTE DO February 23, 2021 14:21
[2021-02-23] MEDS: DOCUSATE SOD LIQ 100MG/10ML UDC GT SCH ×2 (14:30→23:08)
[2021-02-23] MEDS: ACETAMINOPHEN 325 MG/10.15 ML UDC GT PRN (14:30)
[2021-02-23 22:00] VITALS: BP 111/54
[2021-02-23] MEDS: NORCO, ANEXSIA 5/325MG TABLET (HYDROcodone/ACETAMINOPHEN) PO PRN (23:24)
[2021-02-24] MEDS: LIDOCAINE VISCOUS 2% SOLN 15ML UDC SSP SCH ×6 (01:00→21:00)
[2021-02-24 06:00] VITALS: BP 119/59
[2021-02-24] MEDS: SODIUM CHLORIDE 0.9% INJ 10 ML SYR IV SCH ×2 (06:16→17:29)
[2021-02-24 06:54] LABS: BASO % 0.4 % (0.0-1.0); EOS % 0.2 % (0.0-3.0); HEMOGLOBIN 8.9 g/dl (13.5-17.5); LYMPH # 0.8 10^3/uL (1.5-5.0); LYMPH % 7.4 % (24.0-44.0); MEAN CORPUSCULAR HEMOGLOBIN 33.1 pg (27.0-33.0); MEAN CORPUSCULAR HGB CONC 30.7 g/dl (32.0-36.5); MEAN CORPUSCULAR VOLUME 107.8 fl (80.0-96.0); MONO % 34.1 % (2.0-8.0); NEUTROPHILS # 5.7 10^3/uL (1.5-8.5); NEUTROPHILS % 55.8 % (36.0-66.0); PLATELET COUNT, AUTOMATED 135 10^3/uL (150-450); RED BLOOD COUNT 2.69 10^6/uL (4.30-6.10)
[2021-02-24 07:15] LABS: BLOOD UREA NITROGEN 20 MG/DL (7-18); CALCIUM LEVEL 8.4 MG/DL (8.8-10.2); CARBON DIOXIDE LEVEL 34 MEQ/L (21-32); CHLORIDE LEVEL 98 MEQ/L (98-107); CREATININE FOR GFR 0.43 MG/DL (0.70-1.30); GLOMERULAR FILTRATION RATE > 60.0 (>42); GLUCOSE, FASTING 147 MG/DL (70-100); POTASSIUM SERUM 4.1 MEQ/L (3.5-5.1); SODIUM LEVEL 135 MEQ/L (136-145)
[2021-02-24 07:46] LABS: WHITE BLOOD COUNT 10.3 10^3/uL (4.0-10.0)
[2021-02-24 07:47] LABS: MONO # 3.5 10^3/uL (0.0-0.8)
[2021-02-24] MEDS: AMOXICILLIN 875 MG TAB GT SCH ×2 (09:36→21:57)
[2021-02-24] MEDS: DOCUSATE SOD LIQ 100MG/10ML UDC GT SCH ×2 (09:36→21:57)
[2021-02-24] MEDS: predniSONE 10 MG TAB GT SCH (09:36)
[2021-02-24] MEDS: PREGABALIN 100 MG CAP (LYRICA) GT SCH ×3 (09:36→21:58)
[2021-02-24] MEDS: HYDROXYCHLOROQUINE 200 MG TAB GT SCH ×2 (09:37→21:57)
[2021-02-24] MEDS: DULoxetine 20 MG CAP (CYMBALTA) PO SCH (09:37)
[2021-02-24] MEDS: PANTOPRAZOLE 40MG VIAL (C9113 PER 1) IV SCH ×2 (09:37→21:57)
[2021-02-24] MEDS: SODIUM CHLORIDE NASAL 0.65% SPRAY BTL (OCEAN) SCH ×3 (09:37→21:59)
--- NOTE | 2021-02-24 10:22 | IPNPDOC ---
Text Note Date of Service The patient was seen on 02/24/21. 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 He had an ED-to-ED transfer from [facility] after initial work up revealed an elevated D-dimer (2.72 mg/LFEU; NL 0.19-0.80). [facility] lacks an ultrasound machine to evaluate for DVT, therefore, he was subsequently transferred. Patient reported that beginning on 02/07, he awoke with pain over his pubic bone and in his left groin. It then progressed to his left thigh, feeling like electric shocks. He then noticed some swelling over the left inner thigh as well as some redness of his left fowler. As the pain progressed on left lower extremity to the ankle. It began to affect his gait more and more, to the point that his niece/radiation safety officer (Marga) drove him to the [facility] ED. The patient was subsequently admitted under the care of the hospitalist service primarily for meeting SIRS criteria (leukocytosis and tachycardia with lactic of 3.5) and elevated d-dimer. He was found to have left ankle cellulitis and left leg lymphangitis from groin to ankle with bacteremia. Patient was seen and examined at the bedside. Patient reports that he feels frustrated. He denies any chest pain, shortness breath or palpitations. Has not experience any nausea, vomiting or abdominal pain. Denies any urinary dis comfort. Objective: Vitals (See below) General: Sitting up in bed, appears comfortable, but frustrated, AAOx3 HEENT: NC, AT CVS: +S1S2 Lungs: Fair air entry b/l, -w/r/r Abdomen: Soft, ND, NT, +PEG tube Extremities: - Edema, - Calf tenderness, L ankle with wound vac in place Assessment and plan: s/p Sepsis with Strep group G bacteremia - likely 2/2 Left leg cellulitis and infected hematoma at the ankle and lymphangitis - Patient is currently hemodynamically stable and afebrile - Blood cultures 02/08: Positive - Blood cultures 02/18 and 02/19: Negative - Wound cultures 02/14, 02/15: Streptococcus group G - ECHO: No vegetations, EF 75%, mild to mod pulmonary hypertension, grade 1 diastolic dysfunction. - c/w Amoxicillin x 10 days from 02/19/21 (Stop 03/01/21); s/p Ceftriaxone Left ankle infected hematoma /abscess/cellulitis /Left leg lymphangitis - No osteomyelitis at the left ankle. 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 - Patient has been on Neupogen before receiving chemotherapy for his cancer Thrombocytopenia - Counts remain stable - no evidence of bleeding s/p Malfunctioning of GT tube - Has Dysphagia with history of aspiration pneumonia in January 2020 with subsequent G-tube placement - Tolerating tube feeds Problem with speech with dry mouth and chronic left jaw pain - s/p RT on the left with ongoing osteonecrosis; right jaw surgery for osteomyelitis and placement of plastic plates - c/w lidocaine viscus and saliva substitute - Will have outpatient follow up with own oral surgeon as outpatient 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 Bhavna Quintana) Right mandibular fracture after a mechanical fall in 2019 then developed OM - History of Zosyn and Daptomycin jun 2020 to nov 2020 through a PICC line - s/p right mandibular excision and plate insertion on 12/18/20 SLE/Sjogren's/RA /raynauds - Has ulcers on the toes of the feet. - c/w Chronic prednisone and Plaquenil - Follows with a creative art therapist in [place] (). Heart failure with reduced ejection fraction - spring 2019 echo at [facility] reportedly showed EF of 40% - No evidence of decompensation Interstitial lung disease (identified on [facility] imaging) DARNELL - likely resolved at present with weight loss after the cancer - has not used CPAP in the last 5 years Degenerative disc disease status post cervical spinal fusion and lumbar injuries. - h/o thoracic vertebral compression fractures at different levels and bilateral rib fractures - c/w Pain control as ordered BPH Neuropathy secondary to chemotherapy - c/w norco, cymbalta, lyrica; at adjusted dose (re: Somnolence) GI prophylaxis - c/w Protonix DVT prophylaxis - c/w TEDs/Sequentials Disposition: - Wound VAC scheduled for a change on Thursday - Patient will likely require rehabilitation movement VS,Fishbone, I+O VS, Fishbone, I+O Laboratory Tests 02/24/21 06:15 Vital Signs Date Time Temp Pulse Resp B/P (MAP) Pulse Ox O2 Delivery O2 Flow Rate FiO2 02/24/21 06:00 98.3 65 20 119/59 (79) 97 Room Air 02/23/21 22:00 2.0 I&O- Last 24 Hours up to 6 AM 02/24/21 06:00 Intake Total 2460 ml Output Total 1650 ml Balance 810 ml ANA MARIA SWIFT MD February 24, 2021 10:22
[2021-02-24 14:00] VITALS: BP 132/58
[2021-02-24] MEDS: NORCO, ANEXSIA 5/325MG TABLET (HYDROcodone/ACETAMINOPHEN) PO PRN ×2 (14:18→21:58)
[2021-02-24 22:00] VITALS: BP 126/58
[2021-02-25] MEDS: LIDOCAINE VISCOUS 2% SOLN 15ML UDC SSP SCH ×6 (01:00→22:00)
[2021-02-25 06:00] VITALS: BP 133/80
[2021-02-25] MEDS: SODIUM CHLORIDE 0.9% INJ 10 ML SYR IV SCH ×2 (06:04→17:09)
[2021-02-25 06:36] LABS: HEMATOCRIT 27.2 % (42.0-52.0); HEMOGLOBIN 8.3 g/dl (13.5-17.5); MEAN CORPUSCULAR HEMOGLOBIN 33.2 pg (27.0-33.0); MEAN CORPUSCULAR HGB CONC 30.5 g/dl (32.0-36.5); MEAN CORPUSCULAR VOLUME 108.8 fl (80.0-96.0); PLATELET COUNT, AUTOMATED 120 10^3/uL (150-450)
[2021-02-25 06:37] LABS: WHITE BLOOD COUNT 7.2 10^3/uL (4.0-10.0)
[2021-02-25 06:59] LABS: BASOPHILS 1 % (0-1); LYMPHOCYTES 23 % (16-44); MONOCYTES 17 % (0-5); NEUTROPHILS 59 % (28-66)
[2021-02-25 07:00] LABS: BLOOD UREA NITROGEN 20 MG/DL (7-18); CALCIUM LEVEL 8.4 MG/DL (8.8-10.2); CARBON DIOXIDE LEVEL 35 MEQ/L (21-32); CHLORIDE LEVEL 97 MEQ/L (98-107); CREATININE FOR GFR 0.41 MG/DL (0.70-1.30); GLOMERULAR FILTRATION RATE > 60.0 (>42); GLUCOSE, FASTING 122 MG/DL (70-100); PLATELET ESTIMATE NORMAL (NORMAL); POTASSIUM SERUM 4.3 MEQ/L (3.5-5.1); SODIUM LEVEL 134 MEQ/L (136-145)
--- NOTE | 2021-02-25 08:29 | IPNPDOC ---
Text Note Date of Service The patient was seen on 02/25/21. NOTE The patient is approximately postop day 10 for I&D washout of left ankle for I nfected hematoma. He had a wound VAC placed last week due to increased or persistent fluid drainage. There is been about 5-10 mL of serosanguineous fluid collected from this in the container. The patient was seen today and he is quite anxious to have the dressing removed. Based on what he is saying it sounds as if he is going to inpatient rehabilitation, either today or tomorrow. He has been active standing and walking to the bathroom, etc. The swelling around the left foot and ankle seems to have decreased significantly over the weekend. The provisional incisional dressing was removed. The sutures and ileana are in place. There does not appear to be any gapping or drainage around the incision. The wound edges appear to be approximated. There is a small area of fibrinous and macerated tissue about half a centimeter in diameter over the medial malleoli region. He was also just proximal to the wound. An area where there is some skin sloughing that measures approximately 2 cm x 1 cm. These areas were cleansed with chlorhexidine and the sloughed skin was removed. The wound area was painted with Betadine. A midline suprapubic 7 dressing was applied and adhered with Tegaderm. Overall, the ankle appears to be improving in terms of the drainage and swelling. There is no obvious persistent drainage; however, the wound needs to stay dry, so the suprapatellar dressing was placed on this. This will be monitored for determining the frequency of the dressing changes. The patient may continue being weightbearing as tolerated with mobility aide. The patient's ileana and sutures can be removed or Thursday of this week. VS,Fishbone, I+O VS, Fishbone, I+O Laboratory Tests 02/25/21 06:05 Vital Signs Date Time Temp Pulse Resp B/P (MAP) Pulse Ox O2 Delivery O2 Flow Rate FiO2 02/25/21 06:00 97.6 88 20 133/80 (97) 94 02/24/21 21:58 Room Air 02/23/21 22:00 2.0 I&O- Last 24 Hours up to 6 AM 02/25/21 05:59 Intake Total 2940 ml Output Total 1000 ml Balance 1940 ml ROSALIND CANALES MD February 25, 2021 08:29
[2021-02-25] MEDS: DOCUSATE SOD LIQ 100MG/10ML UDC GT SCH ×2 (10:04→21:34)
[2021-02-25] MEDS: predniSONE 10 MG TAB GT SCH (10:05)
[2021-02-25] MEDS: SALIVA SUBSTITUTE(MOUTHKOTE) BTL MT PRN (10:05)
[2021-02-25] MEDS: AMOXICILLIN 875 MG TAB GT SCH ×2 (10:05→21:35)
[2021-02-25] MEDS: PANTOPRAZOLE 40MG VIAL (C9113 PER 1) IV SCH ×2 (10:05→21:36)
[2021-02-25] MEDS: DULoxetine 20 MG CAP (CYMBALTA) PO SCH (10:06)
[2021-02-25] MEDS: HYDROXYCHLOROQUINE 200 MG TAB GT SCH ×2 (10:06→21:35)
[2021-02-25] MEDS: PREGABALIN 100 MG CAP (LYRICA) GT SCH ×3 (10:06→21:36)
[2021-02-25] MEDS: SODIUM CHLORIDE NASAL 0.65% SPRAY BTL (OCEAN) SCH ×3 (10:07→21:00)
--- NOTE | 2021-02-25 10:09 | IPNPDOC ---
Text Note Date of Service The patient was seen on 02/25/21. 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 He had an ED-to-ED transfer from [facility] after initial work up revealed an elevated D-dimer (2.72 mg/LFEU; NL 0.19-0.80). [facility] lacks an ultrasound machine to evaluate for DVT, therefore, he was subsequently transferred. Patient reported that beginning on 02/07, he awoke with pain over his pubic bone and in his left groin. It then progressed to his left thigh, feeling like electric shocks. He then noticed some swelling over the left inner thigh as well as some redness of his left fowler. As the pain progressed on left lower extremity to the ankle. It began to affect his gait more and more, to the point that his niece/balancing machine set up worker (Marga) drove him to the [facility] ED. The patient was subsequently admitted under the care of the hospitalist service primarily for meeting SIRS criteria (leukocytosis and tachycardia with lactic of 3.5) and elevated d-dimer. He was found to have left ankle cellulitis and left leg lymphangitis from groin to ankle with bacteremia. Patient was seen and examined at the bedside. Patient sitting up in bed, appears to be comfortable, not in any acute distress. Denies any chest pain, shortness breath, palpitations. Has not experience any nausea, vomiting, abdominal pain patient's left ankle hematoma has dressing in place. Wound VAC has been removed. Objective: Vitals (See below) General: Patient sitting up in bed, appears comfortable, not in any acute distress, is awake, alert and oriented 3 HEENT: NC, AT CVS: +S1S2 Lungs: Fair air entry b/l, no appreciable wheezing, rhonchi or rales Abdomen: Soft, nondistended, nontender, +PEG tube Extremities: - Edema, - Calf tenderness, L ankle with dressing in place. Wound VAC is removed Assessment and plan: s/p Sepsis with Strep group G bacteremia - likely 2/2 Left leg cellulitis and infected hematoma at the ankle and lymphangitis - Hemodynamically stable and afebrile - Blood cultures 02/08: Streptococcus group G - Blood cultures 02/18 and 02/19: Negative - Wound cultures 02/14, 02/15: Streptococcus group G - ECHO: No vegetations, EF 75%, mild to mod pulmonary hypertension, grade 1 diastolic dysfunction. 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 - Patient has been on Neupogen before receiving chemotherapy for his cancer Thrombocytopenia - Counts remain stable - no evidence of bleeding s/p Malfunctioning of GT tube - Has Dysphagia with history of aspiration pneumonia in January 2020 with subsequent G-tube placement - Tolerating tube feeds Problem with speech with dry mouth and chronic left jaw pain - s/p RT on the left with ongoing osteonecrosis; right jaw surgery for osteomyelitis and placement of plastic plates - c/w lidocaine viscus and saliva substitute - Will have outpatient follow up with own oral surgeon as outpatient 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 - Patient developed osteonecrosis of the jaw on the left as a result of the radiation and subsequently developed an oropharyngeal abscess - Follows with an oncologist in [place] (Dr. Bhavna Quintana) Right mandibular fracture after a mechanical fall in 2019 then developed OM - History of Zosyn and Daptomycin jun 2020 to nov 2020 through a PICC line - s/p right mandibular excision and plate insertion on 12/18/20 SLE / Sjgren's / RA / Raynaud - Has ulcers on the toes of the feet - c/w Chronic prednisone and Plaquenil - Follows with a country director in [place] (). Heart failure with reduced ejection fraction - spring 2019 echo at [facility] reportedly showed EF of 40% - No evidence of decompensation Interstitial lung disease (identified on [facility] imaging) DARNELL - likely resolved at present with weight loss after the cancer - has not used CPAP in the last 5 years Degenerative disc disease status post cervical spinal fusion and lumbar injuries. - h/o thoracic vertebral compression fractures at different levels and bilateral rib fractures - c/w Pain control as ordered BPH Neuropathy secondary to chemotherapy - c/w norco, cymbalta, lyrica; at adjusted dose (re: Somnolence) GI prophylaxis - c/w Protonix DVT prophylaxis - c/w TEDs/Sequentials Disposition: - s/p Wound vac - Patient will likely require rehabilitation VSDouglas, I+O VSDouglas I+O Laboratory Tests 02/25/21 06:05 Vital Signs Date Time Temp Pulse Resp B/P (MAP) Pulse Ox O2 Delivery O2 Flow Rate FiO2 02/25/21 06:00 97.6 88 20 133/80 (97) 94 02/24/21 21:58 Room Air 02/23/21 22:00 2.0 I&O- Last 24 Hours up to 6 AM 02/25/21 05:59 Intake Total 2940 ml Output Total 1000 ml Balance 1940 ml ANA MARIA SWIFT MD February 25, 2021 10:09
[2021-02-25 11:39] VITALS: O2SAT 92
[2021-02-25 14:00] VITALS: BP 121/61
[2021-02-25] MEDS: NORCO, ANEXSIA 5/325MG TABLET (HYDROcodone/ACETAMINOPHEN) PO PRN (21:35)
[2021-02-25] MEDS: SODIUM CHLORIDE 0.9% INJ 10 ML SYR IV PRN (21:35)
[2021-02-25 22:00] VITALS: BP 110/55
[2021-02-26] MEDS: LIDOCAINE VISCOUS 2% SOLN 15ML UDC SSP SCH ×6 (01:00→23:14)
[2021-02-26] MEDS: SODIUM CHLORIDE 0.9% INJ 10 ML SYR IV SCH ×2 (05:49→16:48)
[2021-02-26 06:00] VITALS: BP 130/59
[2021-02-26 06:25] LABS: HEMATOCRIT 28.1 % (42.0-52.0); HEMOGLOBIN 8.5 g/dl (13.5-17.5); MEAN CORPUSCULAR HEMOGLOBIN 32.4 pg (27.0-33.0); MEAN CORPUSCULAR HGB CONC 30.2 g/dl (32.0-36.5); MEAN CORPUSCULAR VOLUME 107.3 fl (80.0-96.0); PLATELET COUNT, AUTOMATED 123 10^3/uL (150-450); RED BLOOD COUNT 2.62 10^6/uL (4.30-6.10)
[2021-02-26 06:33] LABS: WHITE BLOOD COUNT 5.2 10^3/uL (4.0-10.0)
[2021-02-26 06:52] LABS: BLOOD UREA NITROGEN 18 MG/DL (7-18); C REACTIVE PROTEIN QUANTITATIV 9.64 MG/DL (0.00-0.30); CALCIUM LEVEL 8.2 MG/DL (8.8-10.2); CARBON DIOXIDE LEVEL 34 MEQ/L (21-32); CHLORIDE LEVEL 97 MEQ/L (98-107); CREATININE FOR GFR 0.34 MG/DL (0.70-1.30); GLOMERULAR FILTRATION RATE > 60.0 (>42); GLUCOSE, FASTING 97 MG/DL (70-100); MAGNESIUM LEVEL 2.1 MG/DL (1.8-2.4); POTASSIUM SERUM 4.5 MEQ/L (3.5-5.1); SODIUM LEVEL 133 MEQ/L (136-145)
[2021-02-26 06:54] LABS: BASOPHILS 1 % (0-1); LYMPHOCYTES 27 % (16-44); MONOCYTES 38 % (0-5); NEUTROPHILS 33 % (28-66); PLATELET ESTIMATE NORMAL (NORMAL)
[2021-02-26] MEDS: predniSONE 10 MG TAB GT SCH (09:58)
[2021-02-26] MEDS: HYDROXYCHLOROQUINE 200 MG TAB GT SCH ×2 (09:58→23:09)
[2021-02-26] MEDS: DOCUSATE SOD LIQ 100MG/10ML UDC GT SCH ×2 (09:58→23:09)
[2021-02-26] MEDS: PANTOPRAZOLE 40MG VIAL (C9113 PER 1) IV SCH ×2 (09:58→23:10)
[2021-02-26] MEDS: PREGABALIN 100 MG CAP (LYRICA) GT SCH ×3 (09:58→23:09)
[2021-02-26] MEDS: AMOXICILLIN 875 MG TAB GT SCH ×2 (09:58→23:09)
[2021-02-26] MEDS: DULoxetine 20 MG CAP (CYMBALTA) PO SCH (09:58)
[2021-02-26] MEDS: SODIUM CHLORIDE NASAL 0.65% SPRAY BTL (OCEAN) SCH ×3 (09:59→23:10)
[2021-02-26 10:47] VITALS: O2SAT 95
--- NOTE | 2021-02-26 16:43 | REP ---
INDICATION: concern for aspiration. COMPARISON: None. TECHNIQUE: The procedure was performed by GOLD Delatorre, under the direct supervision of Dr. Garcia. The procedure was performed with Courtney Mckeon from speech pathology present. 5 ml aliquots of thin, pudding, and nectar thick consistency barium was administered. FINDINGS: Aspiration was visualized with all 3 consistencies. The detailed report of this examination will be provided by speech pathology. IMPRESSION: Aspiration was visualized during the exam, a detailed report will be provided by speech pathology. 1.8 minutes of fluoroscopy time was utilized for this procedure. Some fluoroscopic images are performed with last image hold technology. These images require no additional radiation <Electronically signed by Yvette Pimentel > 02/26/21 1451 <Electronically signed by Claudy Garcia > 02/26/21 1640
[2021-02-26] MEDS: NORCO, ANEXSIA 5/325MG TABLET (HYDROcodone/ACETAMINOPHEN) PO PRN ×2 (16:47→23:12)
--- NOTE | 2021-02-26 18:31 | IPNPDOC ---
Text Note Date of Service The patient was seen on 02/26/21. 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 He had an ED-to-ED transfer from [facility] after initial work up revealed an elevated D-dimer (2.72 mg/LFEU; NL 0.19-0.80). [facility] lacks an ultrasound machine to evaluate for DVT, therefore, he was subsequently transferred. Patient reported that beginning on 02/07, he awoke with pain over his pubic bone and in his left groin. It then progressed to his left thigh, feeling like electric shocks. He then noticed some swelling over the left inner thigh as well as some redness of his left fowler. As the pain progressed on left lower extremity to the ankle. It began to affect his gait more and more, to the point that his niece/record center coordinator (Marga) drove him to the [facility] ED. The patient was subsequently admitted under the care of the hospitalist service primarily for meeting SIRS criteria (leukocytosis and tachycardia with lactic of 3.5) and elevated d-dimer. He was found to have left ankle cellulitis and left leg lymphangitis from groin to ankle with bacteremia. Patient was seen and examined at the bedside. Patient was seen ambulating to the bathroom. There was seen later that afternoon while he was lying in bed with his niece at the bedside. Patient denied any chest pain, shortness breath or palpitations. Has work with physical therapy and has progressed to the point that he is cleared for discharge home. Objective: Vitals (See below) General: Laying in bed, appears to be comfortable, not in any acute distress, is oriented to person, place and time HEENT: NC, AT CVS: +S1S2 Lungs: There appears to be fair air entry bilaterally without any evidence of wh eezing, crackles or rhonchi Abdomen: Abdomen is soft without any distention or tenderness. PEG tube in place Extremities: No evidence of edema, L ankle with dressing in place - will be replaced today, s/po Wound VAC Assessment and plan: s/p Sepsis with Strep group G bacteremia - likely 2/2 Left leg cellulitis and infected hematoma at the ankle and lymphangitis - Patient again has remained hemodynamically stable and afebrile - Blood cultures 02/08: Streptococcus group G - Blood cultures 02/18 and 02/19: Negative - Wound cultures 02/14, 02/15: Streptococcus group G - ECHO: No vegetations, EF 75%, mild to mod pulmonary hypertension, grade 1 diastolic dysfunction. 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 - Patient has been on Neupogen before receiving chemotherapy for his cancer Thrombocytopenia - Counts remain stable - no evidence of bleeding s/p Malfunctioning of GT tube - Has Dysphagia with history of aspiration pneumonia in January 2020 with subsequent G-tube placement - Tolerating tube feeds Problem with speech with dry mouth and chronic left jaw pain - s/p RT on the left with ongoing osteonecrosis; right jaw surgery for osteomyelitis and placement of plastic plates - c/w lidocaine viscus and saliva substitute - Will have outpatient follow up with own oral surgeon as outpatient 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 Bhavna Quintana) Right mandibular fracture after a mechanical fall in 2019 then developed OM - History of Zosyn and Daptomycin jun 2020 to nov 2020 through a PICC line - s/p right mandibular excision and plate insertion on 12/18/20 SLE / Sjgren's / RA / Raynaud - Has ulcers on the toes of the feet - c/w Chronic prednisone and Plaquenil - Follows with a log deckman in [place] (). Heart failure with reduced ejection fraction - spring [address] [facility] reportedly showed EF of 40% - No evidence of decompensation Interstitial lung disease (identified on [facility] imaging) DARNELL - likely resolved at present with weight loss after the cancer - has not used CPAP in the last 5 years Degenerative disc disease status post cervical spinal fusion and lumbar injuries. - h/o thoracic vertebral compression fractures at different levels and bilateral rib fractures - c/w Pain control as ordered BPH Neuropathy secondary to chemotherapy - c/w [place], Cymbalta, Lyrica; at adjusted dose (re: Somnolence) GI prophylaxis - c/w Protonix DVT prophylaxis - c/w TEDs/Sequentials Disposition: - s/p Wound vac - ALC status VS,Fishbone, I+O VS, Fishbone, I+O Laboratory Tests 02/26/21 05:49 Vital Signs Date Time Temp Pulse Resp B/P (MAP) Pulse Ox O2 Delivery O2 Flow Rate FiO2 02/26/21 17:37 20 02/26/21 10:47 95 Room Air 02/26/21 06:00 97.1 77 130/59 (82) 02/23/21 22:00 2.0 I&O- Last 24 Hours up to 6 AM 02/26/21 06:00 Intake Total 1920 ml Output Total 1850 ml Balance 70 ml ANA MARIA SWIFT MD February 26, 2021 18:31
[2021-02-26] MEDS: SODIUM CHLORIDE 0.9% INJ 10 ML SYR IV PRN (23:10)
[2021-02-27] MEDS: LIDOCAINE VISCOUS 2% SOLN 15ML UDC SSP SCH ×4 (00:11→13:00)
[2021-02-27] MEDS: NAPROXEN 250 MG TAB PO PRN (02:42)
[2021-02-27 04:50] VITALS: O2SAT 93
[2021-02-27 06:00] VITALS: BP 107/50
[2021-02-27] MEDS: SODIUM CHLORIDE 0.9% INJ 10 ML SYR IV SCH (06:31)
[2021-02-27] MEDS: NORCO, ANEXSIA 5/325MG TABLET (HYDROcodone/ACETAMINOPHEN) PO PRN (06:32)
[2021-02-27] MEDS: SODIUM CHLORIDE 0.9% INJ 10 ML SYR IV PRN ×2 (06:33→10:19)
[2021-02-27 07:01] LABS: HEMATOCRIT 28.4 % (42.0-52.0); MEAN CORPUSCULAR HEMOGLOBIN 34.2 pg (27.0-33.0); MEAN CORPUSCULAR HGB CONC 31.7 g/dl (32.0-36.5); PLATELET COUNT, AUTOMATED 129 10^3/uL (150-450); RED BLOOD COUNT 2.63 10^6/uL (4.30-6.10); WHITE BLOOD COUNT 4.6 10^3/uL (4.0-10.0)
[2021-02-27 07:10] LABS: ATYPICAL LYMPH 3 % (0-5); LYMPHOCYTES 32 % (16-44); MONOCYTES 37 % (0-5); NEUTROPHILS 28 % (28-66); PLATELET ESTIMATE DECREASED (NORMAL)
[2021-02-27 07:11] LABS: ANISOCYTOSIS 1+; POLYCHROMASIA 1+
[2021-02-27 07:26] LABS: BLOOD UREA NITROGEN 20 MG/DL (7-18); C REACTIVE PROTEIN QUANTITATIV 6.95 MG/DL (0.00-0.30); CALCIUM LEVEL 8.4 MG/DL (8.8-10.2); CARBON DIOXIDE LEVEL 34 MEQ/L (21-32); CHLORIDE LEVEL 95 MEQ/L (98-107); CREATININE FOR GFR 0.39 MG/DL (0.70-1.30); GLOMERULAR FILTRATION RATE > 60.0 (>42); GLUCOSE, FASTING 122 MG/DL (70-100); MAGNESIUM LEVEL 2.2 MG/DL (1.8-2.4); POTASSIUM SERUM 4.3 MEQ/L (3.5-5.1); SODIUM LEVEL 133 MEQ/L (136-145)
[2021-02-27] MEDS ORDERED: AMOX875T GT (09:50)
[2021-02-27] MEDS: PANTOPRAZOLE 40MG VIAL (C9113 PER 1) IV SCH (10:17)
[2021-02-27] MEDS: DOCUSATE SOD LIQ 100MG/10ML UDC GT SCH (10:18)
[2021-02-27 10:19] VITALS: O2SAT 95
[2021-02-27] MEDS: HYDROXYCHLOROQUINE 200 MG TAB GT SCH (10:19)
[2021-02-27] MEDS: DULoxetine 20 MG CAP (CYMBALTA) PO SCH (10:19)
[2021-02-27] MEDS: PREGABALIN 100 MG CAP (LYRICA) GT SCH ×2 (10:19→16:00)
[2021-02-27] MEDS: predniSONE 10 MG TAB GT SCH (10:19)
[2021-02-27] MEDS: AMOXICILLIN 875 MG TAB GT SCH (10:19)
[2021-02-27] MEDS: SODIUM CHLORIDE NASAL 0.65% SPRAY BTL (OCEAN) SCH ×2 (10:20→16:00)
--- NOTE | 2021-02-27 12:32 | DS.PDOC ---
Discharge Summary General Date of Admission Feb 08, 2021 at 22:21 Date of Discharge 02/27/2021 Discharge Summary PROCEDURES PERFORMED DURING STAY: 02/20/[address] 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 Thrombocytopenia s/p Malfunctioning of GT tube Problem with speech with dry mouth and chronic left jaw pain 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 s/p radiation and chemotherapy, in remission since fall 2017 Right mandibular fracture after a mechanical fall in 2019 then developed OM SLE / Sjgren's / RA / Raynaud Heart failure with reduced ejection fraction Interstitial lung disease (identified on [facility] imaging) s/p DARNELL Degenerative disc disease status post cervical spinal fusion and lumbar injuries BPH Neuropathy secondary to chemotherapy GI prophylaxis DVT prophylaxis COMPLICATIONS/CHIEF COMPLAINT: Leg pain HISTORY OF PRESENT ILLNESS: Patient is a 70-year-old male with a complex medical hx notable for squamous cell oropharyngeal cancer in 2017 (s/p chemo & radiation w/ 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 He had an ED-to-ED transfer from [facility] after initial work up revealed an elevated D-dimer (2.72 mg/LFEU; NL 0.19-0.80). [facility] lacks an ultrasound machine to evaluate for DVT, therefore, he was subsequently transferred. Patient reported that beginning on 02/07, he awoke with pain over his pubic bone and in his left groin. It then progressed to his left thigh, feeling like electric shocks. He then noticed some swelling over the left inner thigh as well as some redness of his left fowler. As the pain progressed on left lower extremity to the ankle. It began to affect his gait more and more, to the point that his niece/system development engineer (Marga) drove him to the [facility] ED. The patient was subsequently admitted under the care of the hospitalist service primarily for meeting SIRS criteria (leukocytosis and tachycardia with lactic of 3.5) and elevated d-dimer. He was found to have left ankle cellulitis and left leg lymphangitis from groin to ankle with bacteremia. HOSPITAL COURSE: s/p Sepsis with Strep group G bacteremia - likely 2/2 Left leg cellulitis and infected hematoma at the ankle and lymphangitis - Has remained hemodynamically stable and afebrile - s/p Leukocytosis - Blood cultures 02/08: Streptococcus group G - Blood cultures 02/18 and 02/19: Negative - Wound cultures 02/14, 02/15: Streptococcus group G - ECHO: No vegetations, EF 75%, mild to mod pulmonary hypertension, grade 1 diastolic dysfunction. - c/w Amoxicillin on discharge; s/p Ceftriaxone - Have outpatient follow-up with infectious disease and orthopedic surgery within the next 7 days Left ankle infected hematoma / abscess / cellulitis / Left leg lymphangitis - No osteomyelitis at the left ankle - s/p aspiration of the abscess by IR followed by incision and drainage by orthopedics with placement of JACQUI drain; Ortho suspects it was infected hematoma - s/p Wound Vac on 02/25 - c/w PT and OT - recommend an home with services s/p Leukocytosis - possibly 2/2 sepsis from lymphangitis, cellulitis, abscess and due to the use of Neupogen - Remains afebrile - s/p Neupogen Pancytopenia - 2/2 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 - Patient has been on Neupogen before receiving chemotherapy for his cancer - Have outpatient follow-up with oncology within the next 7 days Thrombocytopenia - Counts remain stable - Again no evidence of bleeding s/p Malfunctioning of GT tube - Has Dysphagia with history of aspiration pneumonia in January 2020 with subsequent G-tube placement - Speech therapy is work with patient is currently recommending strict nothing by mouth status with tube feeds only - Tolerating tube feeds Problem with speech with dry mouth and chronic left jaw pain - s/p RT on the left with ongoing osteonecrosis; right jaw surgery for osteomyelitis and placement of plastic plates - c/w lidocaine viscus and saliva substitute - Will have outpatient follow up with own oral surgeon as outpatient 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 - Patient developed osteonecrosis of the jaw on the left as a result of the radiation and subsequently developed an oropharyngeal abscess - Follows with an oncologist in [place] (Dr. Bhavna Quintana) Right mandibular fracture after a mechanical fall in 2019 then developed OM - History of Zosyn and Daptomycin jun 2020 to nov 2020 through a PICC line - s/p right mandibular excision and plate insertion on 12/18/20 SLE / Sjgren's / RA / Raynaud - Has ulcers on the toes of the feet - c/w Chronic prednisone and Plaquenil - Follows with a manager steel in [place] (). Heart failure with reduced ejection fraction - spring 2019 echo at [facility] reportedly showed EF of 40% - No evidence of decompensation Interstitial lung disease (identified on [facility] imaging) s/p DARNELL - likely resolved at present with weight loss after the cancer - Has not used CPAP in the last 5 years Degenerative disc disease status post cervical spinal fusion and lumbar injuries. - h/o thoracic vertebral compression fractures at different levels and bilateral rib fractures - c/w Pain control as ordered BPH Neuropathy secondary to chemotherapy - c/w [place]mira, Cymbalta, Lyrica; at adjusted dose (re: Somnolence) GI prophylaxis - c/w Protonix DVT prophylaxis - c/w TEDs/Sequentials DISCHARGE MEDICATIONS: Please see below. ALLERGIES: Please see below. PHYSICAL EXAMINATION ON DISCHARGE: Vitals (See below) General: Patient is laying in bed, appears to be comfortable, not in any acute distress, is oriented to person, place HEENT: NC, AT CVS: +S1S2 Lungs: Air entry is fair bilaterally without any appreciated, rhonchi, crackles or wheezing on auscultation Abdomen: Abdomen remains soft without any distention or tenderness; PEG tube in place Extremities: No evidence of edema, L ankle . New dressing in place and wound VAC has been discontinued from Thursday LABORATORY DATA: Please see below. ACTIVITY: [As tolerated]. DISCHARGE PLAN: Follow-up with primary care provider, infectious disease, orthopedic surgery and oncology within the next 7 days Remain complaint with treatment plan and medications Return to the ER if you experience any problems DISPOSITION: Home with services DISCHARGE CONDITION: [Stable]. TIME SPENT ON DISCHARGE: 35 minutes. Vital Signs/I&Os Vital Signs Date Time Temp Pulse Resp B/P (MAP) Pulse Ox O2 Delivery O2 Flow Rate FiO2 02/27/21 07:24 16 Room Air 02/27/21 06:00 97.7 67 107/50 (69) 94 I&O- Last 24 Hours up to 6 AM 02/27/21 06:00 Intake Total 2140 ml Output Total 1940 ml Balance 200 ml Laboratory Data Labs 24H Laboratory Tests 2 02/26/21 23:47: Bedside Glucose (Misc Panel) 89 02/27/21 06:39: Neutrophils (%) (Auto) , Nucleated Red Blood Cells % (auto) 0.0, Neutrophils 28, Lymphocytes (Manual) 32, Monocytes (Manual) 37H, Atypical Lymphocytes 3, Polychromasia 1+, Anisocytosis 1+, Platelet Estimate DECREASED, Anion Gap 4L, Glomerular Filtration Rate > 60.0, Calcium Level 8.4L, Magnesium Level 2.2, C- Reactive Protein, Quantitative 6.95H 02/27/21 12:01: Bedside Glucose (Misc Panel) 106 CBC/BMP Laboratory Tests 02/27/21 06:39 FSBS Laboratory Tests Test 02/26/21 23:47 02/27/21 12:01 Range/Units Bedside Glucose (Misc Panel) 89 106 83-110 MG/DL Microbiology Microbiology 02/19/21 Blood Culture - Final, Complete NO GROWTH AFTER 5 DAYS 02/18/21 Blood Culture - Final, Complete NO GROWTH AFTER 5 DAYS Discharge Medications Scheduled Amoxicillin (Amoxicillin) 875 Mg Tablet, 875 MG GT BID Duloxetine HCl (Duloxetine HCl) 20 Mg Capsule.dr, 40 MG PO DAILY, (Reported) Ergocalciferol (Vitamin D2) (Vitamin D2) 50,000 Units Cap, 50,000 UNITS PO QWEEK, (Reported) thursday Hydroxychloroquine Sulfate (Hydroxychloroquine Sulfate) 200 Mg Tab, 200 MG PO BID, (Reported) Omeprazole (Omeprazole) 20 Mg Cap, 20 MG PO BID, (Reported) Pentoxifylline (Pentoxifylline) 400 Mg Tablet.er, 400 MG PO BID, (Reported) Prednisone (Prednisone) 5 Mg Tab, 10 MG PO DAILY, (Reported) Pregabalin (Pregabalin) 100 Mg Capsule, 100 MG PO TID, (Reported) Tbo-Filgrastim (Granix) 480 Mcg/0.8 Ml Syringe, 480 MCG INJ 2XW, (Reported) THURSDAY AND THURSDAY Scheduled PRN Hydrocodone/Acetaminophen (Hydrocodone-Acetamin 7.5-325) 1 Each Tablet, 1 TAB PO TID PRN for pain, (Reported) Naproxen (Naproxen) 500 Mg Tablet.dr, 500 MG PO Q12HP PRN for PAIN, (Reported) Allergies Coded Allergies: chlorpromazine (Verified Allergy, Intermediate, rash, 09/19/20) ANA MARIA SWIFT MD February 27, 2021 12:32
--- NOTE | 2021-02-28 12:47 | IPN ---
INFECTIOUS DISEASE PROGRESS NOTE DATE: 02/21/2021 SUBJECTIVE: The patient is doing well. He is able to walk to the bathroom and back. He has no hallucinations. He is anxious to go home. He refused to walk with Physical Therapy, told them to come in the afternoon. He refuses to have the condom catheter removed because it is convenient for him. He has a Prevena wound VAC on the wound but it is not draining much. He has had no fever or chills, no chest pain or shortness of breath. He is tolerating G-tube feeding and is back to drinking some of his liquids as well. OBJECTIVE: PHYSICAL EXAMINATION: GENERAL APPEARANCE: Healthy looking frail gentleman in no acute distress. HEART: Normal S1, S2, no murmurs, rubs or gallops. LUNGS: Clear. No rales, rhonchi or wheezes. ABDOMEN: G-tube in place, soft, nontender, thin. EXTREMITIES: No clubbing, cyanosis, or edema. Left ankle along the malleolus has erythema with tenderness and Prevena wound VAC that has no drainage. No clubbing or cyanosis. IMPRESSION: 1. Group G strep bacteremia with cellulitis of the left leg and as such, that is post I&D. A wound VAC has been placed but not much drainage has been retrieved. He continues on oral Amoxicillin day number three. Previously was on IV Rocephin for 10 days. 2. 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 Patient also taking p.o. or tolerating his feeds. 3. Recent fall with imbalance - The patient did well with getting out of bed on his own with a walker to the bathroom and back. PLAN: 1. Continue Amoxicillin for another 10 days. 2. Continue to monitor CBC, CRP every couple of days. 3. Will discuss the case with Dr. Wilhelm tomorrow. 4. I had discussed the case with his Hematology/Oncology regarding his use of Neupogen and will continue to monitor his CBC without resuming Neupogen for the time being. He has a history of autoimmune neutropenia from lupus.
== END 2021-02-27 17:00 | disposition home health service (06) | DRG 853 ==
LOC: EDBD 18:57 → M ED 18:57 → M ED INP 22:21 → ENRESERV 23:07 → M PCU 02-09 05:37 → M MSPAV 02-14 23:09
PROVIDERS: ADMIT Internal Medicine; ATTEND Internal Medicine
PROC: 02HV33Z Insertion of Infusion Device into Superior Vena Cava, Percutaneous Approach (ICD-10-PCS; 2021-02-12)
PROC: 0Y9L3ZZ Drainage of Left Ankle Region, Percutaneous Approach (ICD-10-PCS; 2021-02-14)
PROC: 0JBP0ZZ Excision of Left Lower Leg Subcutaneous Tissue and Fascia, Open Approach (ICD-10-PCS; principal; 2021-02-15 22:00)
DX: A41.9 Sepsis, unspecified organism (principal); G93.41 Metabolic encephalopathy; I50.32 Chronic diastolic (congestive) heart failure; Q87.19 Other congenital malformation syndromes predominantly associated with short stature; L03.116 Cellulitis of left lower limb; E46 Unspecified protein-calorie malnutrition; D61.818 Other pancytopenia; E87.2 Acidosis; I89.1 Lymphangitis; N40.0 Benign prostatic hyperplasia without lower urinary tract symptoms; G62.9 Polyneuropathy, unspecified; D69.6 Thrombocytopenia, unspecified; G47.33 Obstructive sleep apnea (adult) (pediatric); Z85.818 Personal history of malignant neoplasm of other sites of lip, oral cavity, and pharynx; Z92.3 Personal history of irradiation; Z92.21 Personal history of antineoplastic chemotherapy; Z93.1 Gastrostomy status; Z79.899 Other long term (current) drug therapy; Z88.8 Allergy status to other drugs, medicaments and biological substances; Z87.891 Personal history of nicotine dependence; E87.5 Hyperkalemia

== ENCOUNTER 2021-03-07 19:58 | Emergency (ER) | payer OTHER ==
[~2021-03-07] VITALS: Ht 154.9 cm; Wt 50.9 kg
[~2021-03-07 19:58] MED LIST changes: +AMOX875T GT; +DULO20CA27 PO
[2021-03-07] MEDS ORDERED: MORPHINE 2 MG/ML 1ML VIAL (J2270) IV ONE (21:25)
[2021-03-07 21:35] LABS: BASO % 0.4 % (0.0-1.0); EOS % 0.5 % (0.0-3.0); HEMATOCRIT 28.6 % (42.0-52.0); HEMOGLOBIN 8.7 g/dl (13.5-17.5); LYMPH # 0.8 10^3/uL (1.5-5.0); MEAN CORPUSCULAR HEMOGLOBIN 33.7 pg (27.0-33.0); MEAN CORPUSCULAR HGB CONC 30.4 g/dl (32.0-36.5); MEAN CORPUSCULAR VOLUME 110.9 fl (80.0-96.0); MONO # 1.6 10^3/uL (0.0-0.8); MONO % 28.8 % (2.0-8.0); NEUTROPHILS % 53.9 % (36.0-66.0); PLATELET COUNT, AUTOMATED 100 10^3/uL (150-450); RED BLOOD COUNT 2.58 10^6/uL (4.30-6.10)
[2021-03-07 21:52] LABS: BLOOD UREA NITROGEN 23 MG/DL (7-18); C REACTIVE PROTEIN QUANTITATIV 6.96 MG/DL (0.00-0.30); CALCIUM LEVEL 8.3 MG/DL (8.8-10.2); CARBON DIOXIDE LEVEL 37 MEQ/L (21-32); CHLORIDE LEVEL 98 MEQ/L (98-107); CREATININE FOR GFR 0.55 MG/DL (0.70-1.30); GLOMERULAR FILTRATION RATE > 60.0 (>42); GLUCOSE, FASTING 81 MG/DL (70-100); POTASSIUM SERUM 4.1 MEQ/L (3.5-5.1); SODIUM LEVEL 135 MEQ/L (136-145)
[2021-03-07 22:03] LABS: WHITE BLOOD COUNT 5.6 10^3/uL (4.0-10.0)
--- NOTE | 2021-03-07 22:17 | REPVR ---
PROCEDURE INFORMATION: Exam: XR Left Ankle Exam date and time: 03/07/2021 9:03 PM Age: 70 years old Clinical indication: Other: Left medial ankle wound; Assess for osteo TECHNIQUE: Imaging protocol: XR Left ankle. Views: 1 or 2 views. COMPARISON: MRI-Ankle WITHOUT CONTRAST LEFT 02/12/2021 9:34 PM FINDINGS: Bones/joints: Minimal inferior calcaneal spurring. No fractures. No destructive or erosive changes. Soft tissues: Normal. IMPRESSION: Negative left ankle. No destructive or erosive changes. Electronically signed by: José Luis Monahan On 03/07/2021 22:17:08 PM
[2021-03-07 23:30] VITALS: BP 134/61
[2021-03-07 23:58] LABS: ERYTHROCYTE SEDIMENTATION RATE 103 mm/hr (0-20)
== END 2021-03-07 23:33 | disposition home or self-care (01) ==
LOC: M ED 19:58
DX: S91.002A Unspecified open wound, left ankle, initial encounter (principal); I10 Essential (primary) hypertension; F32.9 Major depressive disorder, single episode, unspecified; Z79.51 Long term (current) use of inhaled steroids; Z79.891 Long term (current) use of opiate analgesic; Z79.899 Other long term (current) drug therapy; Z88.8 Allergy status to other drugs, medicaments and biological substances; Y92.9 Unspecified place or not applicable; Y93.9 Activity, unspecified; Y99.9 Unspecified external cause status
CPT/HCPCS: 73600; 80048; 83605; 85025; 85652; 86140; 87040; 96372; 99284; J2270

== ENCOUNTER 2021-05-09 09:21 | Emergency (ER) | payer MEDICARE, OTHER ==
[~2021-05-09] VITALS: Ht 154.9 cm; Wt 51.8 kg
[~2021-05-09 09:21] MED LIST changes: +ERGO500029 PO
[2021-05-09] MEDS ORDERED: GASTROGRAFIN SOLUTION 30ML (Q9963) As Ordered ONE (17:11)
[2021-05-09] MEDS ORDERED: GASTROGRAFIN SOLUTION 30ML (Q9963) GT STA (17:13)
--- NOTE | 2021-05-09 17:35 | REP ---
INDICATION: gastrostomy tube function/placement. COMPARISON: Comparison radiograph September 12, 2020.. TECHNIQUE: KUB. Contrast was injected through the patient's gastrostomy tube. FINDINGS: Gastrostomy tube is seen to be in good position with contrast filling the gastric lumen. No extravasation. There is moderate stool. Bowel gas pattern is otherwise unremarkable. A levoconvex curve and degenerative spondylosis changes are noted in the lumbar spine. Study is otherwise unremarkable. IMPRESSION: Gastrostomy tube is is seen in good position within the body of the stomach. No extravasation. <Electronically signed by Darrius Phan > 05/09/21 [id number]
[2021-05-09] MEDS ORDERED: BACI500O21 TOP (18:31)
[2021-05-09] MEDS ORDERED: BACITRACIN OINTMENT 30GM TUBE TOP STA (18:33)
[2021-05-09 19:56] VITALS: BP 137/77
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
== END 2021-05-09 19:58 | disposition home or self-care (01) ==
LOC: M ED 09:21
DX: K94.23 Gastrostomy malfunction (principal); G47.33 Obstructive sleep apnea (adult) (pediatric); T23.222A Burn of second degree of single left finger (nail) except thumb, initial encounter; T31.0 Burns involving less than 10% of body surface; Z79.899 Other long term (current) drug therapy; Z79.52 Long term (current) use of systemic steroids; Z79.891 Long term (current) use of opiate analgesic; Z88.1 Allergy status to other antibiotic agents; Y92.9 Unspecified place or not applicable; Y93.9 Activity, unspecified; Y99.9 Unspecified external cause status

== ENCOUNTER → 2021-05-13 | Outpatient (CLI) | payer OTHER ==
[~2021-05-13] MED LIST changes: +BACI500O21 TOP
== END ==
LOC: M LABSMTC 10:15
PROVIDERS: ATTEND Anesthesiology
DX: Z01.812 Encounter for preprocedural laboratory examination (principal)

== ENCOUNTER 2021-05-14 08:57 | Day surgery (SDC) | payer OTHER ==
[~2021-05-14] VITALS: Ht 160 cm; Wt 52.2 kg
[~2021-05-14 08:57] MED LIST changes: +LR 1,000 ML IV ONE; +ceFAZolin SOD 2 GM in IV 1 EA IV ONE
[2021-05-14] MEDS ORDERED: LIDOCAINE VISCOUS 2% SOLN 15ML UDC MT ONE (10:25)
[2021-05-14] MEDS ORDERED: propofoL 200 MG/20 ML VIAL As Ordered ONE (10:34)
[2021-05-14] MEDS ORDERED: KETAMINE HCL 200 MG/20 ML VIAL As Ordered ONE (10:35)
[2021-05-14] MEDS ORDERED: MIDAZOLAM INJ 2MG/2ML VIAL (J2250 PER 1MG) As Ordered ONE (10:35)
[2021-05-14] MEDS ORDERED: LIDOCAINE 2% 100MG/5ML SDV (FOR ANES.) As Ordered ONE (10:39)
[2021-05-14] MEDS ORDERED: fentaNYL 100 MCG/2 ML INJECTION (J3010) As Ordered ONE (10:39)
[2021-05-14] MEDS: CETACAINE SPRAY 5GM As Ordered ONE (11:40)
[2021-05-14] MEDS ORDERED: LIDOCAINE VISCOUS 2% SOLN 15ML UDC As Ordered ONE (11:41)
[2021-05-14] MEDS ORDERED: LABETALOL 100MG/20ML VIAL As Ordered ONE (11:51)
[2021-05-14] MEDS ORDERED: ONDANSETRON 4MG/2ML VIAL IV PRN (12:25)
[2021-05-14] MEDS ORDERED: LR 1,000 ML IV SCH (12:25)
[2021-05-14 14:50] VITALS: BP 110/60
--- NOTE | 2021-05-15 19:17 | RO ---
OPERATIVE NOTE DATE OF OPERATION: 05/14/2021 PREOPERATIVE DIAGNOSIS: Gastrostomy tube with significant leakage from the entry site. POSTOPERATIVE DIAGNOSIS: Indwelling gastrostomy tube with some gastric wall erosion but appropriate location of the balloon within the stomach without any other gastric pathology identified. PROCEDURE PERFORMED: Esophagogastroduodenoscopy with inspection of gastrostomy tube site. SURGEON: Jim Austin MD RECORD LIBRARIAN: ANESTHESIA: Monitored anesthesia care. INDICATIONS FOR THE PROCEDURE: The patient is a 70-year-old man who has had a gastrostomy tube in place for 3-5 years. He reports that it has been changed several times. He reports that the site has actually been changed though I do not identify significant scarring in his abdominal wall to confirm this. He has recently had a lot of leakage around the tube and has increased the size of the tube so that he now has a [address] He continues to have some leakage around the insertion site. Questions were raised about whether the tube was completely into the stomach and he is now for an upper endoscopy to evaluate his gastrostomy site. OPERATIVE PROCEDURE: The patient was brought to the operating room and placed in a slight left lateral decubitus position. He received sedation from anesthesia. A bite block was placed. The adult endoscope was inserted and advanced down the esophagus without difficulty. The esophagus appeared normal. The stomach was entered and there was a small amount of clear fluid within the fundus of the stomach which was aspirated. The GE junction appeared normal with a normal squamocolumnar junction. The scope was advanced further into the stomach and the balloon of his gastrostomy was identified on the anterior gastric wall at about the midbody of the stomach. The scope was advanced through the pylorus which appeared normal and down to the second portion of the duodenum. The scope was then slowly withdrawn with insufflation of air. The first and second portions of the duodenum appeared normal. The antrum also appeared normal. The G-tube site was more thoroughly inspected. His external retention disc was elevated by three or four drain sponges and these were withdrawn to release some of the tension on the tube. With a little gentle pressure on the tube, it was clear that there was an indentation with some superficial erosion of the gastric wall beneath his retention balloon within the stomach. When the tube was inserted gently, there was brisk leakage of air around the tube through the G-tube site. The skin of the abdominal wall appeared of good integrity though there was some dilation of the tube tract. The remaining portions of the body and fundus of the stomach were inspected and appeared normal. The stomach was then aspirated and the scope was withdrawn. Several drain sponges were replaced beneath the external retention disc of his tube, trying to place some gentle tension on the tube without creating too much traction. The patient tolerated the procedure well without apparent complication. He was allowed to awaken and was transported to the recovery room in stable condition.
== END 2021-05-14 14:50 | disposition home or self-care (01) ==
LOC: M SDC 08:57
PROVIDERS: ATTEND Surgery
DX: K94.23 Gastrostomy malfunction (principal); Z88.8 Allergy status to other drugs, medicaments and biological substances; I10 Essential (primary) hypertension; D64.9 Anemia, unspecified; Z87.891 Personal history of nicotine dependence; F41.9 Anxiety disorder, unspecified; F32.9 Major depressive disorder, single episode, unspecified; Z92.21 Personal history of antineoplastic chemotherapy; Z92.3 Personal history of irradiation; Z79.52 Long term (current) use of systemic steroids; Z79.899 Other long term (current) drug therapy
CPT/HCPCS: 43235; J0690; J2250; J3010

== ENCOUNTER 2021-06-05 08:20 | Observation (INO) | payer MEDICARE, OTHER ==
[~2021-06-05] VITALS: Ht 162.6 cm; Wt 53.6 kg
[~2021-06-05 08:20] MED LIST changes: -LR 1,000 ML IV ONE; -ceFAZolin SOD 2 GM in IV 1 EA IV ONE
--- NOTE | 2021-06-05 08:57 | REP ---
INDICATION: DYSPNEA/COUGH. COMPARISON: 02/18/2021 TECHNIQUE: AP view FINDINGS: There are changes of interstitial fibrosis throughout both lungs with honeycombing at the bases. Compared with the previous study there is no significant interval change. There is no evidence of superimposed pneumonia. The heart is not enlarged. There is no failure or effusion. IMPRESSION: Interstitial fibrosis showing no interval change compared with the previous study. No evidence of failure or pneumonia. <Electronically signed by Adonay Haynes > 06/05/21 [id number]
[2021-06-05 09:07] LABS: VENOUS BASE EXCESS 5.4 (-2.0-2.0); VENOUS HCO3 31.9 MEQ/L (23.0-27.0); VENOUS O2 SATURATION 54.6 % (60.0-80.0); VENOUS PARTIAL PRESSURE CO2 55.6 mmHg (38.0-50.0); VENOUS PARTIAL PRESSURE O2 33.1 mmHg (30.0-50.0); VENOUS PH 7.376 UNITS (7.330-7.430); VENOUS STANDARD HCO3 28.4 MEQ/L; VENOUS TOTAL CO2 33.6 MEQ/L (24.0-28.0)
[2021-06-05 09:15] LABS: BASO # 0.1 10^3/uL (0.0-0.2); BASO % 0.4 % (0.0-1.0); EOS % 0.1 % (0.0-3.0); HEMATOCRIT 35.1 % (42.0-52.0); HEMOGLOBIN 11.1 g/dl (13.5-17.5); LYMPH # 1.4 10^3/uL (1.5-5.0); LYMPH % 9.7 % (24.0-44.0); MEAN CORPUSCULAR HEMOGLOBIN 35.7 pg (27.0-33.0); MEAN CORPUSCULAR HGB CONC 31.6 g/dl (32.0-36.5); MEAN CORPUSCULAR VOLUME 112.9 fl (80.0-96.0); MONO # 3.3 10^3/uL (0.0-0.8); MONO % 23.2 % (2.0-8.0); NEUTROPHILS # 9.1 10^3/uL (1.5-8.5); NEUTROPHILS % 64.3 % (36.0-66.0); RED BLOOD COUNT 3.11 10^6/uL (4.30-6.10)
[2021-06-05] MEDS ORDERED: RACEPINEPHrine 2.25 % UD INHA INH ONE (09:20)
[2021-06-05 09:44] LABS: ALT/SGPT 22 U/L (12-78); BILIRUBIN,DIRECT 0.1 MG/DL (0.0-0.2); BILIRUBIN,TOTAL 0.3 MG/DL (0.2-1.0); BLOOD UREA NITROGEN 20 MG/DL (7-18); CALCIUM LEVEL 8.7 MG/DL (8.8-10.2); CARBON DIOXIDE LEVEL 34 MEQ/L (21-32); CHLORIDE LEVEL 98 MEQ/L (98-107); CREATININE FOR GFR 0.66 MG/DL (0.70-1.30); GLOMERULAR FILTRATION RATE > 60.0 (>42); GLUCOSE, FASTING 115 MG/DL (70-100); NT-PRO BNP 488 PG/ML (<125); POTASSIUM SERUM 4.3 MEQ/L (3.5-5.1); SODIUM LEVEL 136 MEQ/L (136-145); THYROID STIMULATING HORMONE 0.963 uIU/ML (0.358-3.740); TOTAL PROTEIN 7.3 GM/DL (6.4-8.2)
[2021-06-05 09:50] LABS: WHITE BLOOD COUNT 14.1 10^3/uL (4.0-10.0)
[2021-06-05 09:55] LABS: PLATELET COUNT, AUTOMATED 77 10^3/uL (150-450)
--- NOTE | 2021-06-05 09:56 | REP ---
INDICATION: db. COMPARISON: None. TECHNIQUE: Two views of the neck were obtained for soft tissue detail. FINDINGS: The epiglottis is considerably enlarged consistent with epiglottitis. The hypopharynx is not distended. There is soft tissue fullness of the prevertebral/retropharyngeal tissues and CT of the neck would be helpful for further evaluation. IMPRESSION: Enlarged epiglottis consistent with epiglottitis. Critical Findings: Enlarged epiglottis consistent with epiglottitis. The critical information above was relayed directly by me by telephone to Smiley Harrison on 06/05/2021 at 9:50 am with readback verification. <Electronically signed by Adonay Haynes > 06/05/21 [id number]
[2021-06-05] MEDS ORDERED: dexameTHASONE 20MG/5ML VIAL (J1100 PER 1MG) IV ONE (10:00)
[2021-06-05] MEDS ORDERED: cefTRIAXone SOD 2 GM in D5W MINI-BAG PLUS 50 ML IV ONE (10:00)
[2021-06-05] MEDS ORDERED: ISOVUE-370 76% 100ML VIAL As Ordered ONE (10:32)
--- NOTE | 2021-06-05 11:09 | REPVR ---
PROCEDURE INFORMATION: Exam: CT Neck With Contrast Exam date and time: 06/05/2021 10:36 AM Age: 70 years old Clinical indication: Dyspnea / difficulty breathing; Additional info: Upper airway TECHNIQUE: Imaging protocol: Computed tomography images of the neck with contrast. Radiation optimization: All CT scans at this facility use at least one of these dose optimization techniques: automated exposure control; mA and/or kV adjustment per patient size (includes targeted exams where dose is matched to clinical indication); or iterative reconstruction. Contrast material: ISOVUE 370; Contrast volume: 50 ml; Contrast route: INTRAVENOUS (IV); COMPARISON: PT PET/CT Skull/mid thigh 11/26/2020 2:20 PM FINDINGS: Brain: Visualized brain is within normal limits for age including diffuse involutional change. Mastoid air cells: The mastoids are well aerated. Paranasal sinuses: Polypoid thickening in the base of the left maxillary sinus. Nasopharynx: Unremarkable. Dental: Artifact from patient's dental hardware. Oropharynx: See "Submandibular/Parotid glands" finding. Hypopharynx: Unremarkable. Larynx: See "Submandibular/Parotid glands" finding. Retropharyngeal space: Unremarkable. Submandibular/Parotid glands: Diffuse fatty stranding identified about the face left greater than right with extension into the submandibular and submental levels as well as the low lateral left neck, possibly post treatment related. Diffuse soft tissue thickening of the mucosal spaces with asymmetric soft tissue thickening along the level of the parapharyngeal space and tonsils left greater than right should be followed with direct visualization. These changes extend to the level of the epiglottis in caudad to the level of the false cords. No definite enhancing mass. The overall appearance is more pronounced than on the PET scan. Surgical clips in the submandibular region on the right. Changes of likely neck dissection on the right. Thyroid: Homogeneous thyroid. Lymph nodes: Unremarkable. No lymphadenopathy. Trachea: Visualized trachea is unremarkable. Lungs: The included lungs are grossly clear. Bones/joints: Degenerative and postoperative changes in the spine. No acute fracture. Postoperative changes in the right side of the mandible. Vasculature: No venous thrombus. Soft tissues: See "Submandibular/Parotid glands" finding. IMPRESSION: 1. No discrete mass or confluent lymphadenopathy. 2. Likely post treatment changes in the soft tissues. 3. Mucosal thickening left greater than right as above which be followed with direct visualization. 4. Postoperative changes. Electronically signed by: Kyle Allan On 06/05/2021 11:09:05 AM
--- NOTE | 2021-06-05 11:22 | REP ---
INDICATION: upper airway COMPARISON: Multiple the latest 02/09/2021 TECHNIQUE: Standard helical technique after the intravenous administration of 100 cc Isovue 370 FINDINGS: There is mediastinal adenopathy with prominent hilar lymph nodes status quo. No pleural or pericardial effusions have developed since the last exam. There is no change in the imaged upper abdomen. There is no significant change in appearance of the imaged osseous structures. There are multiple vertebral body compression fractures status quo. The T7 vertebral body compression fractures of mixed density. Evaluation of the lung goss shows scattered patchy and asymmetric densities in a fashion essentially unchanged from the prior exam. This could obscure a significant nodule. IMPRESSION: Chronic changes as described above. <Electronically signed by Lui Gonsalez > 06/05/21 1351
[2021-06-05] MEDS ORDERED: PREGABALIN 100 MG CAP (LYRICA) PO ONE (11:35)
[2021-06-05] MEDS ORDERED: ANEXSIA, NORCO 7.5MG/325MG TABLET(HYDROCODONE/APAP) PO ONE (11:35)
[2021-06-05] MEDS ORDERED: LIDO2SOL17 MT (12:24)
[2021-06-05] MEDS ORDERED: NYST1POW9 TOP (12:24)
[2021-06-05] MEDS ORDERED: LORA-243 PO (12:24)
[2021-06-05] MEDS ORDERED: HOME MED LIST COMPLETE! XX SCH (12:25)
[2021-06-05] MEDS ORDERED: PATIENT COMMENT (12:25)
[2021-06-05] MEDS ORDERED: ANEXSIA, NORCO 7.5MG/325MG TABLET(HYDROCODONE/APAP) PO PRN (13:05)
[2021-06-05] MEDS ORDERED: AMPICILLIN SOD/SULBACTAM SOD 3 GM in D5W MINI-BAG PLUS 100 ML IV SCH (15:00)
[2021-06-05] MEDS: PREGABALIN 100 MG CAP (LYRICA) PO SCH ×2 (16:00→21:00)
--- NOTE | 2021-06-05 16:00 | HPEPDOC ---
General Date of Admission Jun 05, 2021 at 08:21 Date of Service: Jun 05, 2021 Chief Complaint The patient is a 70-year-old male admitted with a reason for visit of Epiglottitis. 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 Kinsey in April 2021 presented to the emergency room today because of shortness of breath from last night. He reports that he was fine when he went to bed and then about 1 and half hours later he woke up feeling extremely congested, blocked nose congestion in the throat and he was having trouble breathing and trouble swallowing his secretions. He also noted a change in his voice. so he called his caregiver Asiya who came over and gave him some of his sprays which did help a little bit and then he went back to sleep however this morning he still continued to feel congested and was still having some difficulty breathing so came to the emergency room. In the ED a soft tissue x-ray of the neck showed enlarged epiglottis. He was admitted for epiglottitis. Patient also reports that he had a fall at home last week where he hit his chin on the kitchen counter and his jaw got deviated and he is concerned that he may have displaced his hardware on the right side of the jaw. He then had a CT neck done : Paranasal sinuses: Polypoid thickening in the base of the left maxillary sinus Diffuse fatty stranding identified about the face left greater than right with extension into the submandibular and submental levels as well as the low lateral left neck, possibly post treatment related. Diffuse soft tissue thickening of the mucosal spaces with asymmetric soft tissue thickening along the level of the parapharyngeal space and tonsils left greater than right should be followed with direct visualization. These changes extend to the level of the epiglottis in caudad to the level of the false cords. Patient had a direct nasal pharyngeal laryngoscopy done at bedside by Dr. Serna who noted global edema around the hypopharynx and back of oropharynx with some thick secretions attached to the epiglottis without any obvious obstruction he recommended admission to ICU for airway observation, he recommended continuing the patient on Decadron and antibiotics and humidified air. Home Medications Scheduled Duloxetine HCl (Duloxetine HCl) 20 Mg Capsule.dr, 40 MG PO DAILY, (Reported) Ergocalciferol (Vitamin D2) (Vitamin D2) 50,000 Units Cap, 50,000 UNITS PO QWEEK, (Reported) HS ON WEDNESDAYS Hydroxychloroquine Sulfate (Hydroxychloroquine Sulfate) 200 Mg Tab, 200 MG PO BID, (Reported) Loratadine (Loratadine) 10 Mg Tablet, 10 MG PO DAILY, (Reported) Naproxen (Naproxen) 500 Mg Tablet.dr, 500 MG PO Q12H, (Reported) Nystatin (Nystatin Powder) 15 Gm Powder, 1 DOSE TOP TID, (Reported) APPLY TO G-TUBE SITE. CLINICAL REVIEWER MIXES WITH MYLANTA AND ZINC CREAM Omeprazole (Omeprazole) 20 Mg Cap, 20 MG PO BID, (Reported) NOON & MIDNIGHT Prednisone (Prednisone) 5 Mg Tab, 10 MG PO DAILY, (Reported) Pregabalin (Pregabalin) 100 Mg Capsule, 100 MG PO TID, (Reported) Scheduled PRN Hydrocodone/Acetaminophen (Hydrocodone-Acetamin 7.5-325) 1 Each Tablet, 1 TAB PO TID PRN for SEVERE PAIN (PS 8-10), (Reported) Lidocaine HCl (Lidocaine HCl Viscous) 15 Ml Solution, 15 ML MT TID PRN for MOUTH PAIN, (Reported) Miscellaneous Medications [Patient Comment] , (Reported) PATIENT IS SUPPOSED TO TAKE MEDICATIONS VIA G-TUBE, BUT HAS BEEN REFUSING AND TAKING MEDS PO Allergies Coded Allergies: chlorpromazine (Verified Allergy, Mild, rash, 05/13/21) Past Medical History Medical History G tube malfunction in 04/2021 Upper airway swelling in March managed at [facility] Left base of tongue squamous cell cancer in 2017 s/p radiation and chemotherapy, in remission since fall 2017 Right mandibular fracture after a mechanical fall in 2019 with nonunion then developed OM Metal plate fixation of right mandible in 2019. Problem with speech with dry mouth and chronic left jaw pain Chronic radiation related changes in the oropharynx, hypopharynx and upper airways. s/p Sepsis with Strep group G bacteremia from Left leg cellulitis and infected hematoma at the ankle in February 2021 Left ankle infected hematoma / abscess / cellulitis / Left leg lymphangitis February 2021 Autoimmune neutropenia from his Lupus SLE / Sjgren's / RA / Raynaud with pancytopenia Heart failure with reduced ejection fraction Interstitial lung disease (identified on [facility] imaging) s/p DARNELL Degenerative disc disease status post cervical spinal fusion and lumbar injuries BPH Neuropathy secondary to chemotherapy H/o Diabetes resolved Protein calorie malnutrition Surgical History SURGERY TO NECK 2010 C3-C4 anterior spinal fusion TOTAL KNEE REPLACEMENT RIGHT 2008 COLONOSCOPY EGDs PEG tube placement and reevaluation in 04/2021 SCC LEFT BASE OF TONGUE, NECK LYMP NODES dissection 2017 Right jaw surgery in 2019 with metal plate. CYSTOSCOPY 12/2020 LEFT ANKLE INPATIENT DEBRIDEMENT 01/2021 Family History Father: at 75 years; arthritis, aneurysm Mother: at 93 years; natural causes. Sisters: [place], asthma, unspecified cancer, RA Social History * Smoker: former Smoker Patient lives in [place], [place], and his niece Marga assists in his care nearly every day. He is a . He is a former smoker, having quit around 1996. Prior to that, he smoked roughly 1 pack per day of cigarettes for 31 years (31 year pack history). He currently drinks the equivalent of 2 shots of vodka every other day. He currently smokes marijuana in the form of a puff and a half every night. He denies any other illicit or IV drug use. A-FIB/CHADSVASC A-FIB History Current/History of A-Fib/PAF?: No Review of Systems Constitutional: Denies: Chills, Fever, Night Sweats Eyes: Denies: Pain, Vision change ENT: Reports: Dysphagia, Sinus Congestion, Sore Throat, Other Symptoms (Oral pain dryness and discomfort); Denies: Head Aches, Ear Pain Skin: Denies: Rash, Lesions, Breakdown Pulmonary: Reports: Dyspnea; Denies: Cough Cardiovascular: Denies: Chest Pain, Palpitations, Orthopnea, Paroxysmal Noc. Dyspnea, Lt Headedness Gastrointestinal: Denies: Nausea, Vomiting, Abdominal Pain, Diarrhea Genitourinary: Denies: Dysuria, Frequency, Incontinence, Retention Hematologic: Denies: Bruising, Bleeding Excessively Musculoskeletal: Reports: Back Pain, Other Symptoms (Jaw pain) Psych: Reports: Mood Normal; Denies: Depression, Memory Issues Physical Examination General Exam: Positive: Alert, Cooperative, No Acute Distress Eye Exam: Positive: PERRLA, Conjunctiva & lids normal; Negative: Sclera icteric ENT Exam: Positive: Other ENT (Unable to open mouth more than 2 cm. Alert laceration on the chin. Fa fatty tissue swelling around the neck, upper airway sounds in the trachea) Neck Exam: Positive: Supple; Negative: JVD, thyromegaly Chest Exam: Positive: Rales, Rhonchi, Other (Conducted sounds from upper airways) Heart Exam: Positive: Rate Normal, Regular Rhythm, Normal S1, Normal S2; Negative: Murmurs, Rubs Abdomen Exam: Positive: Normal bowel sounds, Soft, Other (G-tube in place); Negative: Tenderness Extremity Exam: Negative: Clubbing, Cyanosis, Edema Neuro Exam: Positive: Normal Speech, Strength at 5/5 X4 ext, Normal Tone Psych Exam: Positive: Memory Intact, Oriented x 3 Vital Signs Vital Signs Date Time Temp Pulse Resp B/P (MAP) Pulse Ox O2 Delivery O2 Flow Rate FiO2 06/05/21 12:45 90 110/51 (70) 96 Room Air 06/05/21 11:43 20 06/05/21 08:30 99.2 Laboratory Data Labs 24H Laboratory Tests 2 06/05/21 08:46: Immature Granulocyte % (Auto) 2.3, Neutrophils (%) (Auto) 64.3, Lymphocytes (%) (Auto) 9.7L, Monocytes (%) (Auto) 23.2H, Eosinophils (%) (Auto) 0.1, Basophils (%) (Auto) 0.4, Neutrophils # (Auto) 9.1H, Lymphocytes # (Auto) 1.4L, Monocytes # (Auto) 3.3H, Eosinophils # (Auto) 0.0, Basophils # (Auto) 0.1, Nucleated Red Blood Cells % (auto) 0.0, Immature Platelet Fraction 25.8H, Blood Gas Bicarbonate Standard 28.4, Venous Blood pH 7.376, Venous Blood Partial Pressure CO2 55.6H, Venous Blood Partial Pressure O2 33.1, Venous Blood Total Carbon Dioxide 33.6H, Venous Blood HCO3 31.9H, Venous Blood Oxygen Saturation 54.6L, Venous Blood Base Excess 5.4H, Anion Gap 4L, Glomerular Filtration Rate > 60.0, Calcium Level 8.7L, Total Bilirubin 0.3, Direct Bilirubin 0.1, Aspartate Amino Transf (AST/SGOT) 20, Alanine Aminotransferase (ALT/SGPT) 22, Alkaline Phosphatase 159H, GS-Zoh-S-Type Natriuretic Peptide 488H, Total Protein 7.3, Albumin 3.0L, Albumin/Globulin Ratio 0.7, Thyroid Stimulating Hormone (TSH) 0.963 06/05/21 08:57: POC Troponin I (Misc) 0.00 CBC/BMP Laboratory Tests 06/05/21 08:46 Microbiology Microbiology 06/05/21 Blood Culture, Received Pending 06/05/21 Respiratory Virus Panel (PCR) (JULIAN) - Final, Complete 06/05/21 Blood Culture, Received Pending Assessment/Plan 69-year-old male with history of 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 status post chemoradiation, in remission since 2018, osteonecrosis of the left jaw, status post traumatic right mandibular fracture in 02/2020 complicated by nonunion and chronic osteomyelitis status post debridement and ORIF, underwen t left mandibular molar extraction by dental complicated by formation of cutaneous fistula, status post excision of cutaneous fistula on 12/18/2020, SLE with pancytopenia, 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 Kinsey in April 2021 presented to the emergency room today because of shortness of breath from last night. He reports that he was fine when he went to bed and then about 1 and half hours later he woke up feeling extremely congested, blocked nose congestion in the throat and he was having trouble breathing and trouble swallowing his secretions. He also noted a change in his voice. so he called his caregiver Asiya who came over and gave him some of his sprays which did help a little bit and then he went back to sleep however this morning he still continued to feel congested and was still having some difficulty breathing so came to the emergency room. In the ED a soft tissue x-ray of the neck showed enlarged epiglottis. He was admitted for epiglottitis. Epiglottitis Direct nasopharyngeal laryngoscopy by Dr. Roque showed diffuse swelling of the hypopharynx and oropharynx with some secretions attached to the tip of the epiglottis As per Dr. Serna this mostly looks like chronic postradiation changes with mildly increased inflammation We will treat with Decadron and Unasyn and humidified air Admit to ICU for observation of respiratory status Dysphagia Continue PEG tube feeding N.p.o. Chronic pain We will continue with home pain medications SLE with pancytopenia and autoimmune neutropenia We will continue with hydroxychloroquine We will hold prednisone as patient is going to be on Decadron Recent fall and injury to the chin We will check x-ray of the right hand able to make sure there is no displacement of hardware Squamous cell cancer of the left base of the tongue 2017 Status post chemoradiation and possible right neck dissection In remission from 2018 Plan / VTE VTE Prophylaxis Ordered?: Yes RAMONA ZAMARRIPA MD Jun 05, 2021 14:15
[2021-06-05] MEDS ORDERED: LIDOCAINE VISCOUS 2% SOLN 15ML UDC SSP PRN (16:05)
[2021-06-05 16:30] VITALS: BP 128/74
[2021-06-05] MEDS: dexameTHASONE 4 MG/ML 1ML VIAL (J1100 PER 1MG) IV SCH ×2 (17:05→22:03)
[2021-06-05] MEDS: AMPICILLIN SOD/SULBACTAM SOD 3 GM in D5W MINI-BAG PLUS 100 ML IV SCH ×2 (17:05→22:03)
[2021-06-05 20:00] VITALS: BP 135/60
[2021-06-05] MEDS: OXYMETAZOLINE 0.05% NASAL SPRAY (AFRIN) SCH (20:34)
[2021-06-05] MEDS: HYDROXYCHLOROQUINE 200 MG TAB PO SCH (21:00)
[2021-06-05] MEDS: OMEPRAZOLE 20 MG CAP PO SCH (21:00)
[2021-06-05] MEDS: NAPROXEN 250 MG TAB PO SCH (21:00)
[2021-06-06] VITALS: BP 130/65
[2021-06-06 04:00] VITALS: BP 125/57
[2021-06-06] MEDS: dexameTHASONE 4 MG/ML 1ML VIAL (J1100 PER 1MG) IV SCH ×2 (04:12→09:14)
[2021-06-06] MEDS: AMPICILLIN SOD/SULBACTAM SOD 3 GM in D5W MINI-BAG PLUS 100 ML IV SCH (04:13)
[2021-06-06 05:15] LABS: BASO % 0.1 % (0.0-1.0); HEMATOCRIT 35.3 % (42.0-52.0); HEMOGLOBIN 11.1 g/dl (13.5-17.5); LYMPH # 0.4 10^3/uL (1.5-5.0); LYMPH % 4.3 % (24.0-44.0); MEAN CORPUSCULAR HEMOGLOBIN 35.2 pg (27.0-33.0); MEAN CORPUSCULAR HGB CONC 31.4 g/dl (32.0-36.5); MEAN CORPUSCULAR VOLUME 112.1 fl (80.0-96.0); MONO # 1.9 10^3/uL (0.0-0.8); MONO % 19.9 % (2.0-8.0); NEUTROPHILS # 7.1 10^3/uL (1.5-8.5); NEUTROPHILS % 73.4 % (36.0-66.0); RED BLOOD COUNT 3.15 10^6/uL (4.30-6.10)
[2021-06-06 05:16] LABS: PLATELET COUNT, AUTOMATED 81 10^3/uL (150-450); WHITE BLOOD COUNT 9.6 10^3/uL (4.0-10.0)
[2021-06-06 05:34] LABS: BLOOD UREA NITROGEN 21 MG/DL (7-18); CALCIUM LEVEL 8.5 MG/DL (8.8-10.2); CARBON DIOXIDE LEVEL 33 MEQ/L (21-32); CHLORIDE LEVEL 101 MEQ/L (98-107); CREATININE FOR GFR 0.56 MG/DL (0.70-1.30); GLOMERULAR FILTRATION RATE > 60.0 (>42); GLUCOSE, FASTING 195 MG/DL (70-100); POTASSIUM SERUM 4.2 MEQ/L (3.5-5.1); SODIUM LEVEL 137 MEQ/L (136-145)
--- NOTE | 2021-06-06 06:27 | ECGEPIP ---
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
[2021-06-06 08:09] VITALS: BP 129/60
[2021-06-06] MEDS ORDERED: LORATADINE 10 MG TAB PO SCH (09:00)
[2021-06-06] MEDS ORDERED: DULoxetine 20 MG CAP (CYMBALTA) PO SCH (09:00)
[2021-06-06] MEDS: NAPROXEN 250 MG TAB PO SCH (09:15)
[2021-06-06] MEDS: PREGABALIN 100 MG CAP (LYRICA) PO SCH (09:15)
[2021-06-06] MEDS: HYDROXYCHLOROQUINE 200 MG TAB PO SCH (09:15)
[2021-06-06] MEDS: OMEPRAZOLE 20 MG CAP PO SCH (09:15)
[2021-06-06] MEDS: OXYMETAZOLINE 0.05% NASAL SPRAY (AFRIN) SCH (09:16)
[2021-06-06] MEDS ORDERED: PRED10TA2 PEG (11:03)
[2021-06-06] MEDS ORDERED: AUGMSUS PEG (11:03)
--- NOTE | 2021-06-06 11:22 | DS.PDOC ---
Discharge Summary General Date of Admission Jun 05, 2021 at 08:21 Date of Discharge 06/06/21 Discharge Summary PROCEDURES PERFORMED DURING STAY: Nasopharyngeal laryngoscopy DISCHARGE DIAGNOSES: Recurrent episodes of Upper airway obstruction likely from aspiration episodes on the back ground of chronic edema from prior RT. Chronic edema of the hypopharynx and supraglottic part of larynx from radiation therapy. SECONDARY DIAGNOSIS: G tube malfunction in 04/2021, with leakage, very large aperture on the stomach wall. 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 Left Jaw Osteonecrosis Chronic lymphedema of the left neck Problem with speech with dry mouth and chronic left jaw pain Chronic radiation related changes in the oropharynx, hypopharynx and upper airways. 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 HOSPITAL COURSE: 69-year-old male with history of left base of tongue squamous cell cancer in 2016 status post chemoradiation, in remission since 2017, osteonecrosis of the left jaw, status post traumatic right mandibular fracture in 02/2020 complicated by nonunion and chronic osteomyelitis status post debridement and ORIF, underwent left mandibular molar extraction by dental complicated by formation of cutaneous fistula, status post excision of cutaneous fistula on 12/18/2020, SLE with pancytopenia, autoimmune neutropenia on Neupogen, recent left ankle infected hematoma abscess and cellulitis with Streptococcus group B bacteremia and sepsis in February 2021, recent upper airway obstruction in March 2021 for which he was managed at [facility], G-tube malfunction which was evaluated by Dr. Kinsey in April 2021 presented to the emergency room today because of shortness of breath from last night. He reports that he was fine when he went to bed and then about 1 and half hours later he woke up feeling extremely congested, blocked nose congestion in the throat and he was having trouble breathing and trouble swallowing his secretions. He also noted a change in his voice. so he called his caregiver Asiya who came over and gave him some of his sprays which did help a little bit and then he went back to sleep however this morning he still continued to feel congested and was still having some difficulty breathing so came to the emergency room. In the ED a soft tissue x- ray of the neck showed enlarged epiglottis. He was admitted for epiglottitis. He then had a CT neck done : Paranasal sinuses: Polypoid thickening in the base of the left maxillary sinus Diffuse fatty stranding identified about the face left greater than right with extension into the submandibular and submental levels as well as the low lateral left neck, possibly post treatment related. Diffuse soft tissue thickening of the mucosal spaces with asymmetric soft tissue thickening along the level of the parapharyngeal space and tonsils left greater than right should be followed with direct visualization. These changes extend to the level of the epiglottis in caudad to the level of the false cords. Patient had a direct nasal pharyngeal laryngoscopy done at bedside by Dr. Serna who noted global edema around the hypopharynx and in the supraglottic portion of the larynx with some thick secretions attached to the epiglottis without any obvious obstruction he recommended admission to ICU for airway observation, he recommended continuing the patient on Decadron and antibiotics and humidified air. He was observed in ICU overnight without any respiratory issues. At present his voice is back , he denies any SOB. This is likely due to aspiration episodes. He is supposed to be strictly NPO but patient continues to take some meds by mouth and also some foods. His symptoms have now resolved. He is again advised about maintaining strict NPO status. He is going to be discharged home with oral antibiotics and prednisone taper. DISCHARGE MEDICATIONS: Please see below. ALLERGIES: Please see below. PHYSICAL EXAMINATION ON DISCHARGE: VITAL SIGNS: Please see below. General Exam: Positive: Alert, Cooperative, No Acute Distress Eye Exam: Positive: PERRLA, Conjunctiva & lids normal; Negative: Sclera icteric ENT Exam: Positive: Other ENT (Unable to open mouth more than 2 cm. Alert laceration on the chin. Fa fatty tissue swelling around the neck, upper airway sounds in the trachea) Neck Exam: Positive: Supple; Negative: JVD, thyromegaly Chest Exam: Positive: Rales, Rhonchi, Other (Conducted sounds from upper airways) Heart Exam: Positive: Rate Normal, Regular Rhythm, Normal S1, Normal S2; Negative: Murmurs, Rubs Abdomen Exam: Positive: Normal bowel sounds, Soft, Other (G-tube in place); Negative: Tenderness Extremity Exam: Negative: Clubbing, Cyanosis, Edema Neuro Exam: Positive: Normal Speech, Strength at 5/5 X4 ext, Normal Tone Psych Exam: Positive: Memory Intact, Oriented x 3 LABORATORY DATA: Please see below. ACTIVITY: [As tolerated]. DIET: Absolute n.p.o., continue tube feeding with homemade food DISCHARGE PLAN: Home DISCHARGE INSTRUCTIONS: Follow-up with own ENT in 1 week Follow-up with primary care provider in 1 week Follow-up with Dr. Austin as per outpatient schedule for replacement of G-tube DISCHARGE CONDITION: [Stable]. TIME SPENT ON DISCHARGE: 35 minutes. Vital Signs/I&Os Vital Signs Date Time Temp Pulse Resp B/P (MAP) Pulse Ox O2 Delivery O2 Flow Rate FiO2 06/06/21 09:16 19 06/06/21 04:04 92 Room Air 06/06/21 04:00 28 06/06/21 04:00 98.0 73 125/57 (79) 06/05/21 14:45 5.0 I&O- Last 24 Hours up to 6 AM 06/06/21 06:00 Intake Total 690 ml Output Total 725 ml Balance -35 ml Laboratory Data Labs 24H Laboratory Tests 2 06/06/21 05:00: Immature Granulocyte % (Auto) 2.3, Neutrophils (%) (Auto) 73.4H, Lymphocytes (%) (Auto) 4.3L, Monocytes (%) (Auto) 19.9H, Eosinophils (%) (Auto) 0.0, Basophils (%) (Auto) 0.1, Neutrophils # (Auto) 7.1, Lymphocytes # (Auto) 0.4L, Monocytes # (Auto) 1.9H, Eosinophils # (Auto) 0.0, Basophils # (Auto) 0.0, Nucleated Red B lood Cells % (auto) 0.0, Anion Gap 3L, Glomerular Filtration Rate > 60.0, Calcium Level 8.5L CBC/BMP Laboratory Tests 06/06/21 05:00 Microbiology Microbiology 06/05/21 Blood Culture, Received Pending 06/05/21 Blood Culture, Received Pending 06/05/21 Blood Culture - Preliminary, Resulted No growth after 24 hours . All specim... 06/05/21 Respiratory Virus Panel (PCR) (JULIAN) - Final, Complete 06/05/21 Blood Culture - Preliminary, Resulted No growth after 24 hours . All specim... Discharge Medications Scheduled Amoxicillin/Potassium Clav (Augmentin Es-600 Suspension) 600 Mg/5 Ml Susp.recon, 5 ML PEG BID Duloxetine HCl (Duloxetine HCl) 20 Mg Capsule.dr, 40 MG PO DAILY, (Reported) Ergocalciferol (Vitamin D2) (Vitamin D2) 50,000 Units Cap, 50,000 UNITS PO QWEEK, (Reported) HS ON WEDNESDAYS Hydroxychloroquine Sulfate (Hydroxychloroquine Sulfate) 200 Mg Tab, 200 MG PO BID, (Reported) Loratadine (Loratadine) 10 Mg Tablet, 10 MG PO DAILY, (Reported) Naproxen (Naproxen) 500 Mg Tablet.dr, 500 MG PO Q12H, (Reported) Nystatin (Nystatin Powder) 15 Gm Powder, 1 DOSE TOP TID, (Reported) APPLY TO G-TUBE SITE. AUTOMOBILE [employer]ER MIXES WITH MYLANTA AND ZINC CREAM Omeprazole (Omeprazole) 20 Mg Cap, 20 MG PO BID, (Reported) NOON & MIDNIGHT Prednisone (Prednisone) 5 Mg Tab, 10 MG PO DAILY, (Reported) Prednisone (Prednisone) 10 Mg Tablet, 10 MG PEG TAPER Take 4 tabs daily x 3 days, then 3 tabs daily x 3 days, then 2 tabs daily x 3 days, then 1 tab daily x 3 days and stop Pregabalin (Pregabalin) 100 Mg Capsule, 100 MG PO TID, (Reported) Scheduled PRN Hydrocodone/Acetaminophen (Hydrocodone-Acetamin 7.5-325) 1 Each Tablet, 1 TAB PO TID PRN for SEVERE PAIN (PS 8-10), (Reported) Lidocaine HCl (Lidocaine HCl Viscous) 15 Ml Solution, 15 ML MT TID PRN for MOUTH PAIN, (Reported) Miscellaneous Medications [Patient Comment] , (Reported) PATIENT IS SUPPOSED TO TAKE MEDICATIONS VIA G-TUBE, BUT HAS BEEN REFUSING AND TAKING MEDS PO Allergies Coded Allergies: chlorpromazine (Verified Allergy, Mild, rash, 05/13/21) RAMONA ZAMARRIPA MD Jun 06, 2021 11:22
== END 2021-06-06 13:45 | disposition home or self-care (01) ==
LOC: M ED 08:20 → M ED INP 08:21 → ENRESERV 13:50 → M ICU 15:17
PROVIDERS: ADMIT Internal Medicine Nephrology; ATTEND Internal Medicine Nephrology
DX: J05.11 Acute epiglottitis with obstruction (principal); R13.10 Dysphagia, unspecified; M87.180 Osteonecrosis due to drugs, jaw; I89.0 Lymphedema, not elsewhere classified; Z85.810 Personal history of malignant neoplasm of tongue; Z92.3 Personal history of irradiation; Z92.21 Personal history of antineoplastic chemotherapy; I50.9 Heart failure, unspecified; E46 Unspecified protein-calorie malnutrition; Z79.899 Other long term (current) drug therapy; Z79.52 Long term (current) use of systemic steroids; Z88.8 Allergy status to other drugs, medicaments and biological substances; G89.29 Other chronic pain; M32.9 Systemic lupus erythematosus, unspecified; Z91.81 History of falling; F12.10 Cannabis abuse, uncomplicated; Z87.891 Personal history of nicotine dependence
CPT/HCPCS: 31575; 36415; 70360; 70491; 71045; 71260; 80048; 80076; 82803; 83880; 84443; 84484; 85025; 85049; 85055; 87040; 87798; 93005; 93041; 94640; 96365; 96366; 96375; 96376; 99285; G0378; J0696; J1100; Q9967

== ENCOUNTER 2021-06-16 10:10 | Inpatient (IN) | payer OTHER ==
[~2021-06-16] VITALS: Ht 160 cm; Wt 50.1 kg
[~2021-06-16 10:10] MED LIST changes: +AUGMSUS PEG; +LIDO2SOL17 MT; +LORA-243 PO; +NYST1POW9 TOP; +PATIENT COMMENT; +PRED10TA2 PEG
[2021-06-16 12:22] LABS: HEMATOCRIT 34.5 % (42.0-52.0); HEMOGLOBIN 10.9 g/dl (13.5-17.5); MEAN CORPUSCULAR HGB CONC 31.6 g/dl (32.0-36.5); MEAN CORPUSCULAR VOLUME 110.9 fl (80.0-96.0); RED BLOOD COUNT 3.11 10^6/uL (4.30-6.10); WHITE BLOOD COUNT 5.1 10^3/uL (4.0-10.0)
[2021-06-16] MEDS ORDERED: MORPHINE 2 MG/ML 1ML VIAL (J2270) IV PRN (12:25)
[2021-06-16] MEDS ORDERED: NS 500 ML IV ONE (12:30)
[2021-06-16 13:15] LABS: PLATELET COUNT, AUTOMATED 66 10^3/uL (150-450)
[2021-06-16 13:23] LABS: ALBUMIN 2.7 GM/DL (3.2-5.2); ALT/SGPT 34 U/L (12-78); BILIRUBIN,DIRECT < 0.1 MG/DL (0.0-0.2); BILIRUBIN,TOTAL 0.5 MG/DL (0.2-1.0); BLOOD UREA NITROGEN 31 MG/DL (7-18); CALCIUM LEVEL 8.9 MG/DL (8.8-10.2); CARBON DIOXIDE LEVEL 36 MEQ/L (21-32); CHLORIDE LEVEL 105 MEQ/L (98-107); CREATININE FOR GFR 0.74 MG/DL (0.70-1.30); GLOMERULAR FILTRATION RATE > 60.0 (>42); GLUCOSE, FASTING 116 MG/DL (70-100); POTASSIUM SERUM 4.7 MEQ/L (3.5-5.1); SODIUM LEVEL 142 MEQ/L (136-145); TOTAL PROTEIN 7.7 GM/DL (6.4-8.2)
[2021-06-16 13:57] LABS: RSV AMPLIFICATION NEGATIVE (NEGATIVE)
[2021-06-16] MEDS: LR 1,000 ML IV SCH ×2 (16:11→22:49)
[2021-06-16] MEDS ORDERED: AMOX1SUS19 PEG (16:14)
[2021-06-16] MEDS ORDERED: PRED10TA2 PO (16:14)
[2021-06-16] MEDS ORDERED: HOME MED LIST COMPLETE! XX SCH (16:15)
[2021-06-16] MEDS ORDERED: SILV50CR TOP (16:15)
[2021-06-16] MEDS: MORPHINE 2 MG/ML 1ML VIAL (J2270) IV PRN ×2 (16:55→22:13)
[2021-06-16 18:00] VITALS: BP 129/81
--- NOTE | 2021-06-16 19:53 | HPEPDOC ---
[facility] Medical History & Physical Date of Admission Jun 16, 2021 Date of Service: Jun 16, 2021 History and Physical CHIEF COMPLAINT: Dehydration secondary to PEG tube dysfunction HISTORY OF PRESENT ILLNESS: 70-year-old male who presents to the hospital because his PEG tube is fallen out multiple times, he has tried to replace it many times, and approximately 1 week ago it fell out, and even with inflating the balloon it is unable to remain in place. Therefore, he has not had his PEG tube in for almost 7 days. He presents to the hospital because he is unable to keep himself hydrated. Apparently he was supposed to be scheduled with Dr. Austin to discuss replacing his PEG tube in a different site, however this appointment is not for another 2 weeks or so, therefore he cannot wait that long for evaluation. CODE STATUS: DNR/DNI PAST MEDICAL HISTORY: -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, in remission since 2017 -Osteonecrosis of the left jaw -Status post traumatic right mandibular fracture in 03/14/2020 complicated by nonunion and chronic osteomyelitis status post debridement and ORIF -Left mandibular molar extraction complicated by formation of cutaneous fistula status post excision of cutaneous fistula November 2020 -SLE, Sjogren's, RA with pancytopenia -Autoimmune neutropenia (likely secondary to lupus) for which she has been on Neupogen -Left ankle hematoma infected/abscess/cellulitis with Streptococcus group B bacteremia and sepsis in 03/14/2021 -Upper airway obstruction 04/14/2021, [facility] -Recurrent history of PEG tube malfunction -Heart failure with reduced ejection fraction -Interstitial lung disease -DARNELL -Degenerative disc disease status post cervical spine fusion and lumbar injuries -BPH -Neuropathy secondary to chemotherapy -Diabetes, however this is no longer an issue since his tongue cancer and placement of PEG tube -Protein calorie malnutrition PAST SURGICAL HISTORY: As above Also had C3-C4 anterior spinal fusion 2010 Total knee replacement, right, 2008 SOCIAL HISTORY: Former smoker, quit 1996, prior to that smoked 31 years ([id number] history. Drinks alcohol. Admits to marijuana use. Denies any other illicit drug use. FAMILY HISTORY: Arthritis, aneurysm, asthma, myocardial infarction's, rheumatoid arthritis REVIEW OF SYSTEMS: Constitutional: Patient denies fevers, chills, night sweats, recent weight gain/loss. HEENT: Patient denies blurred or double vision, transient visual disturbances, postnasal drip, epistaxis. He has chronic difficulty with chewing and swallowing secondary to cancer/chemo radiation therapy Cardiovascular: Patient denies chest discomfort/pain, palpitations, exertional d yspnea, orthopnea, edema of the extremities, claudication. Respiratory: Patient denies dyspnea, wheezing, cough, hemoptysis, sputum production. Gastrointestinal: Patient denies nausea, vomiting, diarrhea, constipation. He does have abdominal pain, and he has a rash on his abdomen likely secondary to spillage of gastric contents causing a chemical burn to the skin. PHYSICAL EXAMINATION: General: Awake, alert, oriented x3. He does appear emaciated, but he certainly is not in any acute distress at this time. HEENT: Head normocephalic atraumatic, conjunctiva are pink, sclera are nonicteric, buccal mucosa is pink and moist with no lesions in the oropharynx. Hearing is grossly intact to conversation. Respiratory: Clear to auscultation bilaterally with no wheezes, rales, or rhonchi. Cardiovascular: Regular rate and rhythm, with no rubs, gallops, or murmur. Abdomen: Ostomy bag has been placed over the opening of the PEG tube such that it may collect the gastric contents that are spilling out. He does have what appears to be a rash surrounding the PEG tube site and extending inferiorly onto the left lower quadrant, this is likely secondary to maceration and chemical irritation. ASSESSMENT: PEG tube dysfunction Dehydration Rash/irritation of abdominal skin Chronic pain History of tongue cancer with extensive complications and treatment history SLE Sjogren's RA Pancytopenia Neuropathy PLAN: -Will admit the patient to [facility] -PICC line ordered for the morning, and then we may be able to start TPN. -Recommend consulting general surgical team in the morning such that they can ev aluate the patient for more definitive management -For now we will start the patient on lactated Ringer's -Otherwise, we will continue the remainder of his home meds at their usual dose for his chronic medical conditions. -Silvadene and nystatin to be applied to his abdomen for rash/irritation -Also recommend that we continue using ostomy bag over the PEG tube site until more permanent solution can be devised to prevent the gastric contents from further irritating the abdominal skin. Vital Signs Vital Signs Date Time Temp Pulse Resp B/P (MAP) Pulse Ox O2 Delivery O2 Flow Rate FiO2 06/16/21 18:00 97.3 71 16 129/81 (97) 98 Room Air Laboratory Data Labs 24H Laboratory Tests 2 06/16/21 12:00: Nucleated Red Blood Cells % (auto) 0.0, Immature Platelet Fraction 24.8H, Anion Gap 1L, Glomerular Filtration Rate > 60.0, Calcium Level 8.9, Total Bilirubin 0.5, Direct Bilirubin < 0.1, Aspartate Amino Transf (AST/SGOT) 40H, Alanine Aminotransferase (ALT/SGPT) 34, Alkaline Phosphatase 128H, Total Protein 7.7, Albumin 2.7L, Albumin/Globulin Ratio 0.5 06/16/21 12:04: Coronavirus (COVID-19)(PCR) NEGATIVE, Influenza Type A (RT-PCR) NEGATIVE, Influenza Type B (RT-PCR) NEGATIVE, Respiratory Syncytial Virus (PCR) NEGATIVE CBC/BMP Laboratory Tests 06/16/21 12:00 Home Medications Scheduled Amoxicillin/Potassium Clav (Amox-Clav 600-42.9 mg/5 ml Hallie) 600 Mg/5 Ml Susp.recon, 5 ML PEG BID Duloxetine HCl (Duloxetine HCl) 20 Mg Capsule.dr, 40 MG PO DAILY Ergocalciferol (Vitamin D2) (Vitamin D2) 50,000 Units Cap, 50,000 UNITS PO QWEEK HS ON WEDNESDAYS Hydroxychloroquine Sulfate (Hydroxychloroquine Sulfate) 200 Mg Tab, 200 MG PO BID Loratadine (Loratadine) 10 Mg Tablet, 10 MG PO DAILY Naproxen (Naproxen) 500 Mg Tablet.dr, 500 MG PO Q12H Nystatin (Nystatin Powder) 15 Gm Powder, 1 DOSE TOP TID APPLY TO G-TUBE SITE. ACUTE DIALYSIS NURSE MIXES WITH MYLANTA AND ZINC CREAM Omeprazole (Omeprazole) 20 Mg Cap, 20 MG PO BID NOON & MIDNIGHT Prednisone (Prednisone) 10 Mg Tablet, 10 MG PO DAILY Pregabalin (Pregabalin) 100 Mg Capsule, 100 MG PO TID Silver Sulfadiazine (Ssd) 50 Gm Cream..g., 1 APPLIC TOP BID APPLY TO LEFT HAND AND WRIST Scheduled PRN Hydrocodone/Acetaminophen (Hydrocodone-Acetamin 7.5-325) 1 Each Tablet, 1 TAB PO TID PRN for SEVERE PAIN (PS 8-10) Lidocaine HCl (Lidocaine HCl Viscous) 15 Ml Solution, 15 ML MT TID PRN for MOUTH PAIN Miscellaneous Medications [Patient Comment] PATIENT IS SUPPOSED TO TAKE MEDICATIONS VIA G-TUBE, BUT HAS BEEN REFUSING AND TAKING MEDS PO Allergies Coded Allergies: chlorpromazine (Verified Allergy, Mild, rash, 05/13/21) A-FIB/CHADSVASC A-FIB History Current/History of A-Fib/PAF?: No JOSE BUSTAMANTE DO Jun 16, 2021 19:53
[2021-06-16] MEDS ORDERED: NYSTATIN 100,000 UNITS/GM TOPICAL PWD 15 GM TOP SCH (21:00)
[2021-06-16] MEDS: PREGABALIN 100 MG CAP (LYRICA) PO SCH (21:44)
[2021-06-16] MEDS: NAPROXEN 250 MG TAB PO SCH (21:46)
[2021-06-16] MEDS: OMEPRAZOLE 20 MG CAP PO SCH (21:46)
[2021-06-16] MEDS: HYDROXYCHLOROQUINE 200 MG TAB PO SCH (21:53)
[2021-06-16] MEDS: SILVER SULFADIAZINE 1% CR 50 GM JAR TOP SCH (21:54)
[2021-06-16 22:00] VITALS: BP 131/78
[2021-06-17 06:00] VITALS: BP 135/74
[2021-06-17] MEDS: LR 1,000 ML IV SCH ×2 (07:42→17:51)
[2021-06-17] MEDS: PREGABALIN 100 MG CAP (LYRICA) PO SCH ×3 (08:34→21:23)
[2021-06-17] MEDS: MORPHINE 2 MG/ML 1ML VIAL (J2270) IV PRN ×2 (08:35→18:05)
[2021-06-17] MEDS: LORATADINE 10 MG TAB PO SCH (08:38)
[2021-06-17] MEDS: DULoxetine 20 MG CAP (CYMBALTA) PO SCH (08:38)
[2021-06-17] MEDS: predniSONE 10 MG TAB PO SCH (08:44)
[2021-06-17] MEDS: NAPROXEN 250 MG TAB PO SCH ×2 (08:44→21:23)
[2021-06-17] MEDS: HYDROXYCHLOROQUINE 200 MG TAB PO SCH ×2 (08:44→21:23)
[2021-06-17] MEDS: OMEPRAZOLE 20 MG CAP PO SCH ×2 (08:44→21:23)
[2021-06-17] MEDS: SILVER SULFADIAZINE 1% CR 50 GM JAR TOP SCH ×2 (08:45→21:24)
[2021-06-17 10:51] LABS: HEMATOCRIT 31.3 % (42.0-52.0); HEMOGLOBIN 9.7 g/dl (13.5-17.5); MEAN CORPUSCULAR HEMOGLOBIN 35.3 pg (27.0-33.0); MEAN CORPUSCULAR VOLUME 113.8 fl (80.0-96.0); RED BLOOD COUNT 2.75 10^6/uL (4.30-6.10)
[2021-06-17 10:52] LABS: PLATELET COUNT, AUTOMATED 55 10^3/uL (150-450)
[2021-06-17 11:18] LABS: BLOOD UREA NITROGEN 19 MG/DL (7-18); CALCIUM LEVEL 8.6 MG/DL (8.8-10.2); CARBON DIOXIDE LEVEL 31 MEQ/L (21-32); CHLORIDE LEVEL 107 MEQ/L (98-107); GLOMERULAR FILTRATION RATE > 60.0 (>42); GLUCOSE, FASTING 73 MG/DL (70-100); POTASSIUM SERUM 3.7 MEQ/L (3.5-5.1); SODIUM LEVEL 142 MEQ/L (136-145)
[2021-06-17] MEDS: PANTOPRAZOLE 40MG VIAL (C9113 PER 1) IV SCH ×2 (13:26→21:22)
--- NOTE | 2021-06-17 13:38 | IPNPDOC ---
Text Note Date of Service The patient was seen on 06/17/21. NOTE Subjective: Patient admitted on 06/16/2021 for dehydration secondary to his PEG tube falling out multiple times and being unable to replace it x1 week. No acute events overnight. Patient currently denies any fever, chills, chest pain, shortness of breath, nausea, vomiting, abdominal pain. He tolerated the pudding diet that he got yesterday adequately, there is some residual of it in the ostomy bag. Objective: General: Frail-appearing male sitting upright in bed in no acute distress. HEENT: NC, AT. EOMI, no scleral icterus. No pharyngeal erythema, mucous membranes moist. Neck: No lymphadenopathy or JVD CV: RRR, Normal S1 and S2. No murmurs, gallops, or rubs. Resp: CTAB with full breath sounds. No wheezes, crackles, or rhonchi. No dullness to percussion. Abdomen: Ostomy bag continues to be in place over PEG tube site with brown contents in the ostomy bag present. Erythematous rash surrounding PEG tube site extending into the left lower quadrant. Abdomen is otherwise soft, nontender, nondistended. Extremities: No swelling or edema. Assessment/Plan: #. PEG tube dysfunction -Given his inability to tolerate p.o. fluids and the PEG tube dysfunction, PICC line placement is scheduled for today and will start TPN afterwards. -General surgery, Dr. Shah, consulted recommendations appreciated. #. Dehydration -Patient appears euvolemic on exam today with downtrending BUN and creatinine #. Rash/irritation of skin -Zinc oxide, #. SLE, Sjogren's, RA -Continue Plaquenil #. Hx of Pancytopenia -Holding Lovenox given low platelet count #. Neuropathy secondary to chemotherapy -Continue Lyrica, duloxetine #. Degenerative disc disease s/p cervical spine fusion, lumbar injuries, and general chronic pain -Continue home meds (duloxetine, Topaz) -IV morphine as needed for severe pain #. Hx of HFrEF -01/2021 echocardiogram showing LVEF 75%, grade 1 LV diastolic dysfunction, mild pulmonary hypertension, moderate mitral valve insufficiency, mild to moderate tricuspid insufficiency. #. Hx of DARNELL -May account for his low O2 overnight, he is non-compliant with CPAP #. DVT prophylaxis Teds and sequentials, holding Lovenox in light of low platelet count #. GI prophylaxis: On pantoprazole CODE STATUS: DNR/DNI VS,Fishbone, I+O VS, Fishbone, I+O Laboratory Tests 06/17/21 10:34 Vital Signs Date Time Temp Pulse Resp B/P (MAP) Pulse Ox O2 Delivery O2 Flow Rate FiO2 06/17/21 09:00 16 06/17/21 06:00 98.2 71 135/74 (94) 91 Room Air I&O- Last 24 Hours up to 6 AM 06/17/21 06:00 Intake Total 925 ml Output Total 350 ml Balance 575 ml GME ATTESTATION GME ATTESTATION My faculty preceptor for this patient encounter was physically present during the encounter and was fully available. All aspects of the patient interview, examination, medical decision making process, and medical care plan development were reviewed and approved by the faculty preceptor. The faculty preceptor is aware and concurs with the plan as stated in the body of this note and will attest to such by his/her cosignature. DIRK BLOUNT DO Jun 17, 2021 13:38
[2021-06-17 14:00] VITALS: BP 128/74
[2021-06-17] MEDS ORDERED: LIDOCAINE 1% MDV 20ML VIAL As Ordered ONE (14:59)
[2021-06-17] MEDS ORDERED: SODIUM CHLORIDE 0.9% INJ 10 ML SYR IV PRN (16:30)
[2021-06-17] MEDS: HumaLOG INSULIN (NovoLOG) PER UNIT SC SCH (17:51)
[2021-06-17] MEDS: SODIUM CHLORIDE 0.9% INJ 10 ML SYR IV SCH (17:52)
[2021-06-17] MEDS ORDERED: FAT EMULSION IV 250 ML IV SCH (18:00)
[2021-06-17] MEDS ORDERED: AMINO AC/ELECTROLYTE/DEX/CALC 2,000 ML IV SCH (18:00)
--- NOTE | 2021-06-17 18:43 | CR.PDOC ---
General Surgery Consultation Date of Consultation 06/17/21 History and Physical CONSULT REPORT FOR: Hospitalist service REASON FOR CONSULTATION: Malfunctioning gastrostomy tube, gastrocutaneous fistula HISTORY OF PRESENT ILLNESS: Patient is a 70-year-old male with a remote history of mouth cancer for which he underwent surgery as well as chemoradiation. He has been dependent on tube feedings for sustenance though he tells me that he at times has been able to tolerate some oral intake. He has been having problems with his gastrostomy tube and he has been seeing Dr. Austin for this. He is actually scheduled to have an upper endoscopy and possibly replace his gastrostomy tube sometime in 2 weeks. He presents to the hospital complaining of persistent drainage from his gastrostomy tube. Apparently this has been dislodged for about 8 days now and he was hoping that the opening will close by itself. He reports having had 3 or 4 different gastrostomy tubes. This current tube has been present since last year. He is having problems with leakage around the tube and was changed by Dr. Kinsey in 2019, upsized to a 24 Liberian tube. I was reviewing the notes from Dr. Austin and apparently this was upsized to a 28 Liberian tube by the patient himself. He had a recent upper endoscopy by Dr. Austin due to an issue whether the balloon was intraluminal or not. There is some evidence of pressure ulceration of the wall of the stomach. Patient tells me that he could see some mucosa of the stomach bulged out at times. He tells me for the past week that the opening of the stomach is large enough that the tube will come out with the balloon intact. So he decided to keep it out. He was trying to hydrate and feed himself by injecting a small amount of pured food and he tells me he usually is able to tolerate this type of feeding. He had continuous drainage through the gastrostomy opening. He was feeling weak and dehydrated thus he presented himself to the emergency room. In the room he has a colostomy appliance in place. He tells me that he has had some applesauce to take his pills and so far has not had any drainage or appearance of the applesauce draining out into the bag. He has a small amount of brownish liquid in the bag which he tells me has been there since the bag has been replaced last night. 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 which she has been on Neupogen -Left ankle hematoma infected/abscess/cellulitis with Streptococcus group B bacteremia and sepsis in 03/14/2021 -Upper airway obstruction 04/14/2021, managed at [facility] -Recurrent history of PEG tube malfunction -Heart failure with reduced ejection fraction -Interstitial lung disease -DARNELL -Degenerative disc disease status post cervical spine fusion and lumbar injuries -BPH -Neuropathy secondary to chemotherapy -Diabetes, however this is no longer an issue since his tongue cancer and placement of PEG tube -Protein calorie malnutrition PAST SURGICAL HISTORY: As above Also had C3-C4 anterior spinal fusion 2010 Total knee replacement, right, 2008 ALLERGIES: Please see below. HOME MEDICATIONS: Please see below. REVIEW OF SYSTEMS: Baseline patient still describes level of activity as quite active. He lives fully independently. He has no signs of recurrence of his squamous cell cancer of the left tongue. No hoarseness in his voice. He is actually able to phonate very well. He is not able to fully open up his mouth secondary to his prior surgeries, radiation. He reports history of neck fusion., Reports back pain. He denies any significant shortness of breath on activity. Denies any chest pain. Denies any active problems with diabetes. He does have skin irritation secondary to the leakage from his gastrostomy tube around the stomach. Denies any unexplained weight loss though he is having problems with nutrition secondary to his malfunctioning gastrostomy tube. PHYSICAL EXAMINATION: VITALS SIGNS: Please see below. GENERAL APPEARANCE: Patient seen, reclined, with head upright (more from his back than from his abdominal condition). Relatively comfortable in appearance, in no acute distress. SKIN: Warm and dry. Scattered area of skin irritation at the abdomen. HEENT: Postoperative appearance of the face, neck patient not able to fully open up his mouth, protrude the tongue. NECK: Postoperative appearance, no masses.. LUNGS: Clear to auscultation bilaterally. No wheezing appreciated. HEART: No chest wall abnormalities. Regular rate and rhythm with no murmurs appreciated. ABDOMEN: Abdomen has an opening over the left of the epigastric area covered with an ostomy appliance from his prior gastrostomy tube. There is moderate amount of skin irritation. The ostomy appliance is ill fitting secondary to the borders of the rib cage likewise the scaphoid abdomen. There is a small amount of brownish fluid in the bag. Mild tenderness secondary to the skin irritation overall benign appearance of the abdomen. EXTREMITIES: No significant extremity edema ANCILLARIES: LABORATORY DATA: Please see below. IMAGING STUDIES: . None relevant IMPRESSION AND PLAN: Malfunctioning gastrostomy tube Gastrocutaneous fistula He is reporting that there is decreased in the size of the opening though this still remains patent on examination. There is also decreased drainage from the opening so there probably is a good chance that this may involute and heal itself given time. We need to keep him n.p.o. He is scheduled to have a PICC line and he needs to be started on TPN. I will add Protonix 40 mg twice a day to help decrease the acidity as well as the output in the stomach. We will continue to observe whether the gastrocutaneous opening will close and heal by itself. This will certainly make to the decision easier if the gastrocutaneous fistula will close by itself as we could always just put a regular sized gastrostomy tube. Given his body habitus I am not sure why he needs a very large tube. He tells me Dr. Austin plans to put a 24 Liberian tube in him. I have asked him when the last time he was evaluated by speech pathology with regards to oral intake and possibility of aspiration I told the he had been recently. It seems to me that it is partly due to him not being able to open up his mouth fully. But if he is able to tolerate some pured diet might be easier for him just to rely on tube feedings for supplemental nutrition and not to place pured food in the tube itself. If the bigger issue if they gastrocutaneous fistula does not heal by itself. I think the options will be to place either a new gastrojejunostomy tube and drain the stomach and feeding postpyloric or to go when close to gastrocutaneous fistula and place a new gastrostomy tube. For now I will observe whether the opening will heal and close adequately. Dr. Austin will be back next week. I will be on vacation starting tomorrow and will probably signed this off to Dr. Kinsey. Vital Signs Vital Signs Date Time Temp Pulse Resp B/P (MAP) Pulse Ox O2 Delivery O2 Flow Rate FiO2 06/17/21 09:00 16 06/17/21 06:00 98.2 71 135/74 (94) 91 Room Air I&Os I&O- Last 24 Hours up to 6 AM 06/17/21 05:59 Intake Total 925 ml Output Total 320 ml Balance 605 ml Laboratory Data Labs 24H Laboratory Tests 2 06/17/21 10:34: Nucleated Red Blood Cells % (auto) 0.0, Anion Gap 4L, Glomerular Filtration Rate > 60.0, Calcium Level 8.6L CBC/BMP Laboratory Tests 06/17/21 10:34 Home Medications Scheduled Amoxicillin/Potassium Clav (Amox-Clav 600-42.9 mg/5 ml Hallie) 600 Mg/5 Ml Susp.recon, 5 ML PEG BID, (Reported) Duloxetine HCl (Duloxetine HCl) 20 Mg Capsule.dr, 40 MG PO DAILY, (Reported) Ergocalciferol (Vitamin D2) (Vitamin D2) 50,000 Units Cap, 50,000 UNITS PO QWEEK, (Reported) HS ON WEDNESDAYS Hydroxychloroquine Sulfate (Hydroxychloroquine Sulfate) 200 Mg Tab, 200 MG PO BID, (Reported) Loratadine (Loratadine) 10 Mg Tablet, 10 MG PO DAILY, (Reported) Naproxen (Naproxen) 500 Mg Tablet.dr, 500 MG PO Q12H, (Reported) Nystatin (Nystatin Powder) 15 Gm Powder, 1 DOSE TOP TID, (Reported) APPLY TO G-TUBE SITE. MEDICAL INSURANCE CLAIMS PROCESSOR MIXES WITH MYLANTA AND ZINC CREAM Omeprazole (Omeprazole) 20 Mg Cap, 20 MG PO BID, (Reported) NOON & MIDNIGHT Prednisone (Prednisone) 10 Mg Tablet, 10 MG PO DAILY, (Reported) Pregabalin (Pregabalin) 100 Mg Capsule, 100 MG PO TID, (Reported) Silver Sulfadiazine (Ssd) 50 Gm Cream..g., 1 APPLIC TOP BID, (Reported) APPLY TO LEFT HAND AND WRIST Scheduled PRN Hydrocodone/Acetaminophen (Hydrocodone-Acetamin 7.5-325) 1 Each Tablet, 1 TAB PO TID PRN for SEVERE PAIN (PS 8-10), (Reported) Lidocaine HCl (Lidocaine HCl Viscous) 15 Ml Solution, 15 ML MT TID PRN for MOUTH PAIN, (Reported) Miscellaneous Medications [Patient Comment] , (Reported) PATIENT IS SUPPOSED TO TAKE MEDICATIONS VIA G-TUBE, BUT HAS BEEN REFUSING AND TAKING MEDS PO Allergies Coded Allergies: chlorpromazine (Verified Allergy, Mild, rash, 05/13/21) GERARDO METCALF MD Jun 17, 2021 14:05
[2021-06-17] MEDS: BALMEX CREAM 60GM EXT SCH (21:22)
[2021-06-17 22:00] VITALS: BP 119/68
[2021-06-18] MEDS: SODIUM CHLORIDE 0.9% INJ 10 ML SYR IV SCH ×2 (05:42→18:10)
[2021-06-18 06:00] VITALS: BP 127/70
[2021-06-18] MEDS: HumaLOG INSULIN (NovoLOG) PER UNIT SC SCH ×4 (06:00→20:01)
[2021-06-18] MEDS ORDERED: PREVNAR 13 VACCINE SYRINGE IM ONE (09:00)
[2021-06-18] MEDS: ENOXAPARIN 30MG/0.3ML SYRINGE (J1650 PER 10MG) SC SCH (09:00)
[2021-06-18] MEDS: predniSONE 10 MG TAB PO SCH (09:17)
[2021-06-18] MEDS: NAPROXEN 250 MG TAB PO SCH ×2 (09:17→21:07)
[2021-06-18] MEDS: PANTOPRAZOLE 40MG VIAL (C9113 PER 1) IV SCH ×2 (09:17→21:05)
[2021-06-18] MEDS: LORATADINE 10 MG TAB PO SCH (09:18)
[2021-06-18] MEDS: DULoxetine 20 MG CAP (CYMBALTA) PO SCH (09:18)
[2021-06-18] MEDS: OMEPRAZOLE 20 MG CAP PO SCH ×2 (09:18→21:07)
[2021-06-18] MEDS: HYDROXYCHLOROQUINE 200 MG TAB PO SCH ×2 (09:18→21:07)
[2021-06-18] MEDS: BALMEX CREAM 60GM EXT SCH ×2 (09:18→21:08)
[2021-06-18] MEDS: PREGABALIN 100 MG CAP (LYRICA) PO SCH ×3 (09:18→21:07)
[2021-06-18] MEDS: SILVER SULFADIAZINE 1% CR 50 GM JAR TOP SCH ×2 (09:19→21:07)
--- NOTE | 2021-06-18 10:48 | IPNPDOC ---
Text Note Date of Service The patient was seen on 06/18/21. NOTE Subjective: Patient admitted on 06/16/2021 for dehydration secondary to his PEG tube falling out multiple times and being unable to replace it x1 week. No acute events overnight though he did not sleep well. Patient currently denies any fever, chills, chest pain, shortness of breath, nausea, vomiting, abdominal pain. He is tolerating the TPN adequately. Objective: General: Frail-appearing male sitting upright in bed in no acute distress. HEENT: NC, AT. EOMI, no scleral icterus. No pharyngeal erythema, mucous membranes moist. Neck: No lymphadenopathy or JVD CV: RRR, Normal S1 and S2. No murmurs, gallops, or rubs. Resp: CTAB with full breath sounds. No wheezes, crackles, or rhonchi. No dullness to percussion. Abdomen: Ostomy bag in place over PEG tube site with nothing in the ostomy bag at present. Erythematous rash surrounding PEG tube site extending into the left lower quadrant is improved. Abdomen is otherwise soft, non-tender, non- distended. Extremities: No swelling or edema. Assessment/Plan: #. PEG tube dysfunction -PICC line placed and TPN started on 06/17. -General surgery, Dr. Shah, consulted recommendations appreciated. It seems like the plan is to wait for the site to close and consider placement of a GJ tube, though this may not happen inpatient. He is scheduled to follow up with Dr. Austin on 06/28, may need to look into home TPN. #. Dehydration -Resolved s/p 2.5 L #. Rash/irritation of skin -Zinc oxide is working well. #. SLE, Sjogren's, RA -Continue Plaquenil #. Hx of Pancytopenia -Holding Lovenox given low platelet count #. Neuropathy secondary to chemotherapy -Continue Lyrica, duloxetine #. Degenerative disc disease s/p cervical spine fusion, lumbar injuries, and general chronic pain -Continue home meds (duloxetine, [place]) -IV morphine as needed for severe pain #. Hx of HFrEF -01/2021 echocardiogram showing LVEF 75%, grade 1 LV diastolic dysfunction, mild pulmonary hypertension, moderate mitral valve insufficiency, mild to moderate tricuspid insufficiency. - Currently well compensated, no signs of fluid overload. #. Hx of DARNELL -May account for his low O2 overnight, he is non-compliant with CPAP #. DVT prophylaxis Teds and sequentials, holding Lovenox in light of low platelet count #. GI prophylaxis: On pantoprazole CODE STATUS: DNR/DNI Disposition: - Pending surgical re-evaluation. - PFS looking into TPN on discharge VS,Fishbone, I+O VS, Fishbone, I+O Vital Signs Date Time Temp Pulse Resp B/P (MAP) Pulse Ox O2 Delivery O2 Flow Rate FiO2 06/18/21 06:00 97.4 68 16 127/70 (89) 95 Room Air I&O- Last 24 Hours up to 6 AM 06/18/21 06:00 Intake Total 1500 ml Output Total 1095 ml Balance 405 ml GME ATTESTATION GME ATTESTATION My faculty preceptor for this patient encounter was physically present during the encounter and was fully available. All aspects of the patient interview, examination, medical decision making process, and medical care plan development were reviewed and approved by the faculty preceptor. The faculty preceptor is aware and concurs with the plan as stated in the body of this note and will attest to such by his/her cosignature. ATTENDING NOTE I, Bg Serrano, have independently examined this patient and performed my own physical exam, as well as reviewed the documentation and edited where necessary. I have discussed in detail with the resident / student the findings and plan of treatment as documented by the resident / student and edited their note. I agree with their findings and treatment plan and have edited their documentation. I will continue to follow the patient during this hospital stay. DIRK BLOUNT DO Jun 18, 2021 10:48 BG SERRANO MD Jun 18, 2021 16:31
[2021-06-18] MEDS ORDERED: FAT EMULSION IV 250 ML IV SCH (18:00)
[2021-06-18] MEDS ORDERED: AMINO AC/ELECTROLYTE/DEX/CALC 2,000 ML IV SCH (18:00)
[2021-06-18] MEDS: MORPHINE 2 MG/ML 1ML VIAL (J2270) IV PRN ×2 (18:10→21:54)
[2021-06-18] MEDS: FLUTICASONE PROP 0.05% NASAL SPRAY 16 GM (FLONASE) NARES SCH (21:05)
[2021-06-18 22:00] VITALS: BP 131/71
[2021-06-19] MEDS: SODIUM CHLORIDE 0.9% INJ 10 ML SYR IV SCH ×2 (05:02→18:02)
[2021-06-19] MEDS: HumaLOG INSULIN (NovoLOG) PER UNIT SC SCH ×5 (06:00→23:53)
[2021-06-19 06:32] LABS: HEMATOCRIT 33.4 % (42.0-52.0); HEMOGLOBIN 10.6 g/dl (13.5-17.5); MEAN CORPUSCULAR HEMOGLOBIN 35.5 pg (27.0-33.0); MEAN CORPUSCULAR HGB CONC 31.7 g/dl (32.0-36.5); MEAN CORPUSCULAR VOLUME 111.7 fl (80.0-96.0); RED BLOOD COUNT 2.99 10^6/uL (4.30-6.10); WHITE BLOOD COUNT 5.6 10^3/uL (4.0-10.0)
[2021-06-19 06:34] LABS: PLATELET COUNT, AUTOMATED 54 10^3/uL (150-450)
[2021-06-19 06:56] LABS: BLOOD UREA NITROGEN 17 MG/DL (7-18); CALCIUM LEVEL 8.5 MG/DL (8.8-10.2); CARBON DIOXIDE LEVEL 32 MEQ/L (21-32); CHLORIDE LEVEL 103 MEQ/L (98-107); CREATININE FOR GFR 0.44 MG/DL (0.70-1.30); GLOMERULAR FILTRATION RATE > 60.0 (>42); GLUCOSE, FASTING 110 MG/DL (70-100); POTASSIUM SERUM 4.1 MEQ/L (3.5-5.1); SODIUM LEVEL 137 MEQ/L (136-145)
[2021-06-19] MEDS: ENOXAPARIN 30MG/0.3ML SYRINGE (J1650 PER 10MG) SC SCH (07:48)
[2021-06-19] MEDS: DULoxetine 20 MG CAP (CYMBALTA) PO SCH (08:59)
[2021-06-19] MEDS: NAPROXEN 250 MG TAB PO SCH ×2 (08:59→20:52)
[2021-06-19] MEDS: LORATADINE 10 MG TAB PO SCH (08:59)
[2021-06-19] MEDS: PREGABALIN 100 MG CAP (LYRICA) PO SCH ×3 (08:59→20:51)
[2021-06-19] MEDS: PANTOPRAZOLE 40MG VIAL (C9113 PER 1) IV SCH ×2 (08:59→20:52)
[2021-06-19] MEDS: OMEPRAZOLE 20 MG CAP PO SCH ×2 (08:59→20:51)
[2021-06-19] MEDS: SILVER SULFADIAZINE 1% CR 50 GM JAR TOP SCH ×2 (09:00→20:53)
[2021-06-19] MEDS: predniSONE 10 MG TAB PO SCH (09:00)
[2021-06-19] MEDS: HYDROXYCHLOROQUINE 200 MG TAB PO SCH ×2 (09:00→20:51)
[2021-06-19] MEDS: BALMEX CREAM 60GM EXT SCH ×2 (09:00→20:53)
[2021-06-19] MEDS: FLUTICASONE PROP 0.05% NASAL SPRAY 16 GM (FLONASE) NARES SCH ×2 (09:00→20:52)
[2021-06-19] MEDS: ANEXSIA, NORCO 7.5MG/325MG TABLET(HYDROCODONE/APAP) PO PRN (09:01)
--- NOTE | 2021-06-19 10:35 | DS.PDOC ---
Discharge Summary General Date of Admission Jun 16, 2021 at 14:38 Date of Discharge 06/20/21 - Patient discharge was delayed from 06/19 to 06/20 to ensure outpatient coverage of TPN - No other changes in plan noted Attending Physician: BG SERRANO MD Specialist/Consultants Involve: GERARDO METCALF MD Discharge Summary PROCEDURES PERFORMED DURING STAY: None. ADMITTING/DISCHARGE DIAGNOSES: PEG tube dysfunction Dehydration Rash/irritation of skin SLE Sjogren's RA History of pancytopenia Neuropathy secondary to chemotherapy Degenerative disc disease History of heart failure preserved ejection fraction History of DARNELL COMPLICATIONS/CHIEF COMPLAINT: Dehydration, PEG tube dysfunction HISTORY OF PRESENT ILLNESS/HOSPITAL COURSE: "70-year-old male who presents to the hospital because his PEG tube is fallen out multiple times, he has tried to replace it many times, and approximately 1 week ago it fell out, and even with inflating the balloon it is unable to remain in place. Therefore, he has not had his PEG tube in for almost 7 days. He presents to the hospital because he is unable to keep himself hydrated. Apparently he was supposed to be scheduled with Dr. Austin to discuss replacing his PEG tube in a different site, however this appointment is not for another 2 weeks or so, therefore he cannot wait that long for evaluation." Patient was admitted and rehydrated with 2-1/2 L of lactated Ringer's. He was evaluated by general surgery who wished to wait for the gastrocutaneous opening to close and heal by itself. A PICC line was placed so he could start on TPN and preparations were made so he could continue home TPN until he is evaluated by Dr. Austin on 06/28/2021 for consideration of new G-tube placement. Patient was scheduled to be discharged on 06/19 but the teaching for the tpn was unavailable at that time so the discharge was delayed until 06/20/21. DISCHARGE MEDICATIONS: Please see below. ALLERGIES: Please see below. PHYSICAL EXAMINATION ON DISCHARGE: VITAL SIGNS: Please see below. General: Frail-appearing male sitting upright in bed in no acute distress. HEENT: NC, AT. EOMI, no scleral icterus. No pharyngeal erythema, mucous membranes moist. Neck: No lymphadenopathy or JVD CV: RRR, Normal S1 and S2. No murmurs, gallops, or rubs. Resp: CTAB with full breath sounds. No wheezes, crackles, or rhonchi. No dullness to percussion. Abdomen: Ostomy bag in place over PEG tube site with nothing in the ostomy bag at present. Erythematous rash surrounding PEG tube site extending into the left lower quadrant is improved. Abdomen is otherwise soft, non-tender, non- distended. Extremities: No swelling or edema. LABORATORY DATA: Please see below. IMAGING: None PROGNOSIS: Fair ACTIVITY: As tolerated DIET: As tolerated DISCHARGE PLAN: Home DISPOSITION: , Self-Care. DISCHARGE INSTRUCTIONS: 1. Please remain compliant with TPN regimen and return to hospital with any problems or symptoms worsen 2. Please maintain appointment with Dr. Chávez for next 06/28/2021. 3. Please follow-up with primary care provider in the next 2 weeks. 4. Return to the ER if you experience any problems DISCHARGE CONDITION: Stable. TIME SPENT ON DISCHARGE: 31 minutes. Vital Signs/I&Os Vital Signs Date Time Temp Pulse Resp B/P (MAP) Pulse Ox O2 Delivery O2 Flow Rate FiO2 06/19/21 09:42 18 06/18/21 22:00 98.0 73 131/71 (91) 96 Room Air I&O- Last 24 Hours up to 6 AM 06/19/21 06:00 Intake Total 720 ml Output Total 1100 ml Balance -380 ml Laboratory Data Labs 24H Laboratory Tests 2 06/18/21 12:14: Bedside Glucose (Misc Panel) 161H 06/18/21 18:46: Bedside Glucose (Misc Panel) 143H 06/19/21 00:49: Bedside Glucose (Misc Panel) 137H 06/19/21 06:16: Nucleated Red Blood Cells % (auto) 0.0, Immature Platelet Fraction 19.9H, Anion Gap 2L, Glomerular Filtration Rate > 60.0, Calcium Level 8.5L 06/19/21 06:24: Bedside Glucose (Misc Panel) 115H CBC/BMP Laboratory Tests 06/19/21 06:16 FSBS Laboratory Tests Test 06/18/21 12:14 06/18/21 18:46 06/19/21 00:49 06/19/21 06:24 Range/Units Bedside Glucose (Misc Panel) 161 143 137 115 83-110 MG/DL Discharge Medications Scheduled Amoxicillin/Potassium Clav (Amox-Clav 600-42.9 mg/5 ml Hallie) 600 Mg/5 Ml Susp.recon, 5 ML PEG BID, (Reported) Duloxetine HCl (Duloxetine HCl) 20 Mg Capsule.dr, 40 MG PO DAILY, (Reported) Ergocalciferol (Vitamin D2) (Vitamin D2) 50,000 Units Cap, 50,000 UNITS PO QWEEK, (Reported) HS ON WEDNESDAYS Hydroxychloroquine Sulfate (Hydroxychloroquine Sulfate) 200 Mg Tab, 200 MG PO BID, (Reported) Loratadine (Loratadine) 10 Mg Tablet, 10 MG PO DAILY, (Reported) Naproxen (Naproxen) 500 Mg Tablet.dr, 500 MG PO Q12H, (Reported) Nystatin (Nystatin Powder) 15 Gm Powder, 1 DOSE TOP TID, (Reported) APPLY TO G-TUBE SITE. MACHINE LAY OUT WORKER MIXES WITH MYLANTA AND ZINC CREAM Omeprazole (Omeprazole) 20 Mg Cap, 20 MG PO BID, (Reported) NOON & MIDNIGHT Prednisone (Prednisone) 10 Mg Tablet, 10 MG PO DAILY, (Reported) Pregabalin (Pregabalin) 100 Mg Capsule, 100 MG PO TID, (Reported) Silver Sulfadiazine (Ssd) 50 Gm Cream..g., 1 APPLIC TOP BID, (Reported) APPLY TO LEFT HAND AND WRIST Scheduled PRN Hydrocodone/Acetaminophen (Hydrocodone-Acetamin 7.5-325) 1 Each Tablet, 1 TAB PO TID PRN for SEVERE PAIN (PS 8-10), (Reported) Lidocaine HCl (Lidocaine HCl Viscous) 15 Ml Solution, 15 ML MT TID PRN for MOUTH PAIN, (Reported) Lidocaine HCl (Lidocaine HCl Viscous) 15 Ml Solution, 15 ML PO TID PRN for mouthpain Miscellaneous Medications [Patient Comment] , (Reported) PATIENT IS SUPPOSED TO TAKE MEDICATIONS VIA G-TUBE, BUT HAS BEEN REFUSING AND TAKING MEDS PO Allergies Coded Allergies: chlorpromazine (Verified Allergy, Mild, rash, 05/13/21) GME ATTESTATION GME ATTESTATION My faculty preceptor for this patient encounter was physically present during the encounter and was fully available. All aspects of the patient interview, examination, medical decision making process, and medical care plan development were reviewed and approved by the faculty preceptor. The faculty preceptor is aware and concurs with the plan as stated in the body of this note and will a ttest to such by his/her cosignature. ATTENDING NOTE I, Bg Serrano, have independently examined this patient and performed my own physical exam, as well as reviewed the documentation and edited where necessary. I have discussed in detail with the resident / student the findings and plan of treatment as documented by the resident / student and edited their note. I agree with their findings and treatment plan and have edited their documentation. I will continue to follow the patient during this hospital stay. Time spent on discharge 35 minutes DIRK BLOUNT DO Jun 19, 2021 10:01 BG SERRANO MD Jun 19, 2021 12:11
[2021-06-19] MEDS: LIDOCAINE VISCOUS 2% SOLN 15ML UDC MT PRN (16:31)
[2021-06-19] MEDS ORDERED: AMINO AC/ELECTROLYTE/DEX/CALC 2,000 ML IV SCH (18:00)
[2021-06-19] MEDS ORDERED: FAT EMULSION IV 250 ML IV SCH (18:00)
[2021-06-19 22:06] VITALS: BP 125/68
[2021-06-20 05:47] VITALS: BP 117/63
[2021-06-20] MEDS: SODIUM CHLORIDE 0.9% INJ 10 ML SYR IV SCH (05:58)
[2021-06-20] MEDS: HumaLOG INSULIN (NovoLOG) PER UNIT SC SCH ×2 (06:00→12:00)
[2021-06-20 06:43] LABS: HEMATOCRIT 33.8 % (42.0-52.0); HEMOGLOBIN 10.7 g/dl (13.5-17.5); MEAN CORPUSCULAR HGB CONC 31.7 g/dl (32.0-36.5); MEAN CORPUSCULAR VOLUME 113.8 fl (80.0-96.0); RED BLOOD COUNT 2.97 10^6/uL (4.30-6.10); WHITE BLOOD COUNT 8.5 10^3/uL (4.0-10.0)
[2021-06-20 06:44] LABS: PLATELET COUNT, AUTOMATED 52 10^3/uL (150-450)
[2021-06-20 07:07] LABS: BLOOD UREA NITROGEN 18 MG/DL (7-18); CALCIUM LEVEL 8.6 MG/DL (8.8-10.2); CARBON DIOXIDE LEVEL 33 MEQ/L (21-32); CHLORIDE LEVEL 102 MEQ/L (98-107); CREATININE FOR GFR 0.55 MG/DL (0.70-1.30); GLOMERULAR FILTRATION RATE > 60.0 (>42); GLUCOSE, FASTING 101 MG/DL (70-100); POTASSIUM SERUM 3.9 MEQ/L (3.5-5.1); SODIUM LEVEL 136 MEQ/L (136-145)
[2021-06-20] MEDS: ENOXAPARIN 30MG/0.3ML SYRINGE (J1650 PER 10MG) SC SCH (08:01)
[2021-06-20] MEDS: LIDOCAINE VISCOUS 2% SOLN 15ML UDC MT PRN (08:58)
[2021-06-20] MEDS: OMEPRAZOLE 20 MG CAP PO SCH (08:58)
[2021-06-20] MEDS: ANEXSIA, NORCO 7.5MG/325MG TABLET(HYDROCODONE/APAP) PO PRN (08:59)
[2021-06-20] MEDS: NAPROXEN 250 MG TAB PO SCH (08:59)
[2021-06-20] MEDS: PREGABALIN 100 MG CAP (LYRICA) PO SCH (09:00)
[2021-06-20] MEDS: FLUTICASONE PROP 0.05% NASAL SPRAY 16 GM (FLONASE) NARES SCH (09:00)
[2021-06-20] MEDS: HYDROXYCHLOROQUINE 200 MG TAB PO SCH (09:00)
[2021-06-20] MEDS: DULoxetine 20 MG CAP (CYMBALTA) PO SCH (09:00)
[2021-06-20] MEDS: predniSONE 10 MG TAB PO SCH (09:00)
[2021-06-20] MEDS: LORATADINE 10 MG TAB PO SCH (09:00)
[2021-06-20] MEDS: PANTOPRAZOLE 40MG VIAL (C9113 PER 1) IV SCH (09:00)
[2021-06-20] MEDS: SILVER SULFADIAZINE 1% CR 50 GM JAR TOP SCH (09:01)
[2021-06-20] MEDS: BALMEX CREAM 60GM EXT SCH (09:01)
[2021-06-20] MEDS ORDERED: LIDO2SOL17 PO (12:53)
--- NOTE | 2021-06-20 13:32 | IPNPDOC ---
Text Note Date of Service The patient was seen on 06/20/21. NOTE Subjective: Patient was seen and examined at the bedside. Denies any chest pain, shortness breath, palpitations, nausea, vomiting, abdominal pain, diarrhea, or urinary discomfort. Patient has reported some output from his prior PEG tube site, however, significantly improved. Objective: Vitals (See below) General: Sitting up in bed and appears comfortable, AAOx3 HEENT: NC, AT CVS: +S1S2 Lungs: Fair air entry b/l, no evidence of wheezing, rales or rhonchi Abdomen: Soft, ND, NT, mild drainage from prior PEG tube site Extremities: - Edema, - Calf tenderness Assessment and plan: PEG tube dysfunction s/p Dehydration s/p Localized irritation Hx of HFrEF Hx of DARNELL SLE / Sjogren's / RA Hx of Pancytopenia Neuropathy - 2/2 Chemotherapy Degenerative disc disease s/p cervical spine fusion, lumbar injuries, and general chronic pain GI prophylaxis DVT prophylaxis Plan: - Patient is scheduled to have PEG tube reinsertion on 06/[address] Austin - Will continue with TPN nutrition on discharge with PICC line was placed on 06/17 Code status: - DNR / DNI Disposition: - DC home today; see DC summary VS,Alondrae, I+O VS, Alondrae, I+O Laboratory Tests 06/20/21 06:30 Vital Signs Date Time Temp Pulse Resp B/P (MAP) Pulse Ox O2 Delivery O2 Flow Rate FiO2 06/20/21 09:37 18 06/20/21 08:59 Room Air 06/20/21 05:47 98.0 75 117/63 (81) 97 I&O- Last 24 Hours up to 6 AM 06/20/21 05:59 Intake Total 840 ml Output Total 1850 ml Balance -1010 ml ANA MARIA SWIFT MD Jun 20, 2021 13:32
[2021-06-20 14:00] VITALS: BP 98/60
[2021-06-20 14:04] LABS: MAGNESIUM LEVEL 1.8 MG/DL (1.8-2.4); PHOSPHORUS LEVEL 2.5 MG/DL (2.5-4.9)
--- NOTE | 2021-06-23 21:50 | REP ---
INDICATION: will need TPN administration. COMPARISON: None. TECHNIQUE: The procedure was performed under the direct supervision of Dr. Garcia. The risks and benefits of the procedure were explained to the patient and informed consent was obtained. The right basilic vein was localized using ultrasound guidance. The skin was prepped and draped in a sterile fashion. 1 mL of 1% lidocaine was used as a local anesthetic. Using ultrasound guidance the basilic vein was cannulated and a 0.018 guidewire was inserted and advanced to the SVC using fluoroscopic guidance, and last image hold technology. The needle was removed and a 5 Yemeni dilator and peel-away sheath was inserted over the guide wire. A 5 Yemeni dual lumen catheter was cut to length of 36 cm. The dilator was removed and the catheter was inserted over the guide wire with the tip ending in the SVC. The peel-away sheath was removed and the catheter was flushed with heparinized saline as per Hospital protocol. The catheter was affixed to the skin and a sterile dressing was applied. Estimated blood loss: Less than 1 mL The patient tolerated the procedure well and there were no immediate complications. 0.8 minutes of fluoro time was utilized for this procedure. FINDINGS: None IMPRESSION: PICC line insertion right basilic vein with the tip ending in the SVC. <Electronically signed by Kaushik Lees > 06/17/21 [id number] <Electronically signed by Claudy Garcia > 06/23/21 [id number]
== END 2021-06-20 15:35 | disposition home health service (06) | DRG 394 ==
LOC: M ED 10:10 → M ED INP 14:38 → ENRESERV 16:30 → M MSPAV 17:20
PROVIDERS: ADMIT Neuromusculoskeletal Medicine & OMM; ATTEND Internal Medicine
PROC: 02HV33Z Insertion of Infusion Device into Superior Vena Cava, Percutaneous Approach (ICD-10-PCS; principal; 2021-06-17 13:00)
DX: K94.23 Gastrostomy malfunction (principal); E46 Unspecified protein-calorie malnutrition; I50.22 Chronic systolic (congestive) heart failure; J84.9 Interstitial pulmonary disease, unspecified; M87.180 Osteonecrosis due to drugs, jaw; K31.6 Fistula of stomach and duodenum; E86.0 Dehydration; M32.9 Systemic lupus erythematosus, unspecified; D70.4 Cyclic neutropenia; M06.9 Rheumatoid arthritis, unspecified; G47.33 Obstructive sleep apnea (adult) (pediatric); G62.0 Drug-induced polyneuropathy; Z79.899 Other long term (current) drug therapy; Z85.810 Personal history of malignant neoplasm of tongue; Z92.21 Personal history of antineoplastic chemotherapy; N40.0 Benign prostatic hyperplasia without lower urinary tract symptoms; Z96.651 Presence of right artificial knee joint; Z87.891 Personal history of nicotine dependence; R21 Rash and other nonspecific skin eruption

== ENCOUNTER → 2021-06-24 | Outpatient (REF) | payer OTHER ==
[~2021-06-24] MED LIST changes: +AMOX1SUS19 PEG; +LIDO2SOL17 PO; +PRED10TA2 PO; +SILV50CR TOP
[2021-06-24 16:10] LABS: BASO % 0.1 % (0.0-1.0); HEMATOCRIT 30.9 % (42.0-52.0); HEMOGLOBIN 9.6 g/dl (13.5-17.5); LYMPH # 0.5 10^3/uL (1.5-5.0); LYMPH % 6.6 % (24.0-44.0); MEAN CORPUSCULAR HEMOGLOBIN 35.6 pg (27.0-33.0); MEAN CORPUSCULAR HGB CONC 31.1 g/dl (32.0-36.5); MONO % 13.8 % (2.0-8.0); NEUTROPHILS # 5.9 10^3/uL (1.5-8.5); WHITE BLOOD COUNT 7.6 10^3/uL (4.0-10.0)
[2021-06-24 16:11] LABS: MEAN CORPUSCULAR VOLUME 114.4 fl (80.0-96.0)
[2021-06-24 16:12] LABS: PLATELET COUNT, AUTOMATED 71 10^3/uL (150-450)
[2021-06-24 16:33] LABS: ALBUMIN 2.4 GM/DL (3.2-5.2); ALT/SGPT 34 U/L (12-78); BILIRUBIN,TOTAL 0.3 MG/DL (0.2-1.0); BLOOD UREA NITROGEN 28 MG/DL (7-18); CALCIUM LEVEL 8.4 MG/DL (8.8-10.2); CARBON DIOXIDE LEVEL 31 MEQ/L (21-32); CHLORIDE LEVEL 101 MEQ/L (98-107); CREATININE FOR GFR 0.67 MG/DL (0.70-1.30); GLOMERULAR FILTRATION RATE > 60.0 (>42); GLUCOSE, FASTING 100 MG/DL (70-100); PHOSPHORUS LEVEL 3.7 MG/DL (2.5-4.9); POTASSIUM SERUM 4.3 MEQ/L (3.5-5.1); SODIUM LEVEL 138 MEQ/L (136-145); TOTAL PROTEIN 6.9 GM/DL (6.4-8.2); TRIGLYCERIDES LEVEL 78 MG/DL (<150)
== END ==
LOC: M LAB REF 15:39
DX: E46 Unspecified protein-calorie malnutrition (principal)

== ENCOUNTER → 2021-06-24 | Outpatient (CLI) | payer OTHER | LOC: M LABSMTC 11:31 | PROVIDERS: ATTEND Anesthesiology | DX: Z01.812 Encounter for preprocedural laboratory examination (principal); E46 Unspecified protein-calorie malnutrition; Z20.822 Contact with and (suspected) exposure to COVID-19 | CPT/HCPCS: 80053; 83735; 84100; 84478; 85025; 85049; 85055; U0003 ==

== ENCOUNTER 2021-06-28 11:54 | Day surgery (SDC) | payer OTHER ==
[~2021-06-28] VITALS: Ht 162.6 cm; Wt 51.7 kg
[~2021-06-28 11:54] MED LIST changes: +NS 1,000 ML IV ONE; +ceFAZolin SOD 2 GM in IV 1 EA IV ONE
[2021-06-28] MEDS ORDERED: LIDOCAINE VISCOUS 2% SOLN 15ML UDC PO ONE (13:00)
[2021-06-28] MEDS ORDERED: MIDAZOLAM INJ 2MG/2ML VIAL (J2250 PER 1MG) As Ordered ONE (13:13)
[2021-06-28] MEDS ORDERED: fentaNYL 100 MCG/2 ML INJECTION (J3010) As Ordered ONE (13:14)
[2021-06-28] MEDS ORDERED: CETACAINE SPRAY 5GM As Ordered ONE (13:16)
[2021-06-28] MEDS ORDERED: LIDOCAINE VISCOUS 2% SOLN 15ML UDC As Ordered ONE (13:16)
[2021-06-28] MEDS ORDERED: KETAMINE HCL 200 MG/20 ML VIAL As Ordered ONE (14:01)
--- NOTE | 2021-06-28 14:54 | ROOR ---
Patient Name: Demarco Palacios Procedure Date: 06/28/2021 1:58 PM Date of : 1950 Age: 70 Gender: Male Note Status: Finalized Procedure: Upper GI endoscopy Indications: Place PEG because patient is unable to eat, Place PEG due to impaired swallowing Providers: Jim Austin MD Referring MD: Sravanthi ROSS NP Requesting Provider: Medicines: Monitored Anesthesia Care Complications: No immediate complications. Procedure: Pre-Anesthesia Assessment: - Prior to the procedure, a History and Physical was performed, and patient medications and allergies were reviewed. The patient is competent. The risks and benefits of the procedure and the sedation options and risks were discussed with the patient. All questions were answered and informed consent was obtained. Patient identification and proposed procedure were verified by the physician, the nurse and the anesthesiologist in the endoscopy suite. Mental Status Examination: alert and oriented. Prophylactic Antibiotics: The patient requires prophylactic antibiotics for planned PEG placement. The patient received antibiotic therapy today, before the procedure started. Prior Anticoagulants: The patient has taken no previous anticoagulant or antiplatelet agents. ASA Grade Assessment: III - A patient with severe systemic disease. After reviewing the risks and benefits, the patient was deemed in satisfactory condition to undergo the procedure. The anesthesia plan was to use monitored anesthesia care (MAC). Immediately prior to administration of medications, the patient was re-assessed for adequacy to receive sedatives. The heart rate, respiratory rate, oxygen saturations, blood pressure, adequacy of pulmonary ventilation, and response to care were monitored throughout the procedure. The physical status of the patient was re-assessed after the procedure. The Endoscope was introduced through the mouth, and advanced to the second part of duodenum. The upper GI endoscopy was accomplished without difficulty. The patient tolerated the procedure well. Findings: The examined esophagus was normal. Patchy mildly erythematous mucosa without bleeding was found in the gastric body. A roughly 1 cm healing wound is noted at the site of his prior G tube. scar was found on the anterior wall of the stomach. The patient was placed in the supine position for PEG placement. The stomach was insufflated to appose gastric and abdominal deras. A site was located in the body of the stomach with excellent transillumination and manual external pressure for placement. The abdominal wall was marked and prepped in a sterile manner. The area was anesthetized with 5 mL of 1% lidocaine. The trocar needle was introduced through the abdominal wall and into the stomach under direct endoscopic view. A snare was introduced through the endoscope and opened in the gastric lumen. The guide wire was passed through the trocar and into the open snare. The snare was closed around the guide wire. The endoscope and snare were removed, pulling the wire out through the mouth. A skin incision was made at the site of needle insertion. The externally removable 24 Fr Cook gastrostomy tube was lubricated. The G-tube was passed over the guide wire through the mouth, and into the stomach. The trocar needle was removed, and the gastrostomy tube was pulled out from the stomach through the skin. The guide wire was removed, and the external bumper attached to the gastrostomy tube. The feeding tube was then cut to an appropriate length. The final position of the gastrostomy tube was confirmed by relook endoscopy, and skin marking noted to be 3 cm at the external bumper. The final tension and compression of the abdominal wall by the PEG tube and external bumper were checked and revealed that the bumper was loose and lightly touching the skin and that the PEG balloon was loose and lightly touching the stomach. The feeding tube was capped, and the tube site was cleaned and dressed. The first portion of the duodenum and second portion of the duodenum were normal. Impression: - Normal esophagus. - Erythematous mucosa in the gastric body. - Scar in the anterior wall of the stomach. - Normal first portion of the duodenum and second portion of the duodenum. - An externally removable PEG placement was successfully completed. - No specimens collected. Recommendation: - Discharge patient to home. - Please follow the post-PEG recommendations including: change dressing once per day, may use PEG today for meds and water and may use PEG tomorrow for feedings. Procedure Code(s): --- Professional --- 74756, Esophagogastroduodenoscopy, flexible, transoral; with directed placement of percutaneous gastrostomy tube Diagnosis Code(s): --- Professional --- K31.89, Other diseases of stomach and duodenum R63.3, Feeding difficulties Z43.1, Encounter for attention to gastrostomy R13.10, Dysphagia, unspecified CPT copyright 2019 [employer]. All rights reserved. The codes documented in this report are preliminary and upon adult family home program manager review may be revised to meet current compliance requirements. Jim Austin MD Jim Austin MD 06/28/2021 2:53:40 PM Electronically signed by Jim Austin MD Number of Addenda: 0 Note Initiated On: 06/28/2021 1:58 PM Estimated Blood Loss: Estimated blood loss was minimal.
[2021-06-28 15:00] VITALS: BP 130/63
== END 2021-06-28 15:16 | disposition home or self-care (01) ==
LOC: M OPP 11:54
PROVIDERS: ATTEND Surgery
DX: K31.89 Other diseases of stomach and duodenum (principal); R63.3 Feeding difficulties; Z43.1 Encounter for attention to gastrostomy; R13.10 Dysphagia, unspecified; Z79.891 Long term (current) use of opiate analgesic; Z79.899 Other long term (current) drug therapy; Z88.8 Allergy status to other drugs, medicaments and biological substances; Z86.2 Personal history of diseases of the blood and blood-forming organs and certain disorders involving the immune mechanism
CPT/HCPCS: 43246; J0690; J2250; J3010

== ENCOUNTER → 2021-07-02 | Outpatient (REF) | payer OTHER ==
[~2021-07-02] MED LIST changes: -NS 1,000 ML IV ONE; -ceFAZolin SOD 2 GM in IV 1 EA IV ONE
[2021-07-02 13:50] LABS: BASO % 0.1 % (0.0-1.0); EOS % 0.1 % (0.0-3.0); HEMATOCRIT 28.9 % (42.0-52.0); LYMPH # 0.4 10^3/uL (1.5-5.0); LYMPH % 2.6 % (24.0-44.0); MEAN CORPUSCULAR HEMOGLOBIN 35.9 pg (27.0-33.0); MEAN CORPUSCULAR HGB CONC 31.1 g/dl (32.0-36.5); MEAN CORPUSCULAR VOLUME 115.1 fl (80.0-96.0); MONO % 11.8 % (2.0-8.0); NEUTROPHILS # 11.3 10^3/uL (1.5-8.5); NEUTROPHILS % 83.6 % (36.0-66.0); PLATELET COUNT, AUTOMATED 72 10^3/uL (150-450); RED BLOOD COUNT 2.51 10^6/uL (4.30-6.10); WHITE BLOOD COUNT 13.6 10^3/uL (4.0-10.0)
[2021-07-02 13:51] LABS: MONO # 1.6 10^3/uL (0.0-0.8)
[2021-07-02 14:09] LABS: ANISOCYTOSIS 1+; PLATELET ESTIMATE DECREASED (NORMAL)
[2021-07-02 14:14] LABS: ERYTHROCYTE SEDIMENTATION RATE 128 mm/hr (0-20)
[2021-07-02 14:21] LABS: ALBUMIN 2.3 GM/DL (3.2-5.2); ALT/SGPT 25 U/L (12-78); BILIRUBIN,TOTAL 0.2 MG/DL (0.2-1.0); BLOOD UREA NITROGEN 25 MG/DL (7-18); CALCIUM LEVEL 8.7 MG/DL (8.8-10.2); CARBON DIOXIDE LEVEL 32 MEQ/L (21-32); CHLORIDE LEVEL 98 MEQ/L (98-107); CREATININE FOR GFR 0.53 MG/DL (0.70-1.30); GLOMERULAR FILTRATION RATE > 60.0 (>42); GLUCOSE, FASTING 125 MG/DL (70-100); POTASSIUM SERUM 4.5 MEQ/L (3.5-5.1); SODIUM LEVEL 134 MEQ/L (136-145); TOTAL PROTEIN 6.9 GM/DL (6.4-8.2)
== END ==
LOC: M SHH 13:20 → M LAB REF 13:20
PROVIDERS: ATTEND Internal Medicine Infectious Disease
DX: Z87.891 Personal history of nicotine dependence (principal); B95.62 Methicillin resistant Staphylococcus aureus infection as the cause of diseases classified elsewhere; K21.9 Gastro-esophageal reflux disease without esophagitis; I10 Essential (primary) hypertension

== ENCOUNTER 2021-07-05 12:49 | Inpatient (IN) | payer OTHER ==
[~2021-07-05] VITALS: Ht 162.6 cm; Wt 47.0 kg
[2021-07-05 14:15] VITALS: BP 116/66
[2021-07-05] MEDS ORDERED: PRED5TA PO (14:16)
[2021-07-05] MEDS ORDERED: OMEP20TA2 PO (14:16)
[2021-07-05] MEDS ORDERED: NAPR-885 PO (14:16)
[2021-07-05] MEDS ORDERED: HOME MED LIST COMPLETE! XX SCH (14:20)
[2021-07-05] MEDS ORDERED: propofoL 200 MG/20 ML VIAL As Ordered ONE (16:16)
[2021-07-05] MEDS ORDERED: LIDOCAINE 2% 100MG/5ML SDV (FOR ANES.) As Ordered ONE (16:16)
[2021-07-05] MEDS ORDERED: fentaNYL 100 MCG/2 ML INJECTION (J3010) As Ordered ONE (16:17)
[2021-07-05] MEDS ORDERED: MIDAZOLAM INJ 2MG/2ML VIAL (J2250 PER 1MG) As Ordered ONE (16:17)
[2021-07-05] MEDS: PIPERACILLIN/TAZOBACTAM SOD 3.375 GM in D5W MINI-BAG PLUS 50 ML IV SCH ×3 (16:30→21:39)
[2021-07-05] MEDS: LR 1,000 ML IV SCH ×2 (16:30→19:55)
[2021-07-05] MEDS: SODIUM CHLORIDE 0.9% INJ 10 ML SYR IV SCH (18:00)
[2021-07-05] MEDS ORDERED: AMINO AC/ELECTROLYTE/DEX/CALC 2,000 ML IV SCH (18:00)
[2021-07-05] MEDS ORDERED: FAT EMULSION IV 250 ML IV SCH (18:00)
[2021-07-05] MEDS ORDERED: ONDANSETRON 4MG/2ML VIAL IV PRN (18:30)
[2021-07-05] MEDS: fentaNYL 100 MCG/2 ML INJECTION (J3010) IV PRN ×2 (18:40→18:45)
[2021-07-05 20:11] VITALS: BP 120/67
[2021-07-05 20:47] VITALS: BP 111/70
[2021-07-05] MEDS: PREGABALIN 100 MG CAP (LYRICA) PO SCH (21:39)
[2021-07-05] MEDS: DULoxetine 20 MG CAP (CYMBALTA) PO SCH (21:39)
[2021-07-05] MEDS: OMEPRAZOLE 20 MG CAP PO SCH (21:39)
[2021-07-05 21:45] VITALS: BP 127/58
--- NOTE | 2021-07-05 22:17 | REPVR ---
PROCEDURE INFORMATION: Exam: CT Abdomen Without Contrast Exam date and time: 07/05/2021 9:02 PM Age: 70 years old Clinical indication: Device placement; Gi device; Peg tube; Additional info: G-tube displaced and replaced. Assess for abdominal leak. TECHNIQUE: Imaging protocol: Computed tomography images of the abdomen without contrast. Radiation optimization: All CT scans at this facility use at least one of these dose optimization techniques: automated exposure control; mA and/or kV adjustment per patient size (includes targeted exams where dose is matched to clinical indication); or iterative reconstruction. COMPARISON: PT PET/CT Skull/mid thigh 11/26/2020 2:20 PM FINDINGS: Tubes, catheters and devices: Gastrostomy tube. There is fat stranding and edema around the gastrostomy tube path. Lungs: Interlobular scarring at bilateral lung bases. Liver: Normal. No mass. Gallbladder and bile ducts: Normal. No calcified stones. No ductal dilation. Pancreas: Normal. No ductal dilation. Spleen: Normal. No splenomegaly. Adrenals: Normal. No mass. Kidneys and ureters: Normal. No hydronephrosis. Stomach and bowel: Visualized stomach and bowel are unremarkable. No obstruction. No mucosal thickening. Intraperitoneal space: Unremarkable. No free air. No significant fluid collection. Lymph nodes: Unremarkable. No enlarged lymph nodes. Vasculature: Atherosclerotic calcification of the abdominal aorta and bilateral iliac vessels. Bones/joints: Diffuse demineralization of the bones. Multiple chronic compression fractures of the thoracic and lumbar spine. Multilevel degenerative disc disease. Soft tissues: Unremarkable. IMPRESSION: No acute abdominal abnormality. Gastrostomy with edema and fat stranding around the path of the PEG tube. Electronically signed by: Andrew Hirsch On 07/05/2021 22:17:31 PM
[2021-07-05 22:42] VITALS: BP 132/80
[2021-07-06 02:00] VITALS: BP_SYST 130; BP_DIAS 59; BP_DIAS 76
[2021-07-06] MEDS: PIPERACILLIN/TAZOBACTAM SOD 3.375 GM in D5W MINI-BAG PLUS 50 ML IV SCH ×4 (03:02→20:31)
[2021-07-06] MEDS: SODIUM CHLORIDE 0.9% INJ 10 ML SYR IV SCH ×2 (03:02→18:38)
[2021-07-06] MEDS: LR 1,000 ML IV SCH (03:03)
[2021-07-06 04:17] VITALS: BP 131/72
[2021-07-06] MEDS: MORPHINE 2 MG/ML 1ML VIAL (J2270) IV PRN ×5 (04:31→20:31)
[2021-07-06] MEDS: predniSONE 5 MG TAB PO SCH (09:18)
[2021-07-06] MEDS: DULoxetine 20 MG CAP (CYMBALTA) PO SCH ×2 (09:18→20:33)
[2021-07-06] MEDS: OMEPRAZOLE 20 MG CAP PO SCH ×2 (09:18→20:31)
[2021-07-06] MEDS: PREGABALIN 100 MG CAP (LYRICA) PO SCH ×3 (09:18→20:31)
[2021-07-06] MEDS: LORATADINE 10 MG TAB PO SCH (09:18)
[2021-07-06 10:00] VITALS: BP 128/70
[2021-07-06] MEDS ORDERED: AMINO AC/ELECTROLYTE/DEX/CALC 1,000 ML IV SCH (12:00)
[2021-07-06 14:00] VITALS: BP 134/72
[2021-07-06 18:00] VITALS: BP 133/76
[2021-07-06] MEDS ORDERED: FAT EMULSION IV 250 ML IV SCH (18:00)
[2021-07-06] MEDS ORDERED: AMINO AC/ELECTROLYTE/DEX/CALC 2,000 ML IV SCH (18:00)
[2021-07-06] MEDS: PERCOCET 5MG/325MG TAB GT PRN (19:36)
[2021-07-06 21:31] VITALS: BP 140/65
--- NOTE | 2021-07-06 23:05 | IPN ---
PROGRESS NOTE DATE: 07/06/2021 HISTORY: The patient is a 70-year-old man who was admitted yesterday after his one-week old gastrostomy tube was found to be partially withdrawn with the internal retention disk in the subcutaneous tissues on follow up in the office. He underwent upper endoscopy and it was possible to place a new tube through the same site. This was a #24 Korean tube, and the balloon was inflated with approximately 12 mL of fluid. He was kept overnight to monitor the site which was somewhat reddened and to continue his TPN. He has been continued on Zosyn for redness of the site. A CT scan showed some inflammation in the abdominal wall but no evidence of free fluid in the abdomen. Vital signs show that he has been afebrile since admission yesterday. His pulse is in the 70's. His blood pressure is good. Room air oxygen saturation is normal. Intake and output show that he had only 255 mL recorded in yesterday with 200 mL recorded out in urine. He has been on the TPN since late last evening. PHYSICAL EXAMINATION: GENERAL APPEARANCE: The patient is a somewhat frail appearing, quite thin older man, lying quietly on the hospital bed. He has a PICC line in the right antecubital fossa. ABDOMEN: The gastrostomy tube exits the left upper quadrant just below the costal margin. There is a reddened ridge running across the area of the tube site about 10 cm in length. Palpation reveals no fluctuance in the subcutaneous tissues and no evidence of subcutaneous air. This area of edema and redness is quite limited overall. He does report significant tenderness at the tube site. There is leakage of some fluid around the tube at the site with a small amount of necrotic debris showing at the opening. The abdomen is otherwise flat and soft. IMPRESSION: The patient has some redness and fairly marked tenderness around the gastrostomy tube site. There is also an odor of necrotic tissue at this site. It does not appear to be anything suggesting necrotizing fasciitis. The skin incision is widely open and draining a small amount of liquid. PLAN: The patient will be continued on the TPN. I will convert him to an inpatient status and continue his IV Zosyn for now and monitor his G-tube site. It may be that with the thinness of the abdominal wall in general and the awkward position of the current new tube site just below the costal margin, that we will need to abandon this site and find some new way to provide him nutrition. He is agreeable with staying in the hospital. We will check his labs in the morning. SHAHLA
[2021-07-07] MEDS: PIPERACILLIN/TAZOBACTAM SOD 3.375 GM in D5W MINI-BAG PLUS 50 ML IV SCH ×4 (01:24→20:04)
[2021-07-07] MEDS: PERCOCET 5MG/325MG TAB GT PRN ×4 (01:25→20:03)
[2021-07-07 01:26] VITALS: BP 138/72
[2021-07-07] MEDS: SODIUM CHLORIDE 0.9% INJ 10 ML SYR IV SCH ×2 (02:21→16:57)
[2021-07-07] MEDS: MORPHINE 2 MG/ML 1ML VIAL (J2270) IV PRN ×4 (02:21→16:56)
[2021-07-07 05:52] VITALS: BP 140/53
[2021-07-07 07:03] LABS: HEMATOCRIT 29.2 % (42.0-52.0); HEMOGLOBIN 9.3 g/dl (13.5-17.5); MEAN CORPUSCULAR HEMOGLOBIN 35.2 pg (27.0-33.0); MEAN CORPUSCULAR HGB CONC 31.8 g/dl (32.0-36.5); MEAN CORPUSCULAR VOLUME 110.6 fl (80.0-96.0); RED BLOOD COUNT 2.64 10^6/uL (4.30-6.10)
[2021-07-07 07:04] LABS: PLATELET COUNT, AUTOMATED 68 10^3/uL (150-450); WHITE BLOOD COUNT 5.1 10^3/uL (4.0-10.0)
--- NOTE | 2021-07-07 07:07 | RO ---
OPERATIVE NOTE DATE OF OPERATION: 07/05/2021 PREOPERATIVE DIAGNOSIS: Dislodged gastrostomy tube. POSTOPERATIVE DIAGNOSIS: Dislodged gastrostomy tube. PROCEDURE PERFORMED: Upper endoscopy with removal of dislodged gastrostomy tube and replacement of new 24 Iranian gastrostomy tube. The tube inserted was a [employer] EndoVive 24 Iranian G-tube. This was lot #[id number] and reference code [id number]. SURGEON: Jim Austin MD ANESTHESIA: Monitored anesthesia care. 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 He has had recent problems with a previous tube being withdrawn through the abdominal wall and this site is healing. A new gastrostomy tube was placed on the 28 of June and this was a Cook Flow 24 percutaneous endoscopic gastrostomy tube. He had reported by telephone that there was some leakage around the tube and was invited back into the office on the morning of the and was found to have the internal retention disc in a subcutaneous position consistent with the tubing pulled through the gastric wall and much of the abdominal wall. He is now for upper endoscopy and attempts at replacement of the tube. OPERATIVE PROCEDURE: The patient was brought to the operating room and placed on the table in a supine position. He received monitored anesthesia care. The patient's abdomen was prepped with Betadine around the tube exit site in the left upper quadrant. I inserted the upper endoscope into the oropharynx and advanced this down the esophagus without difficulty. The esophagus appeared normal. The stomach was entered. The stomach had a small amount of bilious fluid within. There was no evidence of bleeding. The prepyloric area and distal body of the stomach appeared normal. His old gastrostomy site was well seen and there was a puckered scar in that area which appeared to be healing well. Proximal to this about 5 cm or so was a small area of what appeared to be necrotic mucosa with a small opening through this. This area was irrigated and inspected. I then gave the scope to the nurse to hold briefly. The existing gastrostomy tube was pulled through the skin and was indeed found to be immediately subcutaneous in location. There was leakage of air from the stomach through the tube site. I then reinflated the stomach while holding gentle pressure on the new tube site. With the stomach reinflated, I was able to advance with ease a small hemostat through the tube tract into the stomach. A 24 Iranian balloon retained replacement G-tube was selected as noted previously. This was then inserted through the G-tube site and directed into the stomach without difficulty. The balloon was inflated with approximately 12 mL of saline. The tube was capped and the external retention disc was slipped down to lightly touch the abdominal wall. Final inspection revealed good positioning of the tube within the stomach. There was no bleeding. A split gauze was placed beneath the external retention disc and a suture was placed through the disc and around the tube to try to prevent the tube from slipping through this little retention device externally. The patient tolerated the procedure and was awakened in the operating room and transported to the recovery room. SHAHLA
[2021-07-07 07:32] LABS: ALT/SGPT 16 U/L (12-78); BILIRUBIN,TOTAL 0.3 MG/DL (0.2-1.0); BLOOD UREA NITROGEN 16 MG/DL (7-18); CALCIUM LEVEL 8.2 MG/DL (8.8-10.2); CARBON DIOXIDE LEVEL 31 MEQ/L (21-32); CHLORIDE LEVEL 103 MEQ/L (98-107); CREATININE FOR GFR 0.39 MG/DL (0.70-1.30); GLOMERULAR FILTRATION RATE > 60.0 (>42); GLUCOSE, FASTING 129 MG/DL (70-100); POTASSIUM SERUM 3.9 MEQ/L (3.5-5.1); SODIUM LEVEL 138 MEQ/L (136-145); TOTAL PROTEIN 6.8 GM/DL (6.4-8.2)
[2021-07-07 07:39] LABS: ATYPICAL LYMPH 8 % (0-5); BASOPHILS 3 % (0-1); LYMPHOCYTES 38 % (16-44); MONOCYTES 26 % (0-5); MYELOCYTES 2 % (0-0); NEUTROPHILS 16 % (28-66)
[2021-07-07 07:40] LABS: ANISOCYTOSIS 1+; HYPOCHROMASIA 1+; PLATELET CLUMPS SMALL AMT; PLATELET ESTIMATE DECREASED (NORMAL)
[2021-07-07 07:41] LABS: MICROCYTOSIS 1+
[2021-07-07] MEDS: LORATADINE 10 MG TAB PO SCH (08:01)
[2021-07-07] MEDS: DULoxetine 20 MG CAP (CYMBALTA) PO SCH ×2 (08:01→20:04)
[2021-07-07] MEDS: PREGABALIN 100 MG CAP (LYRICA) PO SCH ×3 (08:01→20:03)
[2021-07-07] MEDS: predniSONE 5 MG TAB PO SCH (08:01)
[2021-07-07] MEDS: OMEPRAZOLE 20 MG CAP PO SCH ×2 (08:01→20:04)
[2021-07-07 14:00] VITALS: BP 136/66
--- NOTE | 2021-07-07 17:44 | IPN ---
PROGRESS NOTE DATE: 07/07/2021 HISTORY: Patient was admitted on Thursday, July 05, 2021, for replacement of his gastrostomy tube. He had had a tube placed on June 28, 2021, which was pulled through the stomach and abdominal wall and required replacement. He underwent endoscopy with insertion of a 24 Gibraltarian tube with a 12 mL balloon. He has had some leakage around the tube. He also had significant redness and tenderness around the tube consistent with some infection in that wound. He was therefore converted to an inpatient status yesterday to continue antibiotics and monitoring of his tube site. VITAL SIGNS: Patient has been afebrile over the past 24 hours. His pulse has remained in the 60s to as high as the low 80s. His blood pressure is good. INTAKE AND OUTPUT: Shows that he had 2300 mL in yesterday with 1300 mL of urine output recorded. He is receiving total parenteral nutrition at 35 mL per hour. PHYSICAL EXAMINATION: GENERAL: Patient appears slightly more comfortable today. He is lying quietly propped up in the hospital bed. He is alert and oriented. HEART EXAM: Shows a regular rhythm. ABDOMEN: Remains flat. There is less redness around his new gastrostomy tube site. There is a lot of watery, light brownish drainage on the drain sponge at the site with a small amount of debris protruding from the wound. It smells somewhat less foul than it did yesterday. It is a little less tender than it had been. The tube appears to be in good position. The abdomen is otherwise soft and nontender. LABORATORY STUDIES: Laboratory studies show a CBC with a white count of 5, hemoglobin 9, hematocrit 29, and a platelet count of 68,000. His differential count shows 16% neutrophils, 7% bands, 38% lymphocytes, 26% monocytes, 3 basophils, 2 myelocytes and 8 atypical lymphocytes. Chemistry profile shows a sodium of 138, potassium 3.9, chloride 103, CO2 of 31, BUN of 16, creatinine 0.4, and a glucose of 129. IMPRESSION: Patient appears to be doing slightly better today. The redness and tenderness at his gastrostomy (G) tube site has diminished. There is still, I think some leakage around the tube and this is what the nurse had reported as well. It may be that all of this fluid is draining from the inflammation at the tube site. PLAN: I will continue the intravenous Zosyn for now and continue to monitor the G tube site. The patient asked about being discharged home with intravenous (IV) antibiotics and the total parenteral nutrition (TPN), and it may be possible to arrange this, but I have recommended that we give this at least another day in the hospital to monitor his wound. I am hopeful that, with some time, the wound will heal in around his new G tube and allow us to use this for feedings. Patient is willing to stay at least another day, and we will reassess him in the morning. SHAHLA
[2021-07-07] MEDS ORDERED: AMINO AC/ELECTROLYTE/DEX/CALC 2,000 ML IV SCH (18:00)
[2021-07-07] MEDS ORDERED: FAT EMULSION IV 250 ML IV SCH (18:00)
[2021-07-07] MEDS: HYDROXYCHLOROQUINE 200 MG TAB PO SCH (20:03)
[2021-07-07 22:04] VITALS: BP 135/54
[2021-07-08] MEDS: KETOROLAC 30 MG/ML 1ML VIAL IV PRN ×3 (02:14→20:27)
[2021-07-08] MEDS: PIPERACILLIN/TAZOBACTAM SOD 3.375 GM in D5W MINI-BAG PLUS 50 ML IV SCH ×4 (02:14→20:25)
[2021-07-08] MEDS: SODIUM CHLORIDE 0.9% INJ 10 ML SYR IV SCH ×2 (03:32→18:47)
[2021-07-08 06:23] VITALS: BP 128/61
[2021-07-08 07:08] LABS: BASO % 0.3 % (0.0-1.0); EOS % 0.2 % (0.0-3.0); HEMATOCRIT 32.1 % (42.0-52.0); LYMPH # 0.7 10^3/uL (1.5-5.0); LYMPH % 5.7 % (24.0-44.0); MEAN CORPUSCULAR HEMOGLOBIN 34.8 pg (27.0-33.0); MEAN CORPUSCULAR HGB CONC 31.2 g/dl (32.0-36.5); MEAN CORPUSCULAR VOLUME 111.8 fl (80.0-96.0); MONO # 2.7 10^3/uL (0.0-0.8); MONO % 22.1 % (2.0-8.0); NEUTROPHILS # 8.4 10^3/uL (1.5-8.5); NEUTROPHILS % 69.9 % (36.0-66.0); RED BLOOD COUNT 2.87 10^6/uL (4.30-6.10)
[2021-07-08 07:10] LABS: PLATELET COUNT, AUTOMATED 74 10^3/uL (150-450)
[2021-07-08 07:28] LABS: BLOOD UREA NITROGEN 21 MG/DL (7-18); CALCIUM LEVEL 8.6 MG/DL (8.8-10.2); CARBON DIOXIDE LEVEL 31 MEQ/L (21-32); CHLORIDE LEVEL 98 MEQ/L (98-107); CREATININE FOR GFR 0.58 MG/DL (0.70-1.30); GLOMERULAR FILTRATION RATE > 60.0 (>42); GLUCOSE, FASTING 116 MG/DL (70-100); POTASSIUM SERUM 3.7 MEQ/L (3.5-5.1); SODIUM LEVEL 134 MEQ/L (136-145)
[2021-07-08] MEDS: DULoxetine 20 MG CAP (CYMBALTA) PO SCH ×2 (08:50→20:25)
[2021-07-08] MEDS: LORATADINE 10 MG TAB PO SCH (08:50)
[2021-07-08] MEDS: HYDROXYCHLOROQUINE 200 MG TAB PO SCH ×2 (08:51→20:25)
[2021-07-08] MEDS: predniSONE 5 MG TAB PO SCH (08:51)
[2021-07-08] MEDS: PERCOCET 5MG/325MG TAB GT PRN ×2 (08:51→16:35)
[2021-07-08] MEDS: PREGABALIN 100 MG CAP (LYRICA) PO SCH ×3 (08:51→20:25)
[2021-07-08] MEDS: OMEPRAZOLE 20 MG CAP PO SCH ×2 (08:52→20:25)
[2021-07-08 10:00] VITALS: BP 137/60
[2021-07-08 14:00] VITALS: BP 129/67
[2021-07-08 18:00] VITALS: BP 128/66
[2021-07-08] MEDS ORDERED: FAT EMULSION IV 250 ML IV SCH (18:00)
[2021-07-08] MEDS ORDERED: AMINO AC/ELECTROLYTE/DEX/CALC 2,000 ML IV SCH (18:00)
--- NOTE | 2021-07-08 18:03 | IPN ---
PROGRESS NOTE DATE: 07/08/2021 HISTORY: The patient was admitted on the 05 of July with a dislodged gastrostomy tube with the internal disk resting in the subcutaneous tissues where it had pulled through the gastric and most of the abdominal wall. He underwent endoscopy with placement of a new #24 Welsh tube. There was a lot of inflammation and infection around the tube site which has been improving on IV Zosyn. He remains on TPN. He continues to have some leakage of fluid around the tube. Vital signs show that he has been afebrile over the past 24 hours. His pulse is in the upper 50's to 70's. Blood pressure is good and his room air oxygen saturations are normal. Intake and output show that yesterday he had 1,250 recorded in with 250 mL of urine measured. He is on total parenteral nutrition at 65 mL per hour with intralipids as well. I suspect both his intake and output are under estimated. OBJECTIVE: PHYSICAL EXAMINATION: GENERAL APPEARANCE: The patient is alert and seems oriented. ABDOMEN: The redness around his G-tube site is resolving nicely. There is a small amount of brownish drainage on his current drain sponge with some clear liquid as well. There is less of a foul smell than what was present initially. The abdomen is otherwise soft. LABORATORY STUDIES: Today white count of 12, hemoglobin 10, hematocrit 32 and a platelet count of 74,000. His differential count today has normalized to an extent with 70% neutrophils, 6% lymphocytes and 22% monocytes. Chemistry profile showed a sodium of 134, potassium 3.7, chloride 98, CO2 of 31, BUN of 21, creatinine 0.6 and a glucose of 116. IMPRESSION: The patient continues to show improvement in his localized infection at the G-tube site. There appears to be a little less leakage with some closing in of the tissues around the tube. He does have some drainage still around the tube, though he thinks there is less fluid coming out around the tube from the stomach. His white blood cell count is up a hair but the differential appears slightly more normal today than yesterday. His electrolytes are good. The patient is becoming somewhat less pleased with staying in the hospital. He is griping that he could do all of this care at home. I have heard from the nurse that the patient's niece, who has been assisting as a caregiver is not ready for him to be discharged and she is looking into ways to find additional help for him at home. PLAN: I discussed with the patient my concerns about sending him home too soon. His infection appears to be resolving nicely but I believe continued treatment is necessary. He has had multiple problems with his gastrostomy tube over the last 6 months or a year and we may run out of options if this tube does not heal well, and I think we need to take all care necessary to try to get this to heal. I will request a PT and OT evaluation today. We will continue his TPN and his intravenous Zosyn. I do not suspect that he is going to remain in the hospital or cooperate with his care much longer but we will see how things are looking tomorrow. Patient and family services will also speak with the patient about whether there are any other options for assistance with home care. SHAHLA
[2021-07-08 22:34] VITALS: BP 130/63
[2021-07-09 00:04] VITALS: BP 120/51
[2021-07-09] MEDS: MORPHINE 2 MG/ML 1ML VIAL (J2270) IV PRN (00:20)
[2021-07-09] MEDS: SODIUM CHLORIDE 0.9% INJ 10 ML SYR IV PRN ×2 (00:20→03:33)
[2021-07-09] MEDS: PIPERACILLIN/TAZOBACTAM SOD 3.375 GM in D5W MINI-BAG PLUS 50 ML IV SCH ×3 (01:34→14:52)
[2021-07-09 02:06] VITALS: BP 136/62
[2021-07-09] MEDS: KETOROLAC 30 MG/ML 1ML VIAL IV PRN (03:32)
[2021-07-09 06:30] VITALS: BP 123/66
[2021-07-09 06:33] LABS: BASO % 0.4 % (0.0-1.0); EOS % 0.1 % (0.0-3.0); HEMATOCRIT 28.6 % (42.0-52.0); HEMOGLOBIN 9.2 g/dl (13.5-17.5); LYMPH # 0.9 10^3/uL (1.5-5.0); LYMPH % 9.9 % (24.0-44.0); MEAN CORPUSCULAR HEMOGLOBIN 35.5 pg (27.0-33.0); MEAN CORPUSCULAR HGB CONC 32.2 g/dl (32.0-36.5); MEAN CORPUSCULAR VOLUME 110.4 fl (80.0-96.0); MONO # 2.9 10^3/uL (0.0-0.8); MONO % 31.8 % (2.0-8.0); NEUTROPHILS % 56.2 % (36.0-66.0); RED BLOOD COUNT 2.59 10^6/uL (4.30-6.10)
[2021-07-09] MEDS: SODIUM CHLORIDE 0.9% INJ 10 ML SYR IV SCH (06:42)
[2021-07-09 06:56] LABS: PLATELET COUNT, AUTOMATED 78 10^3/uL (150-450)
[2021-07-09] MEDS: predniSONE 5 MG TAB PO SCH (08:24)
[2021-07-09] MEDS: DULoxetine 20 MG CAP (CYMBALTA) PO SCH (08:24)
[2021-07-09] MEDS: HYDROXYCHLOROQUINE 200 MG TAB PO SCH (08:25)
[2021-07-09] MEDS: PREGABALIN 100 MG CAP (LYRICA) PO SCH ×2 (08:26→14:52)
[2021-07-09] MEDS: OMEPRAZOLE 20 MG CAP PO SCH (08:26)
[2021-07-09] MEDS: LORATADINE 10 MG TAB PO SCH (08:26)
[2021-07-09] MEDS: PERCOCET 5MG/325MG TAB GT PRN (08:26)
[2021-07-09 10:00] VITALS: BP 123/61
[2021-07-09] MEDS ORDERED: ANEXSIA, NORCO 7.5MG/325MG TABLET(HYDROCODONE/APAP) PO PRN (12:05)
[2021-07-09 14:00] VITALS: BP 129/55
--- NOTE | 2021-07-09 14:45 | IPNPDOC ---
Text Note Date of Service The patient was seen on 07/09/21. NOTE General surgery. Dr. Austin The patient is a 70-year-old male admitted on 07/05/2021 with dislodged gastrostomy tube, status post EGD 07/05/[address] Austin with placement of a new tube. The patient was noted to have a lot of inflammation and infection around the tube site, the patient has been continued on IV Zosyn. He remains on TPN. The patient continues to have some leakage of fluid and air around the tube. Afebrile VSS MMM Lungs with good air entry, no wheezing S1-S2 regular rate rhythm Abdomen with tube in place, there is some yellow-brown drainage around the tube site, leakage of air noted, redness seems to be subsiding around the G-tube site. WBC 9.0, this is decreased from 12.0 yesterday morning. Hemoglobin 9.2. Platelets 78. I/O 1130 mL/800, +330. Assessment/plan Dislodged gastrostomy tube with localized infection, status post EGD 07/05/[address] Austin with placement of a new tube. The patient is reviewed as per Dr. Austin. Continuing to monitor for closing in of the tissues around the tube. The patient is still having leakage of yellow/brown drainage and leakage of air WBC with downward trend to 9.0 this morning. Continues on TPN IV Zosyn PT eval pending OT eval recommends home with previous level of care. PFS assisting with discharge planning and services for home. VS,Fishbone, I+O VS, Fishbone, I+O Laboratory Tests 07/09/21 05:59 Vital Signs Date Time Temp Pulse Resp B/P (MAP) Pulse Ox O2 Delivery O2 Flow Rate FiO2 07/09/21 10:00 97.8 68 18 123/61 (81) 92 Room Air 07/05/21 19:10 2.0 I&O- Last 24 Hours up to 6 AM 07/09/21 05:59 Intake Total 1130 ml Output Total 1050 ml Balance 80 ml Attending Note Attending Note Patient progressing. Wound less red with less drainage. Still some leakage at site. Plan to D/C home on TPN for another week to allow healing of tube site. Advised against putting traction on tube to decrease leak. Will give Augmentin for 5 days. Follow up one week. Ginette Rosales Jul 09, 2021 14:45 Jim Austin Jul 11, 2021 23:21
[2021-07-09] MEDS ORDERED: AUGM250S13 GT (16:22)
--- NOTE | 2021-07-12 11:49 | DS.PDOC ---
Discharge Summary General Date of Admission Jul 06, 2021 at 18:52 Date of Discharge 07/09/2020 Discharge Summary General surgery. Dr. Austin PROCEDURES PERFORMED DURING STAY: EGD, Percutaneous endoscopic gastrostomy tube placement as per Dr. Austin 07/05/2021 ADMITTING DIAGNOSES: Gastrostomy tube displacement DISCHARGE DIAGNOSES: Gastrostomy tube displacement status post EGD, Percutaneous endoscopic gastrostomy tube placement as per Dr. Austin 07/05/2021 HISTORY OF PRESENT ILLNESS: The patient is a 70-year-old male admitted 07/05/2021 with a history of gastrostomy tube placement 1 week prior that was found to be partially withdrawn with internal retention disc in the subcutaneous tissues on follow-up in the office. Admission was arranged for EGD and gastrostomy tube replacement. For further details please refer to admission history and physical. The patient was placed on TPN via PICC line right arm and IV Zosyn. HOSPITAL COURSE: The patient was taken for EGD and placement of gastrostomy tube as per Dr. Austin 07/05/2021. The patient was placed on TPN he was continued on Zosyn IV. CT scan had indicated some inflammation in the abdominal wall but no evidence of free fluid in the abdomen. The patient had been noted to have marked tenderness around the gastrostomy tube site and drainage from around the G-tube site. The plan was to continue the patient on TPN and IV Zosyn to allow more time for the tissues to heal around the new G-tube placement. By 07/07/2021 the patient was anxious for discharge. PT/OT eval was requested, indicating the patient was safe for discharge home to his previous level of care. PFS was assisting with discharge planning for home services to assist with TPN. By the afternoon of 07/09/2021 the patient was felt safe for discharge home. Plan was to continue with oral Augmentin per G-tube 3 times daily for an additional 5 days. The patient was advised to only place 1 piece of gauze under the G-tube between the skin and to not use any other devices to hold or position the G- tube. Outpatient follow-up was arranged. DISCHARGE MEDICATIONS: Please see below. ALLERGIES: Please see below. PHYSICAL EXAMINATION ON DISCHARGE: Afebrile VSS MMM Lungs with good air entry, no wheezing S1-S2 regular rate rhythm Abdomen with tube in place, there is some yellow-brown drainage around the tube site, leakage of air noted, redness seems to be subsiding around the G-tube site. LABORATORY DATA: Please see below. IMAGING: CT abdomen/pelvis 07/05/2021 MPRESSION: No acute abdominal abnormality. Gastrostomy with edema and fat stranding around the path of the PEG tube. Electronically signed by: Andrew Hirsch On 07/05/2021 22:17:31 PM DISCHARGE PLAN: Discharge home with home care services DISPOSITION: 06 Home Health Service. DISCHARGE INSTRUCTIONS: Continue with TPN Augmentin 3 times daily via G-tube. Continue to keep G-tube area clean and dry, the patient was advised to clean around the G-tube with soap and water daily or as needed and place 1 drain sponge around the tube. Do not place traction or multiple gauzes or other homemade devices on the tube. Activity as tolerated Follow-up with Dr. Austin in 1 week Okay to take medications by G-tube DISCHARGE CONDITION: Stable. TIME SPENT ON DISCHARGE: Greater than 30 minutes. Vital Signs/I&Os Vital Signs Date Time Temp Pulse Resp B/P (MAP) Pulse Ox O2 Delivery O2 Flow Rate FiO2 07/09/21 15:22 16 07/09/21 14:00 97.6 60 129/55 (79) 97 Room Air Laboratory Data Labs 24H Item Value Date Time White Blood Count 9.0 10^3/uL 07/09/21 0559 Red Blood Count 2.59 10^6/uL L 07/09/21 0559 Hemoglobin 9.2 g/dl L 07/09/21 0559 Hematocrit 28.6 % L 07/09/21 0559 Mean Corpuscular Volume 110.4 fl H 07/09/21 0559 Mean Corpuscular Hemoglobin 35.5 pg H 07/09/21 0559 Mean Corpuscular Hemoglobin Concent 32.2 g/dl 07/09/2159 Red Cell Distribution Width 15.6 % H 07/09/21 0559 Platelet Count 78 10^3/uL L 07/09/21 0559 Sodium Level 134 MEQ/L L 07/08/21 0619 Potassium Level 3.7 MEQ/L 07/08/21 0619 Chloride Level 98 MEQ/L 07/08/21 0619 Carbon Dioxide Level 31 MEQ/L 07/08/21618 Anion Gap 5 MEQ/L L 07/08/21618 Blood Urea Nitrogen 21 MG/DL H 07/08/21618 Creatinine 0.58 MG/DL L 07/08/21618 Glomerular Filtration Rate > 60.0 07/08/21618 Fasting Glucose 116 MG/DL H 07/08/21618 Calcium Level 8.6 MG/DL L 07/08/21618 Discharge Medications Scheduled Amoxicillin/Potassium Clav (Augmentin 250-62.5 mg/5 ml) 250 Mg/5 Ml Susp.recon, 10 ML GT TID Duloxetine HCl (Duloxetine HCl) 20 Mg Capsule.dr, 20 MG PO BID, (Reported) Hydroxychloroquine Sulfate (Hydroxychloroquine Sulfate) 200 Mg Tab, 200 MG PO BID, (Reported) Loratadine (Loratadine) 10 Mg Tablet, 10 MG PO DAILY, (Reported) Nystatin (Nystatin Powder) 15 Gm Powder, 1 DOSE TOP TID, (Reported) APPLY TO G-TUBE SITE. [employer]OR [employer]ES MIXES WITH MYLANTA AND ZINC CREAM Omeprazole (Omeprazole) 20 Mg Tablet.dr, 20 MG PO BID, (Reported) Prednisone (Prednisone) 5 Mg Tablet, 10 MG PO DAILY, (Reported) Pregabalin (Pregabalin) 100 Mg Capsule, 100 MG PO TID, (Reported) Scheduled PRN Hydrocodone/Acetaminophen (Hydrocodone-Acetamin 7.5-325) 1 Each Tablet, 1 TAB PO TID PRN for SEVERE PAIN (PS 8-10), (Reported) Lidocaine HCl (Lidocaine HCl Viscous) 15 Ml Solution, 15 ML MT TID PRN for MOUTH PAIN, (Reported) Naproxen (Naproxen) 500 Mg Tablet, 500 MG PO Q12H PRN for PAIN LEVEL 1-4, (Reported) Allergies Coded Allergies: chlorpromazine (Verified Allergy, Mild, rash, 06/27/21) Ginette Rosales Jul 12, 2021 11:49 Jim Austin Jul 12, 2021 14:23
== END 2021-07-09 17:55 | disposition home health service (06) | DRG 394 ==
LOC: M ED 12:49 → M MS5PR 12:50 → OBSVTOIN 07-06 18:52
PROVIDERS: ADMIT Surgery; ATTEND Surgery
PROC: 0D20XUZ Change Feeding Device in Upper Intestinal Tract, External Approach (ICD-10-PCS; principal; 2021-07-05 13:03)
DX: K94.22 Gastrostomy infection (principal); Z68.1 Body mass index [BMI] 19.9 or less, adult; K94.23 Gastrostomy malfunction; Z79.899 Other long term (current) drug therapy; Z88.8 Allergy status to other drugs, medicaments and biological substances

== ENCOUNTER → 2021-07-15 | Outpatient (REF) | payer OTHER ==
[~2021-07-15] MED LIST changes: +AUGM250S13 GT; +NAPR-885 PO; +OMEP20TA2 PO
[2021-07-15 16:44] LABS: HEMATOCRIT 28.3 % (42.0-52.0); HEMOGLOBIN 8.6 g/dl (13.5-17.5); MEAN CORPUSCULAR HGB CONC 30.4 g/dl (32.0-36.5); RED BLOOD COUNT 2.46 10^6/uL (4.30-6.10); WHITE BLOOD COUNT 5.2 10^3/uL (4.0-10.0)
[2021-07-15 17:01] LABS: ALBUMIN 2.5 GM/DL (3.2-5.2); ALT/SGPT 33 U/L (12-78); BILIRUBIN,TOTAL 0.4 MG/DL (0.2-1.0); BLOOD UREA NITROGEN 24 MG/DL (7-18); CALCIUM LEVEL 8.3 MG/DL (8.8-10.2); CARBON DIOXIDE LEVEL 33 MEQ/L (21-32); CHLORIDE LEVEL 96 MEQ/L (98-107); CREATININE FOR GFR 0.53 MG/DL (0.70-1.30); GLOMERULAR FILTRATION RATE > 60.0 (>42); GLUCOSE, FASTING 101 MG/DL (70-100); MAGNESIUM LEVEL 2.1 MG/DL (1.8-2.4); PHOSPHORUS LEVEL 2.4 MG/DL (2.5-4.9); POTASSIUM SERUM 4.5 MEQ/L (3.5-5.1); SODIUM LEVEL 134 MEQ/L (136-145); TOTAL PROTEIN 7.2 GM/DL (6.4-8.2); TRIGLYCERIDES LEVEL 85 MG/DL (<150)
[2021-07-15 17:35] LABS: PLATELET COUNT, AUTOMATED 74 10^3/uL (150-450)
[2021-07-15 17:38] LABS: BASOPHILS 1 % (0-1); LYMPHOCYTES 6 % (16-44); METAMYELOCYTES 7 % (0-0); MONOCYTES 14 % (0-5); NEUTROPHILS 69 % (28-66); PLATELET ESTIMATE DECREASED (NORMAL)
[2021-07-15 17:39] LABS: ANISOCYTOSIS 1+
== END ==
LOC: M SHH 16:00
PROVIDERS: ATTEND Nurse Practitioner Family
DX: E43 Unspecified severe protein-calorie malnutrition (principal)

== ENCOUNTER 2021-11-25 08:08 | Emergency (ER) | payer OTHER ==
[~2021-11-25] VITALS: Ht 162.6 cm; Wt 53.2 kg
[2021-11-25] MEDS ORDERED: CEFD300C PO (10:32)
[2021-11-25] MEDS ORDERED: ZITHTAB PO (10:32)
[2021-11-25 10:45] VITALS: BP 143/70
== END 2021-11-25 12:29 | disposition home or self-care (01) ==
LOC: M ED 08:08
DX: J69.0 Pneumonitis due to inhalation of food and vomit (principal); L97.519 Non-pressure chronic ulcer of other part of right foot with unspecified severity; R94.31 Abnormal electrocardiogram [ECG] [EKG]; Z86.79 Personal history of other diseases of the circulatory system; C06.9 Malignant neoplasm of mouth, unspecified; Z88.4 Allergy status to anesthetic agent

== ENCOUNTER 2021-12-11 08:12 | Emergency (ER) | payer OTHER ==
[~2021-12-11] VITALS: Ht 160 cm; Wt 52.7 kg
[~2021-12-11 08:12] MED LIST changes: +CEFD300C PO; +ZITHTAB PO
[2021-12-11] MEDS ORDERED: GASTROGRAFIN SOLUTION 30ML (Q9963) As Ordered ONE (09:30)
[2021-12-11 11:17] VITALS: BP 171/75
== END 2021-12-11 11:18 | disposition home or self-care (01) ==
LOC: M ED 08:12
DX: Z93.1 Gastrostomy status (principal); C06.9 Malignant neoplasm of mouth, unspecified; F41.8 Other specified anxiety disorders; F32.A Depression, unspecified; Z88.4 Allergy status to anesthetic agent; Z87.891 Personal history of nicotine dependence; Z79.899 Other long term (current) drug therapy
CPT/HCPCS: 74018; 99283; Q9963

== ENCOUNTER → 2022-01-21 | Outpatient (REF) | payer MEDICARE, OTHER ==
[2022-01-21 18:06] LABS: APPEARANCE, URINE HAZY (CLEAR); BACTERIA, URINE AUTO NEGATIVE (NEGATIVE); BILIRUBIN, URINE AUTO NEGATIVE (NEGATIVE); BLOOD, URINE BLOOD NEGATIVE (NEGATIVE); CALCIUM OXALATE CRYSTALS MODERATE; COLOR, URINE YELLOW (YELLOW); GLUCOSE, URINE (UA) AUTO 1+ mg/dL (NEGATIVE); KETONE, URINE AUTO TRACE mg/dL (NEGATIVE); LEUKOCYTE ESTERASE, URINE AUTO NEGATIVE (NEGATIVE); MUCUS, URINE SMALL (NEGATIVE); NITRITE, URINE AUTO NEGATIVE (NEGATIVE); PROTEIN, URINE AUTO 1+ mg/dL (NEGATIVE); RBC, URINE AUTO 1 /HPF (0-3); SPECIFIC GRAVITY URINE AUTO 1.026 (1.002-1.035); SQUAMOUS EPITHELIAL CELL UR AU 0 /HPF (0-6); WBC, URINE AUTO 0 /HPF (0-3)
== END ==
LOC: M SMT 16:52
PROVIDERS: ATTEND Urology
DX: N32.9 Bladder disorder, unspecified (principal)

== ENCOUNTER → 2022-01-28 | Outpatient (REF) | payer MEDICARE ==
[2022-01-28 13:01] LABS: BASO % 0.7 % (0.0-1.0); HEMATOCRIT 35.3 % (42.0-52.0); HEMOGLOBIN 10.8 g/dl (13.5-17.5); LYMPH # 0.6 10^3/uL (1.5-5.0); LYMPH % 11.1 % (24.0-44.0); MEAN CORPUSCULAR HEMOGLOBIN 35.3 pg (27.0-33.0); MEAN CORPUSCULAR HGB CONC 30.6 g/dl (32.0-36.5); MONO % 17.8 % (2.0-8.0); NEUTROPHILS # 3.9 10^3/uL (1.5-8.5); NEUTROPHILS % 68.8 % (36.0-66.0); PLATELET COUNT, AUTOMATED 122 10^3/uL (150-450); RED BLOOD COUNT 3.06 10^6/uL (4.30-6.10); WHITE BLOOD COUNT 5.7 10^3/uL (4.0-10.0)
[2022-01-28 13:04] LABS: MEAN CORPUSCULAR VOLUME 115.4 fl (80.0-96.0)
[2022-01-28 13:10] LABS: APPEARANCE, URINE HAZY (CLEAR); BACTERIA, URINE AUTO NEGATIVE (NEGATIVE); BILIRUBIN, URINE AUTO NEGATIVE (NEGATIVE); BLOOD, URINE BLOOD NEGATIVE (NEGATIVE); COLOR, URINE AMBER (YELLOW); GLUCOSE, URINE (UA) AUTO NEGATIVE (NEGATIVE); GRANULAR CAST, URINE AUTO 1 /LPF; KETONE, URINE AUTO NEGATIVE (NEGATIVE); LEUKOCYTE ESTERASE, URINE AUTO NEGATIVE (NEGATIVE); MUCUS, URINE SMALL (NEGATIVE); NITRITE, URINE AUTO NEGATIVE (NEGATIVE); PROTEIN, URINE AUTO 1+ mg/dL (NEGATIVE); RBC, URINE AUTO 1 /HPF (0-3); SPECIFIC GRAVITY URINE AUTO 1.025 (1.002-1.035); SQUAMOUS EPITHELIAL CELL UR AU 0 /HPF (0-6); WBC, URINE AUTO 1 /HPF (0-3)
[2022-01-28 13:24] LABS: ERYTHROCYTE SEDIMENTATION RATE 69 mm/hr (0-20)
[2022-01-28 13:34] LABS: BLOOD UREA NITROGEN 27 MG/DL (7-18); C REACTIVE PROTEIN QUANTITATIV 1.56 MG/DL (0.00-0.30); CALCIUM LEVEL 9.6 MG/DL (8.8-10.2); CARBON DIOXIDE LEVEL 39 MEQ/L (21-32); CHLORIDE LEVEL 100 MEQ/L (98-107); COMPLEMENT C3 115 MG/DL (90-180); COMPLEMENT C4 20 MG/DL (10-40); CREATININE FOR GFR 0.73 MG/DL (0.70-1.30); GLOMERULAR FILTRATION RATE > 60.0 (>42); GLUCOSE, FASTING 135 MG/DL (70-100); IRON (FE) 29 UG/DL (65-175); MAGNESIUM LEVEL 2.1 MG/DL (1.8-2.4); PHOSPHORUS LEVEL 4.6 MG/DL (2.5-4.9); POTASSIUM SERUM 4.6 MEQ/L (3.5-5.1); SODIUM LEVEL 139 MEQ/L (136-145)
[2022-01-28 13:35] LABS: TOTAL 25(OH) VITAMIN D 133.8 NG/ML (30.0-100.0); VITAMIN B12 LEVEL > 2000 PG/ML (247-911)
[2022-01-28 13:39] LABS: PLATELET ESTIMATE NORMAL (NORMAL)
[2022-01-28 13:45] LABS: TOTAL PROTEIN,RANDOM URINE 82.8 MG/DL (0.0-12.0)
[2022-02-04 23:07] LABS: COMPLEMENT TOTAL (CH50) > 60 U/mL (>41); HLA-B27 Negative (.)
== END ==
LOC: M SFHCRHEU 10:12
PROVIDERS: ATTEND Internal Medicine
DX: M79.10 Myalgia, unspecified site (principal); M32.9 Systemic lupus erythematosus, unspecified; L60.8 Other nail disorders; M25.40 Effusion, unspecified joint; Z79.899 Other long term (current) drug therapy

== ENCOUNTER → 2022-02-19 | Outpatient (CLI) | payer MEDICARE | LOC: M LABSMTC 10:42 | PROVIDERS: ATTEND Anesthesiology | DX: Z01.812 Encounter for preprocedural laboratory examination (principal); Z20.822 Contact with and (suspected) exposure to COVID-19 ==

== ENCOUNTER 2022-02-24 11:21 | Day surgery (SDC) | payer MEDICARE ==
[~2022-02-24] VITALS: Ht 157.5 cm; Wt 52.5 kg
[~2022-02-24 11:21] MED LIST changes: +CIPROFLOXACIN 400 MG in IV 1 EA IV ONE; +LIDOCAINE 1% MDV 20ML VIAL SQ PRN; +LR 1,000 ML IV ONE
[2022-02-24] MEDS ORDERED: ONDANSETRON 4MG/2ML VIAL As Ordered ONE (11:42)
[2022-02-24] MEDS ORDERED: fentaNYL 100 MCG/2 ML INJECTION As Ordered ONE (11:42)
[2022-02-24] MEDS ORDERED: MIDAZOLAM INJ 2MG/2ML VIAL (J2250 PER 1MG) As Ordered ONE (11:42)
[2022-02-24] MEDS ORDERED: dexameTHASONE 4 MG/ML 1ML VIAL (J1100 PER 1MG) As Ordered ONE (11:42)
[2022-02-24] MEDS ORDERED: propofoL 200 MG/20 ML VIAL As Ordered ONE (11:42)
[2022-02-24] MEDS ORDERED: LIDOCAINE 2% 100MG/5ML SDV (FOR ANES.) As Ordered ONE (11:42)
[2022-02-24] MEDS ORDERED: VITA100T59 PO (11:48)
[2022-02-24] MEDS ORDERED: BIOT1CAP2 PO (11:48)
[2022-02-24] MEDS ORDERED: EQL50TAB2 PO (11:48)
[2022-02-24] MEDS ORDERED: ISOVUE-300 61% 50ML VIAL As Ordered ONE (13:07)
[2022-02-24] MEDS ORDERED: ACETAMINOPHEN 1000MG 100ML IV BTL (OFIRMEV) (J0131 PER 10MG) As Ordered ONE (13:21)
[2022-02-24] MEDS ORDERED: PHENYLephrine 500MCG 5ML (100MCG/ML) SYRINGE As Ordered ONE (13:30)
[2022-02-24] MEDS ORDERED: ePHEDrine SULFATE 25 MG/5 ML(5MG/ML) SYRINGE As Ordered ONE (13:30)
[2022-02-24] MEDS ORDERED: MACR100C43 PO (13:38)
[2022-02-24] MEDS ORDERED: ONDANSETRON 4MG/2ML VIAL IV PRN (13:55)
[2022-02-24] MEDS ORDERED: HYDROMORPHONE HCL 0.5 MG/ 0.5 ML SYRINGE (J1170 PER 1) IV PRN (13:55)
[2022-02-24] MEDS ORDERED: LR 1,000 ML IV SCH (13:55)
[2022-02-24] MEDS ORDERED: oxyCODONE 5MG TAB PO PRN (13:55)
[2022-02-24] MEDS ORDERED: fentaNYL 100 MCG/2 ML INJECTION IV PRN (13:55)
[2022-02-24 14:30] VITALS: BP 121/58
[2022-02-25 23:07] LABS: PSA TOTAL 0.4 ng/mL (0.0-4.0)
== END 2022-02-24 15:00 | disposition home or self-care (01) ==
LOC: M SDC 11:21
PROVIDERS: ATTEND Urology
DX: N32.9 Bladder disorder, unspecified (principal); Z85.89 Personal history of malignant neoplasm of other organs and systems; I11.9 Hypertensive heart disease without heart failure; K21.9 Gastro-esophageal reflux disease without esophagitis; D64.9 Anemia, unspecified; M32.9 Systemic lupus erythematosus, unspecified; F41.9 Anxiety disorder, unspecified; F32.9 Major depressive disorder, single episode, unspecified; G47.30 Sleep apnea, unspecified; N40.0 Benign prostatic hyperplasia without lower urinary tract symptoms; Z92.3 Personal history of irradiation; Z92.21 Personal history of antineoplastic chemotherapy; Z79.899 Other long term (current) drug therapy; Z79.52 Long term (current) use of systemic steroids; I50.9 Heart failure, unspecified
CPT/HCPCS: 36415; 52005; 74420; 84154; 88108; C1769; J0131; J0744; J1100; J2250; J2370; J2405; J3010; Q9967

== ENCOUNTER 2022-05-21 15:55 | Inpatient (IN) | payer MEDICARE ==
[~2022-05-21] VITALS: Ht 152.4 cm; Wt 50.1 kg
[2022-05-21] MEDS: NYSTATIN 100,000 UNITS/GM TOPICAL PWD 15 GM TOP SCH (01:29)
[~2022-05-21 15:55] MED LIST changes: +BIOT1CAP2 PO; -CIPROFLOXACIN 400 MG in IV 1 EA IV ONE; +EQL50TAB2 PO; -LIDOCAINE 1% MDV 20ML VIAL SQ PRN; -LR 1,000 ML IV ONE; +MACR100C43 PO; +VITA100T59 PO
[2022-05-21] MEDS ORDERED: NS 1,000 ML IV SCH (18:10)
[2022-05-21 19:06] LABS: BASO % 0.1 % (0.0-1.0); HEMATOCRIT 30.5 % (42.0-52.0); HEMOGLOBIN 9.4 g/dl (13.5-17.5); LYMPH # 0.7 10^3/uL (1.5-5.0); LYMPH % 6.4 % (24.0-44.0); MEAN CORPUSCULAR HEMOGLOBIN 34.8 pg (27.0-33.0); MEAN CORPUSCULAR HGB CONC 30.8 g/dl (32.0-36.5); MONO % 31.6 % (2.0-8.0); NEUTROPHILS # 7.1 10^3/uL (1.5-8.5); NEUTROPHILS % 60.5 % (36.0-66.0); WHITE BLOOD COUNT 11.6 10^3/uL (4.0-10.0)
[2022-05-21 19:24] LABS: MONO # 3.7 10^3/uL (0.0-0.8); PLATELET COUNT, AUTOMATED 69 10^3/uL (150-450)
[2022-05-21 19:52] LABS: RSV AMPLIFICATION NEGATIVE (NEGATIVE)
[2022-05-21 20:04] LABS: ALBUMIN 2.6 GM/DL (3.2-5.2); ALT/SGPT 18 U/L (12-78); BILIRUBIN,DIRECT < 0.1 MG/DL (0.0-0.2); BILIRUBIN,TOTAL 0.2 MG/DL (0.2-1.0); BLOOD UREA NITROGEN 21 MG/DL (7-18); CALCIUM LEVEL 8.7 MG/DL (8.8-10.2); CARBON DIOXIDE LEVEL 34 MEQ/L (21-32); CHLORIDE LEVEL 103 MEQ/L (98-107); CREATININE FOR GFR 0.64 MG/DL (0.70-1.30); GLOMERULAR FILTRATION RATE > 60.0 (>42); GLUCOSE, FASTING 119 MG/DL (70-100); POTASSIUM SERUM 4.3 MEQ/L (3.5-5.1); SODIUM LEVEL 142 MEQ/L (136-145); TOTAL PROTEIN 7.2 GM/DL (6.4-8.2)
[2022-05-21] MEDS ORDERED: PREGABALIN 100 MG CAP (LYRICA) PO SCH (21:00)
[2022-05-21] MEDS ORDERED: HYDROXYCHLOROQUINE 200 MG TAB PO SCH (21:00)
[2022-05-21] MEDS ORDERED: HOME MED LIST COMPLETE! XX SCH (22:35)
[2022-05-21] MEDS ORDERED: HYDR1SOL PO (22:35)
[2022-05-21] MEDS ORDERED: TRIA1OI TOP (22:35)
[2022-05-21] MEDS ORDERED: NYST1POW9 TOP (22:35)
[2022-05-21] MEDS ORDERED: C 50TAB PO (22:35)
[2022-05-21] MEDS ORDERED: VITA-172 PO (22:35)
[2022-05-21] MEDS ORDERED: LIDO2SOL17 PO (22:35)
[2022-05-21] MEDS ORDERED: ERGO500029 PO (22:35)
[2022-05-21] MEDS ORDERED: HYDROcodone/APAP LIQUID 7.5-325MG 15ML UDC (LORTAB ELIXIR) PO PRN (23:20)
[2022-05-21] MEDS ORDERED: NAPROXEN 250 MG TAB PO PRN (23:20)
[2022-05-22 00:40] VITALS: BP 148/85
[2022-05-22] MEDS: OMEPRAZOLE 20MG CAP PO SCH ×3 (01:28→20:30)
[2022-05-22] MEDS: DULoxetine 20 MG CAP (CYMBALTA) PO SCH ×3 (01:28→20:29)
[2022-05-22 02:00] VITALS: BP 152/88
[2022-05-22] MEDS ORDERED: NAPROXEN 250 MG TAB GT PRN (04:00)
[2022-05-22 06:00] VITALS: BP 151/86
[2022-05-22 06:45] LABS: BASO % 0.3 % (0.0-1.0); EOS % 0.3 % (0.0-3.0); HEMOGLOBIN 9.3 g/dl (13.5-17.5); LYMPH % 8.5 % (24.0-44.0); MEAN CORPUSCULAR HEMOGLOBIN 34.1 pg (27.0-33.0); MEAN CORPUSCULAR VOLUME 113.6 fl (80.0-96.0); MONO % 38.8 % (2.0-8.0); NEUTROPHILS # 5.9 10^3/uL (1.5-8.5); NEUTROPHILS % 50.3 % (36.0-66.0); RED BLOOD COUNT 2.73 10^6/uL (4.30-6.10); WHITE BLOOD COUNT 11.7 10^3/uL (4.0-10.0)
[2022-05-22 07:03] LABS: BLOOD UREA NITROGEN 14 MG/DL (7-18); CALCIUM LEVEL 8.2 MG/DL (8.8-10.2); CARBON DIOXIDE LEVEL 33 MEQ/L (21-32); CHLORIDE LEVEL 104 MEQ/L (98-107); GLOMERULAR FILTRATION RATE > 60.0 (>42); GLUCOSE, FASTING 94 MG/DL (70-100); POTASSIUM SERUM 3.8 MEQ/L (3.5-5.1); SODIUM LEVEL 141 MEQ/L (136-145)
[2022-05-22 07:18] LABS: MONO # 4.5 10^3/uL (0.0-0.8); PLATELET COUNT, AUTOMATED 59 10^3/uL (150-450)
[2022-05-22] MEDS: ASCORBIC ACID 500 MG TAB GT SCH (08:26)
[2022-05-22] MEDS: predniSONE 10 MG TAB GT SCH (08:26)
[2022-05-22] MEDS: CYANOCOBALAMIN 500 MCG TAB GT SCH (08:27)
[2022-05-22] MEDS: PREGABALIN 100 MG CAP (LYRICA) GT SCH ×3 (08:27→20:30)
[2022-05-22] MEDS: HYDROXYCHLOROQUINE 200 MG TAB GT SCH ×2 (08:27→20:30)
[2022-05-22] MEDS: NYSTATIN 100,000 UNITS/GM TOPICAL PWD 15 GM TOP SCH ×2 (08:29→20:30)
[2022-05-22] MEDS: TRIAMCINOLONE ACET 0.1% OINTMENT 15 GM TOP SCH ×2 (08:29→20:30)
[2022-05-22] MEDS: HYDROcodone/APAP LIQUID 7.5-325MG 15ML UDC (LORTAB ELIXIR) GT PRN ×2 (08:33→16:48)
[2022-05-22] MEDS ORDERED: ASCORBIC ACID 500 MG TAB PO SCH (09:00)
[2022-05-22] MEDS ORDERED: predniSONE 5 MG TAB PO SCH (09:00)
[2022-05-22] MEDS ORDERED: ENOXAPARIN 40MG/0.4ML SYRINGE (J1650 PER 10MG) SC SCH ×2 (09:00)
[2022-05-22] MEDS ORDERED: CYANOCOBALAMIN 500 MCG TAB PO SCH (09:00)
[2022-05-22 10:45] VITALS: BP 148/82
[2022-05-22 14:30] VITALS: BP 154/81
[2022-05-22] MEDS ORDERED: HYDROcodone/APAP LIQUID 7.5-325MG 15ML UDC (LORTAB ELIXIR) PO ONE (19:30)
[2022-05-22 19:55] VITALS: BP 160/90
[2022-05-22] MEDS: NS 1,000 ML IV SCH (20:29)
[2022-05-23] MEDS: NS 1,000 ML IV SCH ×2 (04:15→07:28)
[2022-05-23 05:58] LABS: HEMATOCRIT 32.8 % (42.0-52.0); HEMOGLOBIN 9.9 g/dl (13.5-17.5); MEAN CORPUSCULAR HEMOGLOBIN 34.1 pg (27.0-33.0); MEAN CORPUSCULAR HGB CONC 30.2 g/dl (32.0-36.5); MEAN CORPUSCULAR VOLUME 113.1 fl (80.0-96.0); PLATELET COUNT, AUTOMATED 74 10^3/uL (150-450); WHITE BLOOD COUNT 10.1 10^3/uL (4.0-10.0)
[2022-05-23 06:16] VITALS: BP 162/90
[2022-05-23 06:29] LABS: ALBUMIN 2.3 GM/DL (3.2-5.2); ALT/SGPT 16 U/L (12-78); BILIRUBIN,TOTAL 0.4 MG/DL (0.2-1.0); BLOOD UREA NITROGEN 11 MG/DL (7-18); CALCIUM LEVEL 8.4 MG/DL (8.8-10.2); CARBON DIOXIDE LEVEL 30 MEQ/L (21-32); CHLORIDE LEVEL 100 MEQ/L (98-107); CREATININE FOR GFR 0.45 MG/DL (0.70-1.30); GLOMERULAR FILTRATION RATE > 60.0 (>42); GLUCOSE, FASTING 45 MG/DL (70-100); SODIUM LEVEL 137 MEQ/L (136-145); TOTAL PROTEIN 6.9 GM/DL (6.4-8.2)
[2022-05-23] MEDS: PREGABALIN 100 MG CAP (LYRICA) GT SCH ×3 (07:25→20:58)
[2022-05-23] MEDS: LIDOCAINE 5% OINT 30GM TUBE TOP PRN (07:25)
[2022-05-23] MEDS: LIDOCAINE VISCOUS 2% SOLN 15ML UDC MT PRN ×2 (07:25→17:06)
[2022-05-23] MEDS: ASCORBIC ACID 500 MG TAB GT SCH (07:26)
[2022-05-23] MEDS: predniSONE 10 MG TAB GT SCH (07:26)
[2022-05-23] MEDS: HYDROXYCHLOROQUINE 200 MG TAB GT SCH ×2 (07:26→20:58)
[2022-05-23] MEDS: OMEPRAZOLE 20MG CAP PO SCH ×2 (07:26→20:58)
[2022-05-23] MEDS: CYANOCOBALAMIN 500 MCG TAB GT SCH (07:26)
[2022-05-23] MEDS: DULoxetine 20 MG CAP (CYMBALTA) PO SCH ×2 (07:26→20:58)
[2022-05-23] MEDS: TRIAMCINOLONE ACET 0.1% OINTMENT 15 GM TOP SCH ×2 (07:27→21:02)
[2022-05-23] MEDS: NYSTATIN 100,000 UNITS/GM TOPICAL PWD 15 GM TOP SCH ×2 (07:27→21:03)
[2022-05-23] MEDS: HYDROcodone/APAP LIQUID 7.5-325MG 15ML UDC (LORTAB ELIXIR) GT PRN ×3 (07:29→17:55)
[2022-05-23] MEDS: D5W/0.9% SODIUM CHLORIDE 1,000 ML IV SCH ×2 (07:45→13:21)
[2022-05-23] MEDS ORDERED: LIDOCAINE 1% MDV 20ML VIAL As Ordered ONE (13:32)
[2022-05-23 15:02] VITALS: BP 147/85
[2022-05-23] MEDS: SODIUM CHLORIDE 0.9% INJ 10 ML SYR IV SCH (17:07)
[2022-05-23] MEDS ORDERED: ACETAMINOPHEN 325 MG/10.15 ML UDC GT PRN (17:20)
[2022-05-23] MEDS: INSULIN LISPRO (NovoLOG) PER UNIT SC SCH (18:00)
[2022-05-23] MEDS ORDERED: MULTIVITAMIN -ADULT INJECTION 10 ML, ZINC/COPPER/MANGANESE/SELENIUM 1 ML in AMINO AC/EL... IV SCH (18:00)
[2022-05-23 20:06] VITALS: BP 164/74
[2022-05-24] MEDS: INSULIN LISPRO (NovoLOG) PER UNIT SC SCH ×3 (06:00→12:00)
[2022-05-24 06:19] VITALS: BP 163/84
[2022-05-24] MEDS: SODIUM CHLORIDE 0.9% INJ 10 ML SYR IV SCH ×2 (06:50→17:13)
[2022-05-24 07:34] LABS: HEMATOCRIT 31.7 % (42.0-52.0); HEMOGLOBIN 10.1 g/dl (13.5-17.5); MEAN CORPUSCULAR HEMOGLOBIN 34.4 pg (27.0-33.0); MEAN CORPUSCULAR HGB CONC 31.9 g/dl (32.0-36.5); MEAN CORPUSCULAR VOLUME 107.8 fl (80.0-96.0); RED BLOOD COUNT 2.94 10^6/uL (4.30-6.10)
[2022-05-24 07:35] LABS: PLATELET COUNT, AUTOMATED 68 10^3/uL (150-450)
[2022-05-24 07:58] LABS: ALBUMIN 2.2 GM/DL (3.2-5.2); ALT/SGPT 13 U/L (12-78); BILIRUBIN,TOTAL 0.2 MG/DL (0.2-1.0); BLOOD UREA NITROGEN 10 MG/DL (7-18); CALCIUM LEVEL 8.4 MG/DL (8.8-10.2); CARBON DIOXIDE LEVEL 30 MEQ/L (21-32); CHLORIDE LEVEL 100 MEQ/L (98-107); CREATININE FOR GFR 0.46 MG/DL (0.70-1.30); GLOMERULAR FILTRATION RATE > 60.0 (>42); GLUCOSE, FASTING 161 MG/DL (70-100); POTASSIUM SERUM 3.6 MEQ/L (3.5-5.1); SODIUM LEVEL 136 MEQ/L (136-145); TOTAL PROTEIN 6.8 GM/DL (6.4-8.2)
[2022-05-24] MEDS: HYDROcodone/APAP LIQUID 7.5-325MG 15ML UDC (LORTAB ELIXIR) GT PRN (08:07)
[2022-05-24 08:45] VITALS: BP 158/69
[2022-05-24] MEDS ORDERED: ASCORBIC ACID 500 MG TAB PO SCH (09:00)
[2022-05-24] MEDS ORDERED: predniSONE 10 MG TAB PO SCH (09:00)
[2022-05-24] MEDS ORDERED: CYANOCOBALAMIN 500 MCG TAB PO SCH (09:00)
[2022-05-24] MEDS ORDERED: ACETAMINOPHEN 325 MG/10.15 ML UDC PO PRN (09:15)
[2022-05-24] MEDS: OMEPRAZOLE 20MG CAP PO SCH ×2 (10:57→20:28)
[2022-05-24] MEDS: PREGABALIN 100 MG CAP (LYRICA) PO SCH ×3 (10:59→20:28)
[2022-05-24] MEDS: HYDROXYCHLOROQUINE 200 MG TAB PO SCH ×2 (11:00→20:29)
[2022-05-24] MEDS: DULoxetine 20 MG CAP (CYMBALTA) PO SCH ×2 (11:01→20:29)
[2022-05-24 11:38] VITALS: BP 149/87
[2022-05-24] MEDS: NYSTATIN 100,000 UNITS/GM TOPICAL PWD 15 GM TOP SCH ×2 (12:22→20:29)
[2022-05-24] MEDS: TRIAMCINOLONE ACET 0.1% OINTMENT 15 GM TOP SCH ×2 (12:23→20:29)
[2022-05-24 14:00] VITALS: BP 118/70
[2022-05-24] MEDS: MORPHINE 4 MG/ML 1ML VIAL/SYRINGE IV PRN (17:18)
[2022-05-24 18:00] VITALS: BP 143/78
[2022-05-24] MEDS ORDERED: AMINO AC/ELECTROLYTE/DEX/CALC 2,566 ML IV SCH (18:00)
[2022-05-24] MEDS: LIDOCAINE VISCOUS 2% SOLN 15ML UDC MT PRN (20:40)
[2022-05-24] MEDS: LIDOCAINE 5% OINT 30GM TUBE TOP PRN (20:40)
[2022-05-24 22:00] VITALS: BP 143/79
[2022-05-25 02:00] VITALS: BP 141/79
[2022-05-25] MEDS: SODIUM CHLORIDE 0.9% INJ 10 ML SYR IV SCH ×2 (05:04→17:25)
[2022-05-25 06:00] VITALS: BP 142/79
[2022-05-25 06:36] LABS: HEMATOCRIT 32.1 % (42.0-52.0); HEMOGLOBIN 10.3 g/dl (13.5-17.5); MEAN CORPUSCULAR HEMOGLOBIN 34.7 pg (27.0-33.0); MEAN CORPUSCULAR HGB CONC 32.1 g/dl (32.0-36.5); MEAN CORPUSCULAR VOLUME 108.1 fl (80.0-96.0); PLATELET COUNT, AUTOMATED 67 10^3/uL (150-450); RED BLOOD COUNT 2.97 10^6/uL (4.30-6.10); WHITE BLOOD COUNT 10.9 10^3/uL (4.0-10.0)
[2022-05-25 07:01] LABS: ALBUMIN 2.2 GM/DL (3.2-5.2); ALT/SGPT 17 U/L (12-78); BILIRUBIN,TOTAL 0.2 MG/DL (0.2-1.0); BLOOD UREA NITROGEN 12 MG/DL (7-18); CALCIUM LEVEL 8.6 MG/DL (8.8-10.2); CARBON DIOXIDE LEVEL 32 MEQ/L (21-32); CHLORIDE LEVEL 97 MEQ/L (98-107); GLOMERULAR FILTRATION RATE > 60.0 (>42); GLUCOSE, FASTING 150 MG/DL (70-100); POTASSIUM SERUM 3.9 MEQ/L (3.5-5.1); SODIUM LEVEL 132 MEQ/L (136-145); TOTAL PROTEIN 7.4 GM/DL (6.4-8.2)
[2022-05-25] MEDS: MORPHINE 4 MG/ML 1ML VIAL/SYRINGE IV PRN ×2 (09:28→13:39)
[2022-05-25] MEDS: PANTOPRAZOLE 40MG VIAL IV SCH ×2 (09:28→20:54)
[2022-05-25] MEDS: SODIUM CHLORIDE 0.9% INJ 10 ML SYR IV PRN (09:29)
[2022-05-25] MEDS: TRIAMCINOLONE ACET 0.1% OINTMENT 15 GM TOP SCH ×2 (09:30→20:56)
[2022-05-25] MEDS: NYSTATIN 100,000 UNITS/GM TOPICAL PWD 15 GM TOP SCH ×2 (09:30→20:55)
[2022-05-25] MEDS: HYDROXYCHLOROQUINE 200 MG TAB PO SCH ×2 (09:30→20:54)
[2022-05-25] MEDS: PREGABALIN 100 MG CAP (LYRICA) PO SCH ×3 (09:30→20:54)
[2022-05-25] MEDS: DULoxetine 20 MG CAP (CYMBALTA) PO SCH ×2 (09:30→20:54)
[2022-05-25] MEDS: LIDOCAINE 5% OINT 30GM TUBE TOP PRN (09:31)
[2022-05-25] MEDS ORDERED: diphenhydrAMINE 50MG/ML VIAL (J1200) IV ONE (09:35)
[2022-05-25 10:00] VITALS: BP 144/72
[2022-05-25 14:30] VITALS: BP 129/77
[2022-05-25] MEDS ORDERED: AMINO AC/ELECTROLYTE/DEX/CALC 2,566 ML IV SCH (18:00)
[2022-05-25 22:00] VITALS: BP 144/77
[2022-05-26] MEDS: MORPHINE 4 MG/ML 1ML VIAL/SYRINGE IV PRN ×2 (00:49→21:07)
[2022-05-26 02:00] VITALS: BP 130/50
[2022-05-26] MEDS: SODIUM CHLORIDE 0.9% INJ 10 ML SYR IV PRN (05:26)
[2022-05-26] MEDS: SODIUM CHLORIDE 0.9% INJ 10 ML SYR IV SCH ×2 (05:26→18:07)
[2022-05-26 06:00] VITALS: BP 150/87
[2022-05-26 06:29] LABS: HEMATOCRIT 33.4 % (42.0-52.0); HEMOGLOBIN 10.5 g/dl (13.5-17.5); MEAN CORPUSCULAR HEMOGLOBIN 34.3 pg (27.0-33.0); MEAN CORPUSCULAR HGB CONC 31.4 g/dl (32.0-36.5); MEAN CORPUSCULAR VOLUME 109.2 fl (80.0-96.0); RED BLOOD COUNT 3.06 10^6/uL (4.30-6.10); WHITE BLOOD COUNT 17.5 10^3/uL (4.0-10.0)
[2022-05-26 06:37] LABS: PLATELET COUNT, AUTOMATED 64 10^3/uL (150-450)
[2022-05-26 06:51] LABS: ALBUMIN 2.4 GM/DL (3.2-5.2); ALT/SGPT 16 U/L (12-78); BILIRUBIN,TOTAL 0.3 MG/DL (0.2-1.0); BLOOD UREA NITROGEN 17 MG/DL (7-18); CALCIUM LEVEL 8.5 MG/DL (8.8-10.2); CARBON DIOXIDE LEVEL 30 MEQ/L (21-32); CHLORIDE LEVEL 95 MEQ/L (98-107); CREATININE FOR GFR 0.44 MG/DL (0.70-1.30); GLOMERULAR FILTRATION RATE > 60.0 (>42); GLUCOSE, FASTING 155 MG/DL (70-100); POTASSIUM SERUM 4.1 MEQ/L (3.5-5.1); SODIUM LEVEL 131 MEQ/L (136-145); TOTAL PROTEIN 7.5 GM/DL (6.4-8.2)
[2022-05-26 07:15] VITALS: BP 135/50
[2022-05-26] MEDS: IPRATROPIUM 0.5MG/ALBUTEROL 2.5MG INH SOL UD 3ML (DUONEB) NEB SCH ×3 (09:20→19:45)
[2022-05-26] MEDS: DULoxetine 20 MG CAP (CYMBALTA) PO SCH (09:44)
[2022-05-26] MEDS: HYDROXYCHLOROQUINE 200 MG TAB PO SCH (09:44)
[2022-05-26] MEDS: PREGABALIN 100 MG CAP (LYRICA) PO SCH ×2 (09:44→15:48)
[2022-05-26] MEDS: NYSTATIN 100,000 UNITS/GM TOPICAL PWD 15 GM TOP SCH ×2 (09:45→21:00)
[2022-05-26] MEDS: TRIAMCINOLONE ACET 0.1% OINTMENT 15 GM TOP SCH ×2 (09:45→21:00)
[2022-05-26] MEDS: PANTOPRAZOLE 40MG VIAL IV SCH ×2 (10:26→21:06)
[2022-05-26] MEDS ORDERED: cefTRIAXone SOD 1 GM in D5W MINI-BAG PLUS 50 ML IV SCH ×2 (15:00→16:35)
[2022-05-26] MEDS ORDERED: CHLORASEPTIC SPRAY MT PRN (16:35)
[2022-05-26] MEDS ORDERED: VANCOMYCIN HCL 1,000 MG, VIAL MATE ADAPTER 1 EACH in NS 250 ML IV SCH (16:35)
[2022-05-26] MEDS ORDERED: MULTIVITAMIN -ADULT INJECTION 10 ML, ZINC/COPPER/MANGANESE/SELENIUM 1 ML in AMINO AC/EL... IV SCH (18:00)
[2022-05-26] MEDS ORDERED: VANCOMYCIN HCL 750 MG, VIAL MATE ADAPTER 1 EACH in D5W 250 ML IV SCH (18:00)
[2022-05-26] MEDS: KETOROLAC 30 MG/ML 1ML VIAL IV PRN (18:08)
[2022-05-26] MEDS ORDERED: NS 500 ML IV ONE (18:35)
[2022-05-26] MEDS ORDERED: VANCOMYCIN HCL 1,000 MG, VIAL MATE ADAPTER 1 EACH in D5W 250 ML IV ONE (19:00)
[2022-05-26 20:11] VITALS: BP 116/62
[2022-05-26] MEDS ORDERED: ISOVUE-370 76% 100ML VIAL As Ordered ONE (20:21)
[2022-05-27] MEDS ORDERED: dexameTHASONE 4 MG/ML 1ML VIAL (J1100 PER 1MG) IV ONE
[2022-05-27 00:01] VITALS: BP 123/62
[2022-05-27] MEDS: IPRATROPIUM 0.5MG/ALBUTEROL 2.5MG INH SOL UD 3ML (DUONEB) NEB SCH ×4 (00:07→20:01)
[2022-05-27] MEDS: AMPICILLIN SOD/SULBACTAM SOD 3 GM in D5W MINI-BAG PLUS 100 ML IV SCH ×4 (00:15→17:57)
[2022-05-27] MEDS: MORPHINE 4 MG/ML 1ML VIAL/SYRINGE IV PRN (01:10)
[2022-05-27] MEDS: VANCOMYCIN HCL 750 MG, VIAL MATE ADAPTER 1 EACH in D5W 250 ML IV SCH ×2 (02:20→12:03)
[2022-05-27] MEDS: SODIUM CHLORIDE 0.9% INJ 10 ML SYR IV SCH ×2 (04:28→17:56)
[2022-05-27 06:19] LABS: BASO % 0.1 % (0.0-1.0); HEMATOCRIT 31.4 % (42.0-52.0); HEMOGLOBIN 9.7 g/dl (13.5-17.5); LYMPH # 0.3 10^3/uL (1.5-5.0); MEAN CORPUSCULAR HEMOGLOBIN 34.2 pg (27.0-33.0); MEAN CORPUSCULAR HGB CONC 30.9 g/dl (32.0-36.5); MEAN CORPUSCULAR VOLUME 110.6 fl (80.0-96.0); MONO # 1.5 10^3/uL (0.0-0.8); NEUTROPHILS % 71.2 % (36.0-66.0); RED BLOOD COUNT 2.84 10^6/uL (4.30-6.10)
[2022-05-27] MEDS: SODIUM CHLORIDE 0.9% INJ 10 ML SYR IV PRN (06:23)
[2022-05-27 06:29] LABS: PLATELET COUNT, AUTOMATED 47 10^3/uL (150-450)
[2022-05-27 06:30] VITALS: BP 121/62
[2022-05-27 07:06] LABS: ALBUMIN 2.1 GM/DL (3.2-5.2); ALT/SGPT 22 U/L (12-78); BILIRUBIN,TOTAL 0.3 MG/DL (0.2-1.0); BLOOD UREA NITROGEN 14 MG/DL (7-18); CALCIUM LEVEL 8.3 MG/DL (8.8-10.2); CARBON DIOXIDE LEVEL 34 MEQ/L (21-32); CHLORIDE LEVEL 92 MEQ/L (98-107); CREATININE FOR GFR 0.61 MG/DL (0.70-1.30); GLOMERULAR FILTRATION RATE > 60.0 (>42); GLUCOSE, FASTING 252 MG/DL (70-100); MAGNESIUM LEVEL 2.1 MG/DL (1.8-2.4); SODIUM LEVEL 130 MEQ/L (136-145); TOTAL PROTEIN 7.2 GM/DL (6.4-8.2)
[2022-05-27] MEDS: TRIAMCINOLONE ACET 0.1% OINTMENT 15 GM TOP SCH ×2 (08:48→21:58)
[2022-05-27] MEDS: PANTOPRAZOLE 40MG VIAL IV SCH (08:48)
[2022-05-27] MEDS: NYSTATIN 100,000 UNITS/GM TOPICAL PWD 15 GM TOP SCH ×2 (08:49→21:25)
[2022-05-27] MEDS ORDERED: VITAMIN D 50,000 UNITS CAPSULE (ERGOCALCIFEROL 1.25MG) PO SCH (09:00)
[2022-05-27] MEDS: KETOROLAC 30 MG/ML 1ML VIAL IV PRN (13:07)
[2022-05-27 14:00] VITALS: BP 121/61
[2022-05-27] MEDS ORDERED: LORazepam 2 MG/ML VIAL IV PRN (16:10)
[2022-05-27] MEDS ORDERED: LORazepam 1 MG TAB PO PRN (16:10)
[2022-05-27] MEDS ORDERED: ONDANSETRON 4MG 2ML VIAL IV PRN (16:10)
[2022-05-27] MEDS ORDERED: BISACODYL 10 MG SUPP PR PRN (16:10)
[2022-05-27] MEDS ORDERED: HYOSCYAMINE SULFATE 0.125 MG SUBL TABLET PO PRN (16:10)
[2022-05-27] MEDS ORDERED: SCOPOLAMINE 1MG TRANSDERMAL PATCH TOP PRN (16:10)
[2022-05-27] MEDS ORDERED: ATROPINE SULFATE 1% OP SOLN 2 ML BTL SL PRN (16:10)
[2022-05-27] MEDS ORDERED: MORPHINE 2 MG/ML 1ML VIAL IV PRN (16:10)
[2022-05-27] MEDS ORDERED: MORPHINE 10MG/0.5ML ORAL CONCENTRATE SOLUTION U/D SL PRN (16:10)
[2022-05-27] MEDS ORDERED: FLEET ENEMA PR PRN (16:10)
[2022-05-27] MEDS: LIDOCAINE 5% OINT 30GM TUBE TOP PRN (21:26)
[2022-05-28] MEDS: AMPICILLIN SOD/SULBACTAM SOD 3 GM in D5W MINI-BAG PLUS 100 ML IV SCH ×3 (00:09→11:24)
[2022-05-28] MEDS: IPRATROPIUM 0.5MG/ALBUTEROL 2.5MG INH SOL UD 3ML (DUONEB) NEB SCH ×3 (02:00→14:28)
[2022-05-28] MEDS: SODIUM CHLORIDE 0.9% INJ 10 ML SYR IV SCH (06:11)
[2022-05-28] MEDS: NYSTATIN 100,000 UNITS/GM TOPICAL PWD 15 GM TOP SCH (08:46)
[2022-05-28] MEDS: TRIAMCINOLONE ACET 0.1% OINTMENT 15 GM TOP SCH (08:46)
[2022-05-28] MEDS ORDERED: AMOX400S PO (11:25)
[2022-05-28] MEDS ORDERED: LIDO5OIN19 TOP (11:25)
[2022-05-28] MEDS ORDERED: HYDR1SOL PO (11:25)
[2022-05-28] MEDS ORDERED: CHLORSP MT (11:25)
[2022-05-28] MEDS ORDERED: LIDO2SOL17 PO (11:25)
[2022-05-28] MEDS ORDERED: SANI2SUP PR (11:25)
[2022-05-28] MEDS ORDERED: ATIV1TAB10 NG (11:25)
[2022-05-28] MEDS ORDERED: HYOS125TA NG (11:25)
[2022-05-28] MEDS ORDERED: MORP1SOL5 PO (11:25)
[2022-05-28] MEDS ORDERED: MIRA3350 NG (11:25)
[2022-05-28] MEDS ORDERED: ACET325S6 PO (11:25)
== END 2022-05-28 12:45 | disposition home or self-care (01) | DRG 393 ==
LOC: M ED 15:55 → M ED INP 22:35 → M MS5PR 05-22 00:36
PROVIDERS: ADMIT Internal Medicine; ATTEND Family Medicine
PROC: 02HV33Z Insertion of Infusion Device into Superior Vena Cava, Percutaneous Approach (ICD-10-PCS; principal; 2022-05-23 15:00)
DX: K94.23 Gastrostomy malfunction (principal); A41.9 Sepsis, unspecified organism; I50.32 Chronic diastolic (congestive) heart failure; K90.9 Intestinal malabsorption, unspecified; J39.1 Other abscess of pharynx; E46 Unspecified protein-calorie malnutrition; D53.9 Nutritional anemia, unspecified; F39 Unspecified mood [affective] disorder; M06.9 Rheumatoid arthritis, unspecified; M35.00 Sjogren syndrome, unspecified; D69.6 Thrombocytopenia, unspecified; M32.9 Systemic lupus erythematosus, unspecified; R63.4 Abnormal weight loss; K21.9 Gastro-esophageal reflux disease without esophagitis; G89.29 Other chronic pain; R21 Rash and other nonspecific skin eruption; Z66 Do not resuscitate; D75.9 Disease of blood and blood-forming organs, unspecified; G47.33 Obstructive sleep apnea (adult) (pediatric); R53.1 Weakness; F12.90 Cannabis use, unspecified, uncomplicated; Z79.891 Long term (current) use of opiate analgesic; Z96.651 Presence of right artificial knee joint; R62.7 Adult failure to thrive; Z92.3 Personal history of irradiation; Z92.21 Personal history of antineoplastic chemotherapy; Z85.810 Personal history of malignant neoplasm of tongue; Z51.5 Encounter for palliative care; Z88.8 Allergy status to other drugs, medicaments and biological substances; G62.0 Drug-induced polyneuropathy; D70.1 Agranulocytosis secondary to cancer chemotherapy; Z87.891 Personal history of nicotine dependence; Z79.899 Other long term (current) drug therapy